=== PATIENT | male | born 1970 | race Caucasian/White ===

== ENCOUNTER 2017-10-24 20:52 | Inpatient (IN) | payer OTHER ==
[2017-10-24 21:59] VITALS: BMI 32.8
--- NOTE | 2017-10-24 22:56 | HP ---
"COWS - Scale Resting Pulse: 1= TN 81-100 Sweatin= Chills/Flushing Restless Observation: 1= Difficult to Sit Still Pupil Size: 0= Normal to Room Light Bone or Joint Aches: 2= Severe Diffuse Aches Runny Nose/ Eye Tearin= Nasal Congestion GI Upset > 30mins: 2= Nausea/Diarrhea Tremor Observation: 1= Tremor [place], Not Seen Yawning Observation: 1= 1-2x During Session Anxiety or Irritability: 2=Irritable/Anxious Goose Flesh Skin: 3=Piloerection COWS Score: 15 CIWA Score - CIWA Score Nausea/Vomitin Muscle Tremors: 3 Anxiety: 3 Agitation: 3 Paroxysmal Sweats: 3 Orientation: 0-Oriented Tacttile Disturbances: 1-Very Mild Itch/Numbness Auditory Disturbances: 0-None Visual Disturbances: 0-None Headache: 1-Very Mild CIWA-Ar Total Score: 17 Admission ROS BHS - HPI Chief Complaint: alcohol and opioid withdrawal sx Allergies/Adverse Reactions: Allergies Allergy/AdvReac Type Severity Reaction Status Date / Time No Known Allergies Allergy Verified 08/19/14 14:24 History of Present Illness: 47 yo m with h/o chronic alcoholism was sent for detox by pain managment physician (gerry Hammer, JUAN DAVID?) because he was using heroin and needs to be inducted in her opinion onto suboxone for pain and addiction. to follow up at [facility] after rehab and suboxone on induction PMHX chronic low back pain, asthma, alcohol withdrawal seizures in past and epilepsy on medication which he takes. last seiuzre a few weeks ago. no suicidal ideation no suicide attempts has depression, anxiety and insomnia. Has been admitted to [facility] for inpatient detox and rehab from alcohol and opioids in past as per medical record. Plan is to detox from alcohol and start induction on suboxone, dose should be divided to treat chronic back pain and adjusted upwards as needed. will start iwth 2mg bid. Charanjit chapin, 1970 Search Date: 10/24/2017 10:59:23 PM The Drug Utilization Report below displays all of the controlled substance prescriptions, if any, that your patient has filled in the last twelve months. The information displayed on this report is compiled from pharmacy submissions to the Department, and accurately reflects the information as submitted by the pharmacies. This report was requested by: Sachin Galloway | Reference #: [id number] Others' Prescriptions Patient Name: Charanjit Chapin Date: 1970 Address: [address] [place] [address] Sex: Male Rx Written Rx Dispensed Drug Quantity Days Supply Prescriber Name 07/04/2017 10/17/2017 phenobarbital 64.8 mg tablet 60 30 Nitza Perea () 07/04/2017 09/19/2017 phenobarbital 64.8 mg tablet 60 30 Nitza Perea () Patient Name: Charanjit Chapin Date: 1970 Address: [address] [place] [place] [address] Sex: Male Rx Written Rx Dispensed Drug Quantity Days Supply Prescriber Name 07/04/2017 08/19/2017 phenobarbital 64.8 mg tablet 60 30 Nitza Perea () 07/04/2017 08/19/2017 zolpidem tartrate 10 mg tablet 30 30 Nitza Perea () 08/05/2017 08/05/2017 acetaminophen-cod #3 tablet 20 5 Jonathan Story N 07/04/2017 07/19/2017 phenobarbital 64.8 mg tablet 60 30 Nitza Perea) 07/04/2017 07/19/2017 zolpidem tartrate 10 mg tablet 30 30 Nitza Perea) 04/06/2017 06/20/2017 phenobarbital 64.8 mg tablet 60 30 Tripp-Walter, Valerie Y 04/06/2017 06/20/2017 zolpidem tartrate 10 mg tablet 30 30 Tripp-Philp, Valerie Y 04/06/2017 05/20/2017 phenobarbital 64.8 mg tablet 60 30 Tripp-Philp, Valerie Y 04/06/2017 05/20/2017 zolpidem tartrate 10 mg tablet 30 30 Tripp-Philp, Valerie Y 04/06/2017 04/18/2017 zolpidem tartrate 10 mg tablet 30 30 Tripp-Philp, Valerie Y 04/06/2017 04/07/2017 phenobarbital 64.8 mg tablet 60 30 Tripp-Walter, Valerie Y Exam Limitations: No Limitations - Ebola screening Have you traveled outside of the country in the last 21 days: No Have you had contact with anyone from an Ebola affected area: No Have you been sick,other than usual withdrawal symptoms: No Do you have a fever: No - Review of Systems Constitutional: Chills, Diaphoresis, Changes in sleep, Weakness, Weight Stable EENT: reports: No Symptoms Reported, Blurred Vision, Recent change in vision ( blind right eye, losing sight in left ye, born that nm but deteriorating at this time) Respiratory: reports: No Symptoms reported Cardiac: reports: No Symptoms Reported GI: reports: Diarrhea, Nausea, Poor Appetite, Poor Fluid Intake, Vomiting, Abdominal cramping : reports: No Symptoms Reported Musculoskeletal: reports: Back Pain Integumentary: reports: Flushing, Sweating Neuro: reports: Headache, Numbness, Paresthesia, Seizure (maximo several meds which he has not taken today), Tingling, Tremors, Weakness Endocrine: reports: Flushing, Increased Thirst Hematology: reports: No Symptoms Reported Psychiatric: reports: Judgement Intact, Mood/Affect Appropiate, Orientated x3, Anxious, Depressed Other Systems: Reviewed and Negative Patient History - Patient Medical History Hx Anemia: No Hx Asthma: Yes (on MDI) Hx Chronic Obstructive Pulmonary Disease (COPD): No Hx Cancer: No Hx Cardiac Disorders: No Hx Congestive Heart Failure: No Hx Hypertension: Yes Hx Hypercholesterolemia: No Hx Pacemaker: No HX Cerebrovascular Accident: No Hx Seizures: Yes (on meds, last seizure a month ago) Hx Dementia: No Hx Diabetes: No Hx Gastrointestinal Disorders: No Hx Liver Disease: No Hx Genitourinary Disorders: No Hx Sexually Transmitted Disorders: No Hx Renal Disease (ESRD): Yes (renal insufficiency stage III) Hx Thyroid Disease: No Hx Human Immunodeficiency Virus (HIV): No Hx Hepatitis C: No Hx Depression: Yes Hx Suicide Attempt: No Hx Bipolar Disorder: No Hx Schizophrenia: No - Patient Surgical History Past Surgical History: No Hx Neurologic Surgery: No Hx Cataract Extraction: No Hx Cardiac Surgery: No Hx Lung Surgery: No Hx Breast Surgery: No Hx Breast Biopsy: No Hx Abdominal Surgery: No Hx Appendectomy: No Hx Cholecystectomy: No Hx Genitourinary Surgery: No Hx Section: No Hx Orthopedic Surgery: No Other Surgical History: right eye surgery /born with right eye blindness Anesthesia Reaction: No - PPD History Previous Implant?: Yes Documented Results: Negative w/o proof Implanted On Prior R Admission?: Yes PPD to be Administered?: Yes - Reproductive History Patient is a Female of Child Bearing Age (11 -55 yrs old): No Patient : No - Smoking Cessation Smoking history: Current every day smoker (states one or two daily) Have you smoked in the past 12 months: Yes Aproximately how many cigarettes per day: 2 If you are a former smoker, when did you quit?: 1 year Cigars Per Day: 0 Hx Chewing Tobacco Use: No Initiated information on smoking cessation: Yes 'Breaking Loose' booklet given: 10/24/17 - Substance & Tx. History Hx Alcohol Use: Yes Hx Substance Use: Yes Substance Use Type: Alcohol, Cocaine, Heroin, Prescribed, Tranquilizers Hx Substance Use Treatment: Yes ([facility] C[facility] ) - Substances Abused Heroin Route: Inhalation Frequency: 3-6 times per week Amount used: $50/day Age of first use: 45 Date of Last Use: 10/21/17 Alcohol Route: Oral Frequency: Daily Amount used: 2pints vodka daily Age of first use: 15 Date of Last Use: 10/24/17 Crack Route: Smoking Frequency: Daily Amount used: $100/day Age of first use: 12 Date of Last Use: 10/24/17 Family Disease History - Family Disease History Family Disease History: Other: Grandparent (grandfather and grandmother alcoholic), Father (alcoholic ), Mother (alcohol ) Admission Physical Exam S - Vital Signs Vital Signs: Vital Signs - 24 hr 10/24/17 21:57 Temperature 97.5 F L Pulse Rate 90 Respiratory 18 Rate Blood Pressure 98/62 - Physical General Appearance: Yes: Nourished, Appropriately Dressed, Disheveled, Mild Distress, Alcohol on Breath, Obese, Tremorous, Irritable, Sweating, Anxious HEENTM: Yes: EOMI, Hearing grossly Normal, Normocephalic, Normal Voice, DIMPLE, Pharynx Normal, Nasal Congestion, Rhinorrhea, Other (blind right eye, leftt ye poor vision, keeps eyes clsed because lights are bothersome.) Respiratory: Yes: Within Normal Limits, Chest Non-Tender, Lungs Clear, Normal Breath Sounds, No Respiratory Distress, No Accessory Muscle Use Neck: Yes: Within Normal Limits, No masses,lesions,Nodules, Supple, Trachea in good position Breast: Yes: Breast Exam Deferred Cardiology: Yes: Within Normal Limits, Regular Rhythm, Regular Rate, S1, S2 Abdominal: Yes: Within Normal Limits, Normal Bowel Sounds, Non Tender, Flat, Soft, Increased Bowel Sounds Genitourinary: Yes: Within Normal Limits Back: Yes: Normal Inspection, Decreased Range of Motion, Muscle Spasm, Vertebral Tenderness Musculoskeletal: Yes: full range of Motion, Gait Steady, Pelvis Stable, Back pain (lower spine), Joint Stiffness, Muscle Pain Extremities: Yes: Normal Capillary Refill, Normal Range of Motion, Non-Tender, Tremors Neurological: Yes: configuration management administrator II-XII NML intact, Fully Oriented, Alert, Motor Strength 5/5, Normal Response, Depressed Affect Integumentary: Yes: Normal Color, Warm, Diaphoresis, Moist - Addiitonal Findings: withdrawal sx - Diagnostic (1) Alcohol dependence with uncomplicated withdrawal Current Visit: Yes Status: Acute (2) Opioid dependence with withdrawal Current Visit: Yes Status: Acute (3) Primary osteoarthritis of both knees Current Visit: No Status: Acute Comment: topical, weight loss, rollator Rx to assist ambulation (4) Asthma Current Visit: No Status: Acute Comment: on inhalers, sees primary (5) Blind right eye Current Visit: Yes Status: Chronic (6) Cocaine dependence, continuous abuse Current Visit: Yes Status: Acute Comment: refer for rehab (7) Drug-induced mood disorder Current Visit: Yes Status: Acute (8) Low back pain Current Visit: Yes Status: Acute Comment: topical, stretches, wt loss, lumbar support ORT = 12 (high risk) DIRE = 10 (poor candidate for [facility] opioid analgesia) (9) MDD (major depressive disorder) Current Visit: Yes Status: Acute Comment: needs psych f/u (10) Nicotine dependence Current Visit: No Status: Chronic Comment: counseled cessation (11) Obesity (BMI 30-39.9) Current Visit: No Status: Chronic Comment: counseled nutritional strategies (12) Seizure disorder Current Visit: No Status: Chronic Comment: sees neuro, on meds, (13) spondylolisthesis grade II Current Visit: No Status: Chronic Comment: gentle stretches, lumbar support , topical, wt loss Cleared for Admission [facility] - Detox or Rehab [facility] Level of Care: Medically Managed Detox Regimen/Protocol: Librium [facility] Breath Alcohol Content Breath Alcohol Content: 0.160 Urine Drug Screen - Results Drug Screen Negative: No Urine Drug Screen Results: [place]-Cocaine, BAR-Barbiturates"
[2017-10-24] MEDS ORDERED: MAGNESIUM CITRATE 300 ML BOTTLE PO PRN (23:00)
[2017-10-24] MEDS ORDERED: chlordiazePOXIDE HCL 25 MG CAPSULE PO PRN (23:00)
[2017-10-24] MEDS ORDERED: ACETAMINOPHEN 325 MG TABLET (FP) PO PRN (23:00)
[2017-10-24] MEDS ORDERED: P-EPHED 60MG/TRIPROLIDI 2.5MG TABLET PO PRN (23:00)
[2017-10-24] MEDS ORDERED: guaiFENesin/D-METHORPHAN HB 10 ML UNIT-DOSE CUPS PO PRN (23:00)
[2017-10-24] MEDS ORDERED: IBUPROFEN 400 MG TABLET (FP) PO PRN (23:00)
[2017-10-24] MEDS ORDERED: LOPERAMIDE HCL 2 MG CAPSULE PO PRN (23:00)
[2017-10-24] MEDS ORDERED: NICOTINE POLACRILEX 4 MG GUM BC PRN (23:00)
[2017-10-24] MEDS ORDERED: MAGNESIUM HYDROX 2400MG/30ML ORAL SUSPENSION 30 ML CUP PO PRN (23:00)
[2017-10-24] MEDS ORDERED: MENTHOL/PHENOL 1 EACH UD MM PRN (23:00)
[2017-10-24] MEDS ORDERED: hydrOXYzine PAMOATE 50 MG CAPSULE (FP) PO PRN (23:00)
[2017-10-24] MEDS ORDERED: MAG HYDROX/AL HYDROX/SIMETH 30 ML UNIT-DOSE CUP PO PRN (23:00)
[2017-10-24] MEDS ORDERED: DICLOFENAC SODIUM 2 GM TP PRN (23:01)
[2017-10-24] MEDS ORDERED: ZOLPIDEM TARTRATE 5 MG TABLET PO PRN (23:04)
[2017-10-24] MEDS: LIDOCAINE PATCH REMOVAL MC SCH (23:10)
[2017-10-24] MEDS ORDERED: BUPRENORPHINE/NALOXONE 2 MG/0.5 MG FILM PACKET SL ONE (23:14)
[2017-10-24] MEDS ORDERED: FLU VACCINE QUAD 60 MCG/0.5 ML (MDV 17-18) IM ONE (23:22)
[2017-10-25] MEDS: levETIRAcetam 500 MG TABLET (FP) PO SCH ×3 (00:52→22:13)
[2017-10-25] MEDS: DIVALPROEX SODIUM 500 MG TABLET E.C. PO SCH ×3 (00:52→22:12)
[2017-10-25] MEDS: chlordiazePOXIDE HCL 25 MG CAPSULE PO SCH ×5 (00:55→22:43)
[2017-10-25] MEDS: PHENobarbital 30 MG TABLET PO SCH ×3 (00:56→22:12)
[2017-10-25] MEDS: NAPROXEN 500 MG TABLET (FP) PO SCH ×3 (00:58→22:13)
[2017-10-25 10:04] LABS: HEMATOCRIT 43.8 % (35.4-49); HEMOGLOBIN 14.8 GM/dL (11.7-16.9); MCH 33.4 pg (25.7-33.7); MCHC 33.8 g/dl (32.0-35.9); MEAN CELL VOLUME 98.9 fl (80-96); MEAN PLT VOLUME 10.8 fl (7.5-11.1); PLATELET COUNT 192 K/MM3 (134-434); RBC 4.43 M/mm3 (4.00-5.60); RDW 14.6 % (11.9-15.9); WHITE BLOOD COUNT 9.1 K/mm3 (4.0-10.0)
[2017-10-25 10:10] LABS: CHLORIDE 108 mmol/L (98-107); POTASSIUM 4.2 mmol/L (3.5-5.1); SODIUM 141 mmol/L (136-145)
[2017-10-25] MEDS: PRENATAL VITAMINS W/ FOLIC ACID TABLET (FP) PO SCH (10:11)
[2017-10-25] MEDS: PANTOPRAZOLE 40 MG TABLET (FP) PO SCH (10:11)
[2017-10-25] MEDS: BUPRENORPHINE/NALOXONE 2 MG/0.5 MG FILM PACKET SL SCH ×2 (10:12→22:12)
[2017-10-25] MEDS: NICOTINE 21 MG/24 HOURS TOPICAL PATCH TD SCH (10:12)
--- NOTE | 2017-10-25 10:16 | PN ---
[facility] CIWA - CIWA Score Nausea/Vomitin-No Nausea/No Vomiting Muscle Tremors: 4-Moderate,w/Arms Extend Anxiety: 3 Agitation: 3 Paroxysmal Sweats: 3 Orientation: 0-Oriented Tacttile Disturbances: 0-None Auditory Disturbances: 0-None Visual Disturbances: 0-None Headache: 0-None Present CIWA-Ar Total Score: 13 BHS COWS - Scale Resting Pulse: 0= OK 80 or Below Sweatin=Flushed/Facial Moisture Restless Observation: 0= Sits Still Pupil Size: 0= Normal to Room Light Bone or Joint Aches: 2= Severe Diffuse Aches Runny Nose/ Eye Tearin= Runny Nose/Eyes GI Upset > 30mins: 2= Nausea/Diarrhea Tremor Observation of Outstretched Hands: 2= Slight Tremor Visible Yawning Observation: 2= >3x During Session Anxiety or Irritability: 2=Irritable/Anxious Goose Flesh Skin: 3=Piloerection COWS Score: 17 S Progress Note (SOAP) Subjective: back pain sweats shakes interrupted sleep agitation i want a cane Objective: 10/25/17 10:14 Vital Signs Temperature 96.6 F L 10/25/17 09:47 Pulse Rate 95 H 10/25/17 09:47 Respiratory Rate 18 10/25/17 09:47 Blood Pressure 108/77 10/25/17 09:47 O2 Sat by Pulse Oximetry (%) Laboratory Tests 10/25/17 07:00 WBC 9.1 RBC 4.43 Hgb 14.8 Hct 43.8 MCV 98.9 H MCH 33.4 MCHC 33.8 RDW 14.6 Plt Count 192 MPV 10.8 labs pending [id number] ambulating no acute distress Assessment: 10/25/17 10:15 withdrawal sx Plan: continue detox increase fluids cane ordered lidocaine patch naproxyn bid
[2017-10-25] MEDS: ENALAPRIL MALEATE 5 MG TABLET (FP) PO SCH (10:19)
[2017-10-25 10:31] LABS: URINE APPEARANCE CLOUDY; URINE BILIRUBIN NEGATIVE (NEGATIVE); URINE BLOOD NEGATIVE (NEGATIVE); URINE COLOR DKYELLOW; URINE GLUCOSE (UA) NEGATIVE (NEGATIVE); URINE KETONE TRACE (NEGATIVE); URINE LEUK ESTERASE NEGATIVE (NEGATIVE); URINE NITRITE NEGATIVE (NEGATIVE); URINE UROBILINOGEN NEGATIVE mg/dL (0.2-1.0)
[2017-10-25 10:42] LABS: ALBUMIN 3.8 g/dl (3.4-5.0); ALK PHOS 152 U/L (45-117); ANION GAP 11 (8-16); BILIRUBIN,TOTAL 0.5 mg/dL (0.2-1.0); BLOOD UREA NITROGEN 26 mg/dL (7-18); CALCIUM 8.3 mg/dL (8.5-10.1); CO2 22 mmol/L (21-32); CREATININE 1.4 mg/dL (0.7-1.3); GLUCOSE,RANDOM 125 mg/dL (74-106); SGOT/AST 17 U/L (15-37); SGPT/ALT 23 U/L (12-78); TOT PROT 7.4 g/dl (6.4-8.2)
[2017-10-25 10:50] LABS: URINE PROTEIN 1+ (NEGATIVE)
[2017-10-25 11:02] LABS: EPI CELLS FEW /HPF (FEW); URINE MUCUS MANY
[2017-10-25] MEDS: LIDOCAINE 5% TOPICAL PATCH TP SCH (11:06)
[2017-10-25] MEDS ORDERED: FLU VACCINE QUAD 60 MCG/0.5 ML (MDV 17-18) IM ONE ×2 (12:37→13:06)
[2017-10-25] MEDS ORDERED: PNEUMOC 13-VAL CONJ-DIP CRM/PF 0.5 ML DISP.SYRIN IM ONE ×2 (12:50→13:15)
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
--- NOTE | 2017-10-25 14:21 | EKG ---
Test Reason : Blood Pressure : / mmHG Vent. Rate : 081 BPM Atrial Rate : 081 BPM P-R Int : 142 ms QRS Dur : 092 ms QT Int : 348 ms P-R-T Axes : 034 067 017 degrees QTc Int : 404 ms NORMAL SINUS RHYTHM NORMAL ECG WHEN COMPARED WITH ECG OF 23-OCT-2012 10:04, NO SIGNIFICANT CHANGE WAS FOUND Confirmed by LUIS MARSH MD ([id number]) on 10/25/2017 2:20:35 PM Referred By: Confirmed By:LUIS MARSH MD
[2017-10-25] MEDS: THIAMINE HCL 100 MG TABLET (FP) PO SCH (22:12)
[2017-10-25] MEDS: LIDOCAINE PATCH REMOVAL MC SCH (22:42)
[2017-10-26] MEDS: chlordiazePOXIDE HCL 25 MG CAPSULE PO SCH ×3 (05:54→18:37)
[2017-10-26] MEDS: ALBUTEROL SO4 18 GM HFA INHALER IH PRN ×2 (05:54→14:16)
--- NOTE | 2017-10-26 10:05 | PN ---
S CIWA - CIWA Score Nausea/Vomitin Muscle Tremors: 2 Anxiety: 2 Agitation: 2 Paroxysmal Sweats: 2 Orientation: 0-Oriented Tacttile Disturbances: 3-Moderate Itch/Numb/Burn Auditory Disturbances: 0-None Visual Disturbances: 0-None Headache: 0-None Present CIWA-Ar Total Score: 13 BHS COWS - Scale Resting Pulse: 2= [place] 101-120 Sweatin= Chills/Flushing Restless Observation: 3= Extraneous Movement Pupil Size: 1= Pupils >than Normal Bone or Joint Aches: 2= Severe Diffuse Aches Runny Nose/ Eye Tearin= Nasal Congestion GI Upset > 30mins: 1= Stomach Cramp Tremor Observation of Outstretched Hands: 1= Tremor [place], Not Seen Yawning Observation: 1= 1-2x During Session Anxiety or Irritability: 1=Feels Anxious/Irritable Goose Flesh Skin: 0=Smooth Skin COWS Score: 14 S Progress Note (SOAP) Subjective: interrupted sleep, sweats, lbp, Objective: 10/26/17 10:04 Vital Signs Temperature 99.0 F 10/26/17 09:47 Pulse Rate 116 H 10/26/17 09:47 Respiratory Rate 20 10/26/17 09:47 Blood Pressure 143/91 10/26/17 09:47 O2 Sat by Pulse Oximetry (%) Laboratory Tests 10/25/17 10/25/17 10/25/17 07:00 07:00 07:00 WBC 9.1 RBC 4.43 Hgb 14.8 Hct 43.8 MCV 98.9 H MCH 33.4 MCHC 33.8 RDW 14.6 Plt Count 192 MPV 10.8 Sodium 141 Potassium 4.2 Chloride 108 H Carbon Dioxide 22 Anion Gap 11 BUN 26 H D Creatinine 1.4 H D Creat Clearance w eGFR 54.09 Random Glucose 125 H D Calcium 8.3 L Total Bilirubin 0.5 D AST 17 ALT 23 D Alkaline Phosphatase 152 H Total Protein 7.4 Albumin 3.8 Urine Color Urine Appearance Urine pH Ur Specific [place] Urine Protein Urine Glucose (UA) Urine Ketones Urine Blood Urine Nitrite Urine Bilirubin Urine Urobilinogen Ur Leukocyte Esterase Urine WBC (Auto) Urine RBC (Auto) Ur Epithelial Cells Urine Mucus RPR Titer Nonreactive HIV 1&2 Antibody Screen HIV P24 Antigen 10/25/17 10/25/17 07:00 08:00 WBC RBC Hgb Hct MCV MCH MCHC RDW Plt Count MPV Sodium Potassium Chloride Carbon Dioxide Anion Gap BUN Creatinine Creat Clearance w eGFR Random Glucose Calcium Total Bilirubin AST ALT Alkaline Phosphatase Total Protein Albumin Urine Color Dkyellow Urine Appearance Cloudy Urine pH 5.0 Ur Specific [place] 1.027 Urine Protein 1+ H Urine Glucose (UA) Negative Urine Ketones Trace H Urine Blood Negative Urine Nitrite Negative Urine Bilirubin Negative Urine Urobilinogen Negative Ur Leukocyte Esterase Negative Urine WBC (Auto) 11 Urine RBC (Auto) 1 Ur Epithelial Cells Few Urine Mucus Many RPR Titer HIV 1&2 Antibody Screen Negative HIV P24 Antigen Negative pt lying in bed drowsy in nad , has cane Assessment: 10/26/17 10:05 withdrawal sx's lbp Plan: cont. detox increase fluids cont. lidocaine
[2017-10-26] MEDS: BUPRENORPHINE/NALOXONE 2 MG/0.5 MG FILM PACKET SL SCH ×2 (10:19→22:23)
[2017-10-26] MEDS: PRENATAL VITAMINS W/ FOLIC ACID TABLET (FP) PO SCH (10:19)
[2017-10-26] MEDS: PHENobarbital 30 MG TABLET PO SCH ×2 (10:19→22:23)
[2017-10-26] MEDS: ENALAPRIL MALEATE 5 MG TABLET (FP) PO SCH (10:19)
[2017-10-26] MEDS: NAPROXEN 500 MG TABLET (FP) PO SCH ×2 (10:19→22:24)
[2017-10-26] MEDS: PANTOPRAZOLE 40 MG TABLET (FP) PO SCH (10:20)
[2017-10-26] MEDS: DIVALPROEX SODIUM 500 MG TABLET E.C. PO SCH ×2 (10:20→22:23)
[2017-10-26] MEDS: NICOTINE 21 MG/24 HOURS TOPICAL PATCH TD SCH (10:20)
[2017-10-26] MEDS: levETIRAcetam 500 MG TABLET (FP) PO SCH ×2 (10:20→22:24)
[2017-10-26] MEDS: LIDOCAINE 5% TOPICAL PATCH TP SCH (10:20)
[2017-10-26] MEDS: THIAMINE HCL 100 MG TABLET (FP) PO SCH (22:23)
[2017-10-26] MEDS: LIDOCAINE PATCH REMOVAL MC SCH (22:25)
[2017-10-26] MEDS: chlordiazePOXIDE 5 MG CAPSULE PO SCH (22:28)
[2017-10-27] MEDS: chlordiazePOXIDE 5 MG CAPSULE PO SCH ×3 (05:32→17:48)
--- NOTE | 2017-10-27 08:36 | PN ---
Psychiatric Progress Note Vital Signs: Vital Signs Period Temp Pulse Resp BP Sys/Buitrago Pulse Ox Last 24 Hr 97.0 F-99.0 F 87-118 18-20 104-143/62-91 Date of Session: 10/27/17 Chief Complaint:: Insomnia HPI: Patient reports taking Ambien 10mg po qhs and asking to restart this medications dueriong detox protocol Current Medications: Active Medications Generic Name Dose Route Start Last Admin Trade Name Freq PRN Reason Stop Dose Admin Acetaminophen 650 mg 10/24/17 23:00 10/27/17 05:35 Tylenol - PO 650 mg Q4H PRN Administration FEVER OR PAIN Al Hydroxide/Mg Hydroxide 30 ml 10/24/17 23:00 Mylanta Oral Suspension - PO Q6H PRN DYSPEPSIA Albuterol Sulfate 2 puff 10/24/17 23:01 10/26/17 14:16 Ventolin Hfa Inhaler - IH 2 puff Q4H PRN Administration ASTHMA Buprenorphine/Naloxone 1 each 10/25/17 10:00 10/26/17 22:23 Suboxone 2mg/0.5mg Sl Film - SL 1 each BID LISBETH Administration Buspirone HCl 15 mg 10/25/17 22:00 10/26/17 22:24 Buspar - PO 15 mg BID LISBETH Administration Chlordiazepoxide HCl 15 mg 10/26/17 23:00 10/27/17 05:32 Librium - PO 10/27/17 17:01 15 mg [id number] LISBETH Administration Chlordiazepoxide HCl 25 mg 10/24/17 23:00 Librium - PO 10/27/17 22:59 Q4H PRN WITHDRAWAL(CONT SUBST) Chlordiazepoxide HCl 10 mg 10/27/17 23:00 Librium - PO 10/28/17 17:01 [id number] LISBETH Divalproex Sodium 1,000 mg 10/24/17 23:15 10/26/17 22:23 Depakote - PO 1,000 mg BID LISBETH Administration Enalapril Maleate 5 mg 10/25/17 10:00 10/26/17 10:19 Vasotec - PO 5 mg DAILY LISBETH Administration Eucalyptus/Menthol/Phenol/Sorbitol 1 each 10/24/17 23:00 Cepastat Lozenge - MM Q4H PRN SORE THROAT Guaifenesin 10 ml 10/24/17 23:00 Robitussin Dm - PO Q6H PRN COUGH Hydroxyzine Pamoate 50 mg 10/24/17 23:00 Vistaril - PO Q4H PRN AGITATION Levetiracetam 1,000 mg 10/24/17 23:15 10/26/17 22:24 Keppra - PO 1,000 mg BID LISBETH Administration Lidocaine 1 patch 10/25/17 10:00 10/26/17 10:20 Lidoderm Patch - TP 1 patch DAILY LISBETH Administration Loperamide HCl 4 mg 10/24/17 23:00 Imodium - PO Q6H PRN DIARRHEA Magnesium Citrate 300 ml 10/24/17 23:00 Citroma - PO Q48H PRN CONSTIPATION Magnesium Hydroxide 30 ml 10/24/17 23:00 Milk Of Magnesia - PO DAILY PRN CONSTIPATION Miscellaneous 1 each 10/24/17 22:00 10/26/17 22:25 Lidoderm Patch Removal MC 1 each DAILY@2200 LISBETH Administration Naproxen 500 mg 10/24/17 23:30 10/26/17 22:24 Naprosyn - PO 500 mg BID LISBETH Administration Nicotine 21 mg 10/25/17 10:00 10/26/17 10:20 Nicoderm Patch - TD 21 mg DAILY LISBETH Administration Nicotine Polacrilex 4 mg 10/24/17 23:00 Nicorette Gum - BC Q2H PRN NICOTINE REPLACEMENT RX Non-Formulary Medication 10 mg 10/27/17 22:00 Zolpidem Tartrate [Ambien] PO HS LISBETH Pantoprazole Sodium 40 mg 10/25/17 10:00 10/26/17 10:20 Protonix - PO 40 mg DAILY LISBETH Administration Phenobarbital 60 mg 10/24/17 23:15 10/26/17 22:23 Phenobarbital - PO 60 mg BID LISBETH Administration Multivit/Folic Acid/Iron 1 tab 10/25/17 10:00 10/26/17 10:19 Vitamins (Sjr) - PO 1 tab DAILY LISBETH Administration Pseudoephedrine/Triprolidine 1 combo 10/24/17 23:00 Actifed - PO TID PRN NASAL CONGESTION Thiamine HCl 100 mg 10/25/17 22:00 10/26/17 22:23 Vitamin B1 - PO 100 mg HS LISBETH Administration Zolpidem Tartrate 10 mg 10/24/17 23:04 Ambien - PO HS PRN INSOMNIA Medication(s) Change(s): Ambien 10mg po qhs Mental Status Exam - Mental Status Exam Alert and Oriented to: Person Cognitive Function: Fair Patient Appearance: Unkempt Mood: Withdrawn Affect: Flat Patient Behavior: Cooperative Speech Pattern: Delayed Voice Loudness: Mildly Soft/Quiet Thought Process: Circumstantial Thought Disorder: Being Controlled Hallucinations: Denies Suicidal Ideation: Denies Homicidal Ideation: Denies Insight/Judgement: Fair Sleep: Difficulty falling asleep Appetite: Weight gain Muscle strength/Tone: Mild Hypotonicity Gait/Station: Shuffling Additional Comments: Ambien 10mg po qhs Psychiatric Treatment Plan - Problem List (1) Drug-induced mood disorder Current Visit: Yes (2) MDD (major depressive disorder) Current Visit: Yes Comment: needs psych f/u (3) Cocaine dependence, continuous abuse Current Visit: Yes Comment: refer for rehab (4) Major depressive disorder Current Visit: Yes Comment: referred to A (5) Nicotine dependence Current Visit: Yes Comment: counseled cessation (6) Opioid dependence with withdrawal Current Visit: Yes (7) Cocaine dependence Current Visit: No Qualifiers: Substance use status: uncomplicated Qualified Code(s): F14.20 - Cocaine dependence, uncomplicated Comment: referred for rehab (8) Obesity (BMI 30-39.9) Current Visit: No Comment: counseled nutritional strategies (9) Seizure disorder Current Visit: No Comment: sees neuro, on meds, Initial treatment plan: Ambien 10mg po qhs
--- NOTE | 2017-10-27 09:13 | PN ---
[facility] Progress Note (SOAP) Subjective: Patient feels well on curent medication regimen but requesting walker with wheels and writstlets from locker to ambulate with. Still has anxiety, nausea, and insomnia, slight tremor noted. Objective: 10/27/17 09:12 Vital Signs - 24 hr 10/26/17 10/26/17 10/26/17 09:47 13:31 17:26 Temperature 99.0 F 97.2 F L 97.0 F L Pulse Rate 116 H 118 H 109 H Respiratory 20 18 20 Rate Blood Pressure 143/91 125/75 114/73 10/26/17 10/27/17 10/27/17 22:05 00:30 03:30 Temperature 97.7 F Pulse Rate 105 H Respiratory 18 18 18 Rate Blood Pressure 105/64 10/27/17 06:20 Temperature 97.9 F Pulse Rate 87 Respiratory 18 Rate Blood Pressure 104/62 Laboratory Tests 10/25/17 10/25/17 10/25/17 07:00 07:00 07:00 WBC 9.1 RBC 4.43 Hgb 14.8 Hct 43.8 MCV 98.9 H MCH 33.4 MCHC 33.8 RDW 14.6 Plt Count 192 MPV 10.8 Sodium 141 Potassium 4.2 Chloride 108 H Carbon Dioxide 22 Anion Gap 11 BUN 26 H D Creatinine 1.4 H D Creat Clearance w eGFR 54.09 Random Glucose 125 H D Calcium 8.3 L Total Bilirubin 0.5 D AST 17 ALT 23 D Alkaline Phosphatase 152 H Total Protein 7.4 Albumin 3.8 Urine Color Urine Appearance Urine pH Ur Specific Adel Urine Protein Urine Glucose (UA) Urine Ketones Urine Blood Urine Nitrite Urine Bilirubin Urine Urobilinogen Ur Leukocyte Esterase Urine WBC (Auto) Urine RBC (Auto) Ur Epithelial Cells Urine Mucus RPR Titer Nonreactive HIV 1&2 Antibody Screen HIV P24 Antigen 10/25/17 10/25/17 07:00 08:00 WBC RBC Hgb Hct MCV MCH MCHC RDW Plt Count MPV Sodium Potassium Chloride Carbon Dioxide Anion Gap BUN Creatinine Creat Clearance w eGFR Random Glucose Calcium Total Bilirubin AST ALT Alkaline Phosphatase Total Protein Albumin Urine Color Dkyellow Urine Appearance Cloudy Urine pH 5.0 Ur Specific Adel 1.027 Urine Protein 1+ H Urine Glucose (UA) Negative Urine Ketones Trace H Urine Blood Negative Urine Nitrite Negative Urine Bilirubin Negative Urine Urobilinogen Negative Ur Leukocyte Esterase Negative Urine WBC (Auto) 11 Urine RBC (Auto) 1 Ur Epithelial Cells Few Urine Mucus Many RPR Titer HIV 1&2 Antibody Screen Negative HIV P24 Antigen Negative macrosytosis, abnormal u/a, eleavted lfts, bun/creatinine Assessment: 10/27/17 09:12 withdrawal sx, dehydration, liver disease - cont detox, fluids, obtain walker with wheels and wristlets if possible for aptient.
[2017-10-27] MEDS: PHENobarbital 30 MG TABLET PO SCH ×2 (10:12→22:13)
[2017-10-27] MEDS: PRENATAL VITAMINS W/ FOLIC ACID TABLET (FP) PO SCH (10:12)
[2017-10-27] MEDS: levETIRAcetam 500 MG TABLET (FP) PO SCH ×2 (10:12→22:13)
[2017-10-27] MEDS: ENALAPRIL MALEATE 5 MG TABLET (FP) PO SCH (10:12)
[2017-10-27] MEDS: DIVALPROEX SODIUM 500 MG TABLET E.C. PO SCH ×2 (10:13→22:12)
[2017-10-27] MEDS: NICOTINE 21 MG/24 HOURS TOPICAL PATCH TD SCH (10:14)
[2017-10-27] MEDS: NAPROXEN 500 MG TABLET (FP) PO SCH ×2 (10:14→22:12)
[2017-10-27] MEDS: PANTOPRAZOLE 40 MG TABLET (FP) PO SCH (10:14)
[2017-10-27] MEDS: LIDOCAINE 5% TOPICAL PATCH TP SCH (10:14)
[2017-10-27] MEDS: BUPRENORPHINE/NALOXONE 2 MG/0.5 MG FILM PACKET SL SCH ×2 (13:54→22:12)
[2017-10-27] MEDS ORDERED: ZOLPIDEM TARTRATE 10 MG TABLET (PARK CARE ONLY) PO PRN (22:00)
[2017-10-27] MEDS: LIDOCAINE PATCH REMOVAL MC SCH (22:13)
[2017-10-27] MEDS: THIAMINE HCL 100 MG TABLET (FP) PO SCH (22:13)
[2017-10-27] MEDS: chlordiazePOXIDE HCL 10 MG CAPSULE PO SCH (22:15)
[2017-10-28] MEDS: ALBUTEROL SO4 18 GM HFA INHALER IH PRN (01:58)
[2017-10-28] MEDS ORDERED: ALBUTEROL SO4 0.083% IH SOL 2.5 MG/3 ML VIAL.NEB. NEB PRN (02:35)
[2017-10-28] MEDS: chlordiazePOXIDE HCL 10 MG CAPSULE PO SCH ×2 (05:24→10:05)
[2017-10-28] MEDS: BUPRENORPHINE/NALOXONE 2 MG/0.5 MG FILM PACKET SL SCH (05:24)
[2017-10-28 06:53] VITALS: TEMP 97.7
--- NOTE | 2017-10-28 08:41 | DS ---
[facility] Detox Discharge Summary Admission Date: 10/24/17 Discharge Date: 10/28/17 - History Present History: Alcohol Dependence, Cocaine Dependence, Opioid Dependence Additional Comments: follow up with after care program as arrangement Pertinent Past History: asthma arthritis both knees lowback pain nicotine dependence obesity seizure disorder depression - Physical Exam Results Vital Signs: Vital Signs Temperature 97.7 F 10/28/17 06:53 Pulse Rate 89 10/28/17 06:53 Respiratory Rate 18 10/28/17 06:53 Blood Pressure 111/65 10/28/17 06:53 O2 Sat by Pulse Oximetry (%) Pertinent Admission Physical Exam Findings: withdrawal symptom - Treatment Hospital Course: Detox Protocol Followed, Detoxed Safely, Responded well, Discharged Condition Good - Medication Discharge Medications: Ambulatory Orders Ergocalciferol [Vitamin D2] 50,000 unit PO WEEKLY 07/11/14 Albuterol Sulfate Inhaler - [Ventolin HFA Inhaler -] 2 inh PO Q4H PRN #1 inhaler 10/27/17 Buprenorphine/Naloxone [Suboxone 2Mg/0.5MG Sl Film -] 1 each SL TID 7 Days #21 packet MDD 3 10/27/17 Divalproex [Depakote -] 1,000 mg PO BID #60 tablet.ec 10/27/17 Enalapril Maleate 5 mg PO DAILY #30 tablet 10/27/17 Levetiracetam [Keppra -] 750 mg PO BID #60 tablet 10/27/17 Phenobarbital - 60 mg PO BID #60 tablet MDD 2 10/27/17 Zolpidem Tartrate [Ambien] 10 mg PO HS #14 tablet MDD 10 10/27/17 - Diagnosis (1) Alcohol dependence with uncomplicated withdrawal Current Visit: Yes Status: Chronic (2) Low back pain Current Visit: Yes Status: Acute (3) Primary osteoarthritis of both knees Current Visit: Yes Status: Acute (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 Current Visit: Yes Status: Chronic (6) Cocaine dependence, continuous abuse Current Visit: Yes Status: Chronic (7) Major depressive disorder Current Visit: Yes Status: Chronic (8) Nicotine dependence Current Visit: Yes Status: Chronic (9) Opioid dependence with withdrawal Current Visit: Yes Status: Chronic (10) Chronic renal insufficiency, stage III (moderate) Current Visit: No Status: Chronic (11) Obesity (BMI 30-39.9) Current Visit: No Status: Chronic (12) Seizure disorder Current Visit: No Status: Chronic (13) spondylolisthesis grade II Current Visit: No Status: Chronic (14) Encounter for monitoring Suboxone maintenance therapy Current Visit: Yes Status: Acute - AMA Did Patient Leave Against Medical Advice: No
[2017-10-28 10:03] VITALS: BP 138/84; PULSE 109
[2017-10-28] MEDS: LIDOCAINE 5% TOPICAL PATCH TP SCH (10:05)
[2017-10-28] MEDS: NAPROXEN 500 MG TABLET (FP) PO SCH (10:05)
[2017-10-28] MEDS: DIVALPROEX SODIUM 500 MG TABLET E.C. PO SCH (10:05)
[2017-10-28] MEDS: ENALAPRIL MALEATE 5 MG TABLET (FP) PO SCH (10:05)
[2017-10-28] MEDS: PRENATAL VITAMINS W/ FOLIC ACID TABLET (FP) PO SCH (10:06)
[2017-10-28] MEDS: levETIRAcetam 500 MG TABLET (FP) PO SCH (10:06)
[2017-10-28] MEDS: NICOTINE 21 MG/24 HOURS TOPICAL PATCH TD SCH (10:07)
[2017-10-28] MEDS: PANTOPRAZOLE 40 MG TABLET (FP) PO SCH (10:08)
[2017-10-28] MEDS: PHENobarbital 30 MG TABLET PO SCH (10:08)
== END 2017-10-28 11:25 | disposition home or self-care (01) | DRG 773 ==
LOC: YASAS 20:52 → Y6N 23:47
PROVIDERS: ADMIT Internal Medicine; ATTEND Internal Medicine
PROC: HZ2ZZZZ Detoxification Services for Substance Abuse Treatment (ICD-10-PCS; principal; 2017-10-24)
PROC: HZ2ZZZZ Detoxification Services for Substance Abuse Treatment (ICD-10-PCS; 2017-10-24)
DX: F19.230 Other psychoactive substance dependence with withdrawal, uncomplicated (principal); F11.23 Opioid dependence with withdrawal; F10.230 Alcohol dependence with withdrawal, uncomplicated; F14.20 Cocaine dependence, uncomplicated; F17.210 Nicotine dependence, cigarettes, uncomplicated; F33.9 Major depressive disorder, recurrent, unspecified; J45.909 Unspecified asthma, uncomplicated; G40.909 Epilepsy, unspecified, not intractable, without status epilepticus; I12.9 Hypertensive chronic kidney disease with stage 1 through stage 4 chronic kidney disease, or unspecified chronic kidney disease; N18.3 Chronic kidney disease, stage 3 (moderate); E70.30 Albinism, unspecified; Z51.81 Encounter for therapeutic drug level monitoring; B35.6 Tinea cruris; H54.40 Blindness, one eye, unspecified eye; E66.9 Obesity, unspecified; Z68.32 Body mass index [BMI] 32.0-32.9, adult
CPT/HCPCS: 36415; 71020-TC; 80053; 81003; 81015; 85027; 86593; 87389; 90670; 90688; 93005; 93010; 94640; G0008; G0009

== ENCOUNTER 2018-02-17 12:27 | Inpatient (IN) | payer OTHER ==
--- NOTE | 2018-02-17 12:17 | HP ---
[facility] Rehab Assess/Revision - Admission History Admitted to Rehab from: [facility] Date of Admission to Rehab: 02/17/2018 - Vital signs Vital Signs: NOTED; STABLE. - Findings Detox History & Physical reviewed: Yes Concur with findings: Yes Comments/Additional Findings: PATIENT'S MEDICAL / MEDICATION HISTORY REVIEWED PRIOR TO DISCHARGE FROM DETOX UNIT. PATIENT WAS DISCHARGED FROM DETOX UNIT TO BE TAKEN TO REHAB UNIT IN STABLE MEDICAL CONDITION. Inpatient Rehab Admission - Initial Determination Are CD services needed?: Yes Free of communicable disease: Yes Not in need of hospitalization: Yes - Rehab Admission Criteria Previous failed treatment: Yes Comorbidities: Yes Patient is meeting Inpatient Rehab admission criteria:: Yes
[~2018-02-17 12:27] MED LIST: ALBUTEROL SO4 18 GM HFA INHALER IH PRN; LOPERAMIDE HCL 2 MG CAPSULE PO PRN; MENTHOL/PHENOL 1 EACH UD MM PRN; P-EPHED 60MG/TRIPROLIDI 2.5MG TABLET PO PRN; guaiFENesin/D-METHORPHAN HB 10 ML UNIT-DOSE CUPS PO PRN
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
[2018-02-17] MEDS: BACLOFEN 10 MG TABLET (FP) PO SCH ×2 (14:21→22:06)
[2018-02-17] MEDS: DOCUSATE SODIUM 100 MG CAPSULE (FP) PO SCH ×2 (14:21→22:07)
[2018-02-17] MEDS ORDERED: hydrOXYzine PAMOATE 50 MG CAPSULE (FP) PO PRN (14:29)
--- NOTE | 2018-02-17 17:16 | PN ---
[facility] Progress Note Note: Patient presents with mild headache, body aches and back pain. Recently completed detox for heroin withdrawal symptoms. Patient [facility] with [facility]one [facility] which was confirmed with [facility]. Obj: Skin: warm and dry MS: ambulates with cane, slow, no edema, + LS tenderness. In NAD A/P: Withdrawal Symptoms Will start suboxone 2mg stat dose today then 2mg daily increase oral fluids rest continue to monitor
[2018-02-17] MEDS ORDERED: BUPRENORPHINE/NALOXONE 2 MG/0.5 MG FILM PACKET SL ONE (17:30)
[2018-02-17] MEDS ORDERED: FLUTICASONE PROPIONATE IH SCH (22:00)
[2018-02-17] MEDS: DIVALPROEX SODIUM 500 MG TABLET E.C. PO SCH (22:06)
[2018-02-17] MEDS: MELATONIN 5 MG TABLETS PO PRN (22:07)
[2018-02-17] MEDS: PHENobarbital 30 MG TABLET PO SCH (22:07)
[2018-02-17] MEDS: SUVOREXANT 10 MG TABLET PO PRN (22:09)
[2018-02-17] MEDS: THIAMINE HCL 100 MG TABLET (FP) PO SCH (22:10)
[2018-02-17] MEDS: NON-FORMULARY MED PO SCH (22:11)
[2018-02-17] MEDS ORDERED: PT OWN MED DRAWER 7, Y5N ONE ×2 (22:20→23:06)
[2018-02-18] MEDS: DOCUSATE SODIUM 100 MG CAPSULE (FP) PO SCH ×3 (06:07→21:05)
[2018-02-18] MEDS: BACLOFEN 10 MG TABLET (FP) PO SCH ×3 (06:07→21:05)
[2018-02-18] MEDS ORDERED: PT OWN MED DRAWER 7, Y5N ONE ×5 (08:26→22:49)
[2018-02-18] MEDS: MOMETASONE FUROATE 220 MCG/IH INHALER IH SCH (09:20)
[2018-02-18] MEDS: BUPRENORPHINE/NALOXONE 2 MG/0.5 MG FILM PACKET SL SCH (09:21)
[2018-02-18] MEDS: PRENATAL VITAMINS W/ FOLIC ACID TABLET (FP) PO SCH (09:21)
[2018-02-18] MEDS: NON-FORMULARY MED PO SCH ×2 (09:21→21:10)
[2018-02-18] MEDS: LISINOPRIL 10 MG TABLET (FP) PO SCH (09:21)
[2018-02-18] MEDS: ERGOCALCIFEROL (VITAMIN D2) 50,000 UNIT CAPSULE (FP) PO SCH (09:21)
[2018-02-18] MEDS: NICOTINE 21 MG/24 HOURS TOPICAL PATCH TD SCH (09:21)
[2018-02-18] MEDS: DIVALPROEX SODIUM 500 MG TABLET E.C. PO SCH ×2 (09:21→21:05)
[2018-02-18] MEDS: HYDROCHLOROTHIAZIDE 25 MG TABLET (FP) PO SCH (09:21)
[2018-02-18] MEDS: PHENobarbital 30 MG TABLET PO SCH ×2 (09:22→21:05)
[2018-02-18] MEDS: LIDOCAINE 5% TOPICAL PATCH TP SCH (13:49)
[2018-02-18] MEDS: THIAMINE HCL 100 MG TABLET (FP) PO SCH (21:05)
[2018-02-18] MEDS: SUVOREXANT 10 MG TABLET PO PRN (21:07)
[2018-02-18] MEDS: LIDOCAINE PATCH REMOVAL MC SCH (22:39)
[2018-02-19] MEDS: DOCUSATE SODIUM 100 MG CAPSULE (FP) PO SCH ×3 (06:02→21:19)
[2018-02-19] MEDS: BACLOFEN 10 MG TABLET (FP) PO SCH ×3 (06:02→21:18)
[2018-02-19] MEDS ORDERED: PT OWN MED DRAWER 7, Y5N ONE ×2 (08:36→21:21)
[2018-02-19] MEDS: NON-FORMULARY MED PO SCH ×2 (09:39→21:20)
[2018-02-19] MEDS: MOMETASONE FUROATE 220 MCG/IH INHALER IH SCH (09:39)
[2018-02-19] MEDS: LISINOPRIL 10 MG TABLET (FP) PO SCH (09:40)
[2018-02-19] MEDS: NICOTINE 21 MG/24 HOURS TOPICAL PATCH TD SCH (09:40)
[2018-02-19] MEDS: PHENobarbital 30 MG TABLET PO SCH ×2 (09:40→21:18)
[2018-02-19] MEDS: HYDROCHLOROTHIAZIDE 25 MG TABLET (FP) PO SCH (09:40)
[2018-02-19] MEDS: BUPRENORPHINE/NALOXONE 2 MG/0.5 MG FILM PACKET SL SCH (09:40)
[2018-02-19] MEDS: LIDOCAINE 5% TOPICAL PATCH TP SCH (09:40)
[2018-02-19] MEDS: DIVALPROEX SODIUM 500 MG TABLET E.C. PO SCH ×2 (09:40→21:19)
[2018-02-19] MEDS: PRENATAL VITAMINS W/ FOLIC ACID TABLET (FP) PO SCH (09:40)
[2018-02-19] MEDS: SUVOREXANT 10 MG TABLET PO PRN (21:18)
[2018-02-19] MEDS: THIAMINE HCL 100 MG TABLET (FP) PO SCH (21:18)
[2018-02-19] MEDS: LIDOCAINE PATCH REMOVAL MC SCH (21:19)
[2018-02-20] MEDS: DOCUSATE SODIUM 100 MG CAPSULE (FP) PO SCH ×3 (06:21→21:05)
[2018-02-20] MEDS: BACLOFEN 10 MG TABLET (FP) PO SCH ×3 (06:21→21:05)
[2018-02-20] MEDS: NICOTINE 21 MG/24 HOURS TOPICAL PATCH TD SCH (09:51)
[2018-02-20] MEDS: BUPRENORPHINE/NALOXONE 2 MG/0.5 MG FILM PACKET SL SCH (09:51)
[2018-02-20] MEDS: PHENobarbital 30 MG TABLET PO SCH ×2 (09:51→21:05)
[2018-02-20] MEDS: DIVALPROEX SODIUM 500 MG TABLET E.C. PO SCH ×2 (09:52→21:05)
[2018-02-20] MEDS: HYDROCHLOROTHIAZIDE 25 MG TABLET (FP) PO SCH (09:52)
[2018-02-20] MEDS: PRENATAL VITAMINS W/ FOLIC ACID TABLET (FP) PO SCH (09:52)
[2018-02-20] MEDS: LISINOPRIL 10 MG TABLET (FP) PO SCH (09:52)
[2018-02-20] MEDS: LIDOCAINE 5% TOPICAL PATCH TP SCH (09:53)
[2018-02-20] MEDS: NON-FORMULARY MED PO SCH ×2 (09:53→21:06)
[2018-02-20] MEDS: MOMETASONE FUROATE 220 MCG/IH INHALER IH SCH (09:54)
[2018-02-20] MEDS ORDERED: PT OWN MED DRAWER 7, Y5N ONE ×2 (09:54→19:23)
--- NOTE | 2018-02-20 16:09 | PN ---
[facility] Progress Note Note: Patient presents with anxiety, muscle aches and stomach cramps. Currently on suboxone 2mg daily for withdrawal symptoms. Also requesting cane. Vital Signs Temperature 97.3 F L 02/20/18 06:36 Pulse Rate 57 L 02/20/18 06:36 Respiratory Rate 18 02/20/18 06:36 Blood Pressure 108/78 02/20/18 06:36 O2 Sat by Pulse Oximetry (%) Obj: General: alert and oriented x 3. Ambulation guarded with cane. + back pain. Patient anxious. GI: soft, no distention. Skin: warm and dry. A/P: Withdrawal syndrome Will increase suboxone to 2mg two strips daily and continue to monitor cane ordered continue to monitor clinically
[2018-02-20] MEDS: MELATONIN 5 MG TABLETS PO PRN (21:04)
[2018-02-20] MEDS: LIDOCAINE PATCH REMOVAL MC SCH (21:06)
[2018-02-20] MEDS: THIAMINE HCL 100 MG TABLET (FP) PO SCH (21:06)
[2018-02-20] MEDS ORDERED: SUVOREXANT 10 MG TABLET PO PRN (22:00)
[2018-02-21] MEDS: BACLOFEN 10 MG TABLET (FP) PO SCH ×3 (06:25→21:06)
[2018-02-21] MEDS: DOCUSATE SODIUM 100 MG CAPSULE (FP) PO SCH ×3 (06:25→21:07)
[2018-02-21] MEDS: DIVALPROEX SODIUM 500 MG TABLET E.C. PO SCH ×2 (09:42→21:06)
[2018-02-21] MEDS: BUPRENORPHINE/NALOXONE 2 MG/0.5 MG FILM PACKET SL SCH (09:42)
[2018-02-21] MEDS: PHENobarbital 30 MG TABLET PO SCH ×2 (09:42→21:06)
[2018-02-21] MEDS: PRENATAL VITAMINS W/ FOLIC ACID TABLET (FP) PO SCH (09:42)
[2018-02-21] MEDS: NICOTINE 21 MG/24 HOURS TOPICAL PATCH TD SCH (09:42)
[2018-02-21] MEDS: HYDROCHLOROTHIAZIDE 25 MG TABLET (FP) PO SCH (09:43)
[2018-02-21] MEDS: LIDOCAINE 5% TOPICAL PATCH TP SCH (09:43)
[2018-02-21] MEDS: MOMETASONE FUROATE 220 MCG/IH INHALER IH SCH (09:43)
[2018-02-21] MEDS: LISINOPRIL 10 MG TABLET (FP) PO SCH (09:44)
[2018-02-21] MEDS ORDERED: PT OWN MED DRAWER 7, Y5N ONE ×2 (09:44→19:43)
[2018-02-21] MEDS: NON-FORMULARY MED PO SCH ×2 (09:44→21:08)
[2018-02-21] MEDS: NICOTINE POLACRILEX 2 MG GUM BUC PRN (09:45)
--- NOTE | 2018-02-21 14:50 | PN ---
[facility] Progress Note Note: Patient presents with anxiety, toothache on upper let first premolar. Reports straining when moving his bowels in the morning and reports the rubber coffin maker on his cane is currently broken. Vital Signs Period Temp Pulse Resp BP Sys/Buitrago Pulse Ox Last 24 Hr 67 18-20 130/74 Objective: General: alert and oriented x 3. Ambulation guarded. + back pain. Patient anxious. ENT: poor dentition with multiple caries and missing teeth, redness and pain on the upper first premolar and decaying GI: soft, no distention. Skin: warm and dry. A/P: dental infection constipation Fall precautions Increase fluids Ambulation daily Senna QHS Anbesol top PRN Amox 500mg TID x 7D cane ordered continue to monitor clinically
[2018-02-21] MEDS ORDERED: BENZOCAINE 20 % GEL 9 GM TUBE MM PRN (14:54)
[2018-02-21] MEDS: AMOXICILLIN 500 MG CAPSULE (FP) PO SCH ×2 (16:57→21:06)
[2018-02-21] MEDS: SENNOSIDES 8.6MG TABLET (FP) PO SCH (21:06)
[2018-02-21] MEDS: MELATONIN 5 MG TABLETS PO PRN (21:07)
[2018-02-21] MEDS: LIDOCAINE PATCH REMOVAL MC SCH (21:08)
[2018-02-21] MEDS: THIAMINE HCL 100 MG TABLET (FP) PO SCH (21:09)
[2018-02-22] MEDS: DOCUSATE SODIUM 100 MG CAPSULE (FP) PO SCH ×3 (06:07→21:10)
[2018-02-22] MEDS: AMOXICILLIN 500 MG CAPSULE (FP) PO SCH ×3 (06:07→21:09)
[2018-02-22] MEDS: BACLOFEN 10 MG TABLET (FP) PO SCH ×3 (06:07→21:10)
[2018-02-22] MEDS ORDERED: PT OWN MED DRAWER 7, Y5N ONE ×5 (08:37→21:09)
[2018-02-22] MEDS: PHENobarbital 30 MG TABLET PO SCH ×2 (09:50→21:10)
[2018-02-22] MEDS: DIVALPROEX SODIUM 500 MG TABLET E.C. PO SCH ×2 (09:50→21:09)
[2018-02-22] MEDS: PRENATAL VITAMINS W/ FOLIC ACID TABLET (FP) PO SCH (09:51)
[2018-02-22] MEDS: HYDROCHLOROTHIAZIDE 25 MG TABLET (FP) PO SCH (09:51)
[2018-02-22] MEDS: LIDOCAINE 5% TOPICAL PATCH TP SCH (09:51)
[2018-02-22] MEDS: BUPRENORPHINE/NALOXONE 2 MG/0.5 MG FILM PACKET SL SCH (09:51)
[2018-02-22] MEDS: NICOTINE 21 MG/24 HOURS TOPICAL PATCH TD SCH (09:51)
[2018-02-22] MEDS: LISINOPRIL 10 MG TABLET (FP) PO SCH (09:51)
[2018-02-22] MEDS: NON-FORMULARY MED PO SCH ×2 (09:52→21:12)
[2018-02-22] MEDS: NICOTINE POLACRILEX 2 MG GUM BUC PRN ×4 (09:56→21:10)
[2018-02-22] MEDS: MOMETASONE FUROATE 220 MCG/IH INHALER IH SCH (10:45)
[2018-02-22] MEDS: SENNOSIDES 8.6MG TABLET (FP) PO SCH (21:10)
[2018-02-22] MEDS: LIDOCAINE PATCH REMOVAL MC SCH (21:10)
[2018-02-22] MEDS: THIAMINE HCL 100 MG TABLET (FP) PO SCH (21:12)
[2018-02-23] MEDS ORDERED: PT OWN MED DRAWER 7, Y5N ONE ×3 (05:36→20:07)
[2018-02-23] MEDS: DOCUSATE SODIUM 100 MG CAPSULE (FP) PO SCH ×3 (06:02→21:01)
[2018-02-23] MEDS: AMOXICILLIN 500 MG CAPSULE (FP) PO SCH ×3 (06:02→21:01)
[2018-02-23] MEDS: BACLOFEN 10 MG TABLET (FP) PO SCH ×3 (06:02→21:02)
[2018-02-23] MEDS: NICOTINE POLACRILEX 2 MG GUM BUC PRN ×3 (06:06→14:15)
[2018-02-23] MEDS: PRENATAL VITAMINS W/ FOLIC ACID TABLET (FP) PO SCH (09:44)
[2018-02-23] MEDS: PHENobarbital 30 MG TABLET PO SCH ×2 (09:44→21:01)
[2018-02-23] MEDS: HYDROCHLOROTHIAZIDE 25 MG TABLET (FP) PO SCH (09:44)
[2018-02-23] MEDS: NON-FORMULARY MED PO SCH ×2 (09:44→21:02)
[2018-02-23] MEDS: LISINOPRIL 10 MG TABLET (FP) PO SCH (09:44)
[2018-02-23] MEDS: DIVALPROEX SODIUM 500 MG TABLET E.C. PO SCH ×2 (09:44→21:01)
[2018-02-23] MEDS: NICOTINE 21 MG/24 HOURS TOPICAL PATCH TD SCH (09:45)
[2018-02-23] MEDS: MOMETASONE FUROATE 220 MCG/IH INHALER IH SCH (09:45)
[2018-02-23] MEDS: LIDOCAINE 5% TOPICAL PATCH TP SCH (09:45)
[2018-02-23] MEDS: BUPRENORPHINE/NALOXONE 2 MG/0.5 MG FILM PACKET SL SCH (09:45)
[2018-02-23] MEDS: SENNOSIDES 8.6MG TABLET (FP) PO SCH (21:01)
[2018-02-23] MEDS: THIAMINE HCL 100 MG TABLET (FP) PO SCH (21:02)
[2018-02-23] MEDS: LIDOCAINE PATCH REMOVAL MC SCH (21:05)
[2018-02-23] MEDS ORDERED: SUVOREXANT 10 MG TABLET PO PRN (22:00)
[2018-02-24] MEDS: BACLOFEN 10 MG TABLET (FP) PO SCH (06:12)
[2018-02-24] MEDS: DOCUSATE SODIUM 100 MG CAPSULE (FP) PO SCH ×3 (06:12→21:03)
[2018-02-24] MEDS: AMOXICILLIN 500 MG CAPSULE (FP) PO SCH ×3 (06:12→21:03)
[2018-02-24] MEDS: NICOTINE POLACRILEX 2 MG GUM BUC PRN ×3 (06:13→21:06)
[2018-02-24] MEDS: PHENobarbital 30 MG TABLET PO SCH ×2 (09:37→21:03)
[2018-02-24] MEDS: BUPRENORPHINE/NALOXONE 2 MG/0.5 MG FILM PACKET SL SCH (09:37)
[2018-02-24] MEDS: DIVALPROEX SODIUM 500 MG TABLET E.C. PO SCH ×2 (09:37→21:02)
[2018-02-24] MEDS: NICOTINE 21 MG/24 HOURS TOPICAL PATCH TD SCH (09:38)
[2018-02-24] MEDS: LIDOCAINE 5% TOPICAL PATCH TP SCH (09:38)
[2018-02-24] MEDS: PRENATAL VITAMINS W/ FOLIC ACID TABLET (FP) PO SCH (09:38)
[2018-02-24] MEDS: HYDROCHLOROTHIAZIDE 25 MG TABLET (FP) PO SCH (09:38)
[2018-02-24] MEDS: LISINOPRIL 10 MG TABLET (FP) PO SCH (09:38)
[2018-02-24] MEDS: NON-FORMULARY MED PO SCH ×2 (09:39→21:05)
[2018-02-24] MEDS ORDERED: PT OWN MED DRAWER 7, Y5N ONE ×4 (09:40→21:50)
[2018-02-24] MEDS: MOMETASONE FUROATE 220 MCG/IH INHALER IH SCH (09:45)
--- NOTE | 2018-02-24 13:00 | PN ---
[facility] Progress Note Note: Patient presents with complaints of back pain and states baclofen not helpful to relieve pain. Pt also reports he has anxiety, diarrhea and muscle aches in the afternoon. Vital Signs Temperature 97.8 F 02/24/18 06:54 Pulse Rate 62 02/24/18 10:00 Respiratory Rate 02/24/18 10:00 Blood Pressure 122/78 02/24/18 10:00 O2 Sat by Pulse Oximetry (%) Obj: General: Alert and oriented x 3. Ambulates with cane. In no acute distress. Car: S1S2. RRR. No murmurs or gallops Resp: CTA BL A/P: Will d/c Balclofen as not helpful Increase suboxone to 8mg starting tomorrow Continue Lidocaine patches Continue to monitor clinically
[2018-02-24] MEDS: MELATONIN 5 MG TABLETS PO PRN (21:03)
[2018-02-24] MEDS: LIDOCAINE PATCH REMOVAL MC SCH (21:04)
[2018-02-24] MEDS: SENNOSIDES 8.6MG TABLET (FP) PO SCH (21:05)
[2018-02-24] MEDS: THIAMINE HCL 100 MG TABLET (FP) PO SCH (21:06)
[2018-02-25] MEDS: DOCUSATE SODIUM 100 MG CAPSULE (FP) PO SCH ×3 (06:30→21:08)
[2018-02-25] MEDS: AMOXICILLIN 500 MG CAPSULE (FP) PO SCH ×3 (06:30→21:08)
[2018-02-25] MEDS: NICOTINE POLACRILEX 2 MG GUM BUC PRN ×2 (06:31→21:07)
[2018-02-25] MEDS ORDERED: PT OWN MED DRAWER 7, Y5N ONE ×3 (08:25→22:16)
[2018-02-25] MEDS: BUPRENORPHINE/NALOXONE 8 MG/2 MG FILM PACKET SL SCH (09:21)
[2018-02-25] MEDS: PRENATAL VITAMINS W/ FOLIC ACID TABLET (FP) PO SCH (09:21)
[2018-02-25] MEDS: DIVALPROEX SODIUM 500 MG TABLET E.C. PO SCH ×2 (09:21→21:07)
[2018-02-25] MEDS: HYDROCHLOROTHIAZIDE 25 MG TABLET (FP) PO SCH (09:21)
[2018-02-25] MEDS: PHENobarbital 30 MG TABLET PO SCH ×2 (09:22→21:07)
[2018-02-25] MEDS: NICOTINE 21 MG/24 HOURS TOPICAL PATCH TD SCH (09:22)
[2018-02-25] MEDS: NON-FORMULARY MED PO SCH ×2 (09:22→21:10)
[2018-02-25] MEDS: LISINOPRIL 10 MG TABLET (FP) PO SCH (09:22)
[2018-02-25] MEDS: ERGOCALCIFEROL (VITAMIN D2) 50,000 UNIT CAPSULE (FP) PO SCH (09:23)
[2018-02-25] MEDS: MOMETASONE FUROATE 220 MCG/IH INHALER IH SCH (09:24)
[2018-02-25 10:34] LABS: BASO % 0.3 % (0-2.0); EOS % 1.2 % (0-4.5); HEMATOCRIT 37.4 % (35.4-49); LYMPH % 27.3 % (8-40); MCH 33.5 pg (25.7-33.7); MCHC 34.7 g/dl (32.0-35.9); MEAN CELL VOLUME 96.4 fl (80-96); MONO % 16.6 % (3.8-10.2); NEUT % 54.6 % (42.8-82.8); PLATELET COUNT 165 K/MM3 (134-434); RBC 3.88 M/mm3 (4.00-5.60); RDW 14.5 % (11.9-15.9); WHITE BLOOD COUNT 5.7 K/mm3 (4.0-10.0)
[2018-02-25 10:50] LABS: ALBUMIN 3.1 g/dl (3.4-5.0); ANION GAP 5 (8-16); BLOOD UREA NITROGEN 25 mg/dL (7-18); CALCIUM 8.4 mg/dL (8.5-10.1); CHLORIDE 105 mmol/L (98-107); CO2 29 mmol/L (21-32); GLUCOSE,RANDOM 83 mg/dL (74-106); POTASSIUM 3.9 mmol/L (3.5-5.1); SODIUM 139 mmol/L (136-145)
[2018-02-25 10:55] LABS: ALK PHOS 94 U/L (45-117); BILIRUBIN,TOTAL 0.1 mg/dL (0.2-1.0); CREATININE 0.8 mg/dL (0.7-1.3); SGOT/AST 9 U/L (15-37); SGPT/ALT 18 U/L (12-78); TOT PROT 6.4 g/dl (6.4-8.2)
[2018-02-25] MEDS: THIAMINE HCL 100 MG TABLET (FP) PO SCH (21:07)
[2018-02-25] MEDS: MELATONIN 5 MG TABLETS PO PRN (21:08)
[2018-02-25] MEDS: SENNOSIDES 8.6MG TABLET (FP) PO SCH (21:08)
[2018-02-25] MEDS: LIDOCAINE PATCH REMOVAL MC SCH (21:10)
[2018-02-26] MEDS: AMOXICILLIN 500 MG CAPSULE (FP) PO SCH ×3 (06:05→21:04)
[2018-02-26] MEDS: DOCUSATE SODIUM 100 MG CAPSULE (FP) PO SCH ×3 (06:05→21:01)
[2018-02-26] MEDS ORDERED: PT OWN MED DRAWER 7, Y5N ONE (08:27)
[2018-02-26] MEDS: NON-FORMULARY MED PO SCH ×2 (10:11→22:00)
[2018-02-26] MEDS: PHENobarbital 30 MG TABLET PO SCH ×2 (10:11→21:01)
[2018-02-26] MEDS: DIVALPROEX SODIUM 500 MG TABLET E.C. PO SCH ×2 (10:12→21:01)
[2018-02-26] MEDS: PRENATAL VITAMINS W/ FOLIC ACID TABLET (FP) PO SCH (10:12)
[2018-02-26] MEDS: NICOTINE 21 MG/24 HOURS TOPICAL PATCH TD SCH (10:12)
[2018-02-26] MEDS: LISINOPRIL 10 MG TABLET (FP) PO SCH (10:12)
[2018-02-26] MEDS: MOMETASONE FUROATE 220 MCG/IH INHALER IH SCH (10:12)
[2018-02-26] MEDS: HYDROCHLOROTHIAZIDE 25 MG TABLET (FP) PO SCH (10:12)
[2018-02-26] MEDS: BUPRENORPHINE/NALOXONE 8 MG/2 MG FILM PACKET SL SCH (10:22)
[2018-02-26] MEDS: NICOTINE POLACRILEX 2 MG GUM BUC PRN (12:34)
[2018-02-26] MEDS: LIDOCAINE 5% TOPICAL PATCH TP SCH (13:59)
[2018-02-26] MEDS: SENNOSIDES 8.6MG TABLET (FP) PO SCH (21:01)
[2018-02-26] MEDS: THIAMINE HCL 100 MG TABLET (FP) PO SCH (21:01)
[2018-02-26] MEDS: MELATONIN 5 MG TABLETS PO PRN (21:01)
[2018-02-26] MEDS: LIDOCAINE PATCH REMOVAL MC SCH ×2 (21:04)
[2018-02-26] MEDS ORDERED: SUVOREXANT 10 MG TABLET PO PRN (22:00)
[2018-02-27] MEDS: DOCUSATE SODIUM 100 MG CAPSULE (FP) PO SCH ×3 (06:15→21:08)
[2018-02-27] MEDS: AMOXICILLIN 500 MG CAPSULE (FP) PO SCH ×3 (06:15→21:09)
[2018-02-27] MEDS ORDERED: PT OWN MED DRAWER 7, Y5N ONE ×3 (08:29→21:52)
[2018-02-27] MEDS: NON-FORMULARY MED PO SCH ×2 (09:03→21:10)
[2018-02-27] MEDS: PHENobarbital 30 MG TABLET PO SCH ×2 (09:04→21:08)
[2018-02-27] MEDS: NICOTINE 21 MG/24 HOURS TOPICAL PATCH TD SCH (09:04)
[2018-02-27] MEDS: HYDROCHLOROTHIAZIDE 25 MG TABLET (FP) PO SCH (09:04)
[2018-02-27] MEDS: DIVALPROEX SODIUM 500 MG TABLET E.C. PO SCH ×2 (09:04→21:08)
[2018-02-27] MEDS: LISINOPRIL 10 MG TABLET (FP) PO SCH (09:04)
[2018-02-27] MEDS: MOMETASONE FUROATE 220 MCG/IH INHALER IH SCH (09:04)
[2018-02-27] MEDS: PRENATAL VITAMINS W/ FOLIC ACID TABLET (FP) PO SCH (09:04)
[2018-02-27] MEDS: BUPRENORPHINE/NALOXONE 8 MG/2 MG FILM PACKET SL SCH (09:04)
[2018-02-27] MEDS: LIDOCAINE 5% TOPICAL PATCH TP SCH (09:05)
[2018-02-27] MEDS: NICOTINE POLACRILEX 2 MG GUM BUC PRN ×3 (09:09→21:10)
--- NOTE | 2018-02-27 13:23 | PN ---
[facility] Progress Note Note: Patient reports having "petite mal seizure" over the weekend. Unwitnessed. Denies falling on floor or hitting head on furniture/floor. MD notified of patients complaint over the weekend. Has h/o seizures and patient states that this happens to him all the time. Laboratory Tests 02/25/18 02/25/18 09:30 09:30 WBC 5.7 RBC 3.88 L Hgb 13.0 D Hct 37.4 MCV 96.4 H MCH 33.5 MCHC 34.7 RDW 14.5 Plt Count 165 MPV 10.0 Neutrophils % 54.6 Lymphocytes % 27.3 Monocytes % 16.6 H Eosinophils % 1.2 Basophils % 0.3 Sodium 139 Potassium 3.9 Chloride 105 Carbon Dioxide 29 D Anion Gap 5 L BUN 25 H D Creatinine 0.8 Creat Clearance w eGFR > 60 Random Glucose 83 Calcium 8.4 L Total Bilirubin 0.1 L AST 9 L ALT 18 Alkaline Phosphatase 94 D Total Protein 6.4 Albumin 3.1 L Vital Signs Temperature 97.6 F 02/27/18 06:54 Pulse Rate 74 02/27/18 10:00 Respiratory Rate 18 02/27/18 10:00 Blood Pressure 130/75 02/27/18 10:00 O2 Sat by Pulse Oximetry (%) Obj: General: pt alert and oriented x 3. In NAD. Ambulating with cane. Skin: warm and dry Neuro: no neurological abnormalities observed. CN 1-X11 grossly intact. A/P Seizure disorder Will continue current treatment as ordered check Phenobarbital level continue to monitor clinically
[2018-02-27] MEDS: SENNOSIDES 8.6MG TABLET (FP) PO SCH (21:08)
[2018-02-27] MEDS: MELATONIN 5 MG TABLETS PO PRN (21:09)
[2018-02-27] MEDS: THIAMINE HCL 100 MG TABLET (FP) PO SCH (21:10)
[2018-02-27] MEDS: LIDOCAINE PATCH REMOVAL MC SCH ×2 (21:10)
[2018-02-28] MEDS: DOCUSATE SODIUM 100 MG CAPSULE (FP) PO SCH ×3 (05:55→21:00)
[2018-02-28] MEDS: AMOXICILLIN 500 MG CAPSULE (FP) PO SCH ×3 (05:55→21:00)
[2018-02-28] MEDS: NICOTINE POLACRILEX 2 MG GUM BUC PRN ×3 (05:56→14:56)
[2018-02-28] MEDS ORDERED: PT OWN MED DRAWER 7, Y5N ONE ×5 (09:04→19:16)
[2018-02-28] MEDS: HYDROCHLOROTHIAZIDE 25 MG TABLET (FP) PO SCH (09:42)
[2018-02-28] MEDS: LISINOPRIL 10 MG TABLET (FP) PO SCH (09:42)
[2018-02-28] MEDS: NICOTINE 21 MG/24 HOURS TOPICAL PATCH TD SCH (09:42)
[2018-02-28] MEDS: BUPRENORPHINE/NALOXONE 8 MG/2 MG FILM PACKET SL SCH (09:42)
[2018-02-28] MEDS: MOMETASONE FUROATE 220 MCG/IH INHALER IH SCH (09:42)
[2018-02-28] MEDS: NON-FORMULARY MED PO SCH ×2 (09:42→21:00)
[2018-02-28] MEDS: PHENobarbital 30 MG TABLET PO SCH ×2 (09:42→21:00)
[2018-02-28] MEDS: PRENATAL VITAMINS W/ FOLIC ACID TABLET (FP) PO SCH (09:42)
[2018-02-28] MEDS: DIVALPROEX SODIUM 500 MG TABLET E.C. PO SCH ×2 (09:42→21:00)
[2018-02-28] MEDS: LIDOCAINE 5% TOPICAL PATCH TP SCH (09:43)
[2018-02-28] MEDS: SENNOSIDES 8.6MG TABLET (FP) PO SCH (21:00)
[2018-02-28] MEDS: LIDOCAINE PATCH REMOVAL MC SCH ×2 (22:05→22:06)
[2018-02-28] MEDS: THIAMINE HCL 100 MG TABLET (FP) PO SCH (22:06)
[2018-03-01] MEDS: NICOTINE POLACRILEX 2 MG GUM BUC PRN ×2 (06:01→09:43)
[2018-03-01] MEDS: AMOXICILLIN 500 MG CAPSULE (FP) PO SCH ×3 (06:01→21:52)
[2018-03-01] MEDS: DOCUSATE SODIUM 100 MG CAPSULE (FP) PO SCH ×3 (06:01→21:06)
[2018-03-01] MEDS ORDERED: PT OWN MED DRAWER 7, Y5N ONE ×2 (08:39→21:59)
[2018-03-01] MEDS: DIVALPROEX SODIUM 500 MG TABLET E.C. PO SCH ×2 (09:42→17:05)
[2018-03-01] MEDS: LISINOPRIL 10 MG TABLET (FP) PO SCH (09:42)
[2018-03-01] MEDS: MOMETASONE FUROATE 220 MCG/IH INHALER IH SCH (09:42)
[2018-03-01] MEDS: HYDROCHLOROTHIAZIDE 25 MG TABLET (FP) PO SCH (09:42)
[2018-03-01] MEDS: PHENobarbital 30 MG TABLET PO SCH ×2 (09:42→17:04)
[2018-03-01] MEDS: NICOTINE 21 MG/24 HOURS TOPICAL PATCH TD SCH (09:42)
[2018-03-01] MEDS: PRENATAL VITAMINS W/ FOLIC ACID TABLET (FP) PO SCH (09:42)
[2018-03-01] MEDS: NON-FORMULARY MED PO SCH ×2 (09:42→21:07)
[2018-03-01] MEDS: BUPRENORPHINE/NALOXONE 8 MG/2 MG FILM PACKET SL SCH (09:43)
[2018-03-01] MEDS: ACETAMINOPHEN 325 MG TABLET (FP) PO PRN (09:52)
--- NOTE | 2018-03-01 10:39 | PN ---
[facility] Progress Note Note: CALLED TO EVALUATE PATIENT POST FALL WITNESS BY STAFF NO HEAD INJURY,NO LOSS OF CONSCIOUS PATIENT HAS HISTORY OF AMBULATION WITH CANE HISTORY OF SEIZURE ON MEDICATIONS NO SEIZURE ACTIVITY ALERT,ORIENTED X 3 NO OBVIOUS INJURY NOTED COMPLAINT OF PAIN IN LEFT KNEE AND LEFT BIGTOE ABLE TO AMBULATE NO OBVIOUS INJURY NOTED BP 111/73,P64,R20,T07.5 STATED KNEEL DOWN OF LEFT KNEE WHEN HE FALL AND TWISTED LEFT BIG TOE IMPRESSION HISTORY OF A FALL TREATMENT INITIATE FALL PROTOCOL 2 X RAY LEFT BIG TOE AND LEFT KNEE FALL PRECAUTION ADVISE MAY USE WHEEL CHAIR NECESSARY CHANGED TIME OF MEDICATION FOR SEIZURE BY PATIENT'S REQUEST SEIZURE PRECAUTION
[2018-03-01] MEDS: LIDOCAINE 5% TOPICAL PATCH TP SCH (10:47)
[2018-03-01] MEDS ORDERED: levETIRAcetam 250 MG TABLET (FP) PO ONE (16:25)
[2018-03-01] MEDS ORDERED: levETIRAcetam 500 MG TABLET (FP) PO ONE (16:25)
[2018-03-01] MEDS ORDERED: levETIRAcetam 500 MG TABLET (FP) PO SCH (18:00)
[2018-03-01] MEDS: THIAMINE HCL 100 MG TABLET (FP) PO SCH (21:06)
[2018-03-01] MEDS: MELATONIN 5 MG TABLETS PO PRN (21:06)
[2018-03-01] MEDS: SENNOSIDES 8.6MG TABLET (FP) PO SCH (21:06)
[2018-03-01] MEDS: LIDOCAINE PATCH REMOVAL MC SCH ×2 (21:07)
[2018-03-01] MEDS ORDERED: SUVOREXANT 10 MG TABLET PO PRN (22:00)
[2018-03-02] MEDS: ACETAMINOPHEN 325 MG TABLET (FP) PO PRN (02:10)
[2018-03-02] MEDS ORDERED: levETIRAcetam 250 MG TABLET (FP) PO ONE ×2 (04:04→17:48)
[2018-03-02] MEDS ORDERED: levETIRAcetam 500 MG TABLET (FP) PO ONE ×2 (04:05→17:49)
[2018-03-02] MEDS: AMOXICILLIN 500 MG CAPSULE (FP) PO SCH ×3 (06:24→21:05)
[2018-03-02] MEDS: DOCUSATE SODIUM 100 MG CAPSULE (FP) PO SCH ×3 (06:25→21:05)
[2018-03-02] MEDS: DIVALPROEX SODIUM 500 MG TABLET E.C. PO SCH ×2 (06:25→17:56)
[2018-03-02] MEDS: PHENobarbital 30 MG TABLET PO SCH ×2 (06:25→17:56)
[2018-03-02] MEDS: NICOTINE 21 MG/24 HOURS TOPICAL PATCH TD SCH (09:24)
[2018-03-02] MEDS: HYDROCHLOROTHIAZIDE 25 MG TABLET (FP) PO SCH (09:24)
[2018-03-02] MEDS: PRENATAL VITAMINS W/ FOLIC ACID TABLET (FP) PO SCH (09:24)
[2018-03-02] MEDS: LISINOPRIL 10 MG TABLET (FP) PO SCH (09:24)
[2018-03-02] MEDS: LIDOCAINE 5% TOPICAL PATCH TP SCH (09:24)
[2018-03-02] MEDS: NON-FORMULARY MED PO SCH ×2 (09:24→22:36)
[2018-03-02] MEDS: BUPRENORPHINE/NALOXONE 8 MG/2 MG FILM PACKET SL SCH (09:24)
[2018-03-02] MEDS: MOMETASONE FUROATE 220 MCG/IH INHALER IH SCH (09:25)
[2018-03-02] MEDS: NICOTINE POLACRILEX 2 MG GUM BUC PRN ×2 (13:12→21:07)
--- NOTE | 2018-03-02 15:20 | PN ---
Psychiatric Progress Note Vital Signs: Vital Signs Period Temp Pulse Resp BP Sys/Buitrago Pulse Ox Last 24 Hr 97.2 F-98.4 F 63-76 16-20 90-131/59-79 Date of Session: 03/02/18 Chief Complaint:: Medication management HPI: Patient addressing Alcohol, Cocaine Dependence comorbid with Opioid Dependence on Agonist Therapy, Nicotine Dependence, MDD, Substance-Induced Sleep Disorder ROS: Asthma, Chronic pain, Albinism, Blindness right eye, Chronic renal in sufficiency stage III, HTN, Obesity, Seizure Disorder, Spondylolisthesis, Osteoarthritis of both knees Current Medications: Active Medications Generic Name Dose Route Start Last Admin Trade Name Freq PRN Reason Stop Dose Admin Acamprosate 666 mg 03/02/18 22:00 Campral - PO TID LISBETH Acetaminophen 650 mg 02/17/18 12:09 03/02/18 02:10 Tylenol - PO 650 mg Q4H PRN Administration FEVER Albuterol Sulfate 2 puff 02/17/18 12:10 02/22/18 11:48 Ventolin Hfa Inhaler - IH 2 puff Q4H PRN Administration ASTHMA Amoxicillin 500 mg 02/21/18 15:40 03/02/18 13:10 Amoxicillin - PO 500 mg TID LISBETH Administration Benzocaine 1 applic 02/21/18 14:54 Anbesol - MM Q2H PRN dental pain Buprenorphine/Naloxone 1 each 02/25/18 10:00 03/02/18 09:24 Suboxone 8mg/2mg Sl Film - SL 03/03/18 09:59 1 each DAILY LISBETH Administration Buspirone HCl 15 mg 02/17/18 22:00 03/02/18 09:26 Buspar - PO 15 mg BID LISBETH Administration Divalproex Sodium 1,000 mg 03/01/18 18:00 03/02/18 06:25 Depakote - PO 1,000 mg BID@0600,1800 LISBETH Administration Docusate Sodium 100 mg 02/17/18 14:00 03/02/18 13:10 Colace - PO 100 mg TID LISBETH Administration Ergocalciferol 50,000 unit 02/18/18 10:00 02/25/18 09:23 Drisdol - PO 50,000 unit Sa@1000 LISBETH Administration Eucalyptus/Menthol/Phenol/Sorbitol 1 each 02/17/18 12:09 Cepastat Lozenge - MM Q4H PRN SORE THROAT Guaifenesin 10 ml 02/17/18 12:09 Robitussin Dm - PO Q6H PRN COUGH Hydrochlorothiazide 25 mg 02/18/18 10:00 03/02/18 09:24 Hctz - PO 25 mg DAILY LISBETH Administration Hydroxyzine Pamoate 50 mg 02/17/18 14:29 Vistaril - PO Q4H PRN ANXIETY Levetiracetam 500 mg/ 750 mg 03/01/18 18:00 03/02/18 06:25 Levetiracetam 250 mg PO 750 mg BID@0600,1800 LISBETH Administration Lidocaine 1 patch 02/26/18 13:30 03/02/18 09:24 Lidoderm Patch - TP 1 patch DAILY LISBETH Administration Lisinopril 10 mg 02/18/18 10:00 03/02/18 09:24 Prinivil PO 10 mg DAILY LISBETH Administration Loperamide HCl 4 mg 02/17/18 12:09 Imodium - PO Q6H PRN DIARRHEA Melatonin 5 mg 02/17/18 22:00 03/01/18 21:06 Melatonin PO 5 mg HS PRN Administration INSOMNIA Miscellaneous 1 each 02/18/18 22:00 03/01/18 21:07 Lidoderm Patch Removal MC 1 each DAILY@2200 LISBETH Administration Miscellaneous 1 each 02/26/18 22:00 03/01/18 21:07 Lidoderm Patch Removal MC 1 each DAILY@2200 LISBETH Administration Mometasone Furoate 1 puff 02/18/18 10:00 03/02/18 09:25 Asmanex 220mcg - IH 1 puff DAILY LISBETH Administration Nicotine 21 mg 02/18/18 10:00 03/02/18 09:24 Nicoderm Patch - TD 21 mg DAILY LISBETH Administration Nicotine Polacrilex 2 mg 02/17/18 12:09 03/02/18 13:12 Nicorette Gum - BUC 2 mg Q2H PRN Administration NICOTINE REPLACEMENT RX Non-Formulary Medication 750 each 02/17/18 22:00 03/02/18 09:24 Non-Formulary Med PO 750 each BID LISBETH Administration Phenobarbital 60 mg 03/01/18 18:00 03/02/18 06:25 Phenobarbital - PO 03/08/18 17:59 60 mg BID@0600,1800 LISBETH Administration Multivit/Folic Acid/Iron 1 tab 02/18/18 10:00 03/02/18 09:24 Vitamins (Sjr) - PO 1 tab DAILY LISBETH Administration Pseudoephedrine/Triprolidine 1 combo 02/17/18 12:09 Actifed - PO TID PRN NASAL CONGESTION Senna 1 tab 02/21/18 22:00 03/01/18 21:06 Senna - PO 1 tab HS LISBETH Administration Suvorexant 10 mg 03/01/18 22:00 Belsomra PO HS PRN INSOMNIA Thiamine HCl 100 mg 02/17/18 22:00 03/01/18 21:06 Vitamin B1 - PO 100 mg HS LISBETH Administration Medication(s) Change(s): Start Acamprosate 666 mg po TID Current Side Effect: No Lab tests ordered: Yes Lab tests reviewed: Yes Provider note:: Patient requested to be started on medication for alcohol craving. He is already on Suboxone for the treatment of opioid addiction. Indication of Acamprosate as well as its adverse-effects were discussed with patient. He was given a pamphlet regarding that medication a week ago. He said that he read it and together, we went through it once more, explanation provided and all his questions answered. He agreed to try it. Kidney function values are WNL Total face to face time:: 25 Mental Status Exam - Mental Status Exam Alert and Oriented to: Time, Place, Person Cognitive Function: Fair Patient Appearance: Well Groomed Mood: Hopeful, Euthymic Affect: Appropriate Patient Behavior: Cooperative Speech Pattern: Clear Voice Loudness: Normal Thought Process: Intact, Goal Oriented Thought Disorder: Not Present Hallucinations: Denies Suicidal Ideation: Denies Homicidal Ideation: Denies Insight/Judgement: Fair Sleep: Poorly Appetite: Good Muscle strength/Tone: Normal Gait/Station: Normal Psychiatric Treatment Plan - Problem List (1) Alcohol dependence Current Visit: Yes Qualifiers: Substance use status: uncomplicated Qualified Code(s): F10.20 - Alcohol dependence, uncomplicated (2) Cocaine dependence Current Visit: No Qualifiers: Substance use status: uncomplicated Qualified Code(s): F14.20 - Cocaine dependence, uncomplicated Comment: referred for rehab (3) Opioid dependence on agonist therapy Current Visit: Yes (4) Nicotine dependence Current Visit: Yes Comment: counseled cessation - ready to try patch (5) Major depressive disorder Current Visit: No Comment: referred to [facility] but did not go - needs (6) Substance-induced sleep disorder Current Visit: Yes (7) Albinism Current Visit: No (8) Asthma Current Visit: No Qualifiers: Asthma severity: mild Asthma persistence: unspecified Asthma complication type: uncomplicated Qualified Code(s): J45.909 - Unspecified asthma, uncomplicated Comment: on inhalers, sees primary (9) Blind right eye Current Visit: No (10) Chronic low back pain Current Visit: No Qualifiers: Back pain laterality: unspecified Sciatica presence: unspecified whether sciatica present Qualified Code(s): M54.5 - Low back pain; G89.29 - Other chronic pain; G89.29 - Other chronic pain (11) Chronic renal insufficiency, stage III (moderate) Current Visit: No Comment: fluids, avoid nsaids and illicit drugs (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 (13) Hypertension Current Visit: Yes Qualifiers: Hypertension type: essential hypertension Qualified Code(s): I10 - Essential (primary) hypertension (14) Obesity (BMI 30-39.9) Current Visit: Yes Comment: counseled nutritional strategies (15) Primary osteoarthritis of both knees Current Visit: Yes Comment: topical, weight loss, rollator Rx to assist ambulation (16) Seizure disorder Current Visit: Yes Comment: sees neuro, on meds, (17) spondylolisthesis grade II Current Visit: No Comment: gentle stretches, lumbar support, topical, wt loss (18) History of CVA in adulthood Current Visit: No Initial treatment plan: 1) Start Acamprosate 666 mg po TID. 2) Monitor progress
[2018-03-02] MEDS: THIAMINE HCL 100 MG TABLET (FP) PO SCH (21:05)
[2018-03-02] MEDS: ACAMPROSATE CALCIUM 333 MG TABLET.DR PO SCH (21:05)
[2018-03-02] MEDS: SENNOSIDES 8.6MG TABLET (FP) PO SCH (21:05)
[2018-03-02] MEDS: LIDOCAINE PATCH REMOVAL MC SCH ×2 (22:36)
[2018-03-03] MEDS ORDERED: levETIRAcetam 250 MG TABLET (FP) PO ONE ×2 (03:58→16:41)
[2018-03-03] MEDS ORDERED: levETIRAcetam 500 MG TABLET (FP) PO ONE ×2 (03:58→16:41)
[2018-03-03] MEDS: AMOXICILLIN 500 MG CAPSULE (FP) PO SCH ×3 (05:53→21:08)
[2018-03-03] MEDS: DOCUSATE SODIUM 100 MG CAPSULE (FP) PO SCH ×3 (05:53→21:09)
[2018-03-03] MEDS: DIVALPROEX SODIUM 500 MG TABLET E.C. PO SCH ×2 (05:53→17:45)
[2018-03-03] MEDS: ACAMPROSATE CALCIUM 333 MG TABLET.DR PO SCH ×3 (05:53→21:08)
[2018-03-03] MEDS: PHENobarbital 30 MG TABLET PO SCH ×2 (05:54→17:44)
[2018-03-03] MEDS ORDERED: PT OWN MED DRAWER 7, Y5N ONE ×3 (08:28→22:19)
[2018-03-03] MEDS: MOMETASONE FUROATE 220 MCG/IH INHALER IH SCH (09:45)
[2018-03-03] MEDS: LISINOPRIL 10 MG TABLET (FP) PO SCH (09:45)
[2018-03-03] MEDS: NON-FORMULARY MED PO SCH ×2 (09:45→21:10)
[2018-03-03] MEDS: HYDROCHLOROTHIAZIDE 25 MG TABLET (FP) PO SCH (09:45)
[2018-03-03] MEDS: PRENATAL VITAMINS W/ FOLIC ACID TABLET (FP) PO SCH (09:45)
[2018-03-03] MEDS: LIDOCAINE 5% TOPICAL PATCH TP SCH (09:45)
[2018-03-03] MEDS: NICOTINE 21 MG/24 HOURS TOPICAL PATCH TD SCH (09:45)
[2018-03-03] MEDS ORDERED: BUPRENORPHINE/NALOXONE 8 MG/2 MG FILM PACKET SL ONE (12:53)
[2018-03-03] MEDS: NICOTINE POLACRILEX 2 MG GUM BUC PRN ×2 (14:11→21:08)
[2018-03-03] MEDS: MELATONIN 5 MG TABLETS PO PRN (21:09)
[2018-03-03] MEDS: SENNOSIDES 8.6MG TABLET (FP) PO SCH (21:09)
[2018-03-03] MEDS: THIAMINE HCL 100 MG TABLET (FP) PO SCH (21:09)
[2018-03-03] MEDS: LIDOCAINE PATCH REMOVAL MC SCH ×2 (21:10→21:11)
--- NOTE | 2018-03-03 23:47 | PN ---
S Progress Note Note: non formulary [facility] 2/2 duplicate order
[2018-03-04] MEDS: AMOXICILLIN 500 MG CAPSULE (FP) PO SCH ×3 (06:01→21:07)
[2018-03-04] MEDS: ACAMPROSATE CALCIUM 333 MG TABLET.DR PO SCH ×3 (06:01→21:07)
[2018-03-04] MEDS: DIVALPROEX SODIUM 500 MG TABLET E.C. PO SCH ×2 (06:01→17:58)
[2018-03-04] MEDS: DOCUSATE SODIUM 100 MG CAPSULE (FP) PO SCH ×3 (06:01→21:07)
[2018-03-04] MEDS: PHENobarbital 30 MG TABLET PO SCH ×2 (06:02→17:58)
[2018-03-04] MEDS: NICOTINE POLACRILEX 2 MG GUM BUC PRN ×3 (06:02→17:59)
[2018-03-04] MEDS: PRENATAL VITAMINS W/ FOLIC ACID TABLET (FP) PO SCH (09:15)
[2018-03-04] MEDS: BUPRENORPHINE/NALOXONE 8 MG/2 MG FILM PACKET SL SCH (09:15)
[2018-03-04] MEDS: NICOTINE 21 MG/24 HOURS TOPICAL PATCH TD SCH (09:15)
[2018-03-04] MEDS: LIDOCAINE 5% TOPICAL PATCH TP SCH (09:15)
[2018-03-04] MEDS: HYDROCHLOROTHIAZIDE 25 MG TABLET (FP) PO SCH (09:15)
[2018-03-04] MEDS: LISINOPRIL 10 MG TABLET (FP) PO SCH (09:15)
[2018-03-04] MEDS: ERGOCALCIFEROL (VITAMIN D2) 50,000 UNIT CAPSULE (FP) PO SCH (09:16)
[2018-03-04] MEDS: MOMETASONE FUROATE 220 MCG/IH INHALER IH SCH (09:16)
[2018-03-04] MEDS ORDERED: PT OWN MED DRAWER 7, Y5N ONE (12:22)
[2018-03-04] MEDS ORDERED: levETIRAcetam 500 MG TABLET (FP) PO ONE (17:58)
[2018-03-04] MEDS ORDERED: levETIRAcetam 250 MG TABLET (FP) PO ONE (17:58)
[2018-03-04] MEDS: ACETAMINOPHEN 325 MG TABLET (FP) PO PRN (17:59)
[2018-03-04] MEDS ORDERED: SUVOREXANT 10 MG TABLET PO PRN ×2 (20:10→22:00)
[2018-03-04] MEDS: SENNOSIDES 8.6MG TABLET (FP) PO SCH (21:07)
[2018-03-04] MEDS: THIAMINE HCL 100 MG TABLET (FP) PO SCH (21:07)
[2018-03-04] MEDS: LIDOCAINE PATCH REMOVAL MC SCH ×2 (21:08)
[2018-03-05] MEDS ORDERED: PT OWN MED DRAWER 7, Y5N ONE ×2 (03:12→08:25)
[2018-03-05] MEDS: DIVALPROEX SODIUM 500 MG TABLET E.C. PO SCH ×2 (06:09→17:24)
[2018-03-05] MEDS: PHENobarbital 30 MG TABLET PO SCH ×2 (06:09→17:24)
[2018-03-05] MEDS: DOCUSATE SODIUM 100 MG CAPSULE (FP) PO SCH ×3 (06:09→21:21)
[2018-03-05] MEDS: ACAMPROSATE CALCIUM 333 MG TABLET.DR PO SCH ×3 (06:09→21:20)
[2018-03-05] MEDS: AMOXICILLIN 500 MG CAPSULE (FP) PO SCH ×3 (06:09→21:21)
--- NOTE | 2018-03-05 09:26 | PN ---
S Progress Note Note: unwitnessed fall observed patient lying on bed supine alert oriented x 3 no acute distress, reported fell on ground on buttocks denies pain wheelchair as aide for ambulation buttocks skin intact no swell no erythema follow fall protocol #1 er evaluation 1:1 observation ambulance called 0912 am attempted to provide report to er without success
[2018-03-05] MEDS: MOMETASONE FUROATE 220 MCG/IH INHALER IH SCH (09:43)
[2018-03-05] MEDS: HYDROCHLOROTHIAZIDE 25 MG TABLET (FP) PO SCH (09:43)
[2018-03-05] MEDS: PRENATAL VITAMINS W/ FOLIC ACID TABLET (FP) PO SCH (09:43)
[2018-03-05] MEDS: NICOTINE 21 MG/24 HOURS TOPICAL PATCH TD SCH (09:43)
[2018-03-05] MEDS: LIDOCAINE 5% TOPICAL PATCH TP SCH (09:43)
[2018-03-05] MEDS: LISINOPRIL 10 MG TABLET (FP) PO SCH (09:43)
[2018-03-05] MEDS: BUPRENORPHINE/NALOXONE 8 MG/2 MG FILM PACKET SL SCH (09:43)
[2018-03-05] MEDS: ACETAMINOPHEN 325 MG TABLET (FP) PO PRN (13:12)
[2018-03-05] MEDS: NICOTINE POLACRILEX 2 MG GUM BUC PRN (13:15)
--- NOTE | 2018-03-05 16:52 | PN ---
S Progress Note Note: This is a late entry. Pt refused to go with [facility] to ER s/p fall. Pt denied pain, states he is fine and does not want to go, refusal form filled. Pt is A & O x 3, and not in acute distress. Refusal witnessed by Nurse gun club manager Geovanni and MAGDA Bergeron.
[2018-03-05] MEDS ORDERED: levETIRAcetam 250 MG TABLET (FP) PO ONE (16:53)
[2018-03-05] MEDS ORDERED: levETIRAcetam 500 MG TABLET (FP) PO ONE (16:53)
[2018-03-05] MEDS: LIDOCAINE PATCH REMOVAL MC SCH ×2 (21:21)
[2018-03-05] MEDS: THIAMINE HCL 100 MG TABLET (FP) PO SCH (21:21)
[2018-03-05] MEDS: SENNOSIDES 8.6MG TABLET (FP) PO SCH (21:21)
[2018-03-06] MEDS ORDERED: levETIRAcetam 250 MG TABLET (FP) PO ONE ×2 (04:12→16:32)
[2018-03-06] MEDS ORDERED: levETIRAcetam 500 MG TABLET (FP) PO ONE ×2 (04:12→16:33)
[2018-03-06] MEDS: AMOXICILLIN 500 MG CAPSULE (FP) PO SCH ×2 (06:32→13:16)
[2018-03-06] MEDS: DOCUSATE SODIUM 100 MG CAPSULE (FP) PO SCH ×3 (06:32→21:26)
[2018-03-06] MEDS: PHENobarbital 30 MG TABLET PO SCH ×2 (06:32→17:23)
[2018-03-06] MEDS: DIVALPROEX SODIUM 500 MG TABLET E.C. PO SCH ×2 (06:32→17:24)
[2018-03-06] MEDS: ACAMPROSATE CALCIUM 333 MG TABLET.DR PO SCH ×3 (06:33→21:26)
[2018-03-06] MEDS ORDERED: PT OWN MED DRAWER 7, Y5N ONE (08:39)
[2018-03-06] MEDS: MOMETASONE FUROATE 220 MCG/IH INHALER IH SCH (09:42)
[2018-03-06] MEDS: PRENATAL VITAMINS W/ FOLIC ACID TABLET (FP) PO SCH (09:42)
[2018-03-06] MEDS: LISINOPRIL 10 MG TABLET (FP) PO SCH (09:42)
[2018-03-06] MEDS: HYDROCHLOROTHIAZIDE 25 MG TABLET (FP) PO SCH (09:42)
[2018-03-06] MEDS: NICOTINE 21 MG/24 HOURS TOPICAL PATCH TD SCH (09:42)
[2018-03-06] MEDS: BUPRENORPHINE/NALOXONE 8 MG/2 MG FILM PACKET SL SCH (09:42)
[2018-03-06] MEDS: LIDOCAINE 5% TOPICAL PATCH TP SCH (09:45)
[2018-03-06] MEDS: NICOTINE POLACRILEX 2 MG GUM BUC PRN ×3 (09:47→21:28)
--- NOTE | 2018-03-06 15:31 | PN ---
[facility] Progress Note Note: Patient sustained fall yesterday morning and refused to go to ER for evaluation. Placed on 1:1 observation after fall. States he feels well today. Denies any dizziness, headache, chest pain and SOB. No visible injuries observed. Will d/c 1:1 and continue to monitor clinically.
[2018-03-06] MEDS: SENNOSIDES 8.6MG TABLET (FP) PO SCH (21:26)
[2018-03-06] MEDS: THIAMINE HCL 100 MG TABLET (FP) PO SCH (21:26)
[2018-03-06] MEDS: LIDOCAINE PATCH REMOVAL MC SCH ×2 (21:27)
[2018-03-07] MEDS ORDERED: levETIRAcetam 250 MG TABLET (FP) PO ONE ×2 (04:12→16:40)
[2018-03-07] MEDS ORDERED: levETIRAcetam 500 MG TABLET (FP) PO ONE ×2 (04:12→16:40)
[2018-03-07] MEDS: ACAMPROSATE CALCIUM 333 MG TABLET.DR PO SCH ×3 (05:57→21:30)
[2018-03-07] MEDS: NICOTINE POLACRILEX 2 MG GUM BUC PRN ×4 (05:57→21:32)
[2018-03-07] MEDS: DIVALPROEX SODIUM 500 MG TABLET E.C. PO SCH ×2 (05:57→17:15)
[2018-03-07] MEDS: PHENobarbital 30 MG TABLET PO SCH ×2 (05:57→17:16)
[2018-03-07] MEDS: DOCUSATE SODIUM 100 MG CAPSULE (FP) PO SCH ×3 (05:57→21:31)
[2018-03-07] MEDS: NICOTINE 21 MG/24 HOURS TOPICAL PATCH TD SCH (10:06)
[2018-03-07] MEDS: MOMETASONE FUROATE 220 MCG/IH INHALER IH SCH (10:06)
[2018-03-07] MEDS: PRENATAL VITAMINS W/ FOLIC ACID TABLET (FP) PO SCH (10:06)
[2018-03-07] MEDS: HYDROCHLOROTHIAZIDE 25 MG TABLET (FP) PO SCH (10:06)
[2018-03-07] MEDS: LISINOPRIL 10 MG TABLET (FP) PO SCH (10:06)
[2018-03-07] MEDS: LIDOCAINE 5% TOPICAL PATCH TP SCH (10:06)
[2018-03-07] MEDS: BUPRENORPHINE/NALOXONE 8 MG/2 MG FILM PACKET SL SCH (10:06)
[2018-03-07] MEDS: THIAMINE HCL 100 MG TABLET (FP) PO SCH (21:30)
[2018-03-07] MEDS: SENNOSIDES 8.6MG TABLET (FP) PO SCH (21:31)
[2018-03-07] MEDS: LIDOCAINE PATCH REMOVAL MC SCH ×2 (21:32→21:33)
[2018-03-07] MEDS ORDERED: SUVOREXANT 10 MG TABLET PO PRN (22:00)
[2018-03-07] MEDS ORDERED: PT OWN MED DRAWER 7, Y5N ONE (22:31)
[2018-03-08] MEDS ORDERED: levETIRAcetam 250 MG TABLET (FP) PO ONE ×2 (05:03→16:46)
[2018-03-08] MEDS ORDERED: levETIRAcetam 500 MG TABLET (FP) PO ONE ×2 (05:04→16:46)
[2018-03-08] MEDS: DOCUSATE SODIUM 100 MG CAPSULE (FP) PO SCH ×3 (06:00→21:35)
[2018-03-08] MEDS: DIVALPROEX SODIUM 500 MG TABLET E.C. PO SCH ×2 (06:01→17:05)
[2018-03-08] MEDS: ACAMPROSATE CALCIUM 333 MG TABLET.DR PO SCH ×3 (06:01→21:35)
[2018-03-08] MEDS: PHENobarbital 30 MG TABLET PO SCH ×2 (06:02→17:05)
[2018-03-08] MEDS: NICOTINE POLACRILEX 2 MG GUM BUC PRN ×3 (06:02→17:06)
--- NOTE | 2018-03-08 07:42 | PN ---
Psychiatric Progress Note Vital Signs: Vital Signs Period Temp Pulse Resp BP Sys/Buitrago Pulse Ox Last 24 Hr 97.8 F 60-66 18-20 100-148/65-82 Date of Session: 03/07/18 Chief Complaint:: Follow up medication management HPI: Patient addressing Alcohol, Cocaine Dependence comorbid with Opioid Dependence on Agonist Therapy, Nicotine Dependence, MDD, Substance-Induced Sleep Disorder ROS: Asthma, Chronic pain, Albinism, Blindness right eye, Chronic renal in sufficiency stage III, HTN, Obesity, Seizure Disorder, Spondylolisthesis, Osteoarthritis of both knees Current Medications: Active Medications Generic Name Dose Route Start Last Admin Trade Name Freq PRN Reason Stop Dose Admin Acamprosate 666 mg 03/02/18 22:00 03/08/18 06:01 Campral - PO 666 mg TID LISBETH Administration Acetaminophen 650 mg 02/17/18 12:09 03/05/18 13:12 Tylenol - PO 650 mg Q4H PRN Administration FEVER Albuterol Sulfate 2 puff 02/17/18 12:10 02/22/18 11:48 Ventolin Hfa Inhaler - IH 2 puff Q4H PRN Administration ASTHMA Benzocaine 1 applic 02/21/18 14:54 Anbesol - MM Q2H PRN dental pain Buprenorphine/Naloxone 1 each 03/04/18 10:00 03/07/18 10:06 Suboxone 8mg/2mg Sl Film - SL 03/10/18 09:59 1 each DAILY LISBETH Administration Buspirone HCl 15 mg 02/17/18 22:00 03/07/18 21:31 Buspar - PO 15 mg BID LISBETH Administration Divalproex Sodium 1,000 mg 03/01/18 18:00 03/08/18 06:01 Depakote - PO 1,000 mg BID@0600,1800 LISBETH Administration Docusate Sodium 100 mg 02/17/18 14:00 03/08/18 06:00 Colace - PO 100 mg TID LISBETH Administration Ergocalciferol 50,000 unit 02/18/18 10:00 03/04/18 09:16 Drisdol - PO 50,000 unit Sa@1000 LISBETH Administration Eucalyptus/Menthol/Phenol/Sorbitol 1 each 02/17/18 12:09 Cepastat Lozenge - MM Q4H PRN SORE THROAT Guaifenesin 10 ml 02/17/18 12:09 Robitussin Dm - PO Q6H PRN COUGH Hydrochlorothiazide 25 mg 02/18/18 10:00 03/07/18 10:06 Hctz - PO 25 mg DAILY LISBETH Administration Hydroxyzine Pamoate 50 mg 02/17/18 14:29 Vistaril - PO Q4H PRN ANXIETY Levetiracetam 500 mg/ 750 mg 03/01/18 18:00 03/08/18 06:01 Levetiracetam 250 mg PO 750 mg BID@0600,1800 LISBETH Administration Lidocaine 1 patch 02/26/18 13:30 03/07/18 10:06 Lidoderm Patch - TP 1 patch DAILY LISBETH Administration Lisinopril 10 mg 02/18/18 10:00 03/07/18 10:06 Prinivil PO 10 mg DAILY LSIBETH Administration Loperamide HCl 4 mg 02/17/18 12:09 Imodium - PO Q6H PRN DIARRHEA Melatonin 5 mg 02/17/18 22:00 03/03/18 21:09 Melatonin PO 5 mg HS PRN Administration INSOMNIA Miscellaneous 1 each 02/18/18 22:00 03/07/18 21:32 Lidoderm Patch Removal MC 1 each DAILY@2200 LISBETH Administration Miscellaneous 1 each 02/26/18 22:00 03/07/18 21:33 Lidoderm Patch Removal MC 1 each DAILY@2200 LISBETH Administration Mometasone Furoate 1 puff 02/18/18 10:00 03/07/18 10:06 Asmanex 220mcg - IH 1 puff DAILY LISBETH Administration Nicotine 21 mg 02/18/18 10:00 03/07/18 10:06 Nicoderm Patch - TD 21 mg DAILY LISBETH Administration Nicotine Polacrilex 2 mg 02/17/18 12:09 03/08/18 06:02 Nicorette Gum - BUC 2 mg Q2H PRN Administration NICOTINE REPLACEMENT RX Phenobarbital 60 mg 03/01/18 18:00 03/08/18 06:02 Phenobarbital - PO 03/08/18 17:59 60 mg BID@0600,1800 LISBETH Administration Multivit/Folic Acid/Iron 1 tab 02/18/18 10:00 03/07/18 10:06 Vitamins (Sjr) - PO 1 tab DAILY LISBETH Administration Pseudoephedrine/Triprolidine 1 combo 02/17/18 12:09 Actifed - PO TID PRN NASAL CONGESTION Senna 1 tab 02/21/18 22:00 03/07/18 21:31 Senna - PO 1 tab HS LISBETH Administration Suvorexant 10 mg 03/07/18 22:00 Belsomra PO HS PRN INSOMNIA Thiamine HCl 100 mg 02/17/18 22:00 03/07/18 21:30 Vitamin B1 - PO 100 mg HS LISBETH Administration Current Side Effect: No Lab tests ordered: Yes Lab tests reviewed: Yes Provider note:: Met with patient for follow up. He was started on Campral 666 mg po TID on 03/02/18. Reports tolerating medication very well complaning of no adverse-effects. Claims he feels like medication is effective in addressing his craving for alcohol as he has been craving less for the substance Total face to face time:: 15 Mental Status Exam - Mental Status Exam Alert and Oriented to: Time, Place, Person Cognitive Function: Fair Patient Appearance: Well Groomed Mood: Hopeful, Euthymic Affect: Appropriate Patient Behavior: Cooperative Speech Pattern: Clear Voice Loudness: Normal Thought Process: Intact, Goal Oriented Thought Disorder: Not Present Hallucinations: Denies Suicidal Ideation: Denies Homicidal Ideation: Denies Insight/Judgement: Fair Sleep: Fair Appetite: Good Muscle strength/Tone: Normal Gait/Station: Other (uses a wheelchair as ambulatory aid) Psychiatric Treatment Plan - Problem List (1) Alcohol dependence Current Visit: Yes Qualifiers: Substance use status: uncomplicated Qualified Code(s): F10.20 - Alcohol dependence, uncomplicated (2) Cocaine dependence Current Visit: No Qualifiers: Substance use status: uncomplicated Qualified Code(s): F14.20 - Cocaine dependence, uncomplicated Comment: referred for rehab (3) Opioid dependence on agonist therapy Current Visit: Yes (4) Nicotine dependence Current Visit: Yes Comment: counseled cessation - ready to try patch (5) Major depressive disorder Current Visit: No Comment: referred to [facility] but did not go - needs (6) Substance-induced sleep disorder Current Visit: Yes (7) Albinism Current Visit: No (8) Asthma Current Visit: No Qualifiers: Asthma severity: mild Asthma persistence: unspecified Asthma complication type: uncomplicated Qualified Code(s): J45.909 - Unspecified asthma, uncomplicated Comment: on inhalers, sees primary (9) Blind right eye Current Visit: No (10) Chronic low back pain Current Visit: No Qualifiers: Back pain laterality: unspecified Sciatica presence: unspecified whether sciatica present Qualified Code(s): M54.5 - Low back pain; G89.29 - Other chronic pain; G89.29 - Other chronic pain (11) Chronic renal insufficiency, stage III (moderate) Current Visit: No Comment: fluids, avoid nsaids and illicit drugs (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 (13) Hypertension Current Visit: Yes Qualifiers: Hypertension type: essential hypertension Qualified Code(s): I10 - Essential (primary) hypertension (14) Obesity (BMI 30-39.9) Current Visit: Yes Comment: counseled nutritional strategies (15) Primary osteoarthritis of both knees Current Visit: Yes Comment: topical, weight loss, rollator Rx to assist ambulation (16) Seizure disorder Current Visit: Yes Comment: sees neuro, on meds, (17) spondylolisthesis grade II Current Visit: No Comment: gentle stretches, lumbar support, topical, wt loss (18) History of CVA in adulthood Current Visit: No Initial treatment plan: 1) Continue Campral as currently ordered. 2) Monitor progress
[2018-03-08] MEDS: MOMETASONE FUROATE 220 MCG/IH INHALER IH SCH (09:54)
[2018-03-08] MEDS: BUPRENORPHINE/NALOXONE 8 MG/2 MG FILM PACKET SL SCH (09:55)
[2018-03-08] MEDS: NICOTINE 21 MG/24 HOURS TOPICAL PATCH TD SCH (09:55)
[2018-03-08] MEDS: LISINOPRIL 10 MG TABLET (FP) PO SCH (09:55)
[2018-03-08] MEDS: LIDOCAINE 5% TOPICAL PATCH TP SCH (09:55)
[2018-03-08] MEDS: HYDROCHLOROTHIAZIDE 25 MG TABLET (FP) PO SCH (09:55)
[2018-03-08] MEDS: PRENATAL VITAMINS W/ FOLIC ACID TABLET (FP) PO SCH (09:55)
--- NOTE | 2018-03-08 11:22 | PN ---
[facility] Progress Note Note: Patient presents with c/o low back pain. States lidocaine does not help with discomfort. Pain level 3-4/10. Non-radiating. Vital Signs Temperature 97.8 F 03/08/18 06:45 Pulse Rate 62 03/08/18 10:00 Respiratory Rate 03/08/18 10:00 Blood Pressure 107/68 03/08/18 10:00 O2 Sat by Pulse Oximetry (%) Laboratory Tests 02/25/18 02/25/18 02/28/18 09:30 09:30 08:35 WBC 5.7 RBC 3.88 L Hgb 13.0 D Hct 37.4 MCV 96.4 H MCH 33.5 MCHC 34.7 RDW 14.5 Plt Count 165 MPV 10.0 Neutrophils % 54.6 Lymphocytes % 27.3 Monocytes % 16.6 H Eosinophils % 1.2 Basophils % 0.3 Sodium 139 Potassium 3.9 Chloride 105 Carbon Dioxide 29 D Anion Gap 5 L BUN 25 H D Creatinine 0.8 Creat Clearance w eGFR > 60 Random Glucose 83 Calcium 8.4 L Total Bilirubin 0.1 L AST 9 L ALT 18 Alkaline Phosphatase 94 D Total Protein 6.4 Albumin 3.1 L Valproic Acid Levetiracetam Phenobarbital 21.2 03/01/18 03/02/18 08:30 08:30 WBC RBC Hgb Hct MCV MCH MCHC RDW Plt Count MPV Neutrophils % Lymphocytes % Monocytes % Eosinophils % Basophils % Sodium Potassium Chloride Carbon Dioxide Anion Gap BUN Creatinine Creat Clearance w eGFR Random Glucose Calcium Total Bilirubin AST ALT Alkaline Phosphatase Total Protein Albumin Valproic Acid 41.948 L Levetiracetam 26.2 Phenobarbital Obj: Skin: warm and dry. Intact. General: Pt alert and in no acute distress. Utilizing wheelchair within unit. Ext: Trace edema BLE. A/P: LBP Will add Baclofen 10mg TID to regimen continue to monitor clinically
[2018-03-08] MEDS: BACLOFEN 10 MG TABLET (FP) PO SCH ×2 (14:58→21:34)
[2018-03-08] MEDS: SENNOSIDES 8.6MG TABLET (FP) PO SCH (21:34)
[2018-03-08] MEDS: THIAMINE HCL 100 MG TABLET (FP) PO SCH (21:34)
[2018-03-08] MEDS: MELATONIN 5 MG TABLETS PO PRN (21:35)
[2018-03-08] MEDS: LIDOCAINE PATCH REMOVAL MC SCH ×2 (21:36)
[2018-03-08] MEDS ORDERED: PT OWN MED DRAWER 7, Y5N ONE (22:06)
[2018-03-09] MEDS ORDERED: levETIRAcetam 500 MG TABLET (FP) PO ONE ×2 (03:17→16:58)
[2018-03-09] MEDS ORDERED: levETIRAcetam 250 MG TABLET (FP) PO ONE ×2 (03:17→16:57)
[2018-03-09] MEDS: DIVALPROEX SODIUM 500 MG TABLET E.C. PO SCH ×2 (05:58→17:00)
[2018-03-09] MEDS: ACAMPROSATE CALCIUM 333 MG TABLET.DR PO SCH ×3 (05:58→21:26)
[2018-03-09] MEDS: DOCUSATE SODIUM 100 MG CAPSULE (FP) PO SCH ×3 (05:58→21:26)
[2018-03-09] MEDS: BACLOFEN 10 MG TABLET (FP) PO SCH ×3 (05:58→21:26)
[2018-03-09] MEDS: PHENobarbital 30 MG TABLET PO SCH ×2 (05:59→17:00)
[2018-03-09] MEDS: NICOTINE POLACRILEX 2 MG GUM BUC PRN ×5 (05:59→21:27)
--- NOTE | 2018-03-09 10:23 | PN ---
Psychiatric Progress Note Vital Signs: Vital Signs Period Temp Pulse Resp BP Sys/Butirago Pulse Ox Last 24 Hr 97.4 F 53 18-18 120/75 Date of Session: 03/09/18 Chief Complaint:: Discharge Note HPI: Patient addressing Alcohol and Cocaine Dependence comorbid with Opioid Dependence on Agonist Therapy, Nicotine Dependence, MDD, Substance-Induced Sleep Disorder ROS: Albinism, Asthma, HTN, Osteoarthritis both knees, Blindness right eye, Chronic low back pain, Chronic renal insufficiency stage III Current Medications: Active Medications Generic Name Dose Route Start Last Admin Trade Name Freq PRN Reason Stop Dose Admin Acamprosate 666 mg 03/02/18 22:00 03/09/18 05:58 Campral - PO 666 mg TID LISBETH Administration Acetaminophen 650 mg 02/17/18 12:09 03/05/18 13:12 Tylenol - PO 650 mg Q4H PRN Administration FEVER Albuterol Sulfate 2 puff 02/17/18 12:10 02/22/18 11:48 Ventolin Hfa Inhaler - IH 2 puff Q4H PRN Administration ASTHMA Baclofen 10 mg 03/08/18 14:00 03/09/18 05:58 Lioresal - PO 10 mg TID LISBETH Administration Benzocaine 1 applic 02/21/18 14:54 Anbesol - MM Q2H PRN dental pain Buprenorphine/Naloxone 1 each 03/04/18 10:00 03/08/18 09:55 Suboxone 8mg/2mg Sl Film - SL 03/10/18 09:59 1 each DAILY LISBETH Administration Buspirone HCl 15 mg 02/17/18 22:00 03/08/18 21:34 Buspar - PO 15 mg BID LISBETH Administration Divalproex Sodium 1,000 mg 03/01/18 18:00 03/09/18 05:58 Depakote - PO 1,000 mg BID@0600,1800 LISBETH Administration Docusate Sodium 100 mg 02/17/18 14:00 03/09/18 05:58 Colace - PO 100 mg TID LISBETH Administration Ergocalciferol 50,000 unit 02/18/18 10:00 03/04/18 09:16 Drisdol - PO 50,000 unit Sa@1000 LISBETH Administration Eucalyptus/Menthol/Phenol/Sorbitol 1 each 02/17/18 12:09 Cepastat Lozenge - MM Q4H PRN SORE THROAT Guaifenesin 10 ml 02/17/18 12:09 Robitussin Dm - PO Q6H PRN COUGH Hydrochlorothiazide 25 mg 02/18/18 10:00 03/08/18 09:55 Hctz - PO 25 mg DAILY LISBETH Administration Hydroxyzine Pamoate 50 mg 02/17/18 14:29 Vistaril - PO Q4H PRN ANXIETY Levetiracetam 500 mg/ 750 mg 03/01/18 18:00 03/09/18 05:58 Levetiracetam 250 mg PO 750 mg BID@0600,1800 LISBETH Administration Lidocaine 1 patch 02/26/18 13:30 03/08/18 09:55 Lidoderm Patch - TP 1 patch DAILY LISBETH Administration Lisinopril 10 mg 02/18/18 10:00 03/08/18 09:55 Prinivil PO 10 mg DAILY LISBETH Administration Loperamide HCl 4 mg 02/17/18 12:09 Imodium - PO Q6H PRN DIARRHEA Melatonin 5 mg 02/17/18 22:00 03/08/18 21:35 Melatonin PO 5 mg HS PRN Administration INSOMNIA Miscellaneous 1 each 02/18/18 22:00 03/08/18 21:36 Lidoderm Patch Removal MC 1 each DAILY@0 LISBETH Administration Miscellaneous 1 each 02/26/18 22:00 03/08/18 21:36 Lidoderm Patch Removal MC 1 each DAILY@2200 LISBETH Administration Mometasone Furoate 1 puff 02/18/18 10:00 03/08/18 09:54 Asmanex 220mcg - IH 1 puff DAILY LISBETH Administration Nicotine 21 mg 02/18/18 10:00 03/08/18 09:55 Nicoderm Patch - TD 21 mg DAILY LISBETH Administration Nicotine Polacrilex 2 mg 02/17/18 12:09 03/09/18 05:59 Nicorette Gum - BUC 2 mg Q2H PRN Administration NICOTINE REPLACEMENT RX Phenobarbital 60 mg 03/01/18 18:00 03/08/18 06:02 Phenobarbital - PO 03/08/18 17:59 60 mg BID@0600,1800 LISBETH Administration Phenobarbital 60 mg 03/08/18 18:00 03/09/18 05:59 Phenobarbital - PO 03/15/18 17:59 60 mg BID@0600,1800 LISBETH Administration Multivit/Folic Acid/Iron 1 tab 02/18/18 10:00 03/08/18 09:55 Vitamins (Sjr) - PO 1 tab DAILY LISBETH Administration Pseudoephedrine/Triprolidine 1 combo 02/17/18 12:09 Actifed - PO TID PRN NASAL CONGESTION Senna 1 tab 02/21/18 22:00 03/08/18 21:34 Senna - PO 1 tab HS LISBETH Administration Suvorexant 10 mg 03/07/18 22:00 Belsomra PO HS PRN INSOMNIA Thiamine HCl 100 mg 02/17/18 22:00 03/08/18 21:34 Vitamin B1 - PO 100 mg HS LISBETH Administration Current Side Effect: No Lab tests ordered: Yes Provider note:: Patient will complete this program on 03/10/18. He has met his treatment goals and will continue to addess his issues in senior living treatment at the [facility]. He responded well to Buspar 15 mg po BID and Acamprosate 666 mg po TID. Scripts for these medications electronically transmitted to [facility] at [address] [place] [address]. He is stable for discharge on 03/10/18 Total face to face time:: 35 Mental Status Exam - Mental Status Exam Alert and Oriented to: Time, Place, Person Cognitive Function: Fair Patient Appearance: Well Groomed Mood: Hopeful, Euthymic Affect: Appropriate Patient Behavior: Cooperative Speech Pattern: Clear Voice Loudness: Normal Thought Process: Intact, Goal Oriented Thought Disorder: Not Present Hallucinations: Denies Suicidal Ideation: Denies Homicidal Ideation: Denies Insight/Judgement: Fair Sleep: Fair Appetite: Good Muscle strength/Tone: Normal Gait/Station: Normal Psychiatric Treatment Plan - Problem List (1) Alcohol dependence Qualifiers: Substance use status: uncomplicated Qualified Code(s): F10.20 - Alcohol dependence, uncomplicated (2) Cocaine dependence Qualifiers: Substance use status: uncomplicated Qualified Code(s): F14.20 - Cocaine dependence, uncomplicated Comment: referred for rehab (4) Nicotine dependence Comment: counseled cessation - ready to try patch (5) Major depressive disorder Comment: referred to [facility] but did not go - needs (8) Asthma Qualifiers: Asthma severity: mild Asthma persistence: unspecified Asthma complication type: uncomplicated Qualified Code(s): J45.909 - Unspecified asthma, uncomplicated Comment: on inhalers, sees primary (10) Chronic low back pain Qualifiers: Back pain laterality: unspecified Sciatica presence: unspecified whether sciatica present Qualified Code(s): M54.5 - Low back pain; G89.29 - Other chronic pain; G89.29 - Other chronic pain (11) Chronic renal insufficiency, stage III (moderate) Comment: fluids, avoid nsaids and illicit drugs (13) Hypertension Qualifiers: Hypertension type: essential hypertension Qualified Code(s): I10 - Essential (primary) hypertension (14) Obesity (BMI 30-39.9) Comment: counseled nutritional strategies (15) Primary osteoarthritis of both knees Comment: topical, weight loss, rollator Rx to assist ambulation (16) Seizure disorder Comment: sees neuro, on meds, (17) spondylolisthesis grade II Comment: gentle stretches, lumbar support, topical, wt loss (18) History of CVA in adulthood Initial treatment plan: Patient will be discharged tomorrow and referred to [facility] for manager long term care residential treatment
[2018-03-09] MEDS: LIDOCAINE 5% TOPICAL PATCH TP SCH (10:25)
[2018-03-09] MEDS: HYDROCHLOROTHIAZIDE 25 MG TABLET (FP) PO SCH (10:25)
[2018-03-09] MEDS: NICOTINE 21 MG/24 HOURS TOPICAL PATCH TD SCH (10:25)
[2018-03-09] MEDS: BUPRENORPHINE/NALOXONE 8 MG/2 MG FILM PACKET SL SCH (10:25)
[2018-03-09] MEDS: LISINOPRIL 10 MG TABLET (FP) PO SCH (10:25)
[2018-03-09] MEDS: PRENATAL VITAMINS W/ FOLIC ACID TABLET (FP) PO SCH (10:25)
[2018-03-09] MEDS: MOMETASONE FUROATE 220 MCG/IH INHALER IH SCH (10:26)
[2018-03-09] MEDS: THIAMINE HCL 100 MG TABLET (FP) PO SCH (21:25)
[2018-03-09] MEDS: MELATONIN 5 MG TABLETS PO PRN (21:26)
[2018-03-09] MEDS: SENNOSIDES 8.6MG TABLET (FP) PO SCH (21:26)
[2018-03-09] MEDS: LIDOCAINE PATCH REMOVAL MC SCH ×2 (21:26)
[2018-03-10] MEDS ORDERED: levETIRAcetam 500 MG TABLET (FP) PO ONE (03:06)
[2018-03-10] MEDS ORDERED: levETIRAcetam 250 MG TABLET (FP) PO ONE (03:06)
[2018-03-10] MEDS: DOCUSATE SODIUM 100 MG CAPSULE (FP) PO SCH (06:15)
[2018-03-10] MEDS: ACAMPROSATE CALCIUM 333 MG TABLET.DR PO SCH (06:15)
[2018-03-10] MEDS: PHENobarbital 30 MG TABLET PO SCH (06:15)
[2018-03-10] MEDS: DIVALPROEX SODIUM 500 MG TABLET E.C. PO SCH (06:15)
[2018-03-10] MEDS: BACLOFEN 10 MG TABLET (FP) PO SCH (06:16)
[2018-03-10 07:05] VITALS: BP 126/75; PULSE 51; TEMP 97.5
[2018-03-10] MEDS: LISINOPRIL 10 MG TABLET (FP) PO SCH (09:19)
[2018-03-10] MEDS: PRENATAL VITAMINS W/ FOLIC ACID TABLET (FP) PO SCH (09:20)
[2018-03-10] MEDS: HYDROCHLOROTHIAZIDE 25 MG TABLET (FP) PO SCH (09:20)
[2018-03-10] MEDS: LIDOCAINE 5% TOPICAL PATCH TP SCH (09:20)
[2018-03-10] MEDS: NICOTINE 21 MG/24 HOURS TOPICAL PATCH TD SCH (09:21)
[2018-03-10] MEDS: MOMETASONE FUROATE 220 MCG/IH INHALER IH SCH (09:21)
[2018-03-10] MEDS: NICOTINE POLACRILEX 2 MG GUM BUC PRN (09:27)
[2018-03-10] MEDS: BUPRENORPHINE/NALOXONE 8 MG/2 MG FILM PACKET SL SCH (09:40)
[2018-03-10] MEDS ORDERED: BUPRENORPHINE/NALOXONE 8 MG/2 MG FILM PACKET SL SCH (10:00)
== END 2018-03-10 10:00 | disposition home or self-care (01) | DRG 773 ==
LOC: YASAS 12:27 → Y3W 12:30
PROVIDERS: ADMIT Psychiatry & Neurology Psychiatry; ATTEND Psychiatry & Neurology Psychiatry
PROC: HZ2ZZZZ Detoxification Services for Substance Abuse Treatment (ICD-10-PCS; principal; 2018-02-17)
DX: F11.20 Opioid dependence, uncomplicated (principal); F10.20 Alcohol dependence, uncomplicated; F14.20 Cocaine dependence, uncomplicated; F17.210 Nicotine dependence, cigarettes, uncomplicated; F33.9 Major depressive disorder, recurrent, unspecified; F19.282 Other psychoactive substance dependence with psychoactive substance-induced sleep disorder; G40.909 Epilepsy, unspecified, not intractable, without status epilepticus; J45.909 Unspecified asthma, uncomplicated; M54.5 Low back pain; G89.29 Other chronic pain; M17.0 Bilateral primary osteoarthritis of knee; N18.3 Chronic kidney disease, stage 3 (moderate); I10 Essential (primary) hypertension; E70.331 Hermansky-Pudlak syndrome; E66.9 Obesity, unspecified; Z68.34 Body mass index [BMI] 34.0-34.9, adult; Z86.73 Personal history of transient ischemic attack (TIA), and cerebral infarction without residual deficits; R26.89 Other abnormalities of gait and mobility; Z99.89 Dependence on other enabling machines and devices
CPT/HCPCS: 36415; 73562-TC-LT-FY; 73660-TC-FY; 80053; 80164; 80184; 85025; J0475

== ENCOUNTER 2018-10-13 19:04 | Inpatient (IN) | payer OTHER ==
--- NOTE | 2018-10-13 19:34 | PDOC ---
History of Present Illness - General Stated Complaint: INTOXICATION Time Seen by Provider: 10/13/18 19:34 - History of Present Illness Initial Comments: 10/14/18 20:08 Pt was brought in by EMS; Intox. Unclear if he drank alcohol or used drugs. Past History - Travel Traveled outside of the country in the last 30 days: No Close contact w/someone who was outside of country & ill: No - Past Medical History Allergies/Adverse Reactions: Allergies Allergy/AdvReac Type Severity Reaction Status Date / Time No Known Allergies Allergy Verified 10/13/18 20:59 Home Medications: Ambulatory Orders Divalproex [Depakote -] 1,000 mg PO BID #60 tablet.ec 10/27/17 Mometasone Furoate [Asmanex 220Mcg -] 1 inh IH DAILY 12/07/17 Phenobarbital 64.8 mg PO BID 12/19/17 Fluticasone Propionate [Flovent Diskus] 1 puff IH BID 02/13/18 Albuterol Sulfate Inhaler - [Ventolin HFA Inhaler -] 2 inh PO Q4H PRN #1 inhaler 03/07/18 Budesonide/Formeterol Fumarate [SYMBICORT 160/4.5mcg -] 1 puff IH DAILY #1 inhaler 03/07/18 Docusate Sodium [Colace -] 100 mg PO TID #90 capsule 03/07/18 Lisinopril [Zestril] 10 mg PO DAILY #30 tablet 03/07/18 levETIRAcetam [Keppra -] 750 mg PO BID@0600,1800 #60 tablet 03/07/18 Acamprosate Calcium [Campral -] 666 mg PO TID 30 Days tablet. 03/09/18 Buspirone HCl [Buspar -] 15 mg PO BID #60 tablet 03/09/18 Hydrochlorothiazide [Hctz -] 25 mg PO DAILY #30 tablet 03/21/18 Multivitamin [Multiple Vitamins] 1 each PO DAILY #30 tablet 03/21/18 Sennosides [Senna] 2 tab PO DAILY #30 tablet 03/21/18 Nicotine [Nicotine Patch 21 mg/24 hr] 1 each TD DAILY #30 patch.td24 08/31/18 Zolpidem Tartrate [Ambien] 10 mg PO DAILY 08/31/18 Baclofen 10 mg PO TID #90 tablet 09/05/18 Diclofenac Sodium [Voltaren] 2 gm TP TID PRN #3 tube 09/05/18 Ergocalciferol [Vitamin D2] 50,000 unit PO WEEKLY #4 capsule 09/05/18 Ibuprofen 800 mg PO BID PRN #60 tablet 09/05/18 Back Brace [Ultra Support] 1 each MC DAILY #1 each 10/12/18 Anemia: No Asthma: Yes (on MDI) Cancer: No Cardiac Disorders: Yes CVA: Yes (february 2018) COPD: No CHF: No Dementia: No Diabetes: No (told he is prediabetic) GI Disorders: No Disorders: No HTN: Yes Hypercholesterolemia: No Kidney Stones: No Liver Disease: No Seizures: Yes (on meds, last seizure Nov 2017) Thyroid Disease: No - Surgical History Abdominal Surgery: No Appendectomy: No Cardiac Surgery: No Cholecystectomy: No Lung Surgery: No Neurologic Surgery: No Orthopedic Surgery: No - Reproductive History Testicular Surgery: No - Suicide/Smoking/Psychosocial Hx Smoking Status: Yes Smoking History: Current every day smoker (stopped a month ago!) Have you smoked in the past 12 months: Yes Number of Cigarettes Smoked Daily: 2 If you are a former smoker, when did you quit?: 1 year Cigars Per Day: 0 'Breaking Loose' booklet given: 02/13/18 Hx Alcohol Use: Yes Drug/Substance Use Hx: Yes Substance Use Type: Alcohol (Started drinking alcohol at age 13, consumes 1/3-1/ 2 pint of vodka daily. Last drank on 02/13/18), Cocaine (Started smkoing crack cocaine at age 12, consumes $20 worth 3-6 times weekly. Last smoked on 02/10/18) , Heroin (Started using heroin at age 29, consumes one bag 1-3 times in the last 30 days. Last used on 02/10/18) Hx Substance Use Treatment: Yes (6 previous inpt detox & 2 inpt rehab @ [facility], suboxone) Review of Systems - Review of Systems Able to Perform ROS?: No Comments:: 10/14/18 20:09 Pt is intoxicated and he is not answering all questions. Is the patient limited Tristanian proficient: No *Physical Exam - Physical Exam General Appearance: Yes: Nourished, Appropriately Dressed, Disheveled, Intoxicated HEENT: positive: EOMI, Normal Voice, Symmetrical, TMs Normal, Pharynx Normal ( ptis cross eyed) Neck: positive: Trachea midline, Supple Respiratory/Chest: positive: Respiratory Distress, Decreased Breath Sounds, Wheezing Cardiovascular: positive: Regular Rhythm, Regular Rate, S1, S2 Gastrointestinal/Abdominal: positive: Normal Bowel Sounds, Soft Male Genitalia: positive: normal genitalia Musculoskeletal: positive: Normal Inspection. negative: CVA Tenderness Extremity: positive: Cyanosis Integumentary: positive: Dry, Warm, Cyanotic, Other (pt has albinism) Neurologic: positive: Depressed Affect, Other (pt is intox with heroin; somnolent. wakes up with narcan. ) ED Treatment Course - LABORATORY CBC & Chemistry Diagram: 10/14/18 07:06 10/14/18 07:18 - RADIOLOGY Chest X-Ray Result: No Infiltrates Medical Decision Making - Medical Decision Making 10/13/18 20:28 pt has a ph of 7.22 pt was O2sat 62% on Room air with NRB 100% face mask O2 sat 87%. EJ placed by myself in right neck. 0.4 narcan given. Pt's pinpoint pupils widened slightly and he is more awake. Pt is O2sat 100% on NRB Pt is answering questions and following commands. Tells us that he used alcohol and heroin. 10/13/18 20:40 Pt got a second narcan and woke up here. He was sent for CT head. Pt also vomiting brownish sputum. 10/13/18 21:[address] result normal. 10/13/18 22:34 Pt is breathing well; after duoneb, wheezing decreased slightly. Left EJ blew.; we placed a 24 ga. IV in the right hand. Fluids going thru there. 10/13/18 22:36 Pt's carboxyHB elevated. We will repeat abg. 10/14/18 01:52 Pt's repeat abg is slightly worse, but pt keeps removing his O2; we will do another later. Pt's bedside pulsox on 2 L NC is 94% 10/14/18 02:08 3rd ABG just sent Pt admitted to telemetry unit. *DC/Admit/Observation/Transfer Diagnosis at time of Disposition: Opioid intoxication Alcohol dependence Qualifiers: Substance use status: uncomplicated Qualified Code(s): F10.20 - Alcohol dependence, uncomplicated Nicotine dependence Qualifiers: Nicotine product type: cigarettes Substance use status: in withdrawal Qualified Code(s): F17.213 - Nicotine dependence, cigarettes, with withdrawal - Discharge Dispostion Condition at time of disposition: Guarded Decision to Admit order: Yes - Referrals - Patient Instructions - Post Discharge Activity
[2018-10-13] MEDS ORDERED: NALOXONE HCL 0.4 MG/ML VIAL ONE ×3 (20:03→23:01)
[2018-10-13 20:22] LABS: BASO % 0.5 % (0-2.0); EOS % 0.6 % (0-4.5); HEMATOCRIT 41.4 % (35.4-49); HEMOGLOBIN 14.7 GM/dL (11.7-16.9); LYMPH % 25.9 % (8-40); MCH 36.1 pg (25.7-33.7); MCHC 35.6 g/dl (32.0-35.9); MEAN CELL VOLUME 101.6 fl (80-96); MEAN PLT VOLUME 10.5 fl (7.5-11.1); MONO % 12.6 % (3.8-10.2); NEUT % 60.4 % (42.8-82.8); PLATELET COUNT 245 K/MM3 (134-434); RBC 4.07 M/mm3 (4.00-5.60); RDW 13.9 % (11.9-15.9)
[2018-10-13 20:23] LABS: ARTERIAL BLD GAS O2 SATURATION 92.7 % (90-98.9); ARTERIAL BLOOD GAS BASE EXCESS -7.1 meq/l (-2-2); ARTERIAL BLOOD GAS PCO2 52.2 mmHg (35-45); ARTERIAL BLOOD GAS PO2 78.6 mmHg (80-100); CARBOXYHEMOGLOBIN 5.8 gm% (0.5-2.0)
[2018-10-13 20:25] LABS: ALLENS TEST POSITIVE
[2018-10-13] MEDS ORDERED: NALOXONE HCL 0.4 MG/ML VIAL IVPUSH ONE ×3 (20:25→22:59)
[2018-10-13] MEDS ORDERED: FOLIC ACID INJECTION - 1 MG, THIAMINE HCL 100 MG, MULTIVIT INJECTION ADULT 10 ML in SOD... IVPB ONE (20:26)
[2018-10-13 20:27] LABS: ARTERIAL BLOOD GAS pH 7.22 (7.35-7.45)
[2018-10-13 20:35] LABS: INR 0.97 (0.83-1.09); PROTHROMBIN TIME (PATIENT) 11.4 SEC (9.7-13.0)
[2018-10-13 20:37] LABS: ACTIVATED PTT 29.1 SECONDS (25.2-36.5)
[2018-10-13] MEDS ORDERED: ALBUTEROL SO4 2.5/IPRATROPIUM 0.5 INH SOL 3 ML VIAL.NEB. NEB ONE ×3 (20:45→22:35)
[2018-10-13 20:57] LABS: ALBUMIN 3.8 g/dl (3.4-5.0); ALK PHOS 151 U/L (45-117); ANION GAP 13 MMOL/L (8-16); BILIRUBIN,TOTAL 0.1 mg/dL (0.2-1); BLOOD UREA NITROGEN 20 mg/dL (7-18); CALCIUM 8.5 mg/dL (8.5-10.1); CHLORIDE 105 mmol/L (98-107); CO2 22 mmol/L (21-32); CREATININE 1.5 mg/dL (0.55-1.3); GLUCOSE,RANDOM 83 mg/dL (74-106); POTASSIUM 4.4 mmol/L (3.5-5.1); SGOT/AST 25 U/L (15-37); SGPT/ALT 23 U/L (13-61); SODIUM 139 mmol/L (136-145); TOT PROT 7.6 g/dl (6.4-8.2)
[2018-10-13 21:38] LABS: ACETONE SERUM NEGATIVE (NEGATIVE)
[2018-10-13 23:10] LABS: ARTERIAL BLOOD GAS PCO2 51.1 mmHg (35-45); ARTERIAL BLOOD GAS pH 7.26 (7.35-7.45); CARBOXYHEMOGLOBIN 3.6 gm% (0.5-2.0)
[2018-10-13 23:14] LABS: ARTERIAL BLD GAS O2 SATURATION 72.6 % (90-98.9); ARTERIAL BLOOD GAS PO2 45.8 mmHg (80-100)
[2018-10-13 23:15] LABS: ALLENS TEST POSITIVE
[2018-10-14 00:07] LABS: COCAINE, UR NEGATIVE ng/ml (CUTOFF=300); METHADONE, UR NEGATIVE ng/ml (CUTOFF=300); PHENCYCLIDINE,URINE NEGATIVE ng/ml (CUTOFF=25); URINE AMPHETAMINES NEGATIVE ng/ml (CUTOFF=500); URINE BENZODIAZEPINES NEGATIVE ng/ml (CUTOFF=200)
[2018-10-14 00:08] LABS: URINE BARBITURATES POSITIVE ng/ml (CUTOFF=200)
[2018-10-14 00:09] LABS: OPIATES, URI POSITIVE ng/ml (CUTOFF=300)
[2018-10-14 02:21] LABS: ARTERIAL BLD GAS O2 SATURATION 75.1 % (90-98.9); ARTERIAL BLOOD GAS BASE EXCESS -2.7 meq/l (-2-2); ARTERIAL BLOOD GAS PCO2 44.5 mmHg (35-45); ARTERIAL BLOOD GAS pH 7.33 (7.35-7.45); CARBOXYHEMOGLOBIN 3.1 gm% (0.5-2.0)
--- NOTE | 2018-10-14 02:23 | HP ---
CHIEF COMPLAINT:opiod over dose PCP:un known HISTORY OF PRESENT ILLNESS: 48 year old homeless man jc into ED by EMS after found him on street with blue fingers and not responsive was found to UA positive for opioid over dose .his o2 sat was 68 % on arrival , he was given naracn 0.4 mg IV push and o2 NC then Non rebreathable mask improved his O2 sat t 100, pt is very drowsy and not able to provide histroy. he mentioned he used 3 bags of heroin and drink a lot of vodka. ER course was notable for: (1)Narcan drip (2)O2 (3)ABG Recent Travel: PAST MEDICAL HISTORY: PAST SURGICAL HISTORY: Social History: Per ED Alcohol (Started drinking alcohol at age 13, consumes 1/3 -1/2 pint of vodka daily. Last drank on 02/13/18), Cocaine (Started smkoing crack cocaine at age 12, consumes $20 worth 3-6 times weekly. Last smoked on 02/10/18) , Heroin (Started using heroin at age 29, consumes one bag 1-3 times in the last 30 days. Last used on 02/10/18) Hx Substance Use Treatment: Yes (6 previous inpt detox & 2 inpt rehab @ [facility], suboxone) Family History:non contributory Allergies No Known Allergies Allergy (Verified 10/13/18 20:59) HOME MEDICATIONS: Home Medications Medication Instructions Recorded Divalproex [Depakote -] 1,000 mg PO BID #60 tablet.ec 10/27/17 Mometasone Furoate [Asmanex 220Mcg 1 inh IH DAILY 12/07/17 -] Phenobarbital 64.8 mg PO BID 12/19/17 Fluticasone Propionate [Flovent 1 puff IH BID 02/13/18 Diskus] Albuterol Sulfate Inhaler - 2 inh PO Q4H PRN #1 inhaler 03/07/18 [Ventolin HFA Inhaler -] Budesonide/Formeterol Fumarate 1 puff IH DAILY #1 inhaler 03/07/18 [SYMBICORT 160/4.5mcg -] Docusate Sodium [Colace -] 100 mg PO TID #90 capsule 03/07/18 Lisinopril [Zestril] 10 mg PO DAILY #30 tablet 03/07/18 levETIRAcetam [Keppra -] 750 mg PO BID@0600,1800 #60 tablet 03/07/18 Acamprosate Calcium [Campral -] 666 mg PO TID 30 Days tablet. 03/09/18 Buspirone HCl [Buspar -] 15 mg PO BID #60 tablet 03/09/18 Hydrochlorothiazide [Hctz -] 25 mg PO DAILY #30 tablet 03/21/18 Multivitamin [Multiple Vitamins] 1 each PO DAILY #30 tablet 03/21/18 Sennosides [Senna] 2 tab PO DAILY #30 tablet 03/21/18 Nicotine [Nicotine Patch 21 mg/24 1 each TD DAILY #30 patch.td24 08/31/18 hr] Zolpidem Tartrate [Ambien] 10 mg PO DAILY 08/31/18 Baclofen 10 mg PO TID #90 tablet 09/05/18 Diclofenac Sodium [Voltaren] 2 gm TP TID PRN #3 tube 09/05/18 Ergocalciferol [Vitamin D2] 50,000 unit PO WEEKLY #4 capsule 09/05/18 Ibuprofen 800 mg PO BID PRN #60 tablet 09/05/18 Back Brace [Ultra Support] 1 each MC DAILY #1 each 10/12/18 REVIEW OF SYSTEMS un able to obtain PHYSICAL EXAMINATION Vital Signs - 24 hr 10/13/18 10/13/18 19:45 20:32 Temperature 97.6 F Pulse Rate 88 Pulse Rate [ 94 H Left Radial] Respiratory 16 16 Rate Blood Pressure 138/74 Blood Pressure 127/92 [Right Arm] O2 Sat by Pulse 96 100 Oximetry (%) GENERAL: drowsy lethargic , AAox3 HEAD: Normal with no signs of trauma. EYES:pin point pupil , ENT: dry MM NECK: Normal range of motion, supple LUNGS: diffuse wheezeing , HEART: Regular rate and rhythm, normal S1 and S2 without murmur, rub or gallop. ABDOMEN: Soft, nontender, not distended, normoactive bowel sounds, LOWER EXTREMITIES: 2+ pulses, warm, well-perfused. No calf tenderness. No peripheral edema. left anterior chin bruises NEUROLOGICAL: not able to obtain. no focal deficit PSYCHIATRIC: drowsy SKIN: Warm, dry, Laboratory Results - last 24 hr 10/13/18 10/13/18 10/13/18 20:09 20:15 20:15 WBC 9.0 RBC 4.07 Hgb 14.7 Hct 41.4 MCV 101.6 H MCH 36.1 H MCHC 35.6 RDW 13.9 D Plt Count 245 MPV 10.5 Absolute Neuts (auto) 5.5 Neutrophils % 60.4 Lymphocytes % 25.9 Monocytes % 12.6 H Eosinophils % 0.6 Basophils % 0.5 Nucleated RBC % 0 PT with INR INR PTT (Actin FS) Anticoagulation Therapy No Result Required. Puncture Site Right radial ABG pH 7.22 L* ABG pCO2 at Pt Temp 52.2 H ABG pO2 at Pt Temp 78.6 L ABG HCO3 20.7 L ABG O2 Sat (Measured) 92.7 ABG O2 Content 17.7 ABG Base Excess -7.1 L Berny Test Positive Carboxyhemoglobin 5.8 H Methemoglobin 0.2 L O2 Delivery Device Nrb Oxygen Flow Rate 100% Vent Mode No Result Required. Vent Rate No Result Required. Mechanical Rate No Result Required. Pressure Support Vent No Result Required. Sodium 139 Potassium 4.4 Chloride 105 Carbon Dioxide 22 Anion Gap 13 BUN 20 H Creatinine 1.5 H Creat Clearance w eGFR 49.74 Random Glucose 83 Calcium 8.5 Total Bilirubin 0.1 L AST 25 ALT 23 Alkaline Phosphatase 151 H Creatine Kinase 279 Creatine Kinase Index 1.0 CK-MB (CK-2) 2.9 Troponin I < 0.02 Total Protein 7.6 Albumin 3.8 Opiates Screen Methadone Screen Barbiturate Screen Phencyclidine Screen Ur Amphetamines Screen MDMA (Ecstasy) Screen Benzodiazepines Screen Cocaine Screen U Marijuana (THC) Screen Acetone, Qual Negative 10/13/18 10/13/18 10/13/18 20:15 20:15 23:00 WBC RBC Hgb Hct MCV MCH MCHC RDW Plt Count MPV Absolute Neuts (auto) Neutrophils % Lymphocytes % Monocytes % Eosinophils % Basophils % Nucleated RBC % PT with INR 11.40 INR 0.97 PTT (Actin FS) Cancelled 29.1 Anticoagulation Therapy No Result Required. Puncture Site Left radial ABG pH 7.26 L ABG pCO2 at Pt Temp 51.1 H ABG pO2 at Pt Temp 45.8 L* D ABG HCO3 22.0 ABG O2 Sat (Measured) 72.6 L* ABG O2 Content 13.2 L ABG Base Excess -5.0 L Berny Test Positive Carboxyhemoglobin 3.6 H Methemoglobin 0.3 L O2 Delivery Device No Result Required. Oxygen Flow Rate Yes Vent Mode No Result Required. Vent Rate No Result Required. Mechanical Rate No Result Required. Pressure Support Vent No Result Required. Sodium Potassium Chloride Carbon Dioxide Anion Gap BUN Creatinine Creat Clearance w eGFR Random Glucose Calcium Total Bilirubin AST ALT Alkaline Phosphatase Creatine Kinase Creatine Kinase Index CK-MB (CK-2) Troponin I Total Protein Albumin Opiates Screen Methadone Screen Barbiturate Screen Phencyclidine Screen Ur Amphetamines Screen MDMA (Ecstasy) Screen Benzodiazepines Screen Cocaine Screen U Marijuana (THC) Screen Acetone, Qual 10/13/18 10/14/18 23:41 02:09 WBC RBC Hgb Hct MCV MCH MCHC RDW Plt Count MPV Absolute Neuts (auto) Neutrophils % Lymphocytes % Monocytes % Eosinophils % Basophils % Nucleated RBC % PT with INR INR PTT (Actin FS) Anticoagulation Therapy No Result Required. Puncture Site ABG pH ABG pCO2 at Pt Temp ABG pO2 at Pt Temp ABG HCO3 ABG O2 Sat (Measured) ABG O2 Content ABG Base Excess Berny Test Carboxyhemoglobin Methemoglobin O2 Delivery Device No Result Required. Oxygen Flow Rate No Result Required. Vent Mode No Result Required. Vent Rate No Result Required. Mechanical Rate No Result Required. Pressure Support Vent No Result Required. Sodium Potassium Chloride Carbon Dioxide Anion Gap BUN Creatinine Creat Clearance w eGFR Random Glucose Calcium Total Bilirubin AST ALT Alkaline Phosphatase Creatine Kinase Creatine Kinase Index CK-MB (CK-2) Troponin I Total Protein Albumin Opiates Screen Positive A* Methadone Screen Negative Barbiturate Screen Positive A* Phencyclidine Screen Negative Ur Amphetamines Screen Negative MDMA (Ecstasy) Screen Negative Benzodiazepines Screen Negative Cocaine Screen Negative U Marijuana (THC) Screen Negative Acetone, Qual CBC, BMP 10/13/18 20:15 10/13/18 20:15 ASSESSMENT/PLAN: 48 year year old homeless male presented to ED by EMD due to opioid over dose # AMS due to opioid over dose * lethargic , dun downing , used 3 bags of heroid and liter of vodka * Pin point pupil , o2 sat 68% on admission * Narcan 0.4 x4 in ED * O2 non rebreathable mask * ABG * Neurocheck q 2 hr * cbc, bmp * urine tox positive for opioid and baribiturate * tele monitor * mag, phosp, # Acute respiratory distress with h/o asthma * diffuse wheezing on physical exam, with o2 sat 68 % on admission improved to 99% on non rebreathable * Duoneb * Albuterol * Blood cx , urine cx by ED * Abx once by ED * ABG in AM # FABRIZIO * likely pre renal from low oral intake * IV fluids * repeat BUN/Cr * avoid nephrotoxic agents # FEN * F: RL 100Cc/hr * E: Monitor * N: npo # Dispo * tele monitor # meds unknown what he is taking , pt is homeless , will try again when he is more awake Visit type - Emergency Visit Emergency Visit: Yes Care time: The patient presented to the Emergency Department on the above date and was hospitalized for further evaluation of their emergent condition. - New Patient This patient is new to me today: Yes Date on this admission: 10/14/18 - Critical Care Critical Care patient: No
[2018-10-14 02:24] LABS: ARTERIAL BLOOD GAS PO2 43.7 mmHg (80-100)
[2018-10-14] MEDS ORDERED: CEFTRIAXONE 1,000 MG in DEXTROSE 5%-WATER - 50 ML IVPB ONE (02:56)
[2018-10-14] MEDS ORDERED: VANCOMYCIN 1,000 MG in DEXTROSE 5%-WATER - 250 ML IVPB ONE (02:59)
[2018-10-14] MEDS ORDERED: CEFTRIAXONE 1 GM/50 ML BAG ONE (03:11)
[2018-10-14] MEDS ORDERED: VANCOMYCIN 1 GRAM (PRE-DOCKED) 1,000 MG/250 ML BAG IVPB ONE (03:11)
[2018-10-14] MEDS ORDERED: NALOXONE HCL 0.4 MG/ML VIAL ONE (03:17)
[2018-10-14] MEDS ORDERED: NALOXONE HCL 0.4 MG/ML VIAL IVPUSH ONE ×2 (03:19→03:39)
[2018-10-14] MEDS ORDERED: ACETAMINOPHEN 325 MG TABLET (FP) PO PRN (03:33)
[2018-10-14] MEDS ORDERED: LACTATED RINGERS SOLUTION 1000 ML INFUS.BAG IV SCH (04:15)
[2018-10-14] MEDS: SODIUM CHLORIDE 1,000 ML IV SCH (05:03)
[2018-10-14] MEDS ORDERED: HEPARIN NA (PORCINE) 5,000 UNITS/ML 1ML VIAL ONE (06:30)
[2018-10-14] MEDS: HEPARIN NA (PORCINE) 5,000 UNITS/ML 1ML VIAL SQ SCH ×3 (06:43→21:23)
--- NOTE | 2018-10-14 07:07 | PN ---
Teaching Attending Note Name of Resident: Mike Chaudhary ATTENDING PHYSICIAN STATEMENT I saw and evaluated the patient. I reviewed the resident's note and discussed the case with the resident. I agree with the resident's findings and plan as documented. SUBJECTIVE: Seen and examined; limited history. HE is a 48 y/o male with a PMH significant for alcohol and drug abuse. He is a limited historian but he is hemodynamically stable and much more awake now when we are down to assess him. He took "three bags of heroin" and took alcohol. I was told earlier he may have taken bzd's. His UA is positive for barbituates and opiates. He initially was hypoxic to the 60s on RA but recovered quickly. Mildly elevated CO2 that did trend down. Got many doses of naloxone. He was much more awake when I saw him. He denies wanting to harm himself, he tells me he was trying to intoxicate himself. As he is improving his gas and he is protecting his airway and arousable he can be monitored on telemetry. If he decompensates at all call ICU. ROS, PMH, PSH, FH, couldn't be reliably obtained or confirmed Socially he is known to abuse alcohol and drugs. OBJECTIVE: VS, labs, imaging reviewed Somnolent but arousable, AAOx3 when awake. RRR s1/2 no mgr Pinpoint pupils still, NC AT EOMI In street clothes cut with chuy NT ND +BS No swelling Pale Labs show FABRIZIO with Cr 1.5, Utox positive for opiates and barbituates, negative for EtOH, second gas improved and third moreso. Troponin negative CXR negative for acute disease Tele reiviewed, EKG read pending ASSESSMENT AND PLAN: 48 y/o presents with heroin and possible benzo OD; stated he drank but negative EtOH. ABG improved. 1) AMS 2/2 overdose with hypoxia -PRN Narcan, monitor sats and mental status on the floor. Negative other causes (no +CT, etc.) -NPO; PRN O2 -Hydrate with LR while NPO -Offer rehab, screen again for psych. Denies suicidality 2) FABRIZIO -Cr 1.5; empirically hydrating and will monitor BMP 3) EtOH Abuse -Documented as QD drinker; on Ativan CIWA. Careful not to oversedate. 4) Polysubstance abuse -Positive for opiates, barbituates -Offer rehab 5) Macrocytosis -2/2 EtOH likely; checking B12, Folate FENA -LR@120/hr -PRN monitor, replete -NPO until conscious
[2018-10-14 07:50] LABS: BASO % 0.2 % (0-2.0); EOS % 0.3 % (0-4.5); HEMATOCRIT 37.3 % (35.4-49); HEMOGLOBIN 12.5 GM/dL (11.7-16.9); LYMPH % 14.7 % (8-40); MCH 34.4 pg (25.7-33.7); MCHC 33.4 g/dl (32.0-35.9); MEAN CELL VOLUME 102.7 fl (80-96); MEAN PLT VOLUME 10.5 fl (7.5-11.1); MONO % 12.8 % (3.8-10.2); PLATELET COUNT 167 K/MM3 (134-434); RBC 3.63 M/mm3 (4.00-5.60); RDW 13.9 % (11.9-15.9); WHITE BLOOD COUNT 7.5 K/mm3 (4.0-10.0)
[2018-10-14 07:51] LABS: INR 1.03 (0.83-1.09); PROTHROMBIN TIME (PATIENT) 12.1 SEC (9.7-13.0)
[2018-10-14 08:01] LABS: MAGNESIUM 2.1 mg/dL (1.8-2.4); PHOSPHOROUS 3.5 mg/dL (2.5-4.9)
[2018-10-14 08:54] LABS: ALBUMIN 3.1 g/dl (3.4-5.0); ALK PHOS 113 U/L (45-117); ANION GAP 11 MMOL/L (8-16); BILIRUBIN,TOTAL 0.4 mg/dL (0.2-1); BLOOD UREA NITROGEN 16 mg/dL (7-18); CALCIUM 7.9 mg/dL (8.5-10.1); CHLORIDE 107 mmol/L (98-107); CO2 22 mmol/L (21-32); GLUCOSE,RANDOM 67 mg/dL (74-106); POTASSIUM 4.1 mmol/L (3.5-5.1); SGOT/AST 17 U/L (15-37); SGPT/ALT 18 U/L (13-61); SODIUM 140 mmol/L (136-145); TOT PROT 6.2 g/dl (6.4-8.2)
--- NOTE | 2018-10-14 10:11 | PN ---
Progress Note, Physician Chief Complaint: Mr Barrera is somnolent on exam but arousable. States he lost consciousness after taking heroin and drinking. Endorses 1-2 pints of alcohol a day. Was not trying to kill himself, was using heroin recreationally. He denies cp, sob, n/ v. - Current Medication List Current Medications: Active Medications Acetaminophen (Tylenol -) 650 mg PO Q6H PRN PRN Reason: PAIN Heparin Sodium (Porcine) (Heparin -) 5,000 unit SQ TID [facility] Last Admin: 10/14/18 06:43 Dose: 5,000 unit Sodium Chloride (Normal Saline -) 1,000 mls @ 83 mls/hr IV ASDIR [facility] Last Admin: 10/14/18 05:03 Dose: Not Given - Objective Vital Signs: Vital Signs Temperature 36.4 C 10/14/18 07:56 Pulse Rate 89 10/14/18 07:56 Respiratory Rate 18 10/14/18 07:56 Blood Pressure 111/64 10/14/18 07:56 O2 Sat by Pulse Oximetry (%) 100 10/14/18 07:56 Constitutional: Yes: Other (somnolent but arousable to voice) Cardiovascular: Yes: Regular Rate and Rhythm. No: Gallop, Murmur, Rub Respiratory: Yes: Regular, CTA Bilaterally, On Nasal O2. No: Rales, Rhonchi, Wheezes Gastrointestinal: Yes: Normal Bowel Sounds, Soft. No: Distention, Tenderness Extremities: Yes: WNL Edema: No Labs: CBC, BMP 10/14/18 07:06 10/14/18 07:18 INR, PTT INR 1.03 (0.83-1.09) 10/14/18 07:18 Problem List - Problems (1) Acute hypercapnic respiratory failure Assessment/Plan: -secondary to opioid intoxication -resolved Code(s): J96.02 - ACUTE RESPIRATORY FAILURE WITH HYPERCAPNIA (2) Alcohol dependence Assessment/Plan: -daily alcohol use -will place on prn IV ativan currently -once more stable, suspect will need scheduled benzodiazepines for detox -however do not want to cause worsening hypercapnea at this time -continue to monitor on telemetry -addiction medicine consulted Code(s): F10.20 - ALCOHOL DEPENDENCE, UNCOMPLICATED Qualifiers: Substance use status: uncomplicated Qualified Code(s): F10.20 - Alcohol dependence, uncomplicated (3) Opioid intoxication Assessment/Plan: -resolving -monitor Code(s): F11.929 - OPIOID USE, UNSPECIFIED WITH INTOXICATION, UNSPECIFIED (4) Opioid dependence Assessment/Plan: -defer to addiction medicine treatment of heroin dependence -would benefit from rehab Code(s): F11.20 - OPIOID DEPENDENCE, UNCOMPLICATED Qualifiers: Substance use status: uncomplicated Qualified Code(s): F11.20 - Opioid dependence, uncomplicated (5) Hypertension Assessment/Plan: -stable -monitor Code(s): I10 - ESSENTIAL (PRIMARY) HYPERTENSION Qualifiers: Hypertension type: essential hypertension Qualified Code(s): I10 - Essential (primary) hypertension (6) Seizure disorder Assessment/Plan: -continue home regimen Code(s): G40.909 - EPILEPSY, UNSP, NOT INTRACTABLE, WITHOUT STATUS EPILEPTICUS
[2018-10-14 14:20] VITALS: BMI 32.8
[2018-10-14] MEDS ORDERED: LORazepam 2 MG/ML SDV VIAL IVPUSH PRN (15:46)
[2018-10-14] MEDS ORDERED: ALBUTEROL SO4 2.5/IPRATROPIUM 0.5 INH SOL 3 ML VIAL.NEB. NEB PRN (15:46)
--- NOTE | 2018-10-14 17:10 | EKG ---
Test Reason : Blood Pressure : / mmHG Vent. Rate : 089 BPM Atrial Rate : 089 BPM P-R Int : 146 ms QRS Dur : 088 ms QT Int : 348 ms P-R-T Axes : 024 059 017 degrees QTc Int : 423 ms NORMAL SINUS RHYTHM NORMAL ECG WHEN COMPARED WITH ECG OF 13-OCT-2018 20:23, NO SIGNIFICANT CHANGE WAS FOUND Confirmed by MD STEPHANIE, CANELO ([id number]) on 10/14/2018 5:09:54 PM Referred By: Confirmed By:CANELO BROWN MD
--- NOTE | 2018-10-14 17:15 | EKG ---
Test Reason : Blood Pressure : / mmHG Vent. Rate : 096 BPM Atrial Rate : 096 BPM P-R Int : 130 ms QRS Dur : 088 ms QT Int : 344 ms P-R-T Axes : 043 075 030 degrees QTc Int : 434 ms NORMAL SINUS RHYTHM NORMAL ECG WHEN COMPARED WITH ECG OF 13-FEB-2018 15:09, VENT. RATE HAS INCREASED BY 33 BPM Confirmed by MD STEPHANIE, CANELO ([id number]) on 10/14/2018 5:14:45 PM Referred By: Confirmed By:CANELO BROWN MD
[2018-10-14] MEDS: levETIRAcetam 500 MG TABLET (FP) PO SCH (18:50)
[2018-10-14] MEDS: BUDESONIDE/FORMETEROL FUMARATE 160/4.5 mcg INHALER IH SCH (21:22)
[2018-10-14] MEDS ORDERED: DIVALPROEX SODIUM 500 MG TABLET E.C. PO SCH (22:00)
[2018-10-14] MEDS ORDERED: FLUTICASONE PROPIONATE IH SCH (22:00)
[2018-10-15] MEDS ORDERED: PT OWN MED DRAWER 7, Y5N ONE ×3 (06:02→20:47)
[2018-10-15] MEDS: SODIUM CHLORIDE 1,000 ML IV SCH ×2 (06:16→06:22)
[2018-10-15] MEDS: levETIRAcetam 500 MG TABLET (FP) PO SCH ×2 (06:18→17:07)
[2018-10-15] MEDS: DIVALPROEX SODIUM 500 MG TABLET E.C. PO SCH ×4 (06:18→23:10)
[2018-10-15] MEDS: HEPARIN NA (PORCINE) 5,000 UNITS/ML 1ML VIAL SQ SCH ×4 (06:18→23:11)
[2018-10-15 07:13] LABS: BASO % 0.3 % (0-2.0); EOS % 0.5 % (0-4.5); HEMATOCRIT 36.5 % (35.4-49); HEMOGLOBIN 12.2 GM/dL (11.7-16.9); LYMPH % 16.9 % (8-40); MCHC 33.4 g/dl (32.0-35.9); MEAN CELL VOLUME 101.8 fl (80-96); MEAN PLT VOLUME 10.3 fl (7.5-11.1); MONO % 13.7 % (3.8-10.2); NEUT % 68.6 % (42.8-82.8); PLATELET COUNT 156 K/MM3 (134-434); RBC 3.58 M/mm3 (4.00-5.60); RDW 13.6 % (11.9-15.9); WHITE BLOOD COUNT 6.1 K/mm3 (4.0-10.0)
[2018-10-15 07:58] LABS: ANION GAP 9 MMOL/L (8-16); BLOOD UREA NITROGEN 12 mg/dL (7-18); CALCIUM 8.2 mg/dL (8.5-10.1); CHLORIDE 106 mmol/L (98-107); CO2 25 mmol/L (21-32); CREATININE 0.7 mg/dL (0.55-1.3); GLUCOSE,RANDOM 88 mg/dL (74-106); MAGNESIUM 2.1 mg/dL (1.8-2.4); POTASSIUM 4.1 mmol/L (3.5-5.1); SODIUM 140 mmol/L (136-145)
[2018-10-15] MEDS ORDERED: BUDESONIDE/FORMETEROL FUMARATE 160/4.5 mcg INHALER IH SCH (10:00)
[2018-10-15] MEDS: NAPH,MB-DB/K PH,MBDB POWDER PACKET PO SCH ×4 (10:01→23:12)
[2018-10-15] MEDS: MULTIVITAMINS (DAILY MVI) TABLET (FP) PO SCH (10:01)
[2018-10-15] MEDS: MOMETASONE FUROATE 220 MCG/IH INHALER IH SCH (10:03)
[2018-10-15] MEDS: BUDESONIDE/FORMETEROL FUMARATE 160/4.5 mcg INHALER IH SCH ×3 (10:03→23:12)
--- NOTE | 2018-10-15 11:03 | PN ---
Progress Note, Physician Chief Complaint: Mr Barrera says he is doing well. Denies cp, sob, n/v. 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 Requesting suboxone. - Current Medication List Current Medications: Active Medications Acetaminophen (Tylenol -) 650 mg PO Q6H PRN PRN Reason: PAIN Albuterol/Ipratropium (Duoneb -) 1 amp NEB Q4H PRN PRN Reason: SHORTNESS OF BREATH Budesonide/Formoterol Fumarate (Symbicort 160/4.5mcg -) 2 puff IH BID [facility] Last Admin: 10/15/18 10:03 Dose: 2 puff Divalproex Sodium (Depakote -) 1,000 mg PO BID [facility] Last Admin: 10/15/18 10:05 Dose: Not Given Heparin Sodium (Porcine) (Heparin -) 5,000 unit SQ TID [facility] Last Admin: 10/15/18 06:18 Dose: 5,000 unit Sodium Chloride (Normal Saline -) 1,000 mls @ 83 mls/hr IV ASDIR [facility] Last Admin: 10/15/18 06:22 Dose: Not Given Levetiracetam (Keppra -) 750 mg PO BID@0600,1800 [facility] Last Admin: 10/15/18 06:18 Dose: 750 mg Lorazepam (Ativan Injection -) 1 mg IVPUSH Q6H PRN PRN Reason: ANXIETY Last Admin: 10/14/18 18:51 Dose: 1 mg Mometasone Furoate (Asmanex 220mcg -) 1 puff IH DAILY [facility] Last Admin: 10/15/18 10:03 Dose: 1 puff Multivitamins/Minerals/Vitamin C (Tab-A-Vit -) 1 tab PO DAILY [facility] Last Admin: 10/15/18 10:01 Dose: 1 tab Potassium Phos/Sodium Phos (Phos-Nak Packet -) 1 packet PO TID [facility] Stop: 10/18/18 08:13 Last Admin: 10/15/18 10:01 Dose: 1 packet - Objective Vital Signs: Vital Signs Temperature 36.6 C 10/15/18 05:00 Pulse Rate 77 10/15/18 05:00 Respiratory Rate 18 10/15/18 09:00 Blood Pressure 125/77 10/15/18 05:00 O2 Sat by Pulse Oximetry (%) 96 10/15/18 09:00 Constitutional: Yes: No Distress, Calm, Obese Cardiovascular: Yes: Regular Rate and Rhythm. No: Gallop, Murmur, Rub Respiratory: Yes: Regular, CTA Bilaterally. No: Rales, Rhonchi, Wheezes Gastrointestinal: Yes: Normal Bowel Sounds, Soft. No: Distention, Tenderness Extremities: Yes: WNL Edema: No Labs: CBC, BMP 10/15/18 06:30 10/15/18 06:30 INR, PTT INR 1.03 (0.83-1.09) 10/14/18 07:18 Problem List - Problems (1) Acute hypercapnic respiratory failure Code(s): J96.02 - ACUTE RESPIRATORY FAILURE WITH HYPERCAPNIA (2) Alcohol dependence Code(s): F10.20 - ALCOHOL DEPENDENCE, UNCOMPLICATED Qualifiers: Substance use status: uncomplicated Qualified Code(s): F10.20 - Alcohol dependence, uncomplicated (3) Opioid intoxication Code(s): F11.929 - OPIOID USE, UNSPECIFIED WITH INTOXICATION, UNSPECIFIED (4) Opioid dependence Code(s): F11.20 - OPIOID DEPENDENCE, UNCOMPLICATED Qualifiers: Substance use status: uncomplicated Qualified Code(s): F11.20 - Opioid dependence, uncomplicated (5) Hypertension Code(s): I10 - ESSENTIAL (PRIMARY) HYPERTENSION Qualifiers: Hypertension type: essential hypertension Qualified Code(s): I10 - Essential (primary) hypertension (6) Seizure disorder Code(s): G40.909 - EPILEPSY, UNSP, NOT INTRACTABLE, WITHOUT STATUS EPILEPTICUS Assessment/Plan (1) Acute hypercapnic respiratory failure Assessment/Plan: -secondary to opioid intoxication -resolved Code(s): J96.02 - ACUTE RESPIRATORY FAILURE WITH HYPERCAPNIA (2) Alcohol dependence Assessment/Plan: -currently not having complicated DTs -continue prn ativan -used only once last night -addiction medicine consulted for detox and rehab Code(s): F10.20 - ALCOHOL DEPENDENCE, UNCOMPLICATED Qualifiers: Substance use status: uncomplicated Qualified Code(s): F10.20 - Alcohol dependence, uncomplicated (3) Opioid intoxication Assessment/Plan: -resolving -monitor Code(s): F11.929 - OPIOID USE, UNSPECIFIED WITH INTOXICATION, UNSPECIFIED (4) Opioid dependence Assessment/Plan: -defer to addiction medicine treatment of heroin dependence -would benefit from rehab -defer prescribing suboxone to addiction medicine Code(s): F11.20 - OPIOID DEPENDENCE, UNCOMPLICATED Qualifiers: Substance use status: uncomplicated Qualified Code(s): F11.20 - Opioid dependence, uncomplicated (5) Hypertension Assessment/Plan: -controlled Code(s): I10 - ESSENTIAL (PRIMARY) HYPERTENSION Qualifiers: Hypertension type: essential hypertension Qualified Code(s): I10 - Essential (primary) hypertension (6) Seizure disorder Assessment/Plan: -continue home regimen Code(s): G40.909 - EPILEPSY, UNSP, NOT INTRACTABLE, WITHOUT STATUS EPILEPTICUS (7) Hypophosphatemia -replace with neutraphos Safe to transfer to med/surg
--- NOTE | 2018-10-15 19:46 | PN ---
[facility] Progress Note (SOAP) Subjective: 48 y.o. male referred for addiction medicine consultation ,s/p OD with heroin on 10/13/18 and multiple Narcan doses administered . Patient is awake and alert today , reports he has relapsed on heroin using up to 3 bags /day via inhalation as well as 1-2 sometimes 3 pints liquor /day . Reports most recent sobriety was while participating in inpatient rehab at [facility] in late 2016 , after which he went to [facility] outpatient program . Patient recalls coming into [facility] for detox , leaving belongings with security , then states he recalls that he went to the store and drank alcohol and then he was outside the entrance to [facility] smoking and used one bag of heroin that he had with him , then awakening in the hospital room. Patient currently denies chills, nausea, vomiting, diarrhea, abdominal cramps , sweating, anxiety, irritability, yawning . COWS = zero, states he does not usually have much withdrawal symptoms from heroin except loss of appetite , has had tremors in the past with withdrawal from alcohol and has received Librium with symptomatic improvement ( per MR , most recent rx for Librium May 2018 - [facility] ) Patient reports ETOH use since age 14 , heroin and cocaine use since approximately 3 years ago . PMhx : right renal stent 2015 ( [facility] ) , R eye blind s/p surgery , left eye cataract , HTN , seizure d/o ( since age 9) i-STOP : This report was requested by: Diamond Haji | Reference #: [id number] Others' Prescriptions Patient Name: Charanjit Barrera Date: 1970 Address: [address] [place] [address] Sex: Male Rx Written Rx Dispensed Drug Quantity Days Supply Prescriber Name 06/22/2018 09/23/2018 phenobarbital 64.8 mg tablet 60 30 Neghadavidi , Jaime H 09/22/2018 09/23/2018 zolpidem tartrate 10 mg tablet 30 30 Neghassi, Jaime H 06/22/2018 08/25/2018 phenobarbital 64.8 mg tablet 60 30 Neghassi , Jaime H 06/22/2018 07/22/2018 phenobarbital 64.8 mg tablet 60 30 Neghassi , Jaime H 06/22/2018 06/22/2018 phenobarbital 64.8 mg tablet 60 30 Neghassi , Jaime H 04/11/2018 04/11/2018 phenobarbital 64.8 mg tablet 28 14 Mo Vidal PA-C Patient Name: Charanjit Barrera Date: 1970 Address: [address] [place] [address] Sex: Male Rx Written Rx Dispensed Drug Quantity Days Supply Prescriber Name 06/22/2018 08/22/2018 zolpidem tartrate 10 mg tablet 30 30 Neghassi, Jaime H 06/22/2018 07/21/2018 zolpidem tartrate 10 mg tablet 30 30 Neghassi, Jaime H 06/22/2018 06/22/2018 zolpidem tartrate 10 mg tablet 30 30 Neghassi, Jaime H 12/19/2017 05/24/2018 phenobarbital 64.8 mg tablet 60 30 Neghassi , Jaime H 05/24/2018 05/24/2018 suboxone 8 mg-2 mg sl film 7 7 Griselda Melendez NP, PHD 12/19/2017 04/26/2018 phenobarbital 64.8 mg tablet 60 30 Neghassi , Jaime H 12/19/2017 03/10/2018 zolpidem tartrate 10 mg tablet 30 30 Neghassi, Jaime H 12/19/2017 03/10/2018 phenobarbital 64.8 mg tablet 60 30 Neghassi , Jaime H 03/10/2018 03/10/2018 suboxone 8 mg-2 mg sl film 30 30 Sachin Galloway 01/31/2018 01/31/2018 suboxone 2 mg-0.5 mg sl film 4 2 Griselda Melendez NP, PHD 12/19/2017 01/28/2018 phenobarbital 64.8 mg tablet 60 30 Neghassi , Jaime H 01/19/2018 01/20/2018 suboxone 2 mg-0.5 mg sl film 16 8 Griselda Melendez NP, PHD 12/19/2017 01/19/2018 zolpidem tartrate 10 mg tablet 30 30 Neghassi, Jaime H 01/04/2018 01/04/2018 suboxone 2 mg-0.5 mg sl film 16 8 Griselda Melendez NP, PHD Patient Name: Charanjit Barrera Date: 1970 Address: [address] [place] [address] Sex: Male Rx Written Rx Dispensed Drug Quantity Days Supply Prescriber Name 05/18/2018 05/18/2018 chlordiazepoxide 25 mg capsule 26 5 Jacob Diana MD Patient Name: Charanjit Barrera Date: 1970 Address: [address] [place] [address] Sex: Male Rx Written Rx Dispensed Drug Quantity Days Supply Prescriber Name 04/05/2018 04/05/2018 suboxone 8 mg-2 mg sl film 30 30 Ernesto Lara MD Patient Name: Charanjit Barrera Date: 1970 Address: [address] [place] [address] Sex: Male Rx Written Rx Dispensed Drug Quantity Days Supply Prescriber Name 12/19/2017 12/28/2017 phenobarbital 64.8 mg tablet 60 30 Jaime Miles 12/28/2017 12/28/2017 suboxone 2 mg-0.5 mg sl film 16 8 Griselda Melendez NP, PHD 12/19/2017 12/23/2017 zolpidem tartrate 10 mg tablet 30 30 Jaime Miles () 12/19/2017 12/19/2017 suboxone 2 mg-0.5 mg sl film 16 8 Griselda Melendez NP, PHD 12/06/2017 12/06/2017 suboxone 2 mg-0.5 mg sl film 14 7 Griselda Melendez NP, PHD 07/04/2017 11/30/2017 phenobarbital 64.8 mg tablet 60 30 Nitza Bella) 11/30/2017 11/30/2017 suboxone 2 mg-0.5 mg sl film 14 7 Griselda Melendez NP, PHD 10/27/2017 11/02/2017 suboxone 2 mg-0.5 mg sl film 21 7 Sachin Galloway 07/04/2017 10/17/2017 phenobarbital 64.8 mg tablet 60 30 Nitza Bella) Objective: 10/15/18 19:46 AAOx 3 , NAD , resting comfortably in bed, mentation significantly improved , patient admits that he is very forgetful and has confusion regarding past hospitalization and past treatments : " several months from now , I won't remember anything about being here " . Denies nausea, vomiting , diarrhea, tremors , reports some difficulty sleeping. UE : no tremors Abnormal Lab Results 10/15/18 10/15/18 06:30 06:30 RBC 3.58 L MCV 101.8 H MCH 34.0 H Monocytes % 13.7 H Calcium 8.2 L Phosphorus 2.0 L CBC WBC 6.1 K/mm3 (4.0-10.0) 10/15/18 06:30 RBC 3.58 M/mm3 (4.00-5.60) L 10/15/18 06:30 Hgb 12.2 GM/dL (11.7-16.9) 10/15/18 06:30 Hct 36.5 % (35.4-49) 10/15/18 06:30 MCV 101.8 fl (80-96) H 10/15/18 06:30 MCH 34.0 pg (25.7-33.7) H 10/15/18 06:30 MCHC 33.4 g/dl (32.0-35.9) 10/15/18 06:30 RDW 13.6 % (11.9-15.9) 10/15/18 06:30 Plt Count 156 K/MM3 (134-434) 10/15/18 06:30 MPV 10.3 fl (7.5-11.1) 10/15/18 06:30 Absolute Neuts (auto) 4.2 K/mm3 (1.5-8.0) 10/15/18 06:30 Neutrophils % 68.6 % (42.8-82.8) 10/15/18 06:30 Lymphocytes % 16.9 % (8-40) 10/15/18 06:30 Monocytes % 13.7 % (3.8-10.2) H 10/15/18 06:30 Eosinophils % 0.5 % (0-4.5) 10/15/18 06:30 Basophils % 0.3 % (0-2.0) 10/15/18 06:30 Nucleated RBC % 0 % (0-0) 10/15/18 06:30 Vital Signs - 24 hr 10/14/18 10/15/18 10/15/18 21:00 01:00 05:00 Temperature 98.4 F 97.7 F 98 F Pulse Rate 89 80 77 Respiratory 20 18 18 Rate Blood Pressure 114/77 132/88 125/77 O2 Sat by Pulse 95 Oximetry (%) 10/15/18 10/15/18 09:00 14:00 Temperature 98.4 F 97.9 F Pulse Rate 90 82 Respiratory 18 20 Rate Blood Pressure 131/83 149/92 O2 Sat by Pulse 96 Oximetry (%) 10/15/18 19:50 10/15/18 19:53 Home Medication List Medication Instructions Recorded Confirmed Type Mometasone Furoate [Asmanex 220Mcg 1 inh IH DAILY 12/07/17 08/31/18 History -] Phenobarbital 64.8 mg PO BID 12/19/17 08/31/18 History Fluticasone Propionate [Flovent 1 puff IH BID 02/13/18 08/31/18 History Diskus] Zolpidem Tartrate [Ambien] 10 mg PO DAILY 08/31/18 08/31/18 History Active Medications Generic Name Dose Route Start Last Admin Trade Name Freq PRN Reason Stop Dose Admin Acetaminophen 650 mg 10/14/18 03:33 10/15/18 17:08 Tylenol - PO 650 mg Q6H PRN Administration PAIN Albuterol/Ipratropium 1 amp 10/14/18 15:46 Duoneb - NEB Q4H PRN SHORTNESS OF BREATH Budesonide/Formoterol Fumarate 2 puff 10/14/18 22:00 10/15/18 10:03 Symbicort 160/4.5mcg - IH 2 puff BID LISBETH Administration Divalproex Sodium 1,000 mg 10/15/18 06:00 10/15/18 10:05 Depakote - PO Not Given BID LISBETH Heparin Sodium (Porcine) 5,000 unit 10/14/18 06:00 10/15/18 13:01 Heparin - SQ 5,000 unit TID LISBETH Administration Sodium Chloride 1,000 mls @ 83 mls/hr 10/14/18 03:45 10/15/18 06:22 Normal Saline - IV Not Given ASDIR LISBETH Ibuprofen 400 mg 10/15/18 19:48 Motrin - PO 10/15/18 19:49 ONCE ONE Levetiracetam 750 mg 10/14/18 18:00 10/15/18 17:07 Keppra - PO 750 mg BID@0600,1800 L[facility]ETH Administration Lorazepam 1 mg 10/14/18 15:46 10/14/18 18:51 Ativan Injection - IVPUSH 1 mg Q6H PRN Administration ANXIETY Mometasone Furoate 1 puff 10/15/18 10:00 10/15/18 10:03 Asmanex 220mcg - IH 1 puff DAILY [facility] Administration Multivitamins/Minerals/Vitamin C 1 tab 10/15/18 10:00 10/15/18 10:01 Tab-A-Vit - PO 1 tab DAILY [facility] Administration Potassium Phos/Sodium Phos 1 packet 10/15/18 08:14 10/15/18 14:51 Phos-Nak Packet - PO 10/18/18 08:13 1 packet TID [facility]IS[facility]ETH Administration 10/15/18 19:56 Hepatic Panel Total Bilirubin 0.4 mg/dL (0.2-1) 10/14/18 07:18 AST 17 U/L (15-37) 10/14/18 07:18 ALT 18 U/L (13-61) 10/14/18 07:18 Alkaline Phosphatase 113 U/L (45-117) 10/14/18 07:18 Albumin 3.1 g/dl (3.4-5.0) L 10/14/18 07:18 Assessment: Opioid dependence Alcohol dependence 10/15/18 19:52 Plan: discussed with patient at length , he would benefit from rehab and returning to [facility] outpatient for MAT ( per i-STOP , latest rx from [facility] May 2018 ) and he reports interest in returning to outpatient . To address with social worker palliative care for possible transfer to rehab when cleared by medicine . recommend Chlordiazepoxide 15 mg x one today , and Chlordiazepoxide 10 mg in the a.m. to mitigate risk of withdrawal seizures. Patient verbalized understanding and agreement with POC.
[2018-10-15] MEDS ORDERED: IBUPROFEN 400 MG TABLET (FP) PO ONE (19:48)
[2018-10-15] MEDS ORDERED: chlordiazePOXIDE 5 MG CAPSULE PO ONE (20:00)
[2018-10-15] MEDS ORDERED: chlordiazePOXIDE HCL 10 MG CAPSULE PO ONE (20:00)
[2018-10-16] MEDS: SODIUM CHLORIDE 1,000 ML IV SCH (05:53)
[2018-10-16] MEDS: HEPARIN NA (PORCINE) 5,000 UNITS/ML 1ML VIAL SQ SCH ×2 (05:56→13:06)
[2018-10-16] MEDS: levETIRAcetam 500 MG TABLET (FP) PO SCH (05:56)
[2018-10-16] MEDS: NAPH,MB-DB/K PH,MBDB POWDER PACKET PO SCH ×2 (05:56→13:06)
[2018-10-16 06:57] LABS: BASO % 0.3 % (0-2.0); EOS % 0.8 % (0-4.5); HEMATOCRIT 36.5 % (35.4-49); HEMOGLOBIN 12.2 GM/dL (11.7-16.9); LYMPH % 18.5 % (8-40); MCH 34.2 pg (25.7-33.7); MCHC 33.3 g/dl (32.0-35.9); MEAN CELL VOLUME 102.7 fl (80-96); MEAN PLT VOLUME 10.5 fl (7.5-11.1); MONO % 13.3 % (3.8-10.2); NEUT % 67.1 % (42.8-82.8); PLATELET COUNT 166 K/MM3 (134-434); RBC 3.56 M/mm3 (4.00-5.60); WHITE BLOOD COUNT 6.5 K/mm3 (4.0-10.0)
[2018-10-16 07:10] LABS: ANION GAP 8 MMOL/L (8-16); BLOOD UREA NITROGEN 11 mg/dL (7-18); CALCIUM 8.3 mg/dL (8.5-10.1); CHLORIDE 107 mmol/L (98-107); CO2 25 mmol/L (21-32); CREATININE 0.7 mg/dL (0.55-1.3); GLUCOSE,RANDOM 90 mg/dL (74-106); MAGNESIUM 2.1 mg/dL (1.8-2.4); POTASSIUM 3.9 mmol/L (3.5-5.1); SODIUM 139 mmol/L (136-145)
[2018-10-16] MEDS ORDERED: chlordiazePOXIDE HCL 10 MG CAPSULE PO ONE ×2 (08:00)
[2018-10-16 08:52] VITALS: TEMP 97.8
[2018-10-16] MEDS ORDERED: chlordiazePOXIDE 5 MG CAPSULE ONE (09:16)
[2018-10-16] MEDS: BUDESONIDE/FORMETEROL FUMARATE 160/4.5 mcg INHALER IH SCH (09:25)
[2018-10-16] MEDS: MULTIVITAMINS (DAILY MVI) TABLET (FP) PO SCH (09:25)
[2018-10-16] MEDS: DIVALPROEX SODIUM 500 MG TABLET E.C. PO SCH (09:25)
[2018-10-16] MEDS: MOMETASONE FUROATE 220 MCG/IH INHALER IH SCH (09:25)
[2018-10-16 15:02] VITALS: BP 135/82; PULSE 64
[2018-10-16] MEDS ORDERED: PHENOL 177 ML SPRAY BOTTLE MM PRN (15:44)
--- NOTE | 2018-10-16 15:47 | DS ---
Physical Exam: SUBJECTIVE: Patient seen and examined a bedside. No overnight events. Complaining of continued cough. Denies CP,WILEY,SOB,abdominal pain, nausea or vomiting. OBJECTIVE: Vital Signs Period Temp Pulse Resp BP Sys/Buitrago Pulse Ox Last 24 Hr 97.6 F-98.6 F 64-81 16-20 134-143/80-99 97-97 PHYSICAL EXAM GENERAL:awake and alert, NAD HEAD: NCAT EYES: PERRL, EOMI, sclera anicteric, conjunctiva clear. ENT: Dry mucous membranes. LUNGS: CTAB, no wheezes, no crackles, no accessory muscle use. HEART: RRR, S1, S2 without murmur, rub or gallop. ABDOMEN: Soft, NTND, NABS, no guarding, no rebound, no hepatosplenomegaly, no masses. EXTREMITIES: 2+ pulses, warm, well-perfused, no edema. NEUROLOGICAL: Cranial nerves II through XII grossly intact. Normal speech, gait not observed. PSYCH: Normal mood, normal affect. LABS Laboratory Results - last 24 hr 10/15/18 10/16/18 10/16/18 18:00 05:30 05:30 WBC 6.5 RBC 3.56 L Hgb 12.2 Hct 36.5 MCV 102.7 H MCH 34.2 H MCHC 33.3 RDW 14.0 Plt Count 166 MPV 10.5 Absolute Neuts (auto) 4.4 Neutrophils % 67.1 Lymphocytes % 18.5 Monocytes % 13.3 H Eosinophils % 0.8 Basophils % 0.3 Nucleated RBC % 0 Sodium 139 Potassium 3.9 Chloride 107 Carbon Dioxide 25 Anion Gap 8 BUN 11 Creatinine 0.7 Creat Clearance w eGFR > 60 Random Glucose 90 Calcium 8.3 L Phosphorus 3.0 Magnesium 2.1 Ur Random Sodium 99 Ur Random Potassium 48.0 Ur Random Chloride 84 L Urine Creatinine 101.0 H HOSPITAL COURSE: Mr Barrera is a 48 year old male who came in with acute hypercapneic respiratory failure secondary to unintentional heroin overdose. He was given multiple doses of narcan and breathing and mental status improved. He was seen by affirmative action specialist and agreed to rehab. He was given PRN Librium for his ETOH dependence with no signs of DT's. He was given home anti epileptic medications with no seizure activity during this admission. He will go to [facility] for rehab. Instructed to restart all home meds as previous presecribed. He is stable for discharge to [facility] for drug rehab. Date of Admission:10/14/18 Date of Discharge: 10/16/18 Minutes to complete discharge: 42 Discharge Summary Reason For Visit: ALCOHOL DEPENDENCE OPIOD INTOXICATION Current Active Problems Acute hypercapnic respiratory failure (Acute) Alcohol dependence (Acute) Nicotine dependence (Acute) Opioid intoxication (Acute) Condition: Improved - Instructions Diet, Activity, Other Instructions: You have been seen and treated for acute respiratory failure secondary to heroin overdose. You are now going to be transfered to [facility] for rehab. Increase your activity as tolerated. Resume regular diet. Restart all medication as previously prescribed. If you experience worsening of symptoms or you develop fever or chills please return to ER immediately. Referrals: To Warner MD [Staff Physician] - Diamond Haji DO [Staff Physician] - Disposition: TRANSFER ACUTE CARE/OTHER HOSP - Home Medications Comprehensive Discharge Medication List: Ambulatory Orders Divalproex [Depakote -] 1,000 mg PO BID #60 tablet.ec 10/27/17 Mometasone Furoate [Asmanex 220Mcg -] 1 inh IH DAILY 12/07/17 Phenobarbital 64.8 mg PO BID 12/19/17 Fluticasone Propionate [Flovent Diskus] 1 puff IH BID 02/13/18 Albuterol Sulfate Inhaler - [Ventolin HFA Inhaler -] 2 inh PO Q4H PRN #1 inhaler 03/07/18 Budesonide/Formeterol Fumarate [SYMBICORT 160/4.5mcg -] 1 puff IH DAILY #1 inhaler 03/07/18 Docusate Sodium [Colace -] 100 mg PO TID #90 capsule 03/07/18 Lisinopril [Zestril] 10 mg PO DAILY #30 tablet 03/07/18 levETIRAcetam [Keppra -] 750 mg PO BID@0600,1800 #60 tablet 03/07/18 Acamprosate Calcium [Campral -] 666 mg PO TID 30 Days tablet. 03/09/18 Buspirone HCl [Buspar -] 15 mg PO BID #60 tablet 03/09/18 Hydrochlorothiazide [Hctz -] 25 mg PO DAILY #30 tablet 03/21/18 Multivitamin [Multiple Vitamins] 1 each PO DAILY #30 tablet 03/21/18 Sennosides [Senna -] 2 tab PO DAILY #30 tablet 03/21/18 Nicotine [Nicotine Patch 21 mg/24 hr] 1 each TD DAILY #30 patch.td24 08/31/18 Zolpidem Tartrate [Ambien] 10 mg PO DAILY 08/31/18 Baclofen 10 mg PO TID #90 tablet 09/05/18 Diclofenac Sodium [Voltaren] 2 gm TP TID PRN #3 tube 09/05/18 Ergocalciferol [Vitamin D2] 50,000 unit PO WEEKLY #4 capsule 09/05/18 Ibuprofen 800 mg PO BID PRN #60 tablet 09/05/18 Back Brace [Ultra Support] 1 each MC DAILY #1 each 10/12/18 This patient is new to me today: Yes Date on this admission: 10/17/18 Emergency Visit: Yes ED Registration Date: 10/14/18 Care time: The patient presented to the Emergency Department on the above date and was hospitalized for further evaluation of their emergent condition. Critical Care patient: No - Discharge Referral [facility] No
--- NOTE | 2018-10-16 16:12 | PN ---
Teaching Attending Note Name of Resident: Jeff Gonzalez ATTENDING PHYSICIAN STATEMENT I saw and evaluated the patient. I reviewed the resident's note and discussed the case with the resident. I agree with the resident's findings and plan as documented. SUBJECTIVE: Mr Barrera says he is doing well and is ready to go to rehab OBJECTIVE: Gen: nad CV: rrr Pulm: ctab Abd: +bs, s/nt/nd Ext: no c/c/e HC: Mr Barrera is a 48 year old male who came in with acute hypercapneic respiratory failure secondary to unintentional heroin overdose. He was given narcan and improved. There was concern for alcohol withdrawal since he also consumes alcohol, but he did not have DTs. Currently he is stable for discharge to rehab. Problem List - Problems (1) Acute hypercapnic respiratory failure Code(s): J96.02 - ACUTE RESPIRATORY FAILURE WITH HYPERCAPNIA (2) Alcohol dependence Code(s): F10.20 - ALCOHOL DEPENDENCE, UNCOMPLICATED Qualifiers: Substance use status: uncomplicated Qualified Code(s): F10.20 - Alcohol dependence, uncomplicated (3) Opioid intoxication Code(s): F11.929 - OPIOID USE, UNSPECIFIED WITH INTOXICATION, UNSPECIFIED (4) Opioid dependence Code(s): F11.20 - OPIOID DEPENDENCE, UNCOMPLICATED Qualifiers: Substance use status: uncomplicated Qualified Code(s): F11.20 - Opioid dependence, uncomplicated (5) Hypertension Code(s): I10 - ESSENTIAL (PRIMARY) HYPERTENSION Qualifiers: Hypertension type: essential hypertension Qualified Code(s): I10 - Essential (primary) hypertension (6) Seizure disorder Code(s): G40.909 - EPILEPSY, UNSP, NOT INTRACTABLE, WITHOUT STATUS EPILEPTICUS
== END 2018-10-16 16:46 | disposition short-term general hospital (02) | DRG 133 ==
LOC: JER 19:04 → JERBED 10-14 03:50 → J4W 10-14 13:42
PROVIDERS: ADMIT Internal Medicine; ATTEND Internal Medicine
PROC: HZ2ZZZZ Detoxification Services for Substance Abuse Treatment (ICD-10-PCS; principal; 2018-10-14)
DX: J96.02 Acute respiratory failure with hypercapnia (principal); T40.1X1A Poisoning by heroin, accidental (unintentional), initial encounter; N17.9 Acute kidney failure, unspecified; E83.39 Other disorders of phosphorus metabolism; F17.210 Nicotine dependence, cigarettes, uncomplicated; Z59.0 Homelessness; G40.909 Epilepsy, unspecified, not intractable, without status epilepticus; E66.9 Obesity, unspecified; F11.220 Opioid dependence with intoxication, uncomplicated; Y92.89 Other specified places as the place of occurrence of the external cause; Z68.32 Body mass index [BMI] 32.0-32.9, adult; F10.229 Alcohol dependence with intoxication, unspecified; D75.89 Other specified diseases of blood and blood-forming organs; E70.30 Albinism, unspecified
CPT/HCPCS: 36415; 36600; 70450-TC; 71045-TC-FY; 80048; 80053; 80307; 82009; 82375; 82436; 82550; 82553; 82570; 82607; 82746; 82803; 82962; 83050; 83735; 84100; 84133; 84300; 84484; 85025; 85610; 85730; 87040; 93005; 93010; 99285-25; J1644; J7030

== ENCOUNTER 2018-10-16 17:03 | Inpatient (IN) | payer OTHER ==
[2018-10-16 19:06] VITALS: BMI 32.8
--- NOTE | 2018-10-16 20:59 | HP ---
"CIWA Score - Admission Criteria [facility] Guidelines: Admission for Medically Managed Detox: Requires at least one of the followin. CIWA greater than 12 2. Seizures within the past 24 hours 3. Delirium tremens within the past 24 hours 4. Hallucinations within the past 24 hours 5. Acute intervention needed for co occurring medical disorder 6. Acute intervention needed for co occurring psychiatric disorder 7. Severe withdrawal that cannot be handled at a lower level of care (continued vomiting, continued diarrhea, abnormal vital signs) requiring intravenous medication and/or fluids 8. Admission ROS [facility] Chief Complaint: Here for rehab. Recently detoxed from Heroin and alcohol after an opiate overdose. Allergies/Adverse Reactions: Allergies Allergy/AdvReac Type Severity Reaction Status Date / Time No Known Allergies Allergy Verified 10/16/18 19:43 History of Present Illness: Patient was treated for acute respiratory failure secondary to heroin overdose in [facility] and detoxed from 10/13 to 10/16. Patient was referred to [facility] for rehab for drug and alcohol use disorder. Lab results from [facility] in-patient reviewed. Nicotine use since age 10. Alcohol use since age 13. Heroin use since age 29. Past hx crack/cocaine use. 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 Patient w/ a hx of seizures and on multiple medications. Patient wants to be restarted on Suboxone. Has not taken Suboxone since May 2018. Current cough x 3 weeks. Pt w/ hx asthma, HTN, Seizure disorder (last 02/2018), obesity, chronic chest pain, Blind (R) eye, chronic knee and back pain Hx CVA 2018 w/o residual deficits. Longest length of sobriety approx 6 months. Hx: seizures, blackouts and overdose. Search Terms: Charanjit Barrera, 1970 Search Date: 10/16/2018 08:36:06 PM The Drug Utilization Report below displays all of the controlled substance prescriptions, if any, that your patient has filled in the last twelve months. The information displayed on this report is compiled from pharmacy submissions to the Department, and accurately reflects the information as submitted by the pharmacies. This report was requested by: Merle Mcqueen | Reference #: [id number] Others' Prescriptions Patient Name: Charanjit Barrera Date: 1970 Address: [address] [place] [address] Sex: Male Rx Written Rx Dispensed Drug Quantity Days Supply Prescriber Name 06/22/2018 09/23/2018 phenobarbital 64.8 mg tablet 60 30 Neghassi, Jaime H 09/22/2018 09/23/2018 zolpidem tartrate 10 mg tablet 30 30 Neghassi, Jaime H 06/22/2018 08/25/2018 phenobarbital 64.8 mg tablet 60 30 Neghassi, Jaime H 06/22/2018 07/22/2018 phenobarbital 64.8 mg tablet 60 30 Neghassi, Jaime H 06/22/2018 06/22/2018 phenobarbital 64.8 mg tablet 60 30 Neghassi, Jaime H 04/11/2018 04/11/2018 phenobarbital 64.8 mg tablet 28 14 Mo Vidal PA-C [facility] Patient Name: Charanjit Barrera Date: 1970 Patient Name: Charanjit Barrera Date: 1970 Address: [address] [place] [address] Sex: Male Rx Written Rx Dispensed Drug Quantity Days Supply Prescriber Name 06/22/2018 08/22/2018 zolpidem tartrate 10 mg tablet 30 30 Neghassi, Jaime H 06/22/2018 07/21/2018 zolpidem tartrate 10 mg tablet 30 30 Neghassi, Jaime H 06/22/2018 06/22/2018 zolpidem tartrate 10 mg tablet 30 30 Neghassi, Jaime H 12/19/2017 05/24/2018 phenobarbital 64.8 mg tablet 60 30 Neghassi, Jaime H 05/24/2018 05/24/2018 suboxone 8 mg-2 mg sl film 7 7 Griselda Melendez NP, PHD 12/19/2017 04/26/2018 phenobarbital 64.8 mg tablet 60 30 Neghassi, Jaime H 12/19/2017 03/10/2018 zolpidem tartrate 10 mg tablet 30 30 Neghassi, Jaime H 12/19/2017 03/10/2018 phenobarbital 64.8 mg tablet 60 30 Neghassi, Jaime H 03/10/2018 03/10/2018 suboxone 8 mg-2 mg sl film 30 30 Sachin Galloway 01/31/2018 01/31/2018 suboxone 2 mg-0.5 mg sl film 4 2 Griselda Melendez NP, PHD 12/19/2017 01/28/2018 phenobarbital 64.8 mg tablet 60 30 Jaime Miles 01/19/2018 01/20/2018 suboxone 2 mg-0.5 mg sl film 16 8 Griselda Melendez NP, PHD 12/19/2017 01/19/2018 zolpidem tartrate 10 mg tablet 30 30 Jaime Miles 01/04/2018 01/04/2018 suboxone 2 mg-0.5 mg sl film 16 8 Grisedla Melendez NP, PHD Patient Name: Charanjit Barrera Date: 1970 Address: [address] [place] [address] Sex: Male Rx Written Rx Dispensed Drug Quantity Days Supply Prescriber Name 05/18/2018 05/18/2018 chlordiazepoxide 25 mg capsule 26 5 Jacob Diana MD Patient Name: Charanjit Barrera Date: 1970 Address: [address] [place] [address] Sex: Male Rx Written Rx Dispensed Drug Quantity Days Supply Prescriber Name 04/05/2018 04/05/2018 suboxone 8 mg-2 mg sl film 30 30 Ernesto Lara MD Patient Name: Charanjit Barrera Date: 1970 Address: [address] [place] [address] Sex: Male Rx Written Rx Dispensed Drug Quantity Days Supply Prescriber Name 12/19/2017 12/28/2017 phenobarbital 64.8 mg tablet 60 30 Jaime Miles 12/28/2017 12/28/2017 suboxone 2 mg-0.5 mg sl film 16 8 Griselda Melendez NP, PHD 12/19/2017 12/23/2017 zolpidem tartrate 10 mg tablet 30 30 Jaime Miles MD) 12/19/2017 12/19/2017 suboxone 2 mg-0.5 mg sl film 16 8 Griselda Melendez NP, PHD 12/06/2017 12/06/2017 suboxone 2 mg-0.5 mg sl film 14 7 Griselda Melendez NP, PHD 07/04/2017 11/30/2017 phenobarbital 64.8 mg tablet 60 30 Nitza Perea) 11/30/2017 11/30/2017 suboxone 2 mg-0.5 mg sl film 14 7 Griselda Melendez NP, PHD 10/27/2017 11/02/2017 suboxone 2 mg-0.5 mg sl film 21 7 Sachin Galloway 07/04/2017 10/17/2017 phenobarbital 64.8 mg tablet 60 30 Nitza Perea () Exam Limitations: No Limitations - Ebola screening Have you traveled outside of the country in the last 21 days: No (N) Have you had contact with anyone from an Ebola affected area: No Have you been sick,other than usual withdrawal symptoms: No Do you have a fever: No - Review of Systems Constitutional: Changes in sleep (Difficulty falling asleep) EENT: reports: Cataracts, Blurred Vision, Hearing Loss, Dental Problems ( Missing teeth and poor dentition. Chews and swallows ok.), Other (Blind (R) eye. Light sensitivity (L) eye) Respiratory: reports: Cough (Cough x 3 weeks w/ runny nose.) Cardiac: reports: Chest Pain (Chronic chest pain unrelated to activity. States rubs chest and it goes away.) GI: reports: No Symptoms Reported : reports: No Symptoms Reported, Other (Renal stent removal (2017)) Musculoskeletal: reports: Back Pain (States chronic sharp back pain r/t pinched nerves. Wear a back brace.), Joint Pain (Fingers, knees, hips chronic achy. Worse w/ increased movement and walking.) Integumentary: reports: No Symptoms Reported Neuro: reports: Headache (Mild migraine. Relieved w/ 800 mg motrin.), Other ( Hx CVA 2018 w/o residual deficits.) Endocrine: reports: No Symptoms Reported Hematology: reports: No Symptoms Reported Psychiatric: reports: Judgement Intact, Orientated x3, Agitated, Anxious, Depressed (Denies thoughts of harming self or others) Patient History - Patient Medical History Hx Anemia: No Hx Asthma: Yes (on MDI) Hx Chronic Obstructive Pulmonary Disease (COPD): No Hx Cancer: No Hx Cardiac Disorders: Yes Hx Congestive Heart Failure: No Hx Hypertension: Yes Hx Hypercholesterolemia: No Hx Pacemaker: No HX Cerebrovascular Accident: Yes (february 2018) Hx Seizures: Yes (on meds, last seizure Nov 2017) Hx Dementia: No Hx Diabetes: No (told he is prediabetic) Hx Gastrointestinal Disorders: No Hx Liver Disease: No Hx Genitourinary Disorders: No Hx Sexually Transmitted Disorders: No Hx Renal Disease (ESRD): Yes (renal insufficiency stage III) Hx Thyroid Disease: No Hx Human Immunodeficiency Virus (HIV): No (declines testing today ) Hx Hepatitis C: No Hx Depression: Yes Hx Suicide Attempt: Yes (report attempted to slice wrist , OD pills with alcohol in 1989) Hx Bipolar Disorder: No Hx Schizophrenia: No - Patient Surgical History Past Surgical History: Yes Hx Neurologic Surgery: No Hx Cataract Extraction: No Hx Cardiac Surgery: No Hx Lung Surgery: No Hx Breast Surgery: No Hx Breast Biopsy: No Hx Abdominal Surgery: No Hx Appendectomy: No Hx Cholecystectomy: No Hx Genitourinary Surgery: No Hx Section: No Hx Orthopedic Surgery: No Other Surgical History: right eye surgery /born with right eye blindness Anesthesia Reaction: No - PPD History Previous Implant?: Yes Documented Results: Negative w/proof Implanted On Prior [facility] Admission?: Yes PPD to be Administered?: No - Smoking Cessation Smoking history: Current every day smoker (stopped a month ago!) Have you smoked in the past 12 months: Yes Aproximately how many cigarettes per day: 5 Cigars Per Day: 0 Hx Chewing Tobacco Use: No Initiated information on smoking cessation: Yes 'Breaking Loose' booklet given: 10/16/18 - Substance & Tx. History Hx Alcohol Use: Yes Hx Substance Use: Yes Substance Use Type: Alcohol, Cocaine (Denies recent use), Heroin Hx Substance Use Treatment: Yes (detox, rehab, Suboxone stopped in 05/2018) Family Disease History - Family Disease History Family Disease History: Other: Grandparent (grandfather and grandmother alcoholic), Father (alcoholic ), Mother (alcohol ) Admission Physical Exam S - Vital Signs Vital Signs: Vital Signs - 24 hr 10/16/18 19:04 Temperature 97.7 F Pulse Rate 77 Respiratory 18 Rate Blood Pressure 150/100 - Physical General Appearance: Yes: Appropriately Dressed, Obese, Tremorous, Anxious HEENTM: Yes: Hearing grossly Normal, Normocephalic, Normal Voice, Nasal Congestion, Rhinorrhea, Other (No vision (R) eye. (L) eye w/ jerking movements.) Respiratory: Yes: Lungs Clear, Normal Breath Sounds, No Respiratory Distress, Other (Cough productive of clear phlegm) Neck: Yes: No masses,lesions,Nodules, Supple Breast: Yes: Breast Exam Deferred Cardiology: Yes: Regular Rhythm, Regular Rate, S1, S2 Abdominal: Yes: Normal Bowel Sounds, Soft, Protuberent (Increased abdominal adiposity) Genitourinary: Yes: Within Normal Limits Back: Yes: Normal Inspection Musculoskeletal: Yes: full range of Motion, Gait Steady (when uses cane) Extremities: Yes: Normal Capillary Refill, Normal Range of Motion, Non-Tender, Tremors (Mild tremors w/arms extended) Neurological: Yes: Fully Oriented, Alert, Motor Strength 5/5, Normal Mood/Affect , Normal Response Integumentary: Yes: Normal Color, Dry, Warm Lymphatic: Yes: Within Normal Limits - Diagnostic (1) Opioid use disorder, moderate, in early remission Current Visit: Yes Status: Acute (2) Alcohol use disorder, moderate, in early remission Current Visit: Yes Status: Acute (3) Nicotine dependence Current Visit: Yes Status: Chronic Qualifiers: Nicotine product type: cigarettes Substance use status: in withdrawal Qualified Code(s): F17.213 - Nicotine dependence, cigarettes, with withdrawal (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 (5) Asthma Current Visit: Yes Status: Chronic Qualifiers: Asthma severity: mild Asthma persistence: unspecified Asthma complication type: uncomplicated Qualified Code(s): J45.909 - Unspecified asthma, uncomplicated (6) Blind right eye Current Visit: Yes Status: Chronic Comment: going to [facility] - (7) Chronic low back pain Current Visit: Yes Status: Chronic Qualifiers: Back pain laterality: unspecified Sciatica presence: unspecified whether sciatica present Qualified Code(s): M54.5 - Low back pain; G89.29 - Other chronic pain; G89.29 - Other chronic pain Comment: uses a lumbar brace (8) Hypertension Current Visit: Yes Status: Chronic Qualifiers: Hypertension type: essential hypertension Qualified Code(s): I10 - Essential (primary) hypertension Comment: on meds (9) Obesity (BMI 30-39.9) Current Visit: Yes Status: Chronic (10) Primary osteoarthritis of both knees Current Visit: Yes Status: Chronic Comment: Uses a cane for support (11) Seizure disorder Current Visit: Yes Status: Chronic Comment: sees neuro, on meds, Last seizure February 2018 (12) Use of cane as ambulatory aid Current Visit: Yes Status: Chronic Cleared for Admission [facility] - Detox or Rehab Claeared for Rehab Admission: Yes [facility] Breath Alcohol Content Breath Alcohol Content: 0 Urine Drug Screen - Results Drug Screen Negative: No Urine Drug Screen Results: BAR-Barbiturates, BZO-Benzodiazepines Inpatient Rehab Admission - Initial Determination Are CD services needed?: Yes Free of communicable disease: Yes Not in need of hospitalization: Yes - Rehab Admission Criteria Previous failed treatment: Yes Poor recovery environment: Yes Comorbidities: Yes Lacks judgement: No Patient is meeting Inpatient Rehab admission criteria:: Yes"
[2018-10-16] MEDS ORDERED: LOPERAMIDE HCL 2 MG CAPSULE PO PRN (21:39)
[2018-10-16] MEDS ORDERED: MAGNESIUM CITRATE 300 ML BOTTLE PO PRN (21:39)
[2018-10-16] MEDS ORDERED: MAGNESIUM HYDROX 2400MG/30ML ORAL SUSPENSION 30 ML CUP PO PRN (21:39)
[2018-10-16] MEDS ORDERED: MENTHOL/PHENOL 1 EACH UD MM PRN (21:39)
[2018-10-16] MEDS ORDERED: MAG HYDROX/AL HYDROX/SIMETH 30 ML UNIT-DOSE CUP PO PRN (21:39)
[2018-10-16] MEDS ORDERED: ACETAMINOPHEN 325 MG TABLET (FP) PO PRN (21:39)
[2018-10-16] MEDS ORDERED: ALBUTEROL SO4 0.083% IH SOL 2.5 MG/3 ML VIAL.NEB. NEB PRN (21:55)
[2018-10-16] MEDS ORDERED: guaiFENesin 200 MG/10 ML 10 ML UNIT-DOSE CUPS PO PRN (21:56)
[2018-10-16] MEDS ORDERED: cloNIDine HCL 0.1 MG TABLET PO ONE (21:56)
[2018-10-17] MEDS: THIAMINE HCL 100 MG TABLET (FP) PO SCH ×2 (00:12→21:57)
[2018-10-17] MEDS: P-EPHED 60MG/TRIPROLIDI 2.5MG TABLET PO SCH ×4 (00:12→22:09)
[2018-10-17] MEDS ORDERED: guaiFENesin/D-METHORPHAN HB 10 ML UNIT-DOSE CUPS PO PRN (00:20)
[2018-10-17] MEDS: PHENobarbital 30 MG TABLET PO SCH ×2 (06:28→17:33)
[2018-10-17] MEDS: DIVALPROEX SODIUM 500 MG TABLET E.C. PO SCH ×2 (06:28→17:33)
[2018-10-17] MEDS: levETIRAcetam 250 MG TABLET (FP) PO SCH ×2 (06:28→17:33)
[2018-10-17] MEDS: guaiFENesin/D-METHORPHAN HB 10 ML UNIT-DOSE CUPS PO PRN ×3 (06:31→17:36)
[2018-10-17] MEDS ORDERED: cloNIDine HCL 0.1 MG TABLET PO ONE (06:47)
--- NOTE | 2018-10-17 06:53 | PN ---
[facility] Progress Note Note: Patient's blood pressure is B/P 159/101. Patient is asymptomatic Vital Signs Temperature 97.4 F L 10/17/18 06:47 Pulse Rate 75 10/17/18 06:47 Respiratory Rate 18 10/17/18 06:47 Blood Pressure 159/101 H 10/17/18 06:47 O2 Sat by Pulse Oximetry (%) Action: Clonidine 0.1mg tablet oral ordered
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
[2018-10-17] MEDS ORDERED: BUDESONIDE/FORMETEROL FUMARATE 160/4.5 mcg INHALER IH SCH (10:00)
[2018-10-17] MEDS: NICOTINE 7 MG/24 HOURS TOPICAL PATCH TD SCH (10:01)
[2018-10-17] MEDS: HYDROCHLOROTHIAZIDE 25 MG TABLET (FP) PO SCH (10:01)
[2018-10-17] MEDS: LISINOPRIL 10 MG TABLET (FP) PO SCH (10:01)
[2018-10-17] MEDS: PRENATAL VITAMINS W/ FOLIC ACID TABLET (FP) PO SCH (10:01)
[2018-10-17] MEDS: NICOTINE POLACRILEX 2 MG GUM BC PRN ×3 (10:03→17:35)
[2018-10-17] MEDS ORDERED: BUPRENORPHINE/NALOXONE 2 MG/0.5 MG FILM PACKET SL ONE ×2 (11:52→18:00)
--- NOTE | 2018-10-17 11:52 | PN ---
[facility] COWS - Scale Resting Pulse: 0= MA 80 or Below Sweatin= Chills/Flushing Restless Observation: 0= Sits Still Pupil Size: 0= Normal to Room Light Bone or Joint Aches: 1= Mild Discomfort Runny Nose/ Eye Tearin= Runny Nose/Eyes GI Upset > 30mins: 0= None Tremor Observation of Outstretched Hands: 2= Slight Tremor Visible Yawning Observation: 0= None Anxiety or Irritability: 2=Irritable/Anxious Goose Flesh Skin: 0=Smooth Skin COWS Score: 8
[2018-10-17] MEDS: IBUPROFEN 400 MG TABLET (FP) PO PRN ×2 (12:32→21:57)
[2018-10-17] MEDS: FLUTICASONE PROPIONATE IH SCH ×2 (17:38→21:58)
[2018-10-17] MEDS: FORMETEROL FUMARATE IH SCH (21:56)
[2018-10-17] MEDS: BUDESONIDE IH SCH (21:56)
[2018-10-18] MEDS: guaiFENesin/D-METHORPHAN HB 10 ML UNIT-DOSE CUPS PO PRN (02:10)
[2018-10-18] MEDS: levETIRAcetam 250 MG TABLET (FP) PO SCH ×2 (05:53→17:27)
[2018-10-18] MEDS: P-EPHED 60MG/TRIPROLIDI 2.5MG TABLET PO SCH ×2 (05:53→15:00)
[2018-10-18] MEDS: DIVALPROEX SODIUM 500 MG TABLET E.C. PO SCH ×2 (05:53→17:27)
[2018-10-18] MEDS: BUPRENORPHINE/NALOXONE 2 MG/0.5 MG FILM PACKET SL SCH ×2 (05:54→17:28)
[2018-10-18] MEDS: PHENobarbital 30 MG TABLET PO SCH ×2 (05:54→17:27)
[2018-10-18] MEDS: IBUPROFEN 400 MG TABLET (FP) PO PRN (05:55)
[2018-10-18] MEDS: PRENATAL VITAMINS W/ FOLIC ACID TABLET (FP) PO SCH (10:19)
[2018-10-18] MEDS: BUDESONIDE IH SCH ×2 (10:19→21:21)
[2018-10-18] MEDS: FORMETEROL FUMARATE IH SCH ×2 (10:19→21:21)
[2018-10-18] MEDS: HYDROCHLOROTHIAZIDE 25 MG TABLET (FP) PO SCH (10:19)
[2018-10-18] MEDS: NICOTINE 7 MG/24 HOURS TOPICAL PATCH TD SCH (10:19)
[2018-10-18] MEDS: LISINOPRIL 10 MG TABLET (FP) PO SCH (10:19)
[2018-10-18] MEDS: NICOTINE POLACRILEX 2 MG GUM BC PRN (10:20)
[2018-10-18] MEDS: THIAMINE HCL 100 MG TABLET (FP) PO SCH (21:21)
[2018-10-18] MEDS: MELATONIN 5 MG TABLETS PO PRN (21:22)
[2018-10-18] MEDS: hydrOXYzine PAMOATE 50 MG CAPSULE (FP) PO PRN (21:23)
[2018-10-19] MEDS: guaiFENesin/D-METHORPHAN HB 10 ML UNIT-DOSE CUPS PO PRN (03:11)
[2018-10-19] MEDS: levETIRAcetam 250 MG TABLET (FP) PO SCH ×2 (05:51→17:26)
[2018-10-19] MEDS: BUPRENORPHINE/NALOXONE 2 MG/0.5 MG FILM PACKET SL SCH ×2 (05:51→17:26)
[2018-10-19] MEDS: PHENobarbital 30 MG TABLET PO SCH ×2 (05:52→17:27)
[2018-10-19] MEDS: DIVALPROEX SODIUM 500 MG TABLET E.C. PO SCH ×2 (05:52→17:27)
[2018-10-19] MEDS: HYDROCHLOROTHIAZIDE 25 MG TABLET (FP) PO SCH (10:32)
[2018-10-19] MEDS: hydrOXYzine PAMOATE 50 MG CAPSULE (FP) PO PRN ×2 (10:32→21:45)
[2018-10-19] MEDS: NICOTINE 7 MG/24 HOURS TOPICAL PATCH TD SCH (10:32)
[2018-10-19] MEDS: LISINOPRIL 10 MG TABLET (FP) PO SCH (10:32)
[2018-10-19] MEDS: PRENATAL VITAMINS W/ FOLIC ACID TABLET (FP) PO SCH (10:32)
[2018-10-19] MEDS: NICOTINE POLACRILEX 2 MG GUM BC PRN ×2 (10:33→21:47)
[2018-10-19] MEDS: BUDESONIDE IH SCH ×2 (10:42→21:45)
[2018-10-19] MEDS: FORMETEROL FUMARATE IH SCH ×2 (10:42→21:45)
[2018-10-19] MEDS ORDERED: PT OWN MED DRAWER 7, Y5N ONE (20:42)
[2018-10-19] MEDS: THIAMINE HCL 100 MG TABLET (FP) PO SCH (21:47)
[2018-10-20] MEDS: PHENobarbital 30 MG TABLET PO SCH ×2 (05:57→17:22)
[2018-10-20] MEDS: DIVALPROEX SODIUM 500 MG TABLET E.C. PO SCH ×2 (05:57→17:22)
[2018-10-20] MEDS: levETIRAcetam 250 MG TABLET (FP) PO SCH ×2 (05:58→17:22)
[2018-10-20] MEDS: BUPRENORPHINE/NALOXONE 2 MG/0.5 MG FILM PACKET SL SCH (05:58)
[2018-10-20] MEDS: NICOTINE POLACRILEX 2 MG GUM BC PRN ×3 (06:02→17:25)
[2018-10-20] MEDS: HYDROCHLOROTHIAZIDE 25 MG TABLET (FP) PO SCH (10:25)
[2018-10-20] MEDS: NICOTINE 7 MG/24 HOURS TOPICAL PATCH TD SCH (10:25)
[2018-10-20] MEDS: PRENATAL VITAMINS W/ FOLIC ACID TABLET (FP) PO SCH (10:25)
[2018-10-20] MEDS: FORMETEROL FUMARATE IH SCH ×2 (10:26→21:11)
[2018-10-20] MEDS: BUDESONIDE IH SCH ×2 (10:26→21:11)
[2018-10-20] MEDS: LISINOPRIL 10 MG TABLET (FP) PO SCH (10:26)
--- NOTE | 2018-10-20 13:25 | PN ---
S Progress Note Note: Patient reports sleeping poorly despite taking Melatonin 5 mg at bedtime. Requests to be ordered a more effective sleep medication. Hypnotic properties of Belsomra discussed with patient and he agreed to try it. Belsomra 10 mg po HS prn for insomnia ordered
[2018-10-20] MEDS ORDERED: BUPRENORPHINE/NALOXONE 2 MG/0.5 MG FILM PACKET SL SCH (14:13)
--- NOTE | 2018-10-20 14:25 | PN ---
S Progress Note Note: Requesting albuterol MDI- h/o asthma- done REquesting increase dose of Suboxone- was on this dose in the past- done
[2018-10-20] MEDS: BUPRENORPHINE/NALOXONE 8 MG/2 MG FILM PACKET SL SCH (17:22)
[2018-10-20] MEDS ORDERED: PT OWN MED DRAWER 7, Y5N ONE (19:27)
[2018-10-20] MEDS: hydrOXYzine PAMOATE 50 MG CAPSULE (FP) PO PRN (21:09)
[2018-10-20] MEDS: THIAMINE HCL 100 MG TABLET (FP) PO SCH (21:09)
[2018-10-21] MEDS: BUPRENORPHINE/NALOXONE 8 MG/2 MG FILM PACKET SL SCH ×2 (05:58→17:50)
[2018-10-21] MEDS: PHENobarbital 30 MG TABLET PO SCH ×2 (05:58→17:50)
[2018-10-21] MEDS: levETIRAcetam 250 MG TABLET (FP) PO SCH ×2 (05:59→17:50)
[2018-10-21] MEDS: DIVALPROEX SODIUM 500 MG TABLET E.C. PO SCH ×2 (05:59→17:50)
[2018-10-21] MEDS: NICOTINE POLACRILEX 2 MG GUM BC PRN ×4 (06:01→21:09)
[2018-10-21] MEDS: FORMETEROL FUMARATE IH SCH ×2 (09:45→21:08)
[2018-10-21] MEDS: NICOTINE 7 MG/24 HOURS TOPICAL PATCH TD SCH (09:45)
[2018-10-21] MEDS: BUDESONIDE IH SCH ×2 (09:45→21:08)
[2018-10-21] MEDS: HYDROCHLOROTHIAZIDE 25 MG TABLET (FP) PO SCH (09:45)
[2018-10-21] MEDS: LISINOPRIL 10 MG TABLET (FP) PO SCH (09:45)
[2018-10-21] MEDS: PRENATAL VITAMINS W/ FOLIC ACID TABLET (FP) PO SCH (09:45)
[2018-10-21] MEDS: hydrOXYzine PAMOATE 50 MG CAPSULE (FP) PO PRN ×2 (09:46→21:08)
[2018-10-21] MEDS: ALBUTEROL SO4 8 GM HFA INHALER IH PRN ×2 (09:48→21:08)
[2018-10-21] MEDS: THIAMINE HCL 100 MG TABLET (FP) PO SCH (21:08)
[2018-10-21] MEDS: SUVOREXANT 10 MG TABLET PO PRN (21:08)
[2018-10-22] MEDS: BUPRENORPHINE/NALOXONE 8 MG/2 MG FILM PACKET SL SCH ×2 (05:55→17:24)
[2018-10-22] MEDS: PHENobarbital 30 MG TABLET PO SCH ×2 (05:55→17:25)
[2018-10-22] MEDS: levETIRAcetam 250 MG TABLET (FP) PO SCH ×2 (05:56→17:25)
[2018-10-22] MEDS: DIVALPROEX SODIUM 500 MG TABLET E.C. PO SCH ×2 (05:56→17:25)
[2018-10-22] MEDS: NICOTINE POLACRILEX 2 MG GUM BC PRN ×4 (05:58→21:08)
[2018-10-22] MEDS: HYDROCHLOROTHIAZIDE 25 MG TABLET (FP) PO SCH (09:45)
[2018-10-22] MEDS: hydrOXYzine PAMOATE 50 MG CAPSULE (FP) PO PRN ×2 (09:45→21:07)
[2018-10-22] MEDS: LISINOPRIL 10 MG TABLET (FP) PO SCH (09:45)
[2018-10-22] MEDS: BUDESONIDE IH SCH ×2 (09:45→21:09)
[2018-10-22] MEDS: PRENATAL VITAMINS W/ FOLIC ACID TABLET (FP) PO SCH (09:45)
[2018-10-22] MEDS: NICOTINE 7 MG/24 HOURS TOPICAL PATCH TD SCH (09:45)
[2018-10-22] MEDS: FORMETEROL FUMARATE IH SCH ×2 (09:45→21:09)
[2018-10-22] MEDS: ALBUTEROL SO4 8 GM HFA INHALER IH PRN (09:46)
[2018-10-22] MEDS ORDERED: PT OWN MED DRAWER 7, Y5N ONE (16:46)
[2018-10-22] MEDS: SUVOREXANT 10 MG TABLET PO PRN (21:07)
[2018-10-22] MEDS: THIAMINE HCL 100 MG TABLET (FP) PO SCH (21:07)
[2018-10-23] MEDS: IBUPROFEN 400 MG TABLET (FP) PO PRN (03:31)
[2018-10-23] MEDS: guaiFENesin/D-METHORPHAN HB 10 ML UNIT-DOSE CUPS PO PRN ×2 (03:31→23:18)
[2018-10-23] MEDS: levETIRAcetam 250 MG TABLET (FP) PO SCH ×2 (06:09→18:44)
[2018-10-23] MEDS: BUPRENORPHINE/NALOXONE 8 MG/2 MG FILM PACKET SL SCH ×2 (06:09→18:44)
[2018-10-23] MEDS: PHENobarbital 30 MG TABLET PO SCH ×2 (06:10→18:44)
[2018-10-23] MEDS: DIVALPROEX SODIUM 500 MG TABLET E.C. PO SCH ×2 (06:10→18:44)
[2018-10-23] MEDS: NICOTINE POLACRILEX 2 MG GUM BC PRN ×4 (06:11→18:46)
[2018-10-23] MEDS: HYDROCHLOROTHIAZIDE 25 MG TABLET (FP) PO SCH (09:54)
[2018-10-23] MEDS: BUDESONIDE IH SCH ×2 (09:54→21:36)
[2018-10-23] MEDS: NICOTINE 7 MG/24 HOURS TOPICAL PATCH TD SCH (09:54)
[2018-10-23] MEDS: PRENATAL VITAMINS W/ FOLIC ACID TABLET (FP) PO SCH (09:54)
[2018-10-23] MEDS: LISINOPRIL 10 MG TABLET (FP) PO SCH (09:54)
[2018-10-23] MEDS: FORMETEROL FUMARATE IH SCH ×2 (09:54→21:36)
--- NOTE | 2018-10-23 10:56 | PN ---
S Progress Note Note: PATIENT SEEN FOR C/O SWELLING TO LOWER EXTREMITIES. PATIENT DENIES CALF PAIN, RECENT INJURIES TO LEGS, SOB AND CHEST PAIN. Vital Signs Temperature 97.5 F L 10/23/18 06:00 Pulse Rate 69 10/23/18 09:30 Respiratory Rate 18 10/23/18 09:30 Blood Pressure 120/68 10/23/18 09:30 O2 Sat by Pulse Oximetry (%) Laboratory Tests 10/16/18 06:00 RPR Titer Nonreactive PE; SKIN WARM AND DRY CAR S1S2 RESP CTA BL EXT BLE +2 EDEMA, NO REDNESS OR WARM TO CALFS AMB AD TAD A/P BLE EDEMA WILL ORDER HCTZ 12.5 MG DAILY LEG ELEVATION PRN CONTINUE TO MONITOR CLINICALLY
[2018-10-23] MEDS: THIAMINE HCL 100 MG TABLET (FP) PO SCH (21:34)
[2018-10-23] MEDS: SUVOREXANT 10 MG TABLET PO PRN (21:35)
[2018-10-23] MEDS ORDERED: PT OWN MED DRAWER 7, Y5N ONE (23:24)
[2018-10-24] MEDS: levETIRAcetam 250 MG TABLET (FP) PO SCH ×2 (05:58→19:26)
[2018-10-24] MEDS: NICOTINE POLACRILEX 2 MG GUM BC PRN ×2 (05:58→09:45)
[2018-10-24] MEDS: BUPRENORPHINE/NALOXONE 8 MG/2 MG FILM PACKET SL SCH ×2 (05:58→19:25)
[2018-10-24] MEDS: PHENobarbital 30 MG TABLET PO SCH ×2 (05:58→19:26)
[2018-10-24] MEDS: DIVALPROEX SODIUM 500 MG TABLET E.C. PO SCH ×2 (05:58→19:26)
[2018-10-24] MEDS: NICOTINE 7 MG/24 HOURS TOPICAL PATCH TD SCH (09:44)
[2018-10-24] MEDS: HYDROCHLOROTHIAZIDE 25 MG TABLET (FP) PO SCH (09:44)
[2018-10-24] MEDS: PRENATAL VITAMINS W/ FOLIC ACID TABLET (FP) PO SCH (09:44)
[2018-10-24] MEDS: LISINOPRIL 10 MG TABLET (FP) PO SCH (09:44)
[2018-10-24] MEDS: BUDESONIDE IH SCH (09:45)
[2018-10-24] MEDS: FORMETEROL FUMARATE IH SCH (09:45)
[2018-10-24] MEDS: IBUPROFEN 400 MG TABLET (FP) PO PRN (14:19)
--- NOTE | 2018-10-24 20:39 | PN ---
[facility] Progress Note Note: Pt was noted to be walking off the unit at about 8:30pm. Pt was calling "mommy" mommy". Pt brought back to his bed. Pt is awake and alert but very confused- only oriented to name. Could not state his address, date of . PE- pt looks older than his stated age awake and alert A/P- confusion- unclear etiology. Transfer to ER- talked to Dr. Franco
[2018-10-25] MEDS: THIAMINE HCL 100 MG TABLET (FP) PO SCH ×2 (00:13→21:27)
[2018-10-25] MEDS: FORMETEROL FUMARATE IH SCH ×3 (00:13→21:27)
[2018-10-25] MEDS: BUDESONIDE IH SCH ×3 (00:13→21:27)
[2018-10-25] MEDS: BUPRENORPHINE/NALOXONE 8 MG/2 MG FILM PACKET SL SCH ×2 (06:03→17:24)
[2018-10-25] MEDS: DIVALPROEX SODIUM 500 MG TABLET E.C. PO SCH ×2 (06:04→17:22)
[2018-10-25] MEDS: levETIRAcetam 250 MG TABLET (FP) PO SCH ×2 (06:04→17:22)
[2018-10-25] MEDS: PHENobarbital 30 MG TABLET PO SCH ×2 (06:04→17:22)
[2018-10-25] MEDS: NICOTINE POLACRILEX 2 MG GUM BC PRN ×3 (06:09→21:30)
[2018-10-25] MEDS: NICOTINE 7 MG/24 HOURS TOPICAL PATCH TD SCH (09:00)
[2018-10-25] MEDS: PRENATAL VITAMINS W/ FOLIC ACID TABLET (FP) PO SCH (09:01)
[2018-10-25] MEDS: HYDROCHLOROTHIAZIDE 25 MG TABLET (FP) PO SCH (09:01)
[2018-10-25] MEDS: guaiFENesin/D-METHORPHAN HB 10 ML UNIT-DOSE CUPS PO PRN ×2 (09:01→17:34)
[2018-10-25] MEDS: LISINOPRIL 10 MG TABLET (FP) PO SCH (09:01)
--- NOTE | 2018-10-25 10:48 | PN ---
[facility] Progress Note Note: PATIENT SEEN FOR FOLLOW UP AFTER ER VISIT FOR CONFUSION AND POSSIBLE SEIZURE. PATIENT EVALUATED AT BEDSIDE. ALERT AND ORIENTED X 3, DENIES DIZZINESS, HEADACHE , CHEST PAIN, COUGH, SOB AND N/V/D. PATIENT HAD CT OF HEAD AND CXR AT [facility] ER. CT OF HEAD NEGATIVE, CXR SHOWS NODULAR PROJECTION OVER RUL FIELD. LABS ALSO SHOW MILDLY ELEVATED AMMONIA LEVELS AT 42. PHENOBARBITAL LEVEL RESULTS POSITIVE PATIENT TREATED FOR SEIZURES WITH PHENOBARBITAL. DEPAKOTE ALSO NOTED SUBTHERAPEUTIC AND PATIENT GIVE EXTRA DOSE OF VPA IN ER. PATIENT DID NOT HAVE SEIZURE IN ER AND SENT BACK TO [facility] TO CONTINUE REHAB. Vital Signs Temperature 98.4 F 10/25/18 07:20 Pulse Rate 70 10/25/18 09:30 Respiratory Rate 18 10/25/18 09:30 Blood Pressure 128/69 10/25/18 09:30 O2 Sat by Pulse Oximetry (%) Laboratory Tests 10/16/18 06:00 RPR Titer Nonreactive PE: ALERT AND ORIENTED X 3 SKIN WARM AND DRY CAR S1S2 RESP CTA BL NEURO: CN 1-X12 GROSSLY INTACT, +PERRLA, EOMS INTACT BL A/P: CONFUSION- RESOLVED ELEVATED AMMONIA LEVEL: START LACTULOSE 20G BID AND REPEAT LEVEL 10/27/18 REPEAT PHENOBARBITAL LEVEL RUL FIELD NODULE ? ETIOLOGY: PATIENT FOR D/C FROM REHAB 10/30/18. CT OF CHEST RECOMMENDED BY ER DOCTOR. PATIENT INFORMED OF RESULTS AND STRONGLY ADVISED TO FOLLOW UP WITH PCP FOR REFERRAL TO HAVE CT OF CHEST AND PULMONARY CONSULT. CONTINUE TO MONITOR CLINICALLY
[2018-10-25] MEDS: LACTULOSE 20 GM/30 ML UDC (FOR ORAL USE ONLY) PO SCH ×2 (11:02→21:27)
[2018-10-25] MEDS ORDERED: PT OWN MED DRAWER 7, Y5N ONE (19:45)
[2018-10-25] MEDS: MELATONIN 5 MG TABLETS PO PRN (21:29)
[2018-10-26] MEDS: NICOTINE POLACRILEX 2 MG GUM BC PRN ×5 (06:04→21:41)
[2018-10-26] MEDS: levETIRAcetam 250 MG TABLET (FP) PO SCH ×2 (06:08→17:47)
[2018-10-26] MEDS: PHENobarbital 30 MG TABLET PO SCH ×2 (06:08→17:47)
[2018-10-26] MEDS: BUPRENORPHINE/NALOXONE 8 MG/2 MG FILM PACKET SL SCH ×2 (06:08→17:46)
[2018-10-26] MEDS: DIVALPROEX SODIUM 500 MG TABLET E.C. PO SCH ×2 (06:08→17:47)
[2018-10-26] MEDS: BUDESONIDE IH SCH ×2 (10:19→21:39)
[2018-10-26] MEDS: FORMETEROL FUMARATE IH SCH ×2 (10:19→21:39)
[2018-10-26] MEDS: PRENATAL VITAMINS W/ FOLIC ACID TABLET (FP) PO SCH (10:20)
[2018-10-26] MEDS: HYDROCHLOROTHIAZIDE 25 MG TABLET (FP) PO SCH (10:20)
[2018-10-26] MEDS: NICOTINE 7 MG/24 HOURS TOPICAL PATCH TD SCH (10:20)
[2018-10-26] MEDS: LACTULOSE 20 GM/30 ML UDC (FOR ORAL USE ONLY) PO SCH ×2 (10:20→21:38)
[2018-10-26] MEDS: guaiFENesin/D-METHORPHAN HB 10 ML UNIT-DOSE CUPS PO PRN ×2 (10:20→21:41)
[2018-10-26] MEDS: LISINOPRIL 10 MG TABLET (FP) PO SCH (10:20)
[2018-10-26] MEDS: hydrOXYzine PAMOATE 50 MG CAPSULE (FP) PO PRN ×2 (10:20→21:38)
[2018-10-26] MEDS: MELATONIN 5 MG TABLETS PO PRN (21:39)
[2018-10-26] MEDS: THIAMINE HCL 100 MG TABLET (FP) PO SCH (21:39)
[2018-10-27] MEDS: PHENobarbital 30 MG TABLET PO SCH ×2 (05:48→17:47)
[2018-10-27] MEDS: levETIRAcetam 250 MG TABLET (FP) PO SCH ×2 (05:48→17:47)
[2018-10-27] MEDS: DIVALPROEX SODIUM 500 MG TABLET E.C. PO SCH ×2 (05:48→17:47)
[2018-10-27] MEDS: BUPRENORPHINE/NALOXONE 8 MG/2 MG FILM PACKET SL SCH ×2 (05:48→17:47)
[2018-10-27] MEDS: NICOTINE POLACRILEX 2 MG GUM BC PRN ×3 (05:48→21:48)
[2018-10-27] MEDS ORDERED: PT OWN MED DRAWER 7, Y5N ONE (08:43)
--- NOTE | 2018-10-27 09:21 | PN ---
S Progress Note Note: pt to be discharged on 10/30: orders sent today. Pt to f/u at [facility] for suboxone on 11/03.
[2018-10-27] MEDS: NICOTINE 7 MG/24 HOURS TOPICAL PATCH TD SCH (10:16)
[2018-10-27] MEDS: PRENATAL VITAMINS W/ FOLIC ACID TABLET (FP) PO SCH (10:16)
[2018-10-27] MEDS: LACTULOSE 20 GM/30 ML UDC (FOR ORAL USE ONLY) PO SCH ×2 (10:16→21:46)
[2018-10-27] MEDS: LISINOPRIL 10 MG TABLET (FP) PO SCH (10:17)
[2018-10-27] MEDS: HYDROCHLOROTHIAZIDE 25 MG TABLET (FP) PO SCH (10:17)
[2018-10-27] MEDS: FORMETEROL FUMARATE IH SCH ×2 (10:19→21:48)
[2018-10-27] MEDS: BUDESONIDE IH SCH ×2 (10:19→21:48)
[2018-10-27] MEDS: guaiFENesin/D-METHORPHAN HB 10 ML UNIT-DOSE CUPS PO PRN ×2 (10:55→21:47)
[2018-10-27] MEDS: hydrOXYzine PAMOATE 50 MG CAPSULE (FP) PO PRN (21:46)
[2018-10-27] MEDS: THIAMINE HCL 100 MG TABLET (FP) PO SCH (21:46)
[2018-10-27] MEDS: MELATONIN 5 MG TABLETS PO PRN (21:46)
[2018-10-28] MEDS: BUPRENORPHINE/NALOXONE 8 MG/2 MG FILM PACKET SL SCH ×2 (06:21→17:15)
[2018-10-28] MEDS: PHENobarbital 30 MG TABLET PO SCH ×2 (06:21→17:15)
[2018-10-28] MEDS: levETIRAcetam 250 MG TABLET (FP) PO SCH ×2 (06:22→17:15)
[2018-10-28] MEDS: DIVALPROEX SODIUM 500 MG TABLET E.C. PO SCH ×2 (06:22→17:14)
[2018-10-28] MEDS: NICOTINE POLACRILEX 2 MG GUM BC PRN ×3 (06:23→17:21)
[2018-10-28] MEDS: LACTULOSE 20 GM/30 ML UDC (FOR ORAL USE ONLY) PO SCH ×2 (10:00→21:25)
[2018-10-28] MEDS: PRENATAL VITAMINS W/ FOLIC ACID TABLET (FP) PO SCH (10:00)
[2018-10-28] MEDS: FORMETEROL FUMARATE IH SCH ×2 (10:00→21:25)
[2018-10-28] MEDS: HYDROCHLOROTHIAZIDE 25 MG TABLET (FP) PO SCH (10:00)
[2018-10-28] MEDS: LISINOPRIL 10 MG TABLET (FP) PO SCH (10:00)
[2018-10-28] MEDS: BUDESONIDE IH SCH ×2 (10:00→21:25)
[2018-10-28] MEDS: NICOTINE 7 MG/24 HOURS TOPICAL PATCH TD SCH (10:00)
[2018-10-28] MEDS ORDERED: PT OWN MED DRAWER 7, Y5N ONE (19:40)
[2018-10-28] MEDS: THIAMINE HCL 100 MG TABLET (FP) PO SCH (21:25)
[2018-10-28] MEDS: guaiFENesin/D-METHORPHAN HB 10 ML UNIT-DOSE CUPS PO PRN (21:27)
[2018-10-28] MEDS: MELATONIN 5 MG TABLETS PO PRN (22:20)
[2018-10-28] MEDS: hydrOXYzine PAMOATE 50 MG CAPSULE (FP) PO PRN (22:20)
[2018-10-29] MEDS: PHENobarbital 30 MG TABLET PO SCH ×2 (06:03→17:39)
[2018-10-29] MEDS: levETIRAcetam 250 MG TABLET (FP) PO SCH ×2 (06:03→17:38)
[2018-10-29] MEDS: BUPRENORPHINE/NALOXONE 8 MG/2 MG FILM PACKET SL SCH ×2 (06:03→17:39)
[2018-10-29] MEDS: DIVALPROEX SODIUM 500 MG TABLET E.C. PO SCH ×2 (06:03→17:39)
[2018-10-29] MEDS: NICOTINE POLACRILEX 2 MG GUM BC PRN ×4 (06:05→17:42)
[2018-10-29] MEDS ORDERED: PT OWN MED DRAWER 7, Y5N ONE ×2 (08:42→22:08)
[2018-10-29] MEDS: BUDESONIDE IH SCH ×2 (10:01→22:01)
[2018-10-29] MEDS: NICOTINE 7 MG/24 HOURS TOPICAL PATCH TD SCH (10:01)
[2018-10-29] MEDS: FORMETEROL FUMARATE IH SCH ×2 (10:01→22:01)
[2018-10-29] MEDS: LISINOPRIL 10 MG TABLET (FP) PO SCH (10:01)
[2018-10-29] MEDS: LACTULOSE 20 GM/30 ML UDC (FOR ORAL USE ONLY) PO SCH ×2 (10:01→22:01)
[2018-10-29] MEDS: PRENATAL VITAMINS W/ FOLIC ACID TABLET (FP) PO SCH (10:01)
[2018-10-29] MEDS: HYDROCHLOROTHIAZIDE 25 MG TABLET (FP) PO SCH (10:01)
--- NOTE | 2018-10-29 14:38 | PN ---
Psychiatric Progress Note Vital Signs: Vital Signs Period Temp Pulse Resp BP Sys/Buitrago Pulse Ox Last 24 Hr 59-80 16-18 113-120/69-75 Date of Session: 10/29/18 Chief Complaint:: Discharge Note HPI: Patient addressing Alcohol, Opioid and Cocaine Dependence comorbid with Nicotine Dependence, MDD, recurrent episode moderate, Substance-Induced Mood Disorder and Substance-Induced Sleep Disorder ROS: Albinism, Asthma, HTN, Obesity, Chronic low back pain, Osteoarthrtitis of both knees Seizure Disorder, Blindness right eye Current Medications: Active Medications Generic Name Dose Route Start Last Admin Trade Name Freq PRN Reason Stop Dose Admin Al Hydroxide/Mg Hydroxide 30 ml 10/16/18 21:39 Mylanta Oral Suspension - PO Q6H PRN DYSPEPSIA Albuterol Sulfate 1 amp 10/16/18 21:55 10/19/18 19:13 Ventolin 0.083% Nebulizer Soln - NEB 1 amp Q4H PRN Administration SHORT OF BREATH/WHEEZING Albuterol Sulfate 2 puff 10/20/18 14:13 10/22/18 09:46 Ventolin Hfa Inhaler - IH 2 inh Q4H PRN Administration SHORT OF BREATH/WHEEZING Budesonide/Formoterol Fumarate 2 puff 10/17/18 22:00 10/29/18 10:01 Symbicort 160/4.5mcg - IH 2 puff BID LISBETH Administration Buprenorphine/Naloxone 1 each 10/27/18 18:00 10/29/18 06:03 Suboxone 8mg/2mg Sl Film - SL 11/03/18 17:59 1 each BID@0600,1800 LISBETH Administration Buspirone HCl 15 mg 10/17/18 22:00 10/29/18 10:01 Buspar - PO 15 mg BID LISBETH Administration Divalproex Sodium 1,000 mg 10/17/18 06:00 10/29/18 06:03 Depakote - PO 1,000 mg BID@0600,1800 LISBETH Administration Eucalyptus/Menthol/Phenol/Sorbitol 1 each 10/16/18 21:39 Cepastat Lozenge - MM Q4H PRN SORE THROAT Guaifenesin 10 ml 10/17/18 00:23 10/28/18 21:27 Robitussin Dm - PO 10 ml Q6H PRN Administration COUGH Hydrochlorothiazide 25 mg 10/17/18 10:00 10/29/18 10:01 Hctz - PO 25 mg DAILY LISBETH Administration Hydroxyzine Pamoate 50 mg 10/16/18 21:39 10/28/18 22:20 Vistaril - PO 50 mg Q4H PRN Administration AGITATION Ibuprofen 400 mg 10/16/18 21:39 10/24/18 14:19 Motrin - PO 400 mg Q6H PRN Administration Pain level 4-6 Lactulose 20 gm 10/25/18 10:30 10/29/18 10:01 Cephulac (Oral Use) PO 20 gm BID LISBETH Administration Levetiracetam 750 mg 10/17/18 06:00 10/29/18 06:03 Keppra - PO 750 mg BID@0600,1800 LISBETH Administration Lisinopril 10 mg 10/17/18 10:00 10/29/18 10:01 Prinivil PO 10 mg DAILY LISBETH Administration Loperamide HCl 4 mg 10/16/18 21:39 Imodium - PO Q6H PRN DIARRHEA Magnesium Citrate 300 ml 10/16/18 21:39 Citroma - PO Q48H PRN CONSTIPATION Magnesium Hydroxide 30 ml 10/16/18 21:39 Milk Of Magnesia - PO DAILY PRN CONSTIPATION Melatonin 5 mg 10/16/18 22:00 10/28/18 22:20 Melatonin PO 5 mg HS PRN Administration INSOMNIA Nicotine 7 mg 10/17/18 10:00 10/29/18 10:01 Nicoderm Patch - TD 7 mg DAILY LISBETH Administration Nicotine Polacrilex 2 mg 10/16/18 21:39 10/29/18 10:03 Nicorette Gum - BC 2 mg Q2H PRN Administration NICOTINE REPLACEMENT RX Phenobarbital 60 mg 10/17/18 06:00 10/29/18 06:03 Phenobarbital - PO 60 mg BID@0600,1800 LISBETH Administration Multivit/Folic Acid/Iron 1 tab 10/17/18 10:00 10/29/18 10:01 Vitamins (Sjr) - PO 1 tab DAILY LISBETH Administration Thiamine HCl 100 mg 10/16/18 22:00 10/28/18 21:25 Vitamin B1 - PO 100 mg HS LISBETH Administration Current Side Effect: No Lab tests ordered: Yes Lab tests reviewed: Yes Provider note:: Patient will complete this program on 10/30/18. He has met his treatment goals and will continue to address his issues in outpatient treatment at [facility] at [address] [place] [address]. 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 He responded well to Buspar 15 mg po BID. Script for 30 days supply of medication will be electronically transmitted to [facility] at [address] [place] [address]. He is stable for discharge on Total face to face time:: 35 Mental Status Exam - Mental Status Exam Alert and Oriented to: Time, Place, Person Cognitive Function: Fair Patient Appearance: Well Groomed Mood: Hopeful, Euthymic Affect: Appropriate Patient Behavior: Cooperative Speech Pattern: Clear Voice Loudness: Normal Thought Process: Intact, Goal Oriented Thought Disorder: Not Present Hallucinations: Denies Suicidal Ideation: Denies Homicidal Ideation: Denies Insight/Judgement: Fair Sleep: Fair Appetite: Good Muscle strength/Tone: Normal Gait/Station: Normal Psychiatric Treatment Plan - Problem List (1) Alcohol dependence Current Visit: Yes (2) Opioid dependence Current Visit: Yes (3) Cocaine dependence Current Visit: No Qualifiers: Substance use status: uncomplicated Qualified Code(s): F14.20 - Cocaine dependence, uncomplicated Comment: referred for rehab (4) Nicotine dependence Current Visit: Yes Qualifiers: Nicotine product type: cigarettes Substance use status: in withdrawal Qualified Code(s): F17.213 - Nicotine dependence, cigarettes, with withdrawal (5) MDD (major depressive disorder), recurrent episode, moderate Current Visit: Yes (6) Substance induced mood disorder Current Visit: Yes (7) Substance-induced sleep disorder Current Visit: Yes (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 (10) Asthma Current Visit: Yes Qualifiers: Asthma severity: mild Asthma persistence: unspecified Asthma complication type: uncomplicated Qualified Code(s): J45.909 - Unspecified asthma, uncomplicated (11) Hypertension Current Visit: Yes Qualifiers: Hypertension type: essential hypertension Qualified Code(s): I10 - Essential (primary) hypertension Comment: on meds (12) Obesity (BMI 30-39.9) Current Visit: Yes (13) Chronic low back pain Current Visit: Yes Qualifiers: Back pain laterality: unspecified Sciatica presence: unspecified whether sciatica present Qualified Code(s): M54.5 - Low back pain; G89.29 - Other chronic pain; G89.29 - Other chronic pain Comment: uses a lumbar brace (14) Primary osteoarthritis of both knees Current Visit: Yes Comment: Uses a cane for support (15) Seizure disorder Current Visit: Yes Comment: sees neuro, on meds, Last seizure February 2018 (16) Blind right eye Current Visit: Yes Comment: going to [facility] - Initial treatment plan: Patient will be discharged tomorrow and referred to [facility] for outpatient treatment
[2018-10-29] MEDS: THIAMINE HCL 100 MG TABLET (FP) PO SCH (22:01)
[2018-10-29] MEDS: hydrOXYzine PAMOATE 50 MG CAPSULE (FP) PO PRN (22:02)
[2018-10-29] MEDS: MELATONIN 5 MG TABLETS PO PRN (22:03)
[2018-10-30] MEDS: PHENobarbital 30 MG TABLET PO SCH (05:48)
[2018-10-30] MEDS: BUPRENORPHINE/NALOXONE 8 MG/2 MG FILM PACKET SL SCH (05:48)
[2018-10-30] MEDS: DIVALPROEX SODIUM 500 MG TABLET E.C. PO SCH (05:49)
[2018-10-30] MEDS: levETIRAcetam 250 MG TABLET (FP) PO SCH (05:49)
[2018-10-30] MEDS: NICOTINE POLACRILEX 2 MG GUM BC PRN (05:50)
[2018-10-30 06:56] VITALS: TEMP 98.1
[2018-10-30] MEDS: LACTULOSE 20 GM/30 ML UDC (FOR ORAL USE ONLY) PO SCH (09:08)
[2018-10-30] MEDS: PRENATAL VITAMINS W/ FOLIC ACID TABLET (FP) PO SCH (09:08)
[2018-10-30] MEDS: LISINOPRIL 10 MG TABLET (FP) PO SCH (09:09)
[2018-10-30] MEDS: HYDROCHLOROTHIAZIDE 25 MG TABLET (FP) PO SCH (09:09)
[2018-10-30] MEDS: NICOTINE 7 MG/24 HOURS TOPICAL PATCH TD SCH (09:11)
[2018-10-30] MEDS: BUDESONIDE IH SCH (09:11)
[2018-10-30] MEDS: FORMETEROL FUMARATE IH SCH (09:11)
[2018-10-30 09:45] VITALS: BP 108/68; PULSE 78
== END 2018-10-30 09:15 | disposition home or self-care (01) | DRG 772 ==
LOC: YASAS 17:03 → Y3W 22:45
PROVIDERS: ADMIT Psychiatry & Neurology Psychiatry; ATTEND Psychiatry & Neurology Psychiatry
PROC: HZ42ZZZ Group Counseling for Substance Abuse Treatment, Cognitive-Behavioral (ICD-10-PCS; principal; 2018-10-16)
DX: F11.20 Opioid dependence, uncomplicated (principal); F10.20 Alcohol dependence, uncomplicated; F14.20 Cocaine dependence, uncomplicated; F17.213 Nicotine dependence, cigarettes, with withdrawal; F33.1 Major depressive disorder, recurrent, moderate; F19.24 Other psychoactive substance dependence with psychoactive substance-induced mood disorder; F19.282 Other psychoactive substance dependence with psychoactive substance-induced sleep disorder; I10 Essential (primary) hypertension; E70.30 Albinism, unspecified; E70.331 Hermansky-Pudlak syndrome; J45.909 Unspecified asthma, uncomplicated; E72.20 Disorder of urea cycle metabolism, unspecified; H54.40 Blindness, one eye, unspecified eye; M54.5 Low back pain; G89.29 Other chronic pain; M17.0 Bilateral primary osteoarthritis of knee; G40.909 Epilepsy, unspecified, not intractable, without status epilepticus; R60.0 Localized edema; R26.2 Difficulty in walking, not elsewhere classified; R41.0 Disorientation, unspecified; E66.9 Obesity, unspecified; Z68.32 Body mass index [BMI] 32.0-32.9, adult; Z99.89 Dependence on other enabling machines and devices; Z59.0 Homelessness
CPT/HCPCS: 36415; 80184; 82140; 86593; 94640; J0735

== ENCOUNTER 2018-10-24 21:25 | Emergency (ER) | payer OTHER ==
--- NOTE | 2018-10-24 21:32 | PDOC ---
History of Present Illness - General Stated Complaint: ALTERED MENTAL STATUS Time Seen by Provider: 10/24/18 21:32 History Source: Patient Exam Limitations: Clinical Condition - History of Present Illness Initial Comments: 10/24/18 21:38 48 year old male with PMH HTN, HLD, seizure disorder, albinism, asthma, chronic LLE pain sent to ED from Rehab for AMS since today. Pt stated he believes he had a seizure because he was told by rehab staff that he did and his tongue hurts. He does not remember the events leading up to the seizure. Pts only complaints are tongue pain, productive green/black cough, runny nose, sore throat. He denied headache, chest pain, shortness of breath, palpitations, abdominal pain, nausea, vomiting, diarrhea. Pt ambulates at baseline with cane. Pt stated he gets seizures every 6-7 months. Pt stated he took his night time seizure medications today at 1800. Neurologist: none PCP: Dr. Parker Seizure medication: Keppra 750 mg BID Depakote 1000 mg BID Phenobarbital 60 mg BID Suboxone 8 mg BID Past History - Past Medical History Allergies/Adverse Reactions: Allergies Allergy/AdvReac Type Severity Reaction Status Date / Time No Known Allergies Allergy Verified 10/24/18 21:42 Home Medications: Ambulatory Orders Divalproex [Depakote -] 1,000 mg PO BID #60 tablet.ec 10/27/17 Phenobarbital 64.8 mg PO BID 12/19/17 Fluticasone Propionate [Flovent Diskus] 1 puff IH BID 02/13/18 Albuterol Sulfate Inhaler - [Ventolin HFA Inhaler -] 2 inh PO Q4H PRN #1 inhaler 03/07/18 Budesonide/Formeterol Fumarate [SYMBICORT 160/4.5mcg -] 1 puff IH DAILY #1 inhaler 03/07/18 Lisinopril [Zestril] 10 mg PO DAILY #30 tablet 03/07/18 levETIRAcetam [Keppra -] 750 mg PO BID@0600,1800 #60 tablet 03/07/18 Buspirone HCl [Buspar -] 15 mg PO BID #60 tablet 03/09/18 Hydrochlorothiazide [Hctz -] 25 mg PO DAILY #30 tablet 03/21/18 Buprenorphine/Naloxone [Suboxone 8Mg/2Mg Sl Film -] 1 each SL DAILY 10/16/18 Acamprosate Calcium [Campral -] 666 mg PO DAILY 10/24/18 Anemia: No Asthma: Yes Cancer: No Cardiac Disorders: No CVA: Yes (february 2018) COPD: No CHF: No Dementia: No Diabetes: No GI Disorders: No Disorders: No HTN: No Hypercholesterolemia: No Kidney Stones: No Liver Disease: No Seizures: No Thyroid Disease: No - Surgical History Abdominal Surgery: No Appendectomy: No Cardiac Surgery: No Cholecystectomy: No Lung Surgery: No Neurologic Surgery: No Orthopedic Surgery: No - Reproductive History Testicular Surgery: No - Immunization History Immunization Up to Date: No (Unknown) - Suicide/Smoking/Psychosocial Hx Smoking Status: Yes Smoking History: Current every day smoker Have you smoked in the past 12 months: Yes Number of Cigarettes Smoked Daily: 5 If you are a former smoker, when did you quit?: 1 year Cigars Per Day: 0 'Breaking Loose' booklet given: 10/16/18 Hx Alcohol Use: Yes Drug/Substance Use Hx: Yes Substance Use Type: Alcohol (Started drinking alcohol at age 17, consumes 2.5 pints daily. Last drank om 10/13/18), Cocaine (Start smoking crack cocaine at age 12, consumes $800 wot monthly. Last smoked 2-3 months ago), Heroin (Started using heroin at age 20, consumes 3 bags daily. Last used heroin on 10/13/18) Hx Substance Use Treatment: Yes (6 previous inpt detox & 3 inpt rehab admissions @ [facility]) Review of Systems - Review of Systems Able to Perform ROS?: Yes Comments:: 10/24/18 22:05 General: denied fever, chills, night sweats, generalized weakness. HEENT: admitted to sore throat, rhinorrhea. denied ear pain. Heart: denied chest pain, palpitations, syncope, lower extremity swelling, diaphoresis. Respiratory: admitted to cough, sputum production. denied shortness of breath, hemoptysis. Abdomen: denied abdominal pain, nausea, vomiting, diarrhea, constipation, blood in stool. : denied dysuria, increased urinary frequency, hematuria, urinary incontinence , flank pain. Back: denied back pain. Musculoskeletal: denied joint pain, muscle pain, joint swelling. Neurological: admitted to seizure. denied headache, dizziness, numbness, tingling, weakness. Skin: denied rash, laceration, abrasion. *Physical Exam - Physical Exam Comments: 10/24/18 22:06 Constitutional: Well-nourished, Well-developed, appearing stated age. HEENT: head is normocephalic, atraumatic. EOMI. PERRLA. bite adrian to right side of tongue. no posterior pharyngeal erythema. no tonsillar swelling. no tonsillar exudates. Neck: supple. Full ROM. Heart: regular rhythm. no murmurs, rubs or gallops. Lungs: clear to auscultation bilaterally. no crackles, rhonchi or wheezing. no stridor. Abdomen: soft, nontender. normal bowel sounds. no rebound, guarding, masses. Extremities: Peripheral pulses intact. No lower extremity edema. Neurological: Alert. Oriented x3. CN2-12 intact. 4/5 strength LLE, 5/5 strength all other extremities. Full sensation all extremities and bilateral face. Romberg negative. Finger to nose normal. Gait with cane normal. Pt stated he felt off balance. Psych: awake, alert, oriented x3. Follows commands. Answers questions appropriately. ED Treatment Course - LABORATORY CBC & Chemistry Diagram: 10/24/18 21:40 10/24/18 21:40 Medical Decision Making - Medical Decision Making 10/24/18 22:11 48 year old male with above PMH sent to ED from rehab for AMS, pt reported he believes he had a seizure. Initial Vital Signs Temp Pulse Resp BP Pulse Ox 98.2 F 68 18 119/82 97 10/24/18 21:25 10/24/18 21:25 10/24/18 21:25 10/24/18 21:25 10/24/18 21:25 10/24/18 23:22 CBC WBC 5.9 K/mm3 (4.0-10.0) 10/24/18 21:40 RBC 3.68 M/mm3 (4.00-5.60) L 10/24/18 21:40 Hgb 13.2 GM/dL (11.7-16.9) 10/24/18 21:40 Hct 36.8 % (35.4-49) 10/24/18 21:40 MCV 99.9 fl (80-96) H 10/24/18 21:40 MCH 35.8 pg (25.7-33.7) H 10/24/18 21:40 MCHC 35.9 g/dl (32.0-35.9) 10/24/18 21:40 RDW 13.7 % (11.9-15.9) 10/24/18 21:40 Plt Count 217 K/MM3 (134-434) D 10/24/18 21:40 MPV 9.8 fl (7.5-11.1) 10/24/18 21:40 Absolute Neuts (auto) 3.8 K/mm3 (1.5-8.0) 10/24/18 21:40 Neutrophils % 63.4 % (42.8-82.8) 10/24/18 21:40 Lymphocytes % 20.2 % (8-40) 10/24/18 21:40 Monocytes % 15.3 % (3.8-10.2) H 10/24/18 21:40 Eosinophils % 0.8 % (0-4.5) 10/24/18 21:40 Basophils % 0.3 % (0-2.0) 10/24/18 21:40 Nucleated RBC % 0 % (0-0) 10/24/18 21:40 No leukocytosis. No anemia. Increased MCV - Hx of ETOH abuse CMP Sodium 137 mmol/L (136-145) 10/24/18 21:40 Potassium 3.9 mmol/L (3.5-5.1) 10/24/18 21:40 Chloride 101 mmol/L (98-107) 10/24/18 21:40 Carbon Dioxide 31 mmol/L (21-32) 10/24/18 21:40 Anion Gap 5 MMOL/L (8-16) L 10/24/18 21:40 BUN 21 mg/dL (7-18) H 10/24/18 21:40 Creatinine 0.9 mg/dL (0.55-1.3) 10/24/18 21:40 Creat Clearance w eGFR > 60 (>60) 10/24/18 21:40 Random Glucose 88 mg/dL (74-106) 10/24/18 21:40 Serum Osmolality 291 mosm/kg (278-305) 10/24/18 21:40 Calcium 8.4 mg/dL (8.5-10.1) L 10/24/18 21:40 Total Bilirubin 0.2 mg/dL (0.2-1) 10/24/18 21:40 AST 17 U/L (15-37) 10/24/18 21:40 ALT 23 U/L (13-61) 10/24/18 21:40 Alkaline Phosphatase 104 U/L (45-117) 10/24/18 21:40 Ammonia 46.50 umol/L (11-32) H 10/24/18 21:40 Total Protein 6.4 g/dl (6.4-8.2) 10/24/18 21:40 Albumin 3.2 g/dl (3.4-5.0) L 10/24/18 21:40 No electrolyte abnormalities. No FABRIZIO. Serum osmolality normal. No transaminitis. Mildly elevated ammonia. Urine Test Results Urine Color Straw 10/24/18 21:40 Urine Appearance Clear 10/24/18 21:40 Urine pH 7.0 (5.0-8.0) 10/24/18 21:40 Ur Specific [place] 1.008 (1.010-1.035) L 10/24/18 21:40 Urine Protein Negative (NEGATIVE) 10/24/18 21:40 Urine Glucose (UA) Negative (NEGATIVE) 10/24/18 21:40 Urine Ketones Negative (NEGATIVE) 10/24/18 21:40 Urine Blood Negative (NEGATIVE) 10/24/18 21:40 Urine Nitrite Negative (NEGATIVE) 10/24/18 21:40 Urine Bilirubin Negative (<2.0 mg/dL) 10/24/18 21:40 Ur Leukocyte Esterase Negative (NEGATIVE) 10/24/18 21:40 No evidence of UTI. Urine drug screen positive for barbituates. - Pt is on phenobarbital for seizures. 10/24/18 23:54 ETOH, salicyclates, acetaminophen levels negative. CK normal TSH 6.7 VPA level subtherapeutic. - 1000 mg VPA ordered 10/25/18 00:02 Pt has not had seizure in ED. Pt stated he is feeling well. Neurology implementation lead paged to ensure patient prompt follow up. 10/25/18 00:53 CXR: no infiltrate. no pneumothorax. cardiomegaly. Dr. Valdes stated he does not take Medicaid insurance. Pt will need to see PCP Dr. Parker for neurology follow up referral. Pt informed of need to follow up. Pt expressed understanding. Pt to be sent back to Rehab. *DC/Admit/Observation/Transfer Diagnosis at time of Disposition: Seizure, Altered mental status - Discharge Dispostion Condition at time of disposition: Fair Decision to Admit order: No - Referrals - Patient Instructions Printed Discharge Instructions: DI for Seizure Disorder -- Adult Additional Instructions: Charanjit Barrera was seen today for seizure/altered mental status. His lab work is included in the discharge paperwork. His Depakote level was subtherapuetic. He was given an additional 1000 mg dose in the Emergency Department. He is alert and oriented and medically cleared for discharge. Our implementation lead neurologist was called, he stated he does not take medicaid insurance, pt will need to follow up with Dr. Parker to find neurology follow up. Return to the Emergency Department for seizure, altered mental status, weakness, numbness, facial drooping, or any other new, worsening or concerning symptoms. - Post Discharge Activity
[2018-10-24 21:41] VITALS: BMI 32.8
[2018-10-24 22:19] LABS: URINE APPEARANCE CLEAR; URINE BILIRUBIN NEGATIVE (<2.0 mg/dL); URINE COLOR STRAW; URINE GLUCOSE (UA) NEGATIVE (NEGATIVE); URINE KETONE NEGATIVE (NEGATIVE); URINE LEUK ESTERASE NEGATIVE (NEGATIVE); URINE NITRITE NEGATIVE (NEGATIVE); URINE PROTEIN NEGATIVE (NEGATIVE); URINE UROBILINOGEN NEGATIVE mg/dL (0.2-1.0)
[2018-10-24 22:40] LABS: ALBUMIN 3.2 g/dl (3.4-5.0); ALK PHOS 104 U/L (45-117); ANION GAP 5 MMOL/L (8-16); BILIRUBIN,TOTAL 0.2 mg/dL (0.2-1); BLOOD UREA NITROGEN 21 mg/dL (7-18); CALCIUM 8.4 mg/dL (8.5-10.1); CHLORIDE 101 mmol/L (98-107); CO2 31 mmol/L (21-32); CREATININE 0.9 mg/dL (0.55-1.3); GLUCOSE,RANDOM 88 mg/dL (74-106); POTASSIUM 3.9 mmol/L (3.5-5.1); SGOT/AST 17 U/L (15-37); SGPT/ALT 23 U/L (13-61); SODIUM 137 mmol/L (136-145); TOT PROT 6.4 g/dl (6.4-8.2)
[2018-10-24 22:50] LABS: COCAINE, UR NEGATIVE ng/ml (CUTOFF=300); METHADONE, UR NEGATIVE ng/ml (CUTOFF=300); OPIATES, URI NEGATIVE ng/ml (CUTOFF=300); PHENCYCLIDINE,URINE NEGATIVE ng/ml (CUTOFF=25); URINE AMPHETAMINES NEGATIVE ng/ml (CUTOFF=500); URINE BENZODIAZEPINES NEGATIVE ng/ml (CUTOFF=200)
[2018-10-24 22:51] LABS: OSMOLALITY,SERUM 291 mosm/kg (278-305)
[2018-10-24 22:55] LABS: URINE BARBITURATES POSITIVE ng/ml (CUTOFF=200)
[2018-10-24 23:07] LABS: BASO % 0.3 % (0-2.0); EOS % 0.8 % (0-4.5); HEMATOCRIT 36.8 % (35.4-49); HEMOGLOBIN 13.2 GM/dL (11.7-16.9); LYMPH % 20.2 % (8-40); MCH 35.8 pg (25.7-33.7); MCHC 35.9 g/dl (32.0-35.9); MEAN CELL VOLUME 99.9 fl (80-96); MEAN PLT VOLUME 9.8 fl (7.5-11.1); MONO % 15.3 % (3.8-10.2); NEUT % 63.4 % (42.8-82.8); PLATELET COUNT 217 K/MM3 (134-434); RBC 3.68 M/mm3 (4.00-5.60); RDW 13.7 % (11.9-15.9); WHITE BLOOD COUNT 5.9 K/mm3 (4.0-10.0)
--- NOTE | 2018-10-24 23:43 | PDOC ---
Attending Attestation - Resident Resident Name: Cheryl Webber - ED Attending Attestation I have performed the following: I have examined & evaluated the patient, The case was reviewed & discussed with the resident, I agree w/resident's findings & plan - HPI HPI: 10/25/18 00:38 Patient is a 48 year old male with a significant past medical history of HTN, Bronchial asthma, seizure disorder, chronic low back pain, obesity, renal insufficiency stage 2, right eye blindness, hermansky-pudlak syndrome (albinism) , arthritis in both knees (ambulates with cane at baseline), polysubstance and alcohol abuse, who presents to the ED from [facility] detox with Altered mental status. Patient reports being told by detox staff that he experienced a seizure and bit his tongue. He reports experiencing associated symptoms of runny nose, sore throat and productive cough with green/black colored sputum. Patient reports experiencing a seizure every 6 to 7 months, stating his last episode was 7 months ago, so he is about due for a new one. Denies chest pain, sob. Denies nausea, vomiting. Denies contact with sick individuals, out of state travelling. Denies fevers, chills. Denies dysuria, hematuria. Denies constipation, diarrhea. Denies any other symptoms. Allergies: None Social history: Current smoker. Chronic alcohol abuse. Chronic substance abuse. Surgical history: None PMD: Elena - Physicial Exam PE: 10/25/18 00:38 NAD, well appearing, PERRL, EOMI, nl conjunctiva, anicteric; neck supple. lungs clear, RRR, abdomen soft nontender. FREEMAN x4, no focal neuro deficits. No peripheral edema. albino skin, pale. - Medical Decision Making 10/25/18 00:12 I, Chantal Busch MD, attest that this document has been prepared under my direction and personally reviewed by me in its entirety. I further attest, that it accurately reflects all work, treatment, procedures and medical decision -making performed by me. Bruce 48 YOM h/o hypertension, bronchial asthma, seizure disorder, chronic low back pain, obesity, renal insufficiency stage II, right eye blindness, hermansky-pudlak syndrome(albanism), arthritis both knees(ambules with a cane), smoker, Polysubstance and alcohol abuse, presenting today from [facility] detox with AMS, suspecting sz activity, which he gets every 6 months. denies particular precipitants. takes keppra phenobarb and valproic acid, compliant. unclear who his prior neurologist is. DDx. sz, delirium, infection, electrolyte/metabolic derangements. Vital signs reviewed, wnl. Prior notes reviewed, including admissions, discharges and consultations. laboratory results and imaging reviewed, basic labs and lytes wnl, subtherapeutic valproic acid levels (random) UA_neg for infection Utox with barbiturates, c/w use in seizure management. alcohol level neg, tox screen neg. ammonia level mildly elevated, but not signficant to correlate with any ams while here. CT head wnl, no acute [employer] HAND pathology ED course: no sz activity, mental status normal and comfortable in bed took evening dose of valproic acid/keppra neuro cs to Dr. Milligan /[facility] group, referrals provided. Dispo: Pt to be discharged in stable condition back to [facility]. Patient and family made aware of impression and plan, return precautions discussed ( including but not limited to worsening pain or symptoms), fevers, or signs of infection, chest pain, respiratory distress, inability to tolerate oral intake, dehydration, syncope, or neurologic changes). Follow up with PMD and/or specialist as recommended, follow up information provided, take medications as instructed for duration of time. continue with supportive care, avoid triggers and precipitants. All questions answered to patient's satisfaction and expressed understanding and comfort with this. 10/25/18 00:39 10/25/18 00:49
[2018-10-25] MEDS ORDERED: VALPROIC ACID 250 MG CAPSULE PO ONE (00:49)
[2018-10-25] MEDS ORDERED: DIVALPROEX SODIUM 500 MG TABLET E.C. ONE (01:29)
[2018-10-25] MEDS ORDERED: DIVALPROEX NA *ER* EXTEND REL 500 MG TABLET.SA (FP) PO ONE (01:29)
[2018-10-25 01:39] VITALS: BP 121/81; PULSE 65; TEMP 98.6
--- NOTE | 2018-10-25 08:30 | PDOC ---
*Physical Exam - Vital Signs Last Vital Signs Temp Pulse Resp BP Pulse Ox 98.6 F 65 20 121/81 96 10/25/18 01:38 10/25/18 01:38 10/25/18 01:38 10/25/18 01:38 10/25/18 01:38 ED Treatment Course - LABORATORY CBC & Chemistry Diagram: 10/24/18 21:40 10/24/18 21:40 - ADDITIONAL ORDERS Additional order review: Laboratory Results 10/24/18 10/24/18 10/24/18 21:40 21:40 21:40 Sodium Potassium Chloride Carbon Dioxide Anion Gap BUN Creatinine Creat Clearance w eGFR Random Glucose Serum Osmolality Calcium Total Bilirubin AST ALT Alkaline Phosphatase Ammonia 46.50 H Creatine Kinase 66 Total Protein Albumin TSH Urine Color Urine Appearance Urine pH Ur Specific [place] Urine Protein Urine Glucose (UA) Urine Ketones Urine Blood Urine Nitrite Urine Bilirubin Urine Urobilinogen Ur Leukocyte Esterase Salicylates Opiates Screen Negative Methadone Screen Negative Acetaminophen Barbiturate Screen Positive A* Valproic Acid Phencyclidine Screen Negative Ur Amphetamines Screen Negative MDMA (Ecstasy) Screen Negative Benzodiazepines Screen Negative Cocaine Screen Negative U Marijuana (THC) Screen Negative Alcohol, Quantitative 10/24/18 10/24/18 10/24/18 21:40 21:40 21:40 Sodium 137 Potassium 3.9 Chloride 101 Carbon Dioxide 31 Anion Gap 5 L BUN 21 H Creatinine 0.9 Creat Clearance w eGFR > 60 Random Glucose 88 Serum Osmolality 291 Calcium 8.4 L Total Bilirubin 0.2 AST 17 ALT 23 Alkaline Phosphatase 104 Ammonia Creatine Kinase Total Protein 6.4 Albumin 3.2 L TSH 6.70 H D Urine Color Straw Urine Appearance Clear Urine pH 7.0 Ur Specific [place] 1.008 L Urine Protein Negative Urine Glucose (UA) Negative Urine Ketones Negative Urine Blood Negative Urine Nitrite Negative Urine Bilirubin Negative Urine Urobilinogen Negative Ur Leukocyte Esterase Negative Salicylates 2.2 L Opiates Screen Methadone Screen Acetaminophen < 10 L Barbiturate Screen Valproic Acid Phencyclidine Screen Ur Amphetamines Screen MDMA (Ecstasy) Screen Benzodiazepines Screen Cocaine Screen U Marijuana (THC) Screen Alcohol, Quantitative < 3.0 10/24/18 20:26 Sodium Potassium Chloride Carbon Dioxide Anion Gap BUN Creatinine Creat Clearance w eGFR Random Glucose Serum Osmolality Calcium Total Bilirubin AST ALT Alkaline Phosphatase Ammonia Creatine Kinase Total Protein Albumin TSH Urine Color Urine Appearance Urine pH Ur Specific [place] Urine Protein Urine Glucose (UA) Urine Ketones Urine Blood Urine Nitrite Urine Bilirubin Urine Urobilinogen Ur Leukocyte Esterase Salicylates Opiates Screen Methadone Screen Acetaminophen Barbiturate Screen Valproic Acid 25.3 L Phencyclidine Screen Ur Amphetamines Screen MDMA (Ecstasy) Screen Benzodiazepines Screen Cocaine Screen U Marijuana (THC) Screen Alcohol, Quantitative 10/24/18 21:40 RBC 3.68 L MCV 99.9 H MCHC 35.9 RDW 13.7 MPV 9.8 Neutrophils % 63.4 Lymphocytes % 20.2 Monocytes % 15.3 H Eosinophils % 0.8 Basophils % 0.3 - Medications Given in the ED: ED Medications Discontinued Medications Generic Name Dose Route Start Last Admin Trade Name Freq PRN Reason Stop Dose Admin Divalproex Sodium 1,000 mg 10/25/18 01:29 10/25/18 01:30 Depakote *Er* - PO 10/25/18 01:30 1,000 mg ONCE ONE Administration Valproic Acid 1,000 mg 10/25/18 00:49 10/25/18 01:31 Depakene - PO 10/25/18 00:50 Not Given ONCE ONE Medical Decision Making - Medical Decision Making 10/25/18 08:29 Received call from Radiology re: positive finding on CXR I have reviewed CXR finding with Elyssa, this patient's nurse She will contact the provider overseeing this patient (this person was not available for discussion with me) I have explained that the suspicious finding will need to be worked up with a CT *DC/Admit/Observation/Transfer Diagnosis at time of Disposition: Seizure, Altered mental status - Discharge Dispostion Disposition: TRANSFER ACUTE CARE/OTHER HOSP Condition at time of disposition: Fair - Referrals - Patient Instructions Printed Discharge Instructions: DI for Seizure Disorder -- Adult Additional Instructions: Charanjit Barrera was seen today for seizure/altered mental status. His lab work is included in the discharge paperwork. His Depakote level was subtherapuetic. He was given an additional 1000 mg dose in the Emergency Department. He is alert and oriented and medically cleared for discharge. Our water pollution control inspector neurologist was called, he stated he does not take medicaid insurance, pt will need to follow up with Dr. Parker to find neurology follow up. Return to the Emergency Department for seizure, altered mental status, weakness, numbness, facial drooping, or any other new, worsening or concerning symptoms. - Post Discharge Activity
== END 2018-10-25 02:23 | disposition short-term general hospital (02) ==
LOC: JER 21:25
DX: R56.9 Unspecified convulsions (principal); R41.82 Altered mental status, unspecified; K14.6 Glossodynia; F17.210 Nicotine dependence, cigarettes, uncomplicated
CPT/HCPCS: 36415; 70450-TC; 71046-TC-FY; 80053; 80164; 80177; 80307; 81003; 82140; 82550; 83930; 84443; 85025; 87086; 99282-25

== ENCOUNTER 2019-07-20 20:43 | Inpatient (IN) | payer OTHER ==
[2019-07-20 22:07] VITALS: BMI 28.1
--- NOTE | 2019-07-21 01:36 | HP ---
COWS - Scale Resting Pulse: 1= AL 81-100 Sweatin=Flushed/Facial Moisture Restless Observation: 1= Difficult to Sit Still Pupil Size: 1= Pupils >than Normal Bone or Joint Aches: 4=Acute Joint/Muscle Pain Runny Nose/ Eye Tearin= Runny Nose/Eyes GI Upset > 30mins: 1= Stomach Cramp Tremor Observation: 2= Slight Tremor Visible Yawning Observation: 0= None Anxiety or Irritability: 0= None Goose Flesh Skin: 0=Smooth Skin COWS Score: 14 CIWA Score Nausea/Vomitin-Mild Nausea/No Vomiting Muscle Tremors: 3 Anxiety: 3 Agitation: 3 Paroxysmal Sweats: 2 Orientation: 0-Oriented Tacttile Disturbances: 0-None Auditory Disturbances: 0-None Visual Disturbances: 0-None Headache: 3-Moderate CIWA-Ar Total Score: 15 - Admission Criteria OASAS Guidelines: Admission for Medically Managed Detox: Requires at least one of the followin. CIWA greater than 12 2. Seizures within the past 24 hours 3. Delirium tremens within the past 24 hours 4. Hallucinations within the past 24 hours 5. Acute intervention needed for co occurring medical disorder 6. Acute intervention needed for co occurring psychiatric disorder 7. Severe withdrawal that cannot be handled at a lower level of care (continued vomiting, continued diarrhea, abnormal vital signs) requiring intravenous medication and/or fluids 8. Admission ROS [facility] Chief Complaint: Heroin and alcohol withdrawal symptoms Allergies/Adverse Reactions: Allergies Allergy/AdvReac Type Severity Reaction Status Date / Time No Known Allergies Allergy Verified 07/20/19 21:55 History of Present Illness: 48 years old male with a long history of heroin and alcohol dependence is seeking admission to detox. Patient has been in previous detox and reports insignficant period of sobriety. He has medical history of seizures, hypertension, asthma, CVA, left eye blindness, Arthritis and depression. He reports suicide attempt in 1989, 1994 and denies suicidal ideation at this time. Exam Limitations: No Limitations - Ebola screening Have you traveled outside of the country in the last 21 days: No (N) Have you had contact with anyone from an Ebola affected area: No Do you have a fever: No - Review of Systems Constitutional: Chills, Malaise, Night Sweats, Changes in sleep EENT: reports: No Symptoms Reported, Nose Congestion Respiratory: reports: No Symptoms reported Cardiac: reports: No Symptoms Reported GI: reports: Diarrhea, Poor Appetite, Poor Fluid Intake, Abdominal cramping : reports: No Symptoms Reported Musculoskeletal: reports: Back Pain, Muscle Pain Integumentary: reports: Dryness, Flushing Neuro: reports: Tremors Endocrine: reports: No Symptoms Reported Hematology: reports: No Symptoms Reported Psychiatric: reports: Mood/Affect Appropiate, Orientated x3 Other Systems: Reviewed and Negative Patient History - Patient Medical History Hx Anemia: No Hx Asthma: Yes (Albuterol) Hx Chronic Obstructive Pulmonary Disease (COPD): No Hx Cancer: No Hx Cardiac Disorders: No Hx Congestive Heart Failure: No Hx Hypertension: Yes (Lisinopril) Hx Hypercholesterolemia: No Hx Pacemaker: No HX Cerebrovascular Accident: Yes (february 2018) Hx Seizures: Yes (Keppra, depakorte) Hx Dementia: No Hx Diabetes: No Hx Gastrointestinal Disorders: No Hx Liver Disease: No Hx Genitourinary Disorders: No Hx Sexually Transmitted Disorders: No Hx Renal Disease (ESRD): No Hx Thyroid Disease: No Hx Human Immunodeficiency Virus (HIV): No (declines testing today ) Hx Hepatitis C: No Hx Depression: Yes (buspar) Hx Suicide Attempt: No (Denies suicidal ideation at this time) Hx Bipolar Disorder: No Hx Schizophrenia: No Other Medical History: Anxiety - Patient Surgical History Past Surgical History: Yes Hx Neurologic Surgery: No Hx Cataract Extraction: No Hx Cardiac Surgery: No Hx Lung Surgery: No Hx Abdominal Surgery: No Hx Appendectomy: No Hx Cholecystectomy: No Hx Genitourinary Surgery: No Hx Orthopedic Surgery: No Other Surgical History: right eye surgery /born with right eye blindness Anesthesia Reaction: No - PPD History Previous Implant?: No (PPD POSITIVE. TREATED WITH INH) Documented Results: Positive w/proof PPD to be Administered?: No - Reproductive History Patient is a Female of Child Bearing Age (11 -55 yrs old): No (male) - Smoking Cessation Smoking history: Current every day smoker Have you smoked in the past 12 months: Yes Aproximately how many cigarettes per day: 5 If you are a former smoker, when did you quit?: 1 year Cigars Per Day: 0 Hx Chewing Tobacco Use: No Initiated information on smoking cessation: Yes 'Breaking Loose' booklet given: 07/21/19 - Substance & Tx. History Hx Alcohol Use: Yes Hx Substance Use: Yes Substance Use Type: Alcohol, Cocaine, Heroin, Opiates Hx Substance Use Treatment: Yes ([facility]) - Substances abused Crack Substance route: Smoking Frequency: 1-2 times per week Amount used: $40-$60 Age of first use: 12 Date of last use: 07/18/19 Heroin Substance route: Inhalation Frequency: 3-6 times per week Amount used: 2 bags Age of first use: 31 Date of last use: 07/20/19 Alcohol Substance route: Oral Frequency: 1-3 times last 30 days Amount used: 1/2 pint of vodka Age of first use: 21 Date of last use: 07/20/19 Family Disease History - Family Disease History Family Disease History: Other: Grandparent (grandfather and grandmother alcoholic), Father (alcoholic ), Mother (alcohol ) Admission Physical Exam [facility] - Vital Signs Vital Signs: Vital Signs - 24 hr 07/20/19 21:48 Temperature 98.9 F Pulse Rate 92 H Respiratory 17 Rate Blood Pressure 137/97 - Physical General Appearance: Yes: Moderate Distress, Tremorous, Sweating, Anxious HEENTM: Yes: Within Normal Limits Respiratory: Yes: Lungs Clear, Normal Breath Sounds, No Respiratory Distress Neck: Yes: Supple Breast: Yes: Breast Exam Deferred Cardiology: Yes: Tachycardia Abdominal: Yes: Normal Bowel Sounds, Soft Genitourinary: Yes: Within Normal Limits Back: Yes: Normal Inspection Musculoskeletal: Yes: Within Normal Limits Extremities: Yes: Tremors Neurological: Yes: Within Normal Limits Integumentary: Yes: Warm Lymphatic: Yes: Within Normal Limits - Diagnostic (1) Alcohol dependence with uncomplicated withdrawal Current Visit: No Status: Acute (2) Seizure Current Visit: No Status: Acute (3) Asthma Current Visit: No Status: Chronic Qualifiers: Asthma severity: mild Asthma persistence: unspecified Asthma complication type: uncomplicated Qualified Code(s): J45.909 - Unspecified asthma, uncomplicated Comment: has inhalers, sees primary (4) Blind right eye Current Visit: No Status: Chronic Comment: going to [facility] - (5) Hypertension Current Visit: No Status: Chronic Qualifiers: Hypertension type: essential hypertension Qualified Code(s): I10 - Essential (primary) hypertension Comment: on meds (6) Nicotine dependence Current Visit: No Status: Chronic Comment: counseled cessation - using patch (7) Primary osteoarthritis of both knees Current Visit: No Status: Chronic Comment: Uses a cane for support Cleared for Admission S - Detox or Rehab [facility] Level of Care: Medically Managed Detox Regimen/Protocol: Methadone/Librium Claeared for Rehab Admission: No Breathalyzer - Breathalyzer Breathalyzer: 0 Urine Drug Screen - Test Device Lot number: [id number] Expiration date: 04/13/21 - Control Is test valid?: Yes - Results Drug screen NEGATIVE: No Urine drug screen results: [place]-Cocaine, MOP-Opiates, OXY-Oxycodone, BAR- Barbiturates Inpatient Rehab Admission - Rehab Decision to Admit Inpatient rehab admission?: No
[2019-07-21] MEDS ORDERED: METHADONE HCL 10 MG TABLET (FOR DETOX USE ONLY) PO ONE (01:45)
[2019-07-21] MEDS ORDERED: hydrOXYzine PAMOATE 25 MG CAPSULE (FP) PO PRN (01:45)
[2019-07-21] MEDS ORDERED: MAGNESIUM CITRATE 300 ML BOTTLE PO PRN (01:45)
[2019-07-21] MEDS ORDERED: MAGNESIUM HYDROX 2400MG/30ML ORAL SUSPENSION 30 ML CUP PO PRN (01:45)
[2019-07-21] MEDS ORDERED: MENTHOL/PHENOL 1 EACH UD MM PRN (01:45)
[2019-07-21] MEDS ORDERED: METHOCARBAMOL 500 MG TABLET PO PRN (01:45)
[2019-07-21] MEDS ORDERED: MAG HYDROX/AL HYDROX/SIMETH 30 ML UNIT-DOSE CUP PO PRN (01:45)
[2019-07-21] MEDS ORDERED: cloNIDine HCL 0.1 MG TABLET PO PRN (01:45)
[2019-07-21] MEDS ORDERED: ACETAMINOPHEN 325 MG TABLET (FP) PO PRN ×2 (01:45)
[2019-07-21] MEDS ORDERED: chlordiazePOXIDE HCL 10 MG CAPSULE PO PRN (01:45)
[2019-07-21] MEDS ORDERED: BISMUTH SUBSALICYLATE 524 MG/30 ML UD PO PRN (01:45)
[2019-07-21] MEDS ORDERED: MELATONIN 5 MG TABLETS PO PRN (01:45)
[2019-07-21] MEDS ORDERED: ALBUTEROL SO4 8 GM HFA INHALER IH PRN (01:48)
[2019-07-21] MEDS ORDERED: levETIRAcetam 250 MG TABLET (FP) PO ONE ×2 (05:14→17:01)
[2019-07-21] MEDS ORDERED: levETIRAcetam 500 MG TABLET (FP) PO ONE ×2 (05:15→17:02)
[2019-07-21] MEDS: chlordiazePOXIDE HCL 25 MG CAPSULE PO SCH ×3 (05:17→21:55)
[2019-07-21] MEDS ORDERED: levETIRAcetam 500 MG TABLET (FP) PO SCH (06:00)
[2019-07-21] MEDS ORDERED: LISINOPRIL 5 MG TABLET (FP) ONE (09:52)
[2019-07-21] MEDS ORDERED: LISINOPRIL 10 MG TABLET (FP) ONE (09:53)
[2019-07-21] MEDS ORDERED: LISINOPRIL 10 MG TABLET (FP) PO SCH (10:00)
[2019-07-21] MEDS: PRENATAL VITAMINS W/ FOLIC ACID TABLET (FP) PO SCH (10:45)
[2019-07-21] MEDS: LISINOPRIL PO SCH (10:46)
[2019-07-21] MEDS: DIVALPROEX SODIUM 500 MG TABLET E.C. PO SCH ×2 (10:46→22:45)
[2019-07-21] MEDS: NICOTINE 14 MG/24 HOURS TOPICAL PATCH TD SCH (10:47)
--- NOTE | 2019-07-21 11:08 | PN ---
[facility] CIWA - CIWA Score Nausea/Vomitin-No Nausea/No Vomiting Muscle Tremors: 2 Anxiety: 3 Agitation: 2 Paroxysmal Sweats: 3 Orientation: 0-Oriented Tacttile Disturbances: 0-None Auditory Disturbances: 0-None Visual Disturbances: 0-None Headache: 1-Very Mild CIWA-Ar Total Score: 11 BHS COWS - Scale Resting Pulse: 0= SD 80 or Below Sweatin= Beads of Sweat on Face Restless Observation: 1= Difficult to Sit Still Pupil Size: 0= Normal to Room Light Bone or Joint Aches: 2= Severe Diffuse Aches Runny Nose/ Eye Tearin= None GI Upset > 30mins: 0= None Tremor Observation of Outstretched Hands: 2= Slight Tremor Visible Yawning Observation: 1= 1-2x During Session Anxiety or Irritability: 2=Irritable/Anxious Goose Flesh Skin: 0=Smooth Skin COWS Score: 11 S Progress Note (SOAP) Subjective: c/o sweats, anxiety, irritability, headache, and shakes. Objective: 07/21/19 11:07 Vital Signs 07/21/19 07/21/19 07/21/19 03:30 06:00 09:09 Temperature 97.5 F L 98.1 F Pulse Rate 62 71 Respiratory 18 18 18 Rate Blood Pressure 124/74 116/77 Labs noted. Assessment: 07/21/19 11:07 AOX3, in no acute distress. Full ROM, ambulating in the unit. Withdrawal symptoms. Plan: continue detox.
[2019-07-21] MEDS: PHENobarbital 30 MG TABLET PO SCH ×2 (11:28→22:54)
[2019-07-21 14:20] LABS: HEMATOCRIT 41.8 % (35.4-49); HEMOGLOBIN 14.4 GM/dL (11.7-16.9); MCH 33.2 pg (25.7-33.7); MCHC 34.4 g/dl (32.0-35.9); MEAN CELL VOLUME 96.4 fl (80-96); MEAN PLT VOLUME 10.4 fl (7.5-11.1); PLATELET COUNT 202 K/MM3 (134-434); RBC 4.34 M/mm3 (4.00-5.60); RDW 14.7 % (11.9-15.9); WHITE BLOOD COUNT 7.1 K/mm3 (4.0-10.0)
[2019-07-21 14:27] LABS: ALBUMIN 3.5 g/dl (3.4-5.0); BILIRUBIN,TOTAL 0.3 mg/dL (0.2-1); BLOOD UREA NITROGEN 30.2 mg/dL (7-18); CALCIUM 8.6 mg/dL (8.5-10.1); CREATININE 1.3 mg/dL (0.55-1.3); POTASSIUM 3.9 mmol/L (3.5-5.1)
[2019-07-21] MEDS: IBUPROFEN 400 MG TABLET (FP) PO PRN (16:43)
[2019-07-21] MEDS: THIAMINE HCL 100 MG TABLET (FP) PO SCH (22:55)
[2019-07-22] MEDS ORDERED: levETIRAcetam 500 MG TABLET (FP) PO ONE ×2 (03:45→17:11)
[2019-07-22] MEDS ORDERED: levETIRAcetam 250 MG TABLET (FP) PO ONE ×2 (03:45→17:11)
[2019-07-22] MEDS: chlordiazePOXIDE 5 MG CAPSULE PO SCH ×3 (05:37→22:47)
[2019-07-22] MEDS ORDERED: LISINOPRIL 5 MG TABLET (FP) ONE (09:55)
[2019-07-22] MEDS ORDERED: LISINOPRIL 10 MG TABLET (FP) ONE (09:56)
[2019-07-22] MEDS ORDERED: METHADONE HCL 5 MG TABLET (FOR DETOX USE ONLY) PO ONE (10:00)
[2019-07-22] MEDS: LISINOPRIL PO SCH (10:15)
[2019-07-22] MEDS: NICOTINE 14 MG/24 HOURS TOPICAL PATCH TD SCH (10:15)
[2019-07-22] MEDS: PHENobarbital 30 MG TABLET PO SCH ×3 (10:15→22:47)
[2019-07-22] MEDS: DIVALPROEX SODIUM 500 MG TABLET E.C. PO SCH ×2 (10:15→22:46)
[2019-07-22] MEDS: PRENATAL VITAMINS W/ FOLIC ACID TABLET (FP) PO SCH (10:15)
[2019-07-22] MEDS: METHYL SALICYLATE/MENTHOL OINT 30 GM TUBE TP SCH ×2 (11:30→22:47)
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
--- NOTE | 2019-07-22 15:04 | PN ---
[facility] CIWA - CIWA Score Nausea/Vomitin-Mild Nausea/No Vomiting Muscle Tremors: 2 Anxiety: 2 Agitation: 2 Paroxysmal Sweats: 3 Orientation: 0-Oriented Tacttile Disturbances: 0-None Auditory Disturbances: 0-None Visual Disturbances: 0-None Headache: 0-None Present CIWA-Ar Total Score: 10 BHS COWS - Scale Resting Pulse: 0= SC 80 or Below Sweatin= Chills/Flushing Restless Observation: 0= Sits Still Pupil Size: 0= Normal to Room Light Bone or Joint Aches: 2= Severe Diffuse Aches Runny Nose/ Eye Tearin= Runny Nose/Eyes GI Upset > 30mins: 2= Nausea/Diarrhea Tremor Observation of Outstretched Hands: 2= Slight Tremor Visible Yawning Observation: 0= None Anxiety or Irritability: 1=Feels Anxious/Irritable Goose Flesh Skin: 0=Smooth Skin COWS Score: 10 BHS Progress Note (SOAP) Subjective: Anxious, left arm pain (also has arthritis, request bengay), sweating, chills; c /o intermittent cough requesting cough syrup Objective: 07/22/19 15:02 Last Vital Signs Temp Pulse Resp BP Pulse Ox 96.6 F L 61 18 136/88 07/22/19 13:07 07/22/19 13:07 07/22/19 13:07 07/22/19 13:07 Laboratory Tests 07/21/19 07/21/19 07/21/19 08:00 08:00 10:30 WBC 7.1 RBC 4.34 Hgb 14.4 Hct 41.8 MCV 96.4 H MCH 33.2 MCHC 34.4 RDW 14.7 Plt Count 202 MPV 10.4 Sodium Potassium Chloride Carbon Dioxide Anion Gap BUN Creatinine Est GFR (CKD-EPI)AfAm Est GFR (CKD-EPI)NonAf Random Glucose Calcium Total Bilirubin AST ALT Alkaline Phosphatase Total Protein Albumin Valproic Acid 24.4 L Phenobarbital 26 RPR Titer 07/21/19 07/21/19 10:30 10:30 WBC RBC Hgb Hct MCV MCH MCHC RDW Plt Count MPV Sodium 144 Potassium 3.9 Chloride 109 H Carbon Dioxide 24 Anion Gap 11 BUN 30.2 H Creatinine 1.3 Est GFR (CKD-EPI)AfAm 74.26 Est GFR (CKD-EPI)NonAf 64.07 Random Glucose 124 H Calcium 8.6 Total Bilirubin 0.3 AST 12 L ALT 20 Alkaline Phosphatase 124 H Total Protein 7.0 Albumin 3.5 Valproic Acid Phenobarbital RPR Titer Nonreactive Labs reviewed: bun 30.2, glucose 124 Assessment: 07/22/19 15:03 Withdrawal sxs Noted with azotemia and mild hyperglycemia Plan: Continue detox Pieter rai ointment ordered bid as per patient's request for left arm pain Azotemia: encouraged PO water intake, repeat BMP Mild hyperglycemia: most likely due to withdrawal, repeat fasting glucose level
--- NOTE | 2019-07-22 17:17 | EKG ---
Test Reason : Blood Pressure : / mmHG Vent. Rate : 066 BPM Atrial Rate : 066 BPM P-R Int : 136 ms QRS Dur : 092 ms QT Int : 380 ms P-R-T Axes : 043 063 045 degrees QTc Int : 398 ms NORMAL SINUS RHYTHM NORMAL ECG WHEN COMPARED WITH ECG OF 14-OCT-2018 05:37, NO SIGNIFICANT CHANGE WAS FOUND Confirmed by MOHAN EDWARDS MD ([id number]) on 07/22/2019 5:16:51 PM Referred By: Arnoldo Noe Confirmed By:MOHAN EDWARDS MD
[2019-07-22] MEDS: NICOTINE POLACRILEX 2 MG GUM BUC PRN (17:53)
[2019-07-22] MEDS: guaiFENesin/D-METHORPHAN HB 10 ML UNIT-DOSE CUPS PO PRN (18:58)
[2019-07-22] MEDS ORDERED: SUVOREXANT 10 MG TABLET PO PRN (22:00)
[2019-07-22] MEDS: THIAMINE HCL 100 MG TABLET (FP) PO SCH (22:47)
[2019-07-23] MEDS ORDERED: chlordiazePOXIDE HCL 10 MG CAPSULE PO PRN
[2019-07-23] MEDS: IBUPROFEN 400 MG TABLET (FP) PO PRN (02:12)
[2019-07-23] MEDS: guaiFENesin/D-METHORPHAN HB 10 ML UNIT-DOSE CUPS PO PRN ×3 (02:12→16:47)
[2019-07-23] MEDS ORDERED: levETIRAcetam 500 MG TABLET (FP) PO ONE ×2 (05:07→17:07)
[2019-07-23] MEDS ORDERED: levETIRAcetam 250 MG TABLET (FP) PO ONE ×2 (05:07→17:07)
[2019-07-23] MEDS: chlordiazePOXIDE HCL 10 MG CAPSULE PO SCH ×3 (05:17→21:45)
[2019-07-23] MEDS: NICOTINE POLACRILEX 2 MG GUM BUC PRN ×2 (05:48→10:19)
[2019-07-23] MEDS ORDERED: LISINOPRIL 5 MG TABLET (FP) ONE (09:10)
[2019-07-23] MEDS ORDERED: LISINOPRIL 10 MG TABLET (FP) ONE (09:10)
[2019-07-23] MEDS ORDERED: METHADONE HCL 10 MG TABLET (FOR DETOX USE ONLY) PO ONE (10:00)
[2019-07-23] MEDS: DIVALPROEX SODIUM 500 MG TABLET E.C. PO SCH ×2 (10:16→22:46)
[2019-07-23] MEDS: PHENobarbital 30 MG TABLET PO SCH ×2 (10:16→11:55)
[2019-07-23] MEDS: LISINOPRIL PO SCH (10:16)
[2019-07-23] MEDS: METHYL SALICYLATE/MENTHOL OINT 30 GM TUBE TP SCH ×2 (10:17→22:46)
[2019-07-23] MEDS: PRENATAL VITAMINS W/ FOLIC ACID TABLET (FP) PO SCH (10:17)
[2019-07-23] MEDS: NICOTINE 14 MG/24 HOURS TOPICAL PATCH TD SCH (10:19)
--- NOTE | 2019-07-23 10:20 | PN ---
[facility] CIWA - CIWA Score Nausea/Vomitin-Mild Nausea/No Vomiting Muscle Tremors: 1-None Visible, but [place] Anxiety: 1-Mildly Anxious Agitation: 1-Slight > Activity Paroxysmal Sweats: No Perspiration Orientation: 0-Oriented Tacttile Disturbances: 0-None Auditory Disturbances: 0-None Visual Disturbances: 0-None Headache: 1-Very Mild CIWA-Ar Total Score: 5 S COWS - Scale Resting Pulse: 0= NM 80 or Below Sweatin= No chills or Flushing Restless Observation: 1= Difficult to Sit Still Pupil Size: 0= Normal to Room Light Bone or Joint Aches: 1= Mild Discomfort Runny Nose/ Eye Tearin= None GI Upset > 30mins: 0= None Tremor Observation of Outstretched Hands: 1= Tremor [place], Not Seen Yawning Observation: 0= None Anxiety or Irritability: 1=Feels Anxious/Irritable Goose Flesh Skin: 0=Smooth Skin COWS Score: 4 S Progress Note (SOAP) Subjective: Patient with mild withdrawal symptoms. Objective: 07/23/19 10:19 BP:129/82 P:68 R:18 T:97.7 Laboratory 07/21/19 07/21/19 07/21/19 08:00 08:00 10:30 WBC 7.1 K/mm3 K/mm3 (4.0-10.0) RBC 4.34 M/mm3 M/mm3 (4.00-5.60) Hgb 14.4 GM/dL GM/dL (11.7-16.9) Hct 41.8 % % (35.4-49) MCV 96.4 fl H fl (80-96) MCH 33.2 pg pg (25.7-33.7) MCHC 34.4 g/dl g/dl (32.0-35.9) RDW 14.7 % % (11.9-15.9) Plt Count 202 K/MM3 K/MM3 (134-434) MPV 10.4 fl fl (7.5-11.1) Sodium Potassium Chloride Carbon Dioxide Anion Gap BUN Creatinine Est GFR (CKD-EPI)AfAm Est GFR (CKD-EPI)NonAf Random Glucose Calcium Total Bilirubin AST ALT Alkaline Phosphatase Total Protein Albumin Valproic Acid 24.4 ug/mL L ug/mL (50-100) Phenobarbital 26 ug/mL ug/mL (15-40) RPR Titer 07/21/19 07/21/19 10:30 10:30 WBC RBC Hgb Hct MCV MCH MCHC RDW Plt Count MPV Sodium 144 mmol/L mmol/L (136-145) Potassium 3.9 mmol/L mmol/L (3.5-5.1) Chloride 109 mmol/L H mmol/L (98-107) Carbon Dioxide 24 mmol/L mmol/L (21-32) Anion Gap 11 MMOL/L MMOL/L (8-16) BUN 30.2 mg/dL H mg/dL (7-18) Creatinine 1.3 mg/dL mg/dL (0.55-1.3) Est GFR (CKD-EPI)AfAm 74.26 Est GFR (CKD-EPI)NonAf 64.07 Random Glucose 124 mg/dL H mg/dL (74-106) Calcium 8.6 mg/dL mg/dL (8.5-10.1) Total Bilirubin 0.3 mg/dL mg/dL (0.2-1) AST 12 U/L L U/L (15-37) ALT 20 U/L U/L (13-61) Alkaline Phosphatase 124 U/L H U/L (45-117) Total Protein 7.0 g/dl g/dl (6.4-8.2) Albumin 3.5 g/dl g/dl (3.4-5.0) Valproic Acid Phenobarbital RPR Titer Nonreactive (NONREACTIVE) Assessment: 07/23/19 10:21 1. Opioid and Alcohol Dependence with uncomplicated withdrawals. Plan: 1. Encouraged to increase PO Fluids. Encouraged to continue detox protocol and he is already much less symptomatic.
[2019-07-23 12:49] LABS: BLOOD UREA NITROGEN 22.3 mg/dL (7-18); CALCIUM 8.8 mg/dL (8.5-10.1); CREATININE 0.9 mg/dL (0.55-1.3); POTASSIUM 4.1 mmol/L (3.5-5.1)
[2019-07-23] MEDS: THIAMINE HCL 100 MG TABLET (FP) PO SCH (22:46)
[2019-07-24] MEDS: guaiFENesin/D-METHORPHAN HB 10 ML UNIT-DOSE CUPS PO PRN (01:29)
[2019-07-24] MEDS ORDERED: levETIRAcetam 500 MG TABLET (FP) PO ONE (04:36)
[2019-07-24] MEDS ORDERED: levETIRAcetam 250 MG TABLET (FP) PO ONE (04:36)
[2019-07-24] MEDS ORDERED: chlordiazePOXIDE HCL 10 MG CAPSULE PO ONE (05:00)
[2019-07-24] MEDS: NICOTINE POLACRILEX 2 MG GUM BUC PRN ×2 (05:17→12:40)
[2019-07-24] MEDS ORDERED: METHADONE HCL 5 MG TABLET (FOR DETOX USE ONLY) PO ONE (06:00)
--- NOTE | 2019-07-24 08:55 | DS ---
[facility] Detox Discharge Summary Admission Date: 07/21/19 Discharge Date: 07/24/19 - History Present History: Alcohol Dependence, Cocaine Dependence - Physical Exam Results Vital Signs: Vital Signs Temperature 97 F L 07/23/19 22:00 Pulse Rate 73 07/23/19 22:00 Respiratory Rate 18 07/24/19 03:30 Blood Pressure 117/79 07/23/19 22:00 O2 Sat by Pulse Oximetry (%) Pertinent Admission Physical Exam Findings: pt arrived in [facility] Laboratory Tests 07/21/19 07/21/19 07/21/19 08:00 08:00 10:30 WBC 7.1 RBC 4.34 Hgb 14.4 Hct 41.8 MCV 96.4 H MCH 33.2 MCHC 34.4 RDW 14.7 Plt Count 202 MPV 10.4 Sodium Potassium Chloride Carbon Dioxide Anion Gap BUN Creatinine Est GFR (CKD-EPI)AfAm Est GFR (CKD-EPI)NonAf Random Glucose Calcium Total Bilirubin AST ALT Alkaline Phosphatase Total Protein Albumin Valproic Acid 24.4 L Phenobarbital 26 RPR Titer 07/21/19 07/21/19 07/23/19 10:30 10:30 09:10 WBC RBC Hgb Hct MCV MCH MCHC RDW Plt Count MPV Sodium 144 141 Potassium 3.9 4.1 Chloride 109 H 108 H Carbon Dioxide 24 23 Anion Gap 11 10 BUN 30.2 H 22.3 H Creatinine 1.3 0.9 Est GFR (CKD-EPI)AfAm 74.26 115.83 Est GFR (CKD-EPI)NonAf 64.07 99.94 Random Glucose 124 H 109 H Calcium 8.6 8.8 Total Bilirubin 0.3 AST 12 L ALT 20 Alkaline Phosphatase 124 H Total Protein 7.0 Albumin 3.5 Valproic Acid Phenobarbital RPR Titer Nonreactive today pt is aaox3 ambulating no acute distress no s/s of withdrawals - Treatment Hospital Course: Detox Protocol Followed, Detoxed Safely, Responded well, Discharged Condition Good, Rehab Referral Accepted Patient has Accepted a Rehab Referral to: pt referred to [facility] inpatient rehab - Medication Discharge Medications: Ambulatory Orders Buspirone HCl [Buspar -] 15 mg PO BID #60 tablet 03/09/18 Albuterol Sulfate Inhaler - [Ventolin HFA Inhaler -] 2 inh PO Q4H PRN #1 inhaler 10/27/18 Divalproex [Depakote -] 1,000 mg PO BID #60 tablet.ec 10/27/18 levETIRAcetam [Keppra -] 750 mg PO BID@0600,1800 #60 tablet 10/27/18 Buprenorphine/Naloxone [Suboxone 8Mg/2Mg Sl Film -] 1 each SL BID@0600,1800 #8 film MDD 2 11/13/18 Lactulose 10 gm PO DAILY #1 bottle 11/13/18 Multivitamin [Multiple Vitamins] 1 each PO DAILY #30 tablet 11/13/18 Buprenorphine HCl/Naloxone HCl [Suboxone 4 mg-1 mg Sl Film] 1 each SL DAILY@ 1400 07/20/19 Ibuprofen 800 mg PO TID PRN 07/20/19 Lisinopril [Zestril] 15 mg PO DAILY 07/20/19 Phenobarbital 60 mg PO BID MDD 2 07/20/19 - Diagnosis (1) Opioid dependence, uncomplicated Current Visit: Yes Status: Chronic (2) Alcohol dependence with uncomplicated withdrawal Current Visit: Yes Status: Chronic (3) Cocaine dependence Current Visit: Yes Status: Chronic Qualifiers: Substance use status: uncomplicated Qualified Code(s): F14.20 - Cocaine dependence, uncomplicated (4) Drug-induced mood disorder Current Visit: No Status: Acute (5) Encounter for monitoring Suboxone maintenance therapy Current Visit: No Status: Acute (6) Opioid dependence Current Visit: Yes Status: Acute Qualifiers: Substance use status: uncomplicated Qualified Code(s): F11.20 - Opioid dependence, uncomplicated (7) Substance induced mood disorder Current Visit: No Status: Acute (8) Substance-induced sleep disorder Current Visit: No Status: Acute (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 (10) Asthma Current Visit: Yes Status: Chronic Qualifiers: Asthma severity: mild Asthma persistence: intermittent Asthma complication type: uncomplicated Qualified Code(s): J45.20 - Mild intermittent asthma, uncomplicated (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 Current Visit: No Status: Chronic (12) Chronic low back pain Current Visit: No Status: Chronic Qualifiers: Back pain laterality: unspecified Sciatica presence: unspecified whether sciatica present Qualified Code(s): M54.5 - Low back pain; G89.29 - Other chronic pain; G89.29 - Other chronic pain (13) Chronic renal insufficiency, stage III (moderate) Current Visit: No Status: Chronic (14) Cocaine dependence, continuous abuse Current Visit: No Status: Chronic (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 (16) Hypertension Current Visit: Yes Status: Chronic Qualifiers: Hypertension type: essential hypertension Qualified Code(s): I10 - Essential (primary) hypertension (17) MDD (major depressive disorder), recurrent episode, moderate Current Visit: No Status: Chronic (18) Major depressive disorder Current Visit: No Status: Chronic (19) Nicotine dependence Current Visit: Yes Status: Chronic Qualifiers: Nicotine product type: cigarettes Substance use status: uncomplicated Qualified Code(s): F17.210 - Nicotine dependence, cigarettes, uncomplicated (20) Opioid dependence on agonist therapy Current Visit: No Status: Chronic (21) Primary osteoarthritis of both knees Current Visit: No Status: Chronic (22) Seizure disorder Current Visit: No Status: Chronic (23) Alcohol use disorder, moderate, in early remission Current Visit: No Status: Inactive - AMA Did Patient Leave Against Medical Advice: No
[2019-07-24] MEDS ORDERED: LISINOPRIL 5 MG TABLET (FP) ONE (09:26)
[2019-07-24] MEDS ORDERED: LISINOPRIL 10 MG TABLET (FP) ONE (09:26)
[2019-07-24 09:57] VITALS: BP 132/80; PULSE 87; TEMP 98.4
[2019-07-24] MEDS ORDERED: PHENobarbital 30 MG TABLET PO SCH (10:00)
[2019-07-24] MEDS: PRENATAL VITAMINS W/ FOLIC ACID TABLET (FP) PO SCH (11:18)
[2019-07-24] MEDS: LISINOPRIL PO SCH (11:18)
[2019-07-24] MEDS: DIVALPROEX SODIUM 500 MG TABLET E.C. PO SCH (11:18)
[2019-07-24] MEDS: METHYL SALICYLATE/MENTHOL OINT 30 GM TUBE TP SCH (11:19)
[2019-07-24] MEDS: NICOTINE 14 MG/24 HOURS TOPICAL PATCH TD SCH (11:19)
== END 2019-07-24 15:19 | disposition home or self-care (01) | DRG 773 ==
LOC: YASAS 20:43 → Y6N 07-21 02:01
PROVIDERS: ADMIT Surgery; ATTEND Surgery
PROC: HZ2ZZZZ Detoxification Services for Substance Abuse Treatment (ICD-10-PCS; principal; 2019-07-21)
DX: F10.230 Alcohol dependence with withdrawal, uncomplicated (principal); F11.23 Opioid dependence with withdrawal; F14.20 Cocaine dependence, uncomplicated; F17.210 Nicotine dependence, cigarettes, uncomplicated; F19.282 Other psychoactive substance dependence with psychoactive substance-induced sleep disorder; F19.24 Other psychoactive substance dependence with psychoactive substance-induced mood disorder; F33.1 Major depressive disorder, recurrent, moderate; F41.9 Anxiety disorder, unspecified; J45.20 Mild intermittent asthma, uncomplicated; I12.9 Hypertensive chronic kidney disease with stage 1 through stage 4 chronic kidney disease, or unspecified chronic kidney disease; N18.3 Chronic kidney disease, stage 3 (moderate); E70.331 Hermansky-Pudlak syndrome; E70.30 Albinism, unspecified; H54.61 Unqualified visual loss, right eye, normal vision left eye; M54.5 Low back pain; G89.29 Other chronic pain; M17.0 Bilateral primary osteoarthritis of knee; G40.909 Epilepsy, unspecified, not intractable, without status epilepticus; Z86.73 Personal history of transient ischemic attack (TIA), and cerebral infarction without residual deficits; Z99.89 Dependence on other enabling machines and devices; Z86.69 Personal history of other diseases of the nervous system and sense organs; Z51.81 Encounter for therapeutic drug level monitoring
CPT/HCPCS: 36415; 71046-TC-FY; 80048; 80053; 80164; 80177; 80184; 85027; 86593; 93005; 93010

== ENCOUNTER 2019-12-14 20:19 | Inpatient (IN) | payer OTHER ==
[2019-12-14 20:51] VITALS: BMI 27.8
--- NOTE | 2019-12-14 22:31 | HP ---
CIWA Score Nausea/Vomitin-Mild Nausea/No Vomiting Muscle Tremors: 4-Moderate,w/Arms Extend Anxiety: 3 Agitation: 1-Slight > Activity Paroxysmal Sweats: 3 (Increased facial moisture) Orientation: 0-Oriented Tacttile Disturbances: 1-Very Mild Itch/Numbness Auditory Disturbances: 0-None Visual Disturbances: 0-None Headache: 0-None Present CIWA-Ar Total Score: 13 - Admission Criteria OASAS Guidelines: Admission for Medically Managed Detox: Requires at least one of the followin. CIWA greater than 12 2. Seizures within the past 24 hours 3. Delirium tremens within the past 24 hours 4. Hallucinations within the past 24 hours 5. Acute intervention needed for co occurring medical disorder 6. Acute intervention needed for co occurring psychiatric disorder 7. Severe withdrawal that cannot be handled at a lower level of care (continued vomiting, continued diarrhea, abnormal vital signs) requiring intravenous medication and/or fluids 8. Patient presents the following: CIWA greater than 12 (PRASANTH: 0.114) Admission Criteria Met: Admission criteria met Admitting History and Physical - Smoking History Smoking history: Current every day smoker Have you smoked in the past 12 months: Yes Aproximately how many cigarettes per day: 10 If you are a former smoker, when did you quit?: 1 year - Alcohol/Substance Use Hx Alcohol Use: Yes Admission ROS BHS - HPI Chief Complaint: States I'm here to actually stop doing what I'm doing and to go to rehab. I'm tired and fed up" Allergies/Adverse Reactions: Allergies Allergy/AdvReac Type Severity Reaction Status Date / Time No Known Allergies Allergy Verified 12/14/19 20:36 History of Present Illness: 49 yo presents with alcohol intoxication seeking detox. Last here @ [facility] 10/27/19. [facility] was unable to get into a rehab program. Hx: Falls r/t seizures. [facility] last seizure this month: 11/2019 Overdose: Last week of Oct 2019. [facility] fentanyl was in urine tox. PRASANTH: 0.114 UTox: +MOP/BAR/BUP Alcohol use since age 17. Started back drinking about . Currently drinking 1 /2 to 1 pint vodka/day x 6 weeks. Started [facility] out-patient program in November but "worked it wrong" Heroin use began at age 22. Opiate use disorder: On Suboxone. Current dose is 20 mg/day - states takes all at same time. Relapsed w/ heroin yesterday. Nicotine use began at age 10. Smokes 15 cig/day. PMHx: Seizure (Last seizure 1 week ago. No documentation: States compliant w/ meds) Asthma -last exacerbation years ago. HTN - on meds: HDL; Hx PPD+. Last CXR 10/26/10 MHHx: Depression - on Zoloft, Buspar; Insomnia. Denies thoughts of harming self or others SHx: Homeless. Unemployed. Denies legal issues. Patient Name: Charanjit Barrera Date: 1970 Address: [address] [place] [address] Sex: Male Rx Written Rx Dispensed Drug Quantity Days Supply Prescriber Name 12/06/2019 12/06/2019 buprenorphine-naloxone 8-2 mg sl film 75 30 Chente Castillo S 11/19/2019 11/19/2019 buprenorphine-naloxone 8-2 mg sl film 35 14 Chente Castillo S Patient Name: Charanjit Barrera Date: 1970 Address: [address] [place] [address] Sex: Male Rx Written Rx Dispensed Drug Quantity Days Supply Prescriber Name 11/05/2019 12/06/2019 zolpidem tartrate 10 mg tablet 30 30 Jaime Miles Patient Name: Charanjit Barrera Date: 1970 Address: [address] [facility] [address] [place] [address] Sex: Male Rx Written Rx Dispensed Drug Quantity Days Supply Prescriber Name 11/15/2019 11/29/2019 buprenorphine-naloxone 8-2 mg sl film 8 4 11/15/2019 11/15/2019 buprenorphine-naloxone 8-2 mg sl film 8 4 11/09/2019 11/10/2019 buprenorphine-naloxone 8-2 mg sl film 10 4 Sebastian Bell I () 11/05/2019 11/05/2019 zolpidem tartrate 10 mg tablet 30 30 Jaime Miles 10/27/2019 10/29/2019 phenobarbital 64.8 mg tablet 60 30 Kat Mar MD 05/10/2019 10/01/2019 zolpidem tartrate 10 mg tablet 30 30 Jaime Miles 09/18/2019 09/18/2019 buprenorphine-naloxone 8-2 mg sl film 35 14 Rituixte [facility] 05/10/2019 09/01/2019 zolpidem tartrate 10 mg tablet 30 30 NegJaime malin 08/21/2019 08/21/2019 buprenorphine-naloxone 8-2 mg sl film 70 [facility] 08/08[facility]2019 buprenorphine-naloxone 8-2 mg sl film 38 15 [facility] 08/01/2019 08/02/2019 phenobarbital 64.8 mg tablet 60 30 Rosa Elena, Tisha 08/01/2019 08/01/2019 buprenorphine[facility]naloxone 8-2 mg sl film 18 [facility]10[facility] 07/05/2019 zolpidem tartrate 10 mg tablet 30 30 Neghassi, Jaime 05/10/2019 06/07/2019 zolpidem tartrate 10 mg tablet 30 30 Neghassi, Jaime H 12/28/2018 06/05/2019 phenobarbital 64.8 mg tablet 60 30 Neghassi, Jaime H 06/05/2019 06/05/2019 buprenorphine-naloxone 8-2 mg sl film 53 21 [facility] 05/22/2019 05/22/2019 buprenorphine-naloxone 8-2 mg sl film 38 15 [facility] 05/10/2019 05/11/2019 zolpidem tartrate 10 mg tablet 30 30 Neghassi, Jaime 12/28/2018 05/01/2019 phenobarbital 64.8 mg tablet 60 30 Neghassi, Jaime H 05/01/2019 05/01/2019 buprenorphine-naloxone 12-3 mg sl film 35 14 [facility] 04/17/2019 04/17/2019 buprenorphine-naloxone 8-2 mg sl film 28 14 [facility] 02/14/2019 04/07/2019 zolpidem tartrate 10 mg tablet 30 30 Neghassi, Jaime 04/04/2019 04/05/2019 buprenorphine-naloxone 8-2 mg sl film 28 14 [facility] 12/28/2018 04/02/2019 phenobarbital 64.8 mg tablet 60 30 Negjeaninei, Jaime H 02/14/2019 03/09/2019 zolpidem tartrate 10 mg tablet 30 30 Negdea, Jaime H 12/28/2018 03/01/2019 phenobarbital 64.8 mg tablet 60 30 Negjeaninei, Jaime H 12/28/2018 02/14/2019 phenobarbital 64.8 mg tablet 60 30 Negjeaninei, Jaime H 02/14/2019 02/14/2019 zolpidem tartrate 10 mg tablet 30 30 Jd, Jaime Li Patient Name: Charanjit Barrera Date: 1970 Address: [address] [place] [address] Sex: Male Rx Written Rx Dispensed Drug Quantity Days Supply Prescriber Name 01/02/2019 01/30/2019 suboxone 8 mg-2 mg sl film 60 30 Harlan Mcclain MD 01/02/2019 01/02/2019 suboxone 8 mg-2 mg sl film 60 30 Harlan Mcclain MD Patient Name: Charanjit Barrera Date: 1970 Address: [address] [place] [place] [address] Sex: Male Rx Written Rx Dispensed Drug Quantity Days Supply Prescriber Name 12/28/2018 12/29/2018 phenobarbital 64.8 mg tablet 60 30 Jd, Jaime Li Patient Name: Charanjit Barrera Date: 1970 Address: [address] [place] [address] Sex: Male Rx Written Rx Dispensed Drug Quantity Days Supply Prescriber Name 09/22/2018 12/18/2018 zolpidem tartrate 10 mg tablet 30 30 Jaime Miles Exam Limitations: No Limitations - Ebola screening Have you traveled outside of the country in the last 21 days: No Have you had contact with anyone from an Ebola affected area: No Have you been sick,other than usual withdrawal symptoms: No Do you have a fever: No - Review of Systems Constitutional: Diaphoresis, Changes in sleep (Difficulty falling asleep), Weight Stable EENT: reports: Blurred Vision, Other (Blind in (R) eye - only see's shadow. Losing vision in (L) eye.) Respiratory: reports: Cough (x 2 weeks - clear phlegm), SOB with Exertion (w/ walking, climbing stairs) Cardiac: reports: Chest Pain (x 3 years) GI: reports: Diarrhea (Watery, dark x 2), Nausea : reports: No Symptoms Reported Musculoskeletal: reports: Back Pain (Chronic intermittent burnig low back pain. Pain triggered by poor mattress, walking alot. Improves w/ rest), Joint Pain ((R ) wrist pain and pinky. Wears a brace), Other ((L) foot toe pain - burning sensation. (R) leg fine) Integumentary: reports: Bruising ((R) eye lid area.) Neuro: reports: Tremors, Unsteady Gait Endocrine: reports: Increased Thirst Hematology: reports: No Symptoms Reported Psychiatric: reports: Orientated x3, Agitated, Anxious, Depressed (Denies thoughts of harming self or others) Patient History - Patient Medical History Hx Anemia: No Hx Asthma: Yes (Albuterol) Hx Chronic Obstructive Pulmonary Disease (COPD): No Hx Cancer: No Hx Cardiac Disorders: No Hx Congestive Heart Failure: No Hx Hypertension: Yes (Lisinopril) Hx Hypercholesterolemia: No Hx Pacemaker: No HX Cerebrovascular Accident: Yes (february 2018) Hx Seizures: Yes (Keppra, depakorte) Hx Dementia: No Hx Diabetes: No Hx Gastrointestinal Disorders: No Hx Liver Disease: No Hx Genitourinary Disorders: No Hx Sexually Transmitted Disorders: No Hx Renal Disease (ESRD): No Hx Thyroid Disease: No Hx Human Immunodeficiency Virus (HIV): No (declines testing today ) Hx Hepatitis C: No Hx Depression: Yes (buspar) Hx Suicide Attempt: No (Denies suicidal ideation at this time) Hx Bipolar Disorder: No Hx Schizophrenia: No - Patient Surgical History Past Surgical History: Yes Hx Neurologic Surgery: No Hx Cataract Extraction: No Hx Cardiac Surgery: No Hx Lung Surgery: No Hx Breast Surgery: No Hx Breast Biopsy: No Hx Abdominal Surgery: No Hx Appendectomy: No Hx Cholecystectomy: No Hx Genitourinary Surgery: No Hx Section: No Hx Orthopedic Surgery: No Other Surgical History: right eye surgery /born with right eye blindness Anesthesia Reaction: No - PPD History Previous Implant?: Yes (Hx PPD+; Last CXR 10/26/10) Documented Results: Positive w/o proof Implanted On Prior [facility] Admission?: No PPD to be Administered?: No - Smoking Cessation Smoking history: Current every day smoker Have you smoked in the past 12 months: Yes Aproximately how many cigarettes per day: 15 Cigars Per Day: 0 Hx Chewing Tobacco Use: No Initiated information on smoking cessation: Yes 'Breaking Loose' booklet given: 12/14/19 - Substance & Tx. History Hx Alcohol Use: Yes Hx Substance Use: Yes Substance Use Type: Alcohol, Heroin Hx Substance Use Treatment: Yes (Detox, rehab, on Suboxone) - Substances abused Alcohol Substance route: Oral Frequency: Daily Amount used: LIQUOR- 0.5- 1PT DAILY Age of first use: 17 Date of last use: 12/14/19 Heroin Substance route: Inhalation Frequency: Daily Amount used: 2BAGS Age of first use: 19 Date of last use: 12/14/19 Admission Physical Exam [facility] - Vital Signs Vital Signs: Vital Signs - 24 hr 12/14/19 20:20 Temperature 97.2 F L Pulse Rate 67 Respiratory 18 Rate Blood Pressure 106/73 - Physical General Appearance: Yes: Nourished, Mild Distress, Tremorous, Sweating ( Increased facial moisture), Anxious HEENTM: Yes: Hearing grossly Normal, Normocephalic, Normal Voice, DIMPLE, Pharynx Normal Respiratory: Yes: No Respiratory Distress (Pulse Ox 97 %), Rhonchi (Noisy cough productive of thick grayish phlegm) Neck: Yes: No masses,lesions,Nodules, Supple Breast: Yes: Breast Exam Deferred Cardiology: Yes: Regular Rhythm, Regular Rate, S1, S2, Other (Peripheral pulses +. No edema.) Abdominal: Yes: Soft, Increased Bowel Sounds, Protuberent (Increased abdominal adiposity), Tenderness ((R) mid quad w/ deep palpation. No guarding . No tenderness.) Genitourinary: Yes: Within Normal Limits Musculoskeletal: Yes: full range of Motion Extremities: Yes: Normal Capillary Refill, Tremors, Other (Decreased ROM (R) wrist.) Neurological: Yes: Fully Oriented, Alert, Motor Strength 5/5, Normal Mood/Affect , Normal Response Integumentary: Yes: Normal Color, Warm, Erythema (Reddish bruised both areas), Moist (Increased facial moisture), Other (Old suture line (R) eyebrow area w/ area non-approximated skin and small amt bleeding) Lymphatic: Yes: Within Normal Limits - Diagnostic (1) Alcohol dependence with withdrawal, unspecified Current Visit: Yes Status: Acute Qualifiers: Complication of substance-induced condition: with unspecified complication Qualified Code(s): F10.239 - Alcohol dependence with withdrawal, unspecified Comment: PRASANTH: 0.114 (2) Asthma Current Visit: Yes Status: Chronic Qualifiers: Asthma severity: mild Asthma persistence: intermittent Asthma complication type: uncomplicated Qualified Code(s): J45.20 - Mild intermittent asthma, uncomplicated Comment: COUGH/RHONCHI (3) Blind right eye Current Visit: Yes Status: Chronic Qualifiers: Left eye visual impairment category: left - unspecified impairment Qualified Code(s): H54.40 - Blindness, one eye, unspecified eye (4) Chronic low back pain Current Visit: Yes Status: Chronic Qualifiers: Back pain laterality: unspecified Sciatica presence: unspecified whether sciatica present Qualified Code(s): M54.5 - Low back pain; G89.29 - Other chronic pain; G89.29 - Other chronic pain Comment: uses a lumbar brace (5) Cocaine dependence Current Visit: Yes Status: Chronic Qualifiers: Substance use status: uncomplicated Qualified Code(s): F14.20 - Cocaine dependence, uncomplicated Comment: to start rehab at [facility] 11/15/17 (6) Hypertension Current Visit: Yes Status: Chronic Qualifiers: Hypertension type: essential hypertension Qualified Code(s): I10 - Essential (primary) hypertension Comment: on meds (7) Nicotine dependence Current Visit: Yes Status: Chronic Qualifiers: Nicotine product type: cigarettes Substance use status: uncomplicated Qualified Code(s): F17.210 - Nicotine dependence, cigarettes, uncomplicated (8) Opioid dependence on agonist therapy Current Visit: Yes Status: Chronic Comment: ON SUBOXONE DAILY (9) Seizure disorder Current Visit: Yes Status: Chronic Comment: Last seizure 11/2019 (10) Laceration of eyebrow Current Visit: Yes Status: Acute Qualifiers: Encounter type: sequela Laterality: right Qualified Code(s): S01.111S - Laceration without foreign body of right eyelid and periocular area, sequela Comment: Small 8 mm area non approximated (11) History of positive PPD Current Visit: Yes Status: Chronic (12) Right wrist sprain Current Visit: Yes Status: Chronic Qualifiers: Encounter type: subsequent encounter Qualified Code(s): S63.501D - Unspecified sprain of right wrist, subsequent encounter Cleared for Admission S - Detox or Rehab [facility] Level of Care: Medically Managed Detox Regimen/Protocol: Librium Claeared for Rehab Admission: No Breathalyzer - Breathalyzer Breathalyzer: 0.114 Urine Drug Screen - Test Device Lot number: [id number] Expiration date: 10/08/21 - Control Is test valid?: Yes - Results Drug screen NEGATIVE: No Urine drug screen results: MOP-Opiates, BAR-Barbiturates, BUP-Suboxone Inpatient Rehab Admission - Rehab Decision to Admit Inpatient rehab admission?: No
[2019-12-14] MEDS ORDERED: IBUPROFEN 400 MG TABLET (FP) PO PRN (23:32)
[2019-12-14] MEDS ORDERED: ACETAMINOPHEN 325 MG TABLET (FP) PO PRN ×2 (23:32)
[2019-12-14] MEDS ORDERED: MAGNESIUM HYDROX 2400MG/30ML ORAL SUSPENSION 30 ML CUP PO PRN (23:32)
[2019-12-14] MEDS ORDERED: MAGNESIUM CITRATE 300 ML BOTTLE PO PRN (23:32)
[2019-12-14] MEDS ORDERED: MENTHOL/PHENOL 1 EACH UD MM PRN (23:32)
[2019-12-14] MEDS ORDERED: BISMUTH SUBSALICYLATE 524 MG/30 ML UD PO PRN (23:32)
[2019-12-14] MEDS ORDERED: MELATONIN 5 MG TABLETS PO PRN (23:32)
[2019-12-14] MEDS ORDERED: MAG HYDROX/AL HYDROX/SIMETH 30 ML UNIT-DOSE CUP PO PRN (23:32)
[2019-12-14] MEDS ORDERED: ALBUTEROL SO4 8 GM HFA INHALER IH PRN (23:37)
[2019-12-14] MEDS ORDERED: levETIRAcetam 500 MG TABLET (FP) PO SCH (23:37)
[2019-12-14] MEDS ORDERED: DIVALPROEX SODIUM 500 MG TABLET E.C. PO SCH (23:45)
[2019-12-15] MEDS ORDERED: chlordiazePOXIDE HCL 10 MG CAPSULE PO PRN (00:44)
[2019-12-15] MEDS ORDERED: chlordiazePOXIDE HCL 25 MG CAPSULE PO ONE (00:44)
[2019-12-15] MEDS: PANTOPRAZOLE 20 MG TABLET PO SCH ×3 (01:10→21:56)
[2019-12-15] MEDS: guaiFENesin 200 MG/10 ML 10 ML UNIT-DOSE CUPS PO SCH ×5 (01:10→23:35)
[2019-12-15] MEDS ORDERED: PATIENT'S OWN MEDICATION (NON-FORMULARY) (Phenobarbital [Phenobarbital] 64.8 MG) PO SCH ×2 (06:00→10:00)
[2019-12-15] MEDS: chlordiazePOXIDE HCL 25 MG CAPSULE PO SCH ×3 (06:25→21:57)
[2019-12-15] MEDS: DIVALPROEX SODIUM 500 MG TABLET E.C. PO SCH ×2 (07:27→17:52)
[2019-12-15] MEDS: levETIRAcetam 500 MG TABLET (FP) PO SCH ×2 (07:29→17:51)
[2019-12-15] MEDS ORDERED: BUPRENORPHINE HCL/NALOXONE 12 MG-3 MG SL FILM PACKET SL SCH (10:00)
[2019-12-15] MEDS ORDERED: BACITRACIN 15 GM TUBE TOPICAL OINTMENT TP SCH (10:00)
[2019-12-15] MEDS ORDERED: BUPRENORPHINE/NALOXONE 8 MG/2 MG FILM PACKET SL SCH (10:00)
[2019-12-15] MEDS: PRENATAL VITAMINS W/ FOLIC ACID TABLET (FP) PO SCH (10:23)
[2019-12-15] MEDS: LISINOPRIL 10 MG TABLET (FP) PO SCH (10:23)
[2019-12-15] MEDS: PHENobarbital 30 MG TABLET PO SCH ×2 (10:23→21:56)
[2019-12-15] MEDS: NICOTINE 14 MG/24 HOURS TOPICAL PATCH TD SCH (10:24)
[2019-12-15] MEDS ORDERED: BUPRENORPHINE/NALOXONE 8 MG/2 MG FILM PACKET ONE (10:27)
[2019-12-15] MEDS: NALOXONE SL SCH (10:28)
[2019-12-15] MEDS: BUPRENORPHINE SL SCH (10:28)
[2019-12-15] MEDS: [UNRECOGNIZED DRUG - OTHER] SL SCH (10:28)
[2019-12-15] MEDS ORDERED: BUPRENORPHINE HCL/NALOXONE 12 MG-3 MG SL FILM PACKET SL ONE (10:28)
[2019-12-15 10:49] LABS: HEMATOCRIT 40.4 % (35.4-49); HEMOGLOBIN 13.8 GM/dL (11.7-16.9); MCH 33.7 pg (25.7-33.7); MCHC 34.2 g/dl (32.0-35.9); MEAN CELL VOLUME 98.3 fl (80-96); MEAN PLT VOLUME 10.2 fl (7.5-11.1); PLATELET COUNT 224 K/MM3 (134-434); RBC 4.11 M/mm3 (4.00-5.60); RDW 14.3 % (11.9-15.9); WHITE BLOOD COUNT 5.2 K/mm3 (4.0-10.0)
[2019-12-15 10:59] LABS: ALBUMIN 3.2 g/dl (3.4-5.0); BILIRUBIN,TOTAL 0.4 mg/dL (0.2-1); CALCIUM 8.6 mg/dL (8.5-10.1); CREATININE 0.7 mg/dL (0.55-1.3); POTASSIUM 4.2 mmol/L (3.5-5.1); TOT PROT 6.6 g/dl (6.4-8.2)
[2019-12-15] MEDS ORDERED: BACITRACIN 0.9 GM PACKET TP SCH ×2 (14:47→15:00)
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
--- NOTE | 2019-12-15 17:25 | PN ---
S CIWA - CIWA Score Nausea/Vomitin-No Nausea/No Vomiting Muscle Tremors: 4-Moderate,w/Arms Extend Anxiety: 4-Mod. Anxious/Guarded Agitation: 4-Moderately Restless Paroxysmal Sweats: 1-Minimal Palms Moist Orientation: 0-Oriented Tacttile Disturbances: 0-None Auditory Disturbances: 0-None Visual Disturbances: 0-None Headache: 0-None Present CIWA-Ar Total Score: 13 [facility] Progress Note (SOAP) Subjective: Anxiety, sweats,chills, slight tremors, fatigue. Objective: 12/15/19 17:22 Vital Signs - 24 hr 12/14/19 12/15/19 12/15/19 20:20 00:47 03:30 Temperature 97.2 F L 97.9 F Pulse Rate 67 83 Respiratory 18 18 18 Rate Blood Pressure 106/73 114/70 12/15/19 12/15/19 12/15/19 07:21 09:33 13:44 Temperature 97 F L 96.8 F L 97.7 F Pulse Rate 67 65 71 Respiratory 18 16 14 Rate Blood Pressure 132/76 113/81 100/76 Laboratory Tests 12/15/19 12/15/19 12/15/19 07:30 07:30 07:30 WBC 5.2 RBC 4.11 Hgb 13.8 Hct 40.4 MCV 98.3 H MCH 33.7 MCHC 34.2 RDW 14.3 Plt Count 224 MPV 10.2 Sodium 141 Potassium 4.2 Chloride 111 H Carbon Dioxide 26 Anion Gap 4 L BUN 22.0 H Creatinine 0.7 Est GFR (CKD-EPI)AfAm 127.53 Est GFR (CKD-EPI)NonAf 110.04 Random Glucose 93 Calcium 8.6 Total Bilirubin 0.4 AST 24 ALT 25 Alkaline Phosphatase 131 H Total Protein 6.6 Albumin 3.2 L Phenytoin 1.3 Valproic Acid 15.7 L Alert o x 3 nad ambulating with steady gait Head: S/P Right eyebrow laceration(pt reports due to fall after a previous seizure episode and was treated at a hospital) Assessment: 12/15/19 17:26 DAT w/s Plan: cont detox maintain safety increase po fluids. cont Bacitracin ointment on right eyebrow directed
[2019-12-15] MEDS: BACITRACIN 15 GM TUBE TOPICAL OINTMENT TP SCH (21:55)
[2019-12-15] MEDS: THIAMINE HCL 100 MG TABLET (FP) PO SCH (21:57)
[2019-12-16] MEDS: chlordiazePOXIDE 5 MG CAPSULE PO SCH ×3 (06:13→21:31)
[2019-12-16] MEDS: levETIRAcetam 500 MG TABLET (FP) PO SCH ×2 (06:14→17:24)
[2019-12-16] MEDS: DIVALPROEX SODIUM 500 MG TABLET E.C. PO SCH ×2 (06:14→17:23)
[2019-12-16] MEDS: guaiFENesin 200 MG/10 ML 10 ML UNIT-DOSE CUPS PO SCH ×4 (06:14→22:54)
[2019-12-16] MEDS ORDERED: BUPRENORPHINE/NALOXONE 8 MG/2 MG FILM PACKET ONE (08:50)
[2019-12-16] MEDS ORDERED: BUPRENORPHINE HCL/NALOXONE 12 MG-3 MG SL FILM PACKET SL ONE (08:50)
[2019-12-16] MEDS: NALOXONE SL SCH (10:56)
[2019-12-16] MEDS: [UNRECOGNIZED DRUG - OTHER] SL SCH (10:56)
[2019-12-16] MEDS: PANTOPRAZOLE 20 MG TABLET PO SCH ×2 (10:56→21:31)
[2019-12-16] MEDS: PHENobarbital 30 MG TABLET PO SCH ×2 (10:56→21:31)
[2019-12-16] MEDS: LISINOPRIL 10 MG TABLET (FP) PO SCH (10:56)
[2019-12-16] MEDS: BUPRENORPHINE SL SCH (10:56)
[2019-12-16] MEDS: BACITRACIN 15 GM TUBE TOPICAL OINTMENT TP SCH ×2 (10:56→21:32)
[2019-12-16] MEDS: NICOTINE 14 MG/24 HOURS TOPICAL PATCH TD SCH (10:57)
[2019-12-16] MEDS: PRENATAL VITAMINS W/ FOLIC ACID TABLET (FP) PO SCH (10:57)
[2019-12-16] MEDS: NICOTINE POLACRILEX 2 MG GUM BUC PRN (10:58)
--- NOTE | 2019-12-16 21:18 | PN ---
S CIWA - CIWA Score Nausea/Vomitin-No Nausea/No Vomiting Muscle Tremors: 2 Anxiety: 3 Agitation: 2 Paroxysmal Sweats: No Perspiration Orientation: 0-Oriented Tacttile Disturbances: 2-Mild Itch/Numbness/Burn Auditory Disturbances: 0-None Visual Disturbances: 0-None Headache: 0-None Present CIWA-Ar Total Score: 9 BHS Progress Note (SOAP) Subjective: ETOH WITHDRAWAL SX Objective: 12/16/19 21:16 Laboratory Tests 12/15/19 12/15/19 12/15/19 07:30 07:30 07:30 WBC 5.2 RBC 4.11 Hgb 13.8 Hct 40.4 MCV 98.3 H MCH 33.7 MCHC 34.2 RDW 14.3 Plt Count 224 MPV 10.2 Sodium 141 Potassium 4.2 Chloride 111 H Carbon Dioxide 26 Anion Gap 4 L BUN 22.0 H Creatinine 0.7 Est GFR (CKD-EPI)AfAm 127.53 Est GFR (CKD-EPI)NonAf 110.04 Random Glucose 93 Calcium 8.6 Total Bilirubin 0.4 AST 24 ALT 25 Alkaline Phosphatase 131 H Total Protein 6.6 Albumin 3.2 L Phenytoin 1.3 Valproic Acid 15.7 L Vital Signs Temperature 97.1 F L 12/16/19 18:45 Pulse Rate 63 12/16/19 18:45 Respiratory Rate 18 12/16/19 18:45 Blood Pressure 99/69 12/16/19 18:45 O2 Sat by Pulse Oximetry (%) PE ALERT AND ORIENTED X 3 HEALING LACERATION RIGHT EYEBROW +PERRLA, EOMS INTACT BL CAR S1S2 RESP CTA BL EXT FULL ROM, AMB AD TAD, +TREMORS ANXIOUS/MILDLY RESTLESS 12/16/19 21:17 Assessment: 12/16/19 21:17 ETOH WITHDRAWAL SX Plan: CONTINUE DETOX ENCOURAGE FLUIDS MONITOR
[2019-12-16] MEDS: THIAMINE HCL 100 MG TABLET (FP) PO SCH (21:31)
[2019-12-17] MEDS ORDERED: chlordiazePOXIDE HCL 10 MG CAPSULE PO PRN
[2019-12-17] MEDS: chlordiazePOXIDE HCL 10 MG CAPSULE PO SCH ×3 (06:03→21:32)
[2019-12-17] MEDS: DIVALPROEX SODIUM 500 MG TABLET E.C. PO SCH ×2 (06:03→16:59)
[2019-12-17] MEDS: guaiFENesin 200 MG/10 ML 10 ML UNIT-DOSE CUPS PO SCH ×3 (07:11→16:58)
[2019-12-17] MEDS: levETIRAcetam 500 MG TABLET (FP) PO SCH ×2 (08:22→16:59)
[2019-12-17] MEDS ORDERED: BUPRENORPHINE HCL/NALOXONE 12 MG-3 MG SL FILM PACKET SL ONE (09:14)
[2019-12-17] MEDS ORDERED: BUPRENORPHINE/NALOXONE 8 MG/2 MG FILM PACKET ONE (09:14)
[2019-12-17] MEDS: BACITRACIN 15 GM TUBE TOPICAL OINTMENT TP SCH ×2 (10:12→21:32)
[2019-12-17] MEDS: NICOTINE 14 MG/24 HOURS TOPICAL PATCH TD SCH (10:13)
[2019-12-17] MEDS: LISINOPRIL 10 MG TABLET (FP) PO SCH (10:13)
[2019-12-17] MEDS: BUPRENORPHINE SL SCH (10:13)
[2019-12-17] MEDS: PANTOPRAZOLE 20 MG TABLET PO SCH ×2 (10:13→21:33)
[2019-12-17] MEDS: [UNRECOGNIZED DRUG - OTHER] SL SCH (10:13)
[2019-12-17] MEDS: NALOXONE SL SCH (10:13)
[2019-12-17] MEDS: PRENATAL VITAMINS W/ FOLIC ACID TABLET (FP) PO SCH (10:13)
[2019-12-17] MEDS: PHENobarbital 30 MG TABLET PO SCH ×2 (10:13→21:33)
[2019-12-17] MEDS: NICOTINE POLACRILEX 2 MG GUM BUC PRN ×2 (10:17→15:19)
[2019-12-17 10:18] LABS: EPI CELLS 1.2 /HPF (0-5/HPF); HYALINE CASTS 2 /lpf (0-8); URINE APPEARANCE CLEAR; URINE BACTERIA 2.6 /hpf (NEGATIVE); URINE BILIRUBIN NEGATIVE (NEGATIVE); URINE COLOR YELLOW; URINE GLUCOSE (UA) NEGATIVE (NEGATIVE); URINE KETONE NEGATIVE (NEGATIVE); URINE LEUK ESTERASE TRACE (NEGATIVE); URINE NITRITE NEGATIVE (NEGATIVE); URINE PROTEIN NEGATIVE (NEGATIVE); URINE RBC 1 /hpf (0-4); URINE WBC 5 /hpf (0-5)
--- NOTE | 2019-12-17 13:02 | PN ---
S CIWA - CIWA Score Nausea/Vomitin-No Nausea/No Vomiting Muscle Tremors: 3 Anxiety: 1-Mildly Anxious Agitation: 1-Slight > Activity Paroxysmal Sweats: 1-Minimal Palms Moist Orientation: 0-Oriented Tacttile Disturbances: 0-None Auditory Disturbances: 0-None Visual Disturbances: 0-None Headache: 0-None Present CIWA-Ar Total Score: 6 BHS Progress Note (SOAP) Subjective: sweats foot pain Objective: 12/17/19 13:05 Vital Signs Temperature 96.6 F L 12/17/19 09:27 Pulse Rate 61 12/17/19 09:27 Respiratory Rate 16 12/17/19 09:27 Blood Pressure 101/66 12/17/19 09:27 O2 Sat by Pulse Oximetry (%) Laboratory Tests 12/15/19 12/15/19 12/15/19 07:30 07:30 07:30 WBC 5.2 RBC 4.11 Hgb 13.8 Hct 40.4 MCV 98.3 H MCH 33.7 MCHC 34.2 RDW 14.3 Plt Count 224 MPV 10.2 Sodium 141 Potassium 4.2 Chloride 111 H Carbon Dioxide 26 Anion Gap 4 L BUN 22.0 H Creatinine 0.7 Est GFR (CKD-EPI)AfAm 127.53 Est GFR (CKD-EPI)NonAf 110.04 Random Glucose 93 Calcium 8.6 Total Bilirubin 0.4 AST 24 ALT 25 Alkaline Phosphatase 131 H Total Protein 6.6 Albumin 3.2 L Urine Color Urine Appearance Urine pH Ur Specific Protection Urine Protein Urine Glucose (UA) Urine Ketones Urine Blood Urine Nitrite Urine Bilirubin Urine Urobilinogen Ur Leukocyte Esterase Urine WBC (Auto) Urine RBC (Auto) Urine Casts (Auto) U Epithel Cells (Auto) Urine Bacteria (Auto) Phenytoin 1.3 Valproic Acid 15.7 L 12/17/19 07:30 WBC RBC Hgb Hct MCV MCH MCHC RDW Plt Count MPV Sodium Potassium Chloride Carbon Dioxide Anion Gap BUN Creatinine Est GFR (CKD-EPI)AfAm Est GFR (CKD-EPI)NonAf Random Glucose Calcium Total Bilirubin AST ALT Alkaline Phosphatase Total Protein Albumin Urine Color Yellow Urine Appearance Clear Urine pH 6.0 Ur Specific Protection 1.021 Urine Protein Negative Urine Glucose (UA) Negative Urine Ketones Negative Urine Blood Negative Urine Nitrite Negative Urine Bilirubin Negative Urine Urobilinogen 1.0 Ur Leukocyte Esterase Trace Urine WBC (Auto) 5 Urine RBC (Auto) 1 Urine Casts (Auto) 2 U Epithel Cells (Auto) 1.2 Urine Bacteria (Auto) 2.6 Phenytoin Valproic Acid keppra level pending aaox3 ambulating no acute distress Assessment: 12/17/19 13:06 mild withdrawals Plan: continue detox analgesic balm ordered motrin 600mg prn lab results for keppra pending. d/c in am
[2019-12-17] MEDS ORDERED: IBUPROFEN 600 MG TABLET (FP) PO PRN (13:10)
[2019-12-17] MEDS: METHYL SALICYLATE/MENTHOL OINT 30 GM TUBE TP SCH ×2 (15:58→21:32)
[2019-12-17] MEDS: THIAMINE HCL 100 MG TABLET (FP) PO SCH (21:33)
[2019-12-18] MEDS ORDERED: chlordiazePOXIDE HCL 10 MG CAPSULE PO ONE (05:00)
[2019-12-18] MEDS: DIVALPROEX SODIUM 500 MG TABLET E.C. PO SCH (05:50)
[2019-12-18] MEDS: levETIRAcetam 500 MG TABLET (FP) PO SCH (05:50)
[2019-12-18] MEDS ORDERED: BUPRENORPHINE/NALOXONE 8 MG/2 MG FILM PACKET ONE (08:52)
[2019-12-18] MEDS ORDERED: BUPRENORPHINE HCL/NALOXONE 12 MG-3 MG SL FILM PACKET SL ONE (08:53)
[2019-12-18 09:48] VITALS: BP 126/72; PULSE 71; TEMP 97.7
[2019-12-18] MEDS: [UNRECOGNIZED DRUG - OTHER] SL SCH (10:06)
[2019-12-18] MEDS: NALOXONE SL SCH (10:06)
[2019-12-18] MEDS: BUPRENORPHINE SL SCH (10:06)
[2019-12-18] MEDS: PRENATAL VITAMINS W/ FOLIC ACID TABLET (FP) PO SCH (10:07)
[2019-12-18] MEDS: LISINOPRIL 10 MG TABLET (FP) PO SCH (10:07)
[2019-12-18] MEDS: PHENobarbital 30 MG TABLET PO SCH (10:07)
[2019-12-18] MEDS: PANTOPRAZOLE 20 MG TABLET PO SCH (10:07)
[2019-12-18] MEDS: BACITRACIN 15 GM TUBE TOPICAL OINTMENT TP SCH (10:08)
[2019-12-18] MEDS: NICOTINE 14 MG/24 HOURS TOPICAL PATCH TD SCH (10:09)
[2019-12-18] MEDS: METHYL SALICYLATE/MENTHOL OINT 30 GM TUBE TP SCH (10:09)
[2019-12-18] MEDS: NICOTINE POLACRILEX 2 MG GUM BUC PRN (10:10)
== END 2019-12-18 12:41 | disposition other institution (70) | DRG 773 ==
LOC: YASAS 20:19 → Y6N 23:30
PROVIDERS: ADMIT Allergy & Immunology; ATTEND Allergy & Immunology
PROC: HZ2ZZZZ Detoxification Services for Substance Abuse Treatment (ICD-10-PCS; principal; 2019-12-14)
DX: F10.230 Alcohol dependence with withdrawal, uncomplicated (principal); F11.20 Opioid dependence, uncomplicated; F14.20 Cocaine dependence, uncomplicated; F17.210 Nicotine dependence, cigarettes, uncomplicated; F19.24 Other psychoactive substance dependence with psychoactive substance-induced mood disorder; I10 Essential (primary) hypertension; G47.00 Insomnia, unspecified; G40.909 Epilepsy, unspecified, not intractable, without status epilepticus; J45.20 Mild intermittent asthma, uncomplicated; H54.40 Blindness, one eye, unspecified eye; E70.331 Hermansky-Pudlak syndrome; M17.0 Bilateral primary osteoarthritis of knee; M54.5 Low back pain; G89.29 Other chronic pain; Z86.73 Personal history of transient ischemic attack (TIA), and cerebral infarction without residual deficits; Z91.19 Patient's noncompliance with other medical treatment and regimen; Z62.810 Personal history of physical and sexual abuse in childhood; Z56.0 Unemployment, unspecified; Z59.0 Homelessness; S63.501D Unspecified sprain of right wrist, subsequent encounter; S01.111D Laceration without foreign body of right eyelid and periocular area, subsequent encounter; X58.XXXD Exposure to other specified factors, subsequent encounter
CPT/HCPCS: 36415; 80053; 80164; 80177; 80185; 81003; 85027

== ENCOUNTER 2019-12-18 13:10 | Inpatient (IN) | payer OTHER ==
[2019-12-18] MEDS ORDERED: ACETAMINOPHEN 325 MG TABLET (FP) PO PRN (14:33)
[2019-12-18] MEDS ORDERED: MAG HYDROX/AL HYDROX/SIMETH 30 ML UNIT-DOSE CUP PO PRN (14:33)
[2019-12-18] MEDS ORDERED: MAGNESIUM CITRATE 300 ML BOTTLE PO PRN (14:33)
[2019-12-18] MEDS ORDERED: hydrOXYzine PAMOATE 50 MG CAPSULE (FP) PO PRN (14:33)
[2019-12-18] MEDS ORDERED: IBUPROFEN 400 MG TABLET (FP) PO PRN (14:33)
[2019-12-18] MEDS ORDERED: LOPERAMIDE HCL 2 MG CAPSULE PO PRN (14:33)
[2019-12-18] MEDS ORDERED: guaiFENesin 200 MG/10 ML 10 ML UNIT-DOSE CUPS PO PRN (14:33)
[2019-12-18] MEDS ORDERED: P-EPHED 60MG/TRIPROLIDI 2.5MG TABLET PO PRN (14:33)
--- NOTE | 2019-12-18 14:41 | HP ---
[facility] Rehab Assess/Revision - Admission History Admitted to Rehab from: [facility] Date of Admission to Rehab: 12/18/2019 - Vital signs Vital Signs: Vital Signs Period Temp Pulse Resp BP Sys/Buitrago Pulse Ox Last 24 Hr 97.6 F 68 18 111/72 - Findings Detox History & Physical reviewed: Yes Concur with findings: Yes Inpatient Rehab Admission - Rehab Decision to Admit Inpatient rehab admission?: Yes - Initial Determination Are CD services needed?: Yes Free of communicable disease: Yes Not in need of hospitalization: Yes - Rehab Admission Criteria Previous failed treatment: Yes Poor recovery environment: No Comorbidities: No Lacks judgement: No Patient is meeting Inpatient Rehab admission criteria:: Yes
[2019-12-18] MEDS: MELATONIN 5 MG TABLETS PO PRN (21:14)
[2019-12-18] MEDS: THIAMINE HCL 100 MG TABLET (FP) PO SCH (21:14)
[2019-12-18] MEDS: levETIRAcetam 500 MG TABLET (FP) PO SCH (21:14)
[2019-12-19] MEDS: LISINOPRIL 10 MG TABLET (FP) PO SCH (09:58)
[2019-12-19] MEDS: levETIRAcetam 500 MG TABLET (FP) PO SCH ×2 (09:58→21:23)
[2019-12-19] MEDS: PRENATAL VITAMINS W/ FOLIC ACID TABLET (FP) PO SCH (09:58)
--- NOTE | 2019-12-19 10:06 | PN ---
[facility] Progress Note (SOAP) Subjective: Patient requesting suboxone; he was on suboxone MAT in the community. Patient Name: Charanjit Barerra Date: 1970 Address: [address] [place] [address] Sex: Male Rx Written Rx Dispensed Drug Quantity Days Supply Prescriber Name 12/06/2019 12/06/2019 buprenorphine-naloxone 8-2 mg sl film 75 30 Chente Castillo S 11/19/2019 11/19/2019 buprenorphine-naloxone 8-2 mg sl film 35 14 Chente Castillo S Patient Name: Charanjit Barrera Date: 1970 Address: [place] [address] Sex: Male Rx Written Rx Dispensed Drug Quantity Days Supply Prescriber Name 11/05/2019 12/06/2019 zolpidem tartrate 10 mg tablet 30 30 Jaime Miles Patient Name: Charanjit Barrera Date: 1970 Address: [address] [facility] [place] [address] [place] [address] Sex: Male Rx Written Rx Dispensed Drug Quantity Days Supply Prescriber Name 11/15/2019 11/29/2019 buprenorphine-naloxone 8-2 mg sl film 8 4 11/15/2019 11/15/2019 buprenorphine-naloxone 8-2 mg sl film 8 4 11/09/2019 11/10/2019 buprenorphine-naloxone 8-2 mg sl film 10 4 Sebastian Bell I () 11/05/2019 11/05/2019 zolpidem tartrate 10 mg tablet 30 30 Jaime Miles 10/27/2019 10/29/2019 phenobarbital 64.8 mg tablet 60 30 Kat Mar MD 05/10/2019 10/01/2019 zolpidem tartrate 10 mg tablet 30 30 Jaime Miles 09/18/2019 09/18/2019 buprenorphine-naloxone 8-2 mg sl film 35 14 Georgina Cabral 05/10/2019 09/01/2019 zolpidem tartrate 10 mg tablet 30 30 Jaime Miles 08/21/2019 08/21/2019 buprenorphine-naloxone 8-2 mg sl film 70 28 Georgina Cabral 08/08/2019 08/08/2019 buprenorphine-naloxone 8-2 mg sl film 38 15 [facility] 08/01/2019 08/02/2019 phenobarbital 64.8 mg tablet 60 30 Tisha Cuba 08/01/2019 08/01/2019 buprenorphine-naloxone 8-2 mg sl film 18 7 [facility] 05/10/2019 07/05/2019 zolpidem tartrate 10 mg tablet 30 30 Neghassi, Jaime H 05/10/2019 06/07/2019 zolpidem tartrate 10 mg tablet 30 30 Neghassi, Jaime H 12/28/2018 06/05/2019 phenobarbital 64.8 mg tablet 60 30 Neghassi, Jaime H 06/05/2019 06/05/2019 buprenorphine-naloxone 8-2 mg sl film 53 21 [facility] 05/22/2019 05/22/2019 buprenorphine-naloxone 8-2 mg sl film 38 15 [facility] 05/10/2019 05/11/2019 zolpidem tartrate 10 mg tablet 30 30 Neghassi, Jaime H 12/28/2018 05/01/2019 phenobarbital 64.8 mg tablet 60 30 Neghassi, Jaime H 05/01/2019 05/01/2019 buprenorphine-naloxone 12-3 mg sl film 35 14 [facility] 04/17/2019 04/17/2019 buprenorphine-naloxone 8-2 mg sl film 28 14 [facility] 02/14/2019 04/07/2019 zolpidem tartrate 10 mg tablet 30 30 Neghassi, Jaime H 04/04/2019 04/05/2019 buprenorphine-naloxone 8-2 mg sl film 28 14 [facility] 12/28/2018 04/02/2019 phenobarbital 64.8 mg tablet 60 30 Neghassi, Jaime H 02/14/2019 03/09/2019 zolpidem tartrate 10 mg tablet 30 30 Neghassi, Jaime H 12/28/2018 03/01/2019 phenobarbital 64.8 mg tablet 60 30 Neghassi, Jaime H 12/28/2018 02/14/2019 phenobarbital 64.8 mg tablet 60 30 Neghassi, Jaime H 02/14/2019 02/14/2019 zolpidem tartrate 10 mg tablet 30 30 Jaime Miles Patient Name: Charanjit Barrera Date: 1970 Address: [address] [place] [address] Sex: Male Rx Written Rx Dispensed Drug Quantity Days Supply Prescriber Name 01/02/2019 01/30/2019 suboxone 8 mg-2 mg sl film 60 30 Harlan Mcclain MD 01/02/2019 01/02/2019 suboxone 8 mg-2 mg sl film 60 30 WhHarlan middleton MD Objective: General: No apparent distress HEENTM: normocephalic, PERRLA Neuro: CN2-12 intact, a+o,muscle strength equal MSK: full weight bearing, steady gait 12/19/19 12:17 Assessment: treatment for opioid use disorder 12/19/19 12:19 Plan: Will re-start suboxone 20 mg/daily as per treatment in the community.
[2019-12-19] MEDS: BUPRENORPHINE HCL/NALOXONE 12 MG-3 MG SL FILM PACKET SL SCH (11:09)
[2019-12-19] MEDS: BUPRENORPHINE/NALOXONE 8 MG/2 MG FILM PACKET SL SCH (11:09)
[2019-12-19] MEDS: THIAMINE HCL 100 MG TABLET (FP) PO SCH (21:23)
[2019-12-19] MEDS: MELATONIN 5 MG TABLETS PO PRN (21:23)
[2019-12-19] MEDS: DIVALPROEX SODIUM 500 MG TABLET E.C. PO SCH (21:24)
[2019-12-19] MEDS: PHENobarbital 30 MG TABLET PO SCH (21:24)
[2019-12-19] MEDS ORDERED: PATIENT'S OWN MEDICATION (NON-FORMULARY) (Phenobarbital [Phenobarbital] 64.8 MG) PO SCH (22:00)
[2019-12-20] MEDS: DIVALPROEX SODIUM 500 MG TABLET E.C. PO SCH ×2 (09:32→17:30)
[2019-12-20] MEDS: PRENATAL VITAMINS W/ FOLIC ACID TABLET (FP) PO SCH (09:33)
[2019-12-20] MEDS: PHENobarbital 30 MG TABLET PO SCH ×2 (09:33→17:31)
[2019-12-20] MEDS: LISINOPRIL 10 MG TABLET (FP) PO SCH (09:33)
[2019-12-20] MEDS: levETIRAcetam 500 MG TABLET (FP) PO SCH ×2 (09:33→17:30)
[2019-12-20] MEDS: BUPRENORPHINE HCL/NALOXONE 12 MG-3 MG SL FILM PACKET SL SCH (09:35)
[2019-12-20] MEDS: BUPRENORPHINE/NALOXONE 8 MG/2 MG FILM PACKET SL SCH (09:35)
[2019-12-20] MEDS: NICOTINE 21 MG/24 HOURS TOPICAL PATCH TD SCH (12:06)
[2019-12-20] MEDS: NICOTINE POLACRILEX 2 MG GUM BUC PRN ×2 (12:07→17:32)
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
[2019-12-20] MEDS: busPIRone HCL 10 MG TABLET (FP) PO SCH (21:39)
[2019-12-20] MEDS: MELATONIN 5 MG TABLETS PO PRN (21:39)
[2019-12-20] MEDS: THIAMINE HCL 100 MG TABLET (FP) PO SCH (21:39)
[2019-12-21] MEDS: DIVALPROEX SODIUM 500 MG TABLET E.C. PO SCH ×2 (06:08→17:54)
[2019-12-21] MEDS: PHENobarbital 30 MG TABLET PO SCH ×2 (06:08→17:54)
[2019-12-21] MEDS: levETIRAcetam 500 MG TABLET (FP) PO SCH ×2 (06:09→17:54)
[2019-12-21] MEDS: busPIRone HCL 10 MG TABLET (FP) PO SCH ×3 (06:09→21:29)
[2019-12-21] MEDS: MENTHOL/PHENOL 1 EACH UD MM PRN ×2 (06:10→15:37)
[2019-12-21] MEDS: PRENATAL VITAMINS W/ FOLIC ACID TABLET (FP) PO SCH (10:22)
[2019-12-21] MEDS: LISINOPRIL 10 MG TABLET (FP) PO SCH (10:22)
[2019-12-21] MEDS: NICOTINE 21 MG/24 HOURS TOPICAL PATCH TD SCH (10:22)
[2019-12-21] MEDS: SERTRALINE HCL 50 MG TABLET (FP) PO SCH (10:22)
[2019-12-21] MEDS: BUPRENORPHINE/NALOXONE 8 MG/2 MG FILM PACKET SL SCH (10:24)
[2019-12-21] MEDS: BUPRENORPHINE HCL/NALOXONE 12 MG-3 MG SL FILM PACKET SL SCH (10:24)
[2019-12-21] MEDS: MAGNESIUM HYDROX 2400MG/30ML ORAL SUSPENSION 30 ML CUP PO PRN (13:21)
--- NOTE | 2019-12-21 14:44 | PN ---
[facility] Progress Note Note: NOTIFIED BY RN THAT PATIENT REPORTED THAT HE HAD SEIZURE AT 6AM THIS MORNING BUT DID NOT REPORT IT TO STAFF. PATIENT HAS HX OF SEIZURE DISORDER AND IS TREATED WITH DEPAKOTE, KEPPRA AND PHENOBARBITAL. PATIENT STATES " IT WAS A SMALL SEIZURE AND DENIES LOOSING CONSCIOUSNESS, FALLING AND HITTING HEAD ON FLOOR/WALL/OBJECT. PATIENT CURRENTLY DENIES ANY MEDICAL COMPLAINTS AT THIS TIME. Vital Signs Temperature 97.7 F 12/21/19 07:09 Pulse Rate 65 12/21/19 09:06 Respiratory Rate 17 12/21/19 09:06 Blood Pressure 118/74 12/21/19 09:06 O2 Sat by Pulse Oximetry (%) Laboratory Tests 12/19/19 12/20/19 06:00 08:00 Valproic Acid 42.5 L HIV 1&2 Antibody Screen Negative HIV P24 Antigen Negative PE ALERT AND ORIENTED X 3 SKIN WARM AND DRY +PERRLA, EOMS INTACT BL CAR S1S2 RESP CTA BL EXT AMB WITH CANE, NO TREMORS CN 1-X11 GROSSLY INTACT A/P HX OF SEIZURE DISORDER UNWITNESSED SEIZURE PATIENT IS MEDICALLY STABLE NOW KEPPRA LEVEL PENDING PHENOBARBITAL LEVEL ORDERED VPA LEVEL 42. 5 (MILDLY SUBTHERAPEUTIC) WILL CONTINUE CURRENT DOSE OF VPA AND REPEAT LEVEL ON 12/24/2019
[2019-12-21] MEDS: MELATONIN 5 MG TABLETS PO PRN (21:29)
[2019-12-21] MEDS: THIAMINE HCL 100 MG TABLET (FP) PO SCH (21:29)
[2019-12-22] MEDS: PHENobarbital 30 MG TABLET PO SCH ×2 (05:57→18:28)
[2019-12-22] MEDS: busPIRone HCL 10 MG TABLET (FP) PO SCH ×3 (05:57→21:40)
[2019-12-22] MEDS: levETIRAcetam 500 MG TABLET (FP) PO SCH ×2 (05:58→18:28)
[2019-12-22] MEDS: DIVALPROEX SODIUM 500 MG TABLET E.C. PO SCH ×2 (05:58→18:28)
[2019-12-22] MEDS: BUPRENORPHINE/NALOXONE 8 MG/2 MG FILM PACKET SL SCH (09:58)
[2019-12-22] MEDS: BUPRENORPHINE HCL/NALOXONE 12 MG-3 MG SL FILM PACKET SL SCH (09:58)
[2019-12-22] MEDS: NICOTINE 21 MG/24 HOURS TOPICAL PATCH TD SCH (09:58)
[2019-12-22] MEDS: LISINOPRIL 10 MG TABLET (FP) PO SCH (09:58)
[2019-12-22] MEDS: SERTRALINE HCL 50 MG TABLET (FP) PO SCH (09:59)
[2019-12-22] MEDS: PRENATAL VITAMINS W/ FOLIC ACID TABLET (FP) PO SCH (09:59)
[2019-12-22] MEDS: NICOTINE POLACRILEX 2 MG GUM BUC PRN (10:01)
[2019-12-22] MEDS: MELATONIN 5 MG TABLETS PO PRN (21:40)
[2019-12-22] MEDS: THIAMINE HCL 100 MG TABLET (FP) PO SCH (21:40)
[2019-12-23] MEDS: busPIRone HCL 10 MG TABLET (FP) PO SCH ×3 (06:17→21:25)
[2019-12-23] MEDS: levETIRAcetam 500 MG TABLET (FP) PO SCH ×2 (06:18→18:31)
[2019-12-23] MEDS: DIVALPROEX SODIUM 500 MG TABLET E.C. PO SCH ×2 (06:18→18:31)
[2019-12-23] MEDS: PHENobarbital 30 MG TABLET PO SCH ×2 (06:18→18:30)
[2019-12-23] MEDS: LISINOPRIL 10 MG TABLET (FP) PO SCH (09:25)
[2019-12-23] MEDS: SERTRALINE HCL 50 MG TABLET (FP) PO SCH (09:25)
[2019-12-23] MEDS: PRENATAL VITAMINS W/ FOLIC ACID TABLET (FP) PO SCH (09:25)
[2019-12-23] MEDS: BUPRENORPHINE/NALOXONE 8 MG/2 MG FILM PACKET SL SCH (09:26)
[2019-12-23] MEDS: BUPRENORPHINE HCL/NALOXONE 12 MG-3 MG SL FILM PACKET SL SCH (09:26)
[2019-12-23] MEDS: NICOTINE 21 MG/24 HOURS TOPICAL PATCH TD SCH (09:26)
[2019-12-23] MEDS: NICOTINE POLACRILEX 2 MG GUM BUC PRN (09:28)
[2019-12-23] MEDS: THIAMINE HCL 100 MG TABLET (FP) PO SCH (21:25)
[2019-12-23] MEDS: MELATONIN 5 MG TABLETS PO PRN (21:25)
[2019-12-24] MEDS: PHENobarbital 30 MG TABLET PO SCH ×2 (06:30→18:14)
[2019-12-24] MEDS: DIVALPROEX SODIUM 500 MG TABLET E.C. PO SCH ×2 (06:30→18:14)
[2019-12-24] MEDS: levETIRAcetam 500 MG TABLET (FP) PO SCH ×2 (06:31→18:14)
[2019-12-24] MEDS: busPIRone HCL 10 MG TABLET (FP) PO SCH ×3 (06:31→21:19)
[2019-12-24] MEDS: BUPRENORPHINE/NALOXONE 8 MG/2 MG FILM PACKET SL SCH (10:17)
[2019-12-24] MEDS: BUPRENORPHINE HCL/NALOXONE 12 MG-3 MG SL FILM PACKET SL SCH (10:17)
[2019-12-24] MEDS: SERTRALINE HCL 50 MG TABLET (FP) PO SCH (10:17)
[2019-12-24] MEDS: LISINOPRIL 10 MG TABLET (FP) PO SCH (10:17)
[2019-12-24] MEDS: PRENATAL VITAMINS W/ FOLIC ACID TABLET (FP) PO SCH (10:17)
[2019-12-24] MEDS: NICOTINE 21 MG/24 HOURS TOPICAL PATCH TD SCH (10:17)
[2019-12-24] MEDS: THIAMINE HCL 100 MG TABLET (FP) PO SCH (21:19)
[2019-12-24] MEDS: NAPROXEN 500 MG TABLET PO SCH (21:19)
[2019-12-24] MEDS: MELATONIN 5 MG TABLETS PO PRN (21:19)
[2019-12-25] MEDS: levETIRAcetam 500 MG TABLET (FP) PO SCH ×2 (05:50→17:33)
[2019-12-25] MEDS: DIVALPROEX SODIUM 500 MG TABLET E.C. PO SCH ×2 (05:50→17:33)
[2019-12-25] MEDS: PHENobarbital 30 MG TABLET PO SCH ×2 (05:50→17:33)
[2019-12-25] MEDS: busPIRone HCL 10 MG TABLET (FP) PO SCH ×3 (05:50→21:21)
[2019-12-25] MEDS: SERTRALINE HCL 50 MG TABLET (FP) PO SCH (10:02)
[2019-12-25] MEDS: NICOTINE 21 MG/24 HOURS TOPICAL PATCH TD SCH (10:02)
[2019-12-25] MEDS: PRENATAL VITAMINS W/ FOLIC ACID TABLET (FP) PO SCH (10:02)
[2019-12-25] MEDS: LISINOPRIL 10 MG TABLET (FP) PO SCH (10:02)
[2019-12-25] MEDS: NAPROXEN 500 MG TABLET PO SCH ×2 (10:02→21:21)
[2019-12-25] MEDS: BUPRENORPHINE/NALOXONE 8 MG/2 MG FILM PACKET SL SCH (10:03)
[2019-12-25] MEDS: BUPRENORPHINE HCL/NALOXONE 12 MG-3 MG SL FILM PACKET SL SCH (10:03)
[2019-12-25] MEDS: ALBUTEROL SO4 HFA INHALER IH PRN (10:03)
--- NOTE | 2019-12-25 13:20 | PN ---
S Progress Note Note: Reviewed labs. Both keppra and valproic acid subtherapuetic. Patient presently on both. Will continue to monitor. Laboratory Last Values Valproic Acid 94.8 ug/mL (50-100) 12/24/19 08:10 Levetiracetam 34.8 MCG/ML (10.0-40.0) 12/19/19 08:30 Phenobarbital 21 ug/mL (15-40) 12/22/19 07:30 HIV 1&2 Antibody Screen Negative 12/19/19 06:00 HIV P24 Antigen Negative 12/19/19 06:00
[2019-12-25] MEDS: MENTHOL/PHENOL 1 EACH UD MM PRN (13:39)
[2019-12-25] MEDS: THIAMINE HCL 100 MG TABLET (FP) PO SCH (21:21)
[2019-12-25] MEDS: MELATONIN 5 MG TABLETS PO PRN (21:21)
[2019-12-26] MEDS: DIVALPROEX SODIUM 500 MG TABLET E.C. PO SCH ×2 (06:06→17:17)
[2019-12-26] MEDS: busPIRone HCL 10 MG TABLET (FP) PO SCH ×3 (06:06→21:13)
[2019-12-26] MEDS: PHENobarbital 30 MG TABLET PO SCH ×2 (06:06→17:17)
[2019-12-26] MEDS: levETIRAcetam 500 MG TABLET (FP) PO SCH ×2 (06:06→17:17)
[2019-12-26] MEDS: SERTRALINE HCL 50 MG TABLET (FP) PO SCH (09:51)
[2019-12-26] MEDS: NAPROXEN 500 MG TABLET PO SCH ×2 (09:51→21:13)
[2019-12-26] MEDS: NICOTINE 21 MG/24 HOURS TOPICAL PATCH TD SCH (09:51)
[2019-12-26] MEDS: PRENATAL VITAMINS W/ FOLIC ACID TABLET (FP) PO SCH (09:51)
[2019-12-26] MEDS: BUPRENORPHINE/NALOXONE 8 MG/2 MG FILM PACKET SL SCH (09:52)
[2019-12-26] MEDS: BUPRENORPHINE HCL/NALOXONE 12 MG-3 MG SL FILM PACKET SL SCH (09:52)
[2019-12-26] MEDS: LISINOPRIL 10 MG TABLET (FP) PO SCH (09:52)
[2019-12-26] MEDS: MAGNESIUM HYDROX 2400MG/30ML ORAL SUSPENSION 30 ML CUP PO PRN (12:04)
[2019-12-26] MEDS: MELATONIN 5 MG TABLETS PO PRN (21:13)
[2019-12-26] MEDS: THIAMINE HCL 100 MG TABLET (FP) PO SCH (21:13)
[2019-12-27] MEDS ORDERED: PHENobarbital 30 MG TABLET PO SCH (06:00)
[2019-12-27] MEDS: DIVALPROEX SODIUM 500 MG TABLET E.C. PO SCH ×2 (06:02→17:09)
[2019-12-27] MEDS: levETIRAcetam 500 MG TABLET (FP) PO SCH ×2 (06:02→17:09)
[2019-12-27] MEDS: busPIRone HCL 10 MG TABLET (FP) PO SCH ×3 (06:02→21:26)
[2019-12-27] MEDS: PHENobarbital 30 MG TABLET PO SCH ×2 (06:02→17:09)
[2019-12-27] MEDS: NAPROXEN 500 MG TABLET PO SCH ×2 (09:54→21:26)
[2019-12-27] MEDS: BUPRENORPHINE HCL/NALOXONE 12 MG-3 MG SL FILM PACKET SL SCH (09:54)
[2019-12-27] MEDS: LISINOPRIL 10 MG TABLET (FP) PO SCH (09:54)
[2019-12-27] MEDS: SERTRALINE HCL 50 MG TABLET (FP) PO SCH (09:54)
[2019-12-27] MEDS: BUPRENORPHINE/NALOXONE 8 MG/2 MG FILM PACKET SL SCH (09:54)
[2019-12-27] MEDS: PRENATAL VITAMINS W/ FOLIC ACID TABLET (FP) PO SCH (09:54)
[2019-12-27] MEDS: NICOTINE 21 MG/24 HOURS TOPICAL PATCH TD SCH (09:55)
[2019-12-27] MEDS: THIAMINE HCL 100 MG TABLET (FP) PO SCH (21:26)
[2019-12-27] MEDS: MELATONIN 5 MG TABLETS PO PRN (21:26)
[2019-12-28] MEDS: DIVALPROEX SODIUM 500 MG TABLET E.C. PO SCH ×2 (06:08→17:02)
[2019-12-28] MEDS: busPIRone HCL 10 MG TABLET (FP) PO SCH ×3 (06:08→21:18)
[2019-12-28] MEDS: PHENobarbital 30 MG TABLET PO SCH ×2 (06:08→17:02)
[2019-12-28] MEDS: levETIRAcetam 500 MG TABLET (FP) PO SCH ×2 (06:08→17:02)
[2019-12-28] MEDS: NICOTINE 21 MG/24 HOURS TOPICAL PATCH TD SCH (09:58)
[2019-12-28] MEDS: NAPROXEN 500 MG TABLET PO SCH ×2 (09:58→21:18)
[2019-12-28] MEDS: SERTRALINE HCL 50 MG TABLET (FP) PO SCH (09:58)
[2019-12-28] MEDS: LISINOPRIL 10 MG TABLET (FP) PO SCH (09:58)
[2019-12-28] MEDS: PRENATAL VITAMINS W/ FOLIC ACID TABLET (FP) PO SCH (09:58)
[2019-12-28] MEDS: BUPRENORPHINE HCL/NALOXONE 12 MG-3 MG SL FILM PACKET SL SCH (09:59)
[2019-12-28] MEDS: BUPRENORPHINE/NALOXONE 8 MG/2 MG FILM PACKET SL SCH (09:59)
[2019-12-28] MEDS: MELATONIN 5 MG TABLETS PO PRN (21:18)
[2019-12-28] MEDS: THIAMINE HCL 100 MG TABLET (FP) PO SCH (21:18)
[2019-12-29] MEDS: busPIRone HCL 10 MG TABLET (FP) PO SCH ×3 (06:28→21:00)
[2019-12-29] MEDS: levETIRAcetam 500 MG TABLET (FP) PO SCH ×2 (06:28→17:54)
[2019-12-29] MEDS: PHENobarbital 30 MG TABLET PO SCH ×2 (06:28→17:53)
[2019-12-29] MEDS: DIVALPROEX SODIUM 500 MG TABLET E.C. PO SCH ×2 (06:28→17:54)
[2019-12-29] MEDS ORDERED: PT OWN MED DRAWER 7, Y5N ONE (08:51)
[2019-12-29] MEDS: LISINOPRIL 10 MG TABLET (FP) PO SCH (10:05)
[2019-12-29] MEDS: PRENATAL VITAMINS W/ FOLIC ACID TABLET (FP) PO SCH (10:05)
[2019-12-29] MEDS: SERTRALINE HCL 50 MG TABLET (FP) PO SCH (10:05)
[2019-12-29] MEDS: NAPROXEN 500 MG TABLET PO SCH ×2 (10:06→21:00)
[2019-12-29] MEDS: NICOTINE 21 MG/24 HOURS TOPICAL PATCH TD SCH (10:06)
[2019-12-29] MEDS: ALBUTEROL SO4 HFA INHALER IH PRN (10:10)
[2019-12-29] MEDS: BUPRENORPHINE/NALOXONE 8 MG/2 MG FILM PACKET SL SCH (10:11)
[2019-12-29] MEDS: BUPRENORPHINE HCL/NALOXONE 12 MG-3 MG SL FILM PACKET SL SCH (10:12)
[2019-12-29] MEDS: THIAMINE HCL 100 MG TABLET (FP) PO SCH (21:00)
[2019-12-29] MEDS: MELATONIN 5 MG TABLETS PO PRN (21:01)
[2019-12-30] MEDS: levETIRAcetam 500 MG TABLET (FP) PO SCH ×2 (05:57→17:21)
[2019-12-30] MEDS: DIVALPROEX SODIUM 500 MG TABLET E.C. PO SCH ×2 (05:57→17:21)
[2019-12-30] MEDS: PHENobarbital 30 MG TABLET PO SCH ×2 (05:57→17:21)
[2019-12-30] MEDS: busPIRone HCL 10 MG TABLET (FP) PO SCH ×3 (05:57→21:28)
[2019-12-30] MEDS: BUPRENORPHINE/NALOXONE 8 MG/2 MG FILM PACKET SL SCH (10:27)
[2019-12-30] MEDS: SERTRALINE HCL 50 MG TABLET (FP) PO SCH (10:27)
[2019-12-30] MEDS: LISINOPRIL 10 MG TABLET (FP) PO SCH (10:27)
[2019-12-30] MEDS: NICOTINE 21 MG/24 HOURS TOPICAL PATCH TD SCH (10:28)
[2019-12-30] MEDS: BUPRENORPHINE HCL/NALOXONE 12 MG-3 MG SL FILM PACKET SL SCH (10:28)
[2019-12-30] MEDS: NAPROXEN 500 MG TABLET PO SCH ×2 (10:28→21:28)
[2019-12-30] MEDS: PRENATAL VITAMINS W/ FOLIC ACID TABLET (FP) PO SCH (10:28)
[2019-12-30] MEDS: ALBUTEROL SO4 HFA INHALER IH PRN (10:29)
[2019-12-30] MEDS: MAGNESIUM HYDROX 2400MG/30ML ORAL SUSPENSION 30 ML CUP PO PRN (10:29)
[2019-12-30] MEDS: THIAMINE HCL 100 MG TABLET (FP) PO SCH (21:28)
[2019-12-30] MEDS: MELATONIN 5 MG TABLETS PO PRN (21:29)
[2019-12-31] MEDS: PHENobarbital 30 MG TABLET PO SCH ×2 (06:26→17:53)
[2019-12-31] MEDS: levETIRAcetam 500 MG TABLET (FP) PO SCH ×2 (06:26→17:52)
[2019-12-31] MEDS: DIVALPROEX SODIUM 500 MG TABLET E.C. PO SCH ×2 (06:26→17:52)
[2019-12-31] MEDS: busPIRone HCL 10 MG TABLET (FP) PO SCH ×3 (06:26→21:16)
--- NOTE | 2019-12-31 09:14 | PN ---
[facility] Progress Note Note: Pt requested drop in dose of Nicotine patch from 21 to 14mg- done. Pt c/o loose tooth- has appointment with dentist for evaluation after discharge. No evidence of infection of tooth/gums
[2019-12-31] MEDS: BUPRENORPHINE/NALOXONE 8 MG/2 MG FILM PACKET SL SCH (09:39)
[2019-12-31] MEDS: NICOTINE 21 MG/24 HOURS TOPICAL PATCH TD SCH (09:40)
[2019-12-31] MEDS: NAPROXEN 500 MG TABLET PO SCH ×2 (09:40→21:16)
[2019-12-31] MEDS: LISINOPRIL 10 MG TABLET (FP) PO SCH (09:40)
[2019-12-31] MEDS: SERTRALINE HCL 50 MG TABLET (FP) PO SCH (09:40)
[2019-12-31] MEDS: PRENATAL VITAMINS W/ FOLIC ACID TABLET (FP) PO SCH (09:40)
[2019-12-31] MEDS: NICOTINE POLACRILEX 2 MG GUM BUC PRN ×2 (09:41→14:08)
[2019-12-31] MEDS: BUPRENORPHINE HCL/NALOXONE 12 MG-3 MG SL FILM PACKET SL SCH (09:42)
[2019-12-31] MEDS: THIAMINE HCL 100 MG TABLET (FP) PO SCH (21:16)
[2019-12-31] MEDS: MELATONIN 5 MG TABLETS PO PRN (21:16)
[2020-01-01] MEDS: DIVALPROEX SODIUM 500 MG TABLET E.C. PO SCH ×2 (06:14→17:32)
[2020-01-01] MEDS: busPIRone HCL 10 MG TABLET (FP) PO SCH ×3 (06:14→21:14)
[2020-01-01] MEDS: levETIRAcetam 500 MG TABLET (FP) PO SCH ×2 (06:14→17:32)
[2020-01-01] MEDS: PHENobarbital 30 MG TABLET PO SCH ×2 (06:14→17:32)
--- NOTE | 2020-01-01 09:26 | PN ---
[facility] COWS - Scale Resting Pulse: 0= [place] 80 or Below Sweatin=Flushed/Facial Moisture Restless Observation: 0= Sits Still Pupil Size: 0= Normal to Room Light Bone or Joint Aches: 4=Acute Joint/Muscle Pain Runny Nose/ Eye Tearin= None GI Upset > 30mins: 1= Stomach Cramp Tremor Observation of Outstretched Hands: 1= Tremor [place], Not Seen Yawning Observation: 0= None Anxiety or Irritability: 0= None Goose Flesh Skin: 0=Smooth Skin COWS Score: 8 [facility] Progress Note (SOAP) Subjective: Patient states he is still feeling cravings and having dreams. He wrote this provider a letter describing his feelings. In the letter he states he has shaking, dreams of "picking up." He is worried about relapse. His COWS score is 8. Objective: Physical: General: slightly anxious HEENTM: normocephalic, missing teeth Lungs: respirations unlabored ABD; soft, +BS MSK: steady gait w/o cane or wheelchair at the present time (uses as needed). 01/01/20 09:28 Assessment: Continues to experience withdrawal from heroin 01/01/20 09:31 Plan: I will increase his suboxone to 12mg BID Patient understands that we cannot increase his suboxone does any higher.
[2020-01-01] MEDS: BUPRENORPHINE HCL/NALOXONE 12 MG-3 MG SL FILM PACKET SL SCH ×2 (09:49→21:15)
[2020-01-01] MEDS: LISINOPRIL 10 MG TABLET (FP) PO SCH (09:49)
[2020-01-01] MEDS: PRENATAL VITAMINS W/ FOLIC ACID TABLET (FP) PO SCH (09:49)
[2020-01-01] MEDS: SERTRALINE HCL 50 MG TABLET (FP) PO SCH (09:49)
[2020-01-01] MEDS: NAPROXEN 500 MG TABLET PO SCH ×2 (09:49→21:14)
[2020-01-01] MEDS: NICOTINE POLACRILEX 2 MG GUM BUC PRN ×2 (09:50→15:04)
[2020-01-01] MEDS: NICOTINE 21 MG/24 HOURS TOPICAL PATCH TD SCH (09:50)
--- NOTE | 2020-01-01 12:42 | PN ---
S Progress Note (SOAP) Subjective: Called to unit to evaluate patient status post fall in front of the shower. Patient has a history of seizure disorder. When admitted, he used a wheelchair; after a few days he felt he could walk with a cane. Today he was walking without the cane when he fell. He reports that this happens to him all the time when he is walking in the street because of his seizure disorder. Admits that he hit his head, but denies a headache, denies pain, dizziness, syncope, pain in his trunk or limps. PMHx of scars on chin and right brow from previous falls prior to admission. Objective: 01/01/20 12:39 Vital Signs (72 hours) 12/30/19 12/30/19 12/30/19 00:25 06:58 09:16 Temperature 97.5 F L Pulse Rate 53 L 55 L Respiratory 20 18 Rate Blood Pressure 101/61 115/70 12/31/19 12/31/19 12/31/19 00:23 03:23 07:05 Temperature 97.7 F Pulse Rate 61 Respiratory 18 18 18 Rate Blood Pressure 118/71 12/31/19 01/01/20 01/01/20 08:40 03:33 06:57 Temperature 97.9 F Pulse Rate 57 L 78 Respiratory 18 18 Rate Blood Pressure 132/77 112/64 01/01/20 08:29 Temperature Pulse Rate 65 Respiratory 18 Rate Blood Pressure 110/71 Laboratory Last Values Valproic Acid 94.8 ug/mL (50-100) 12/24/19 08:10 Levetiracetam 34.8 MCG/ML (10.0-40.0) 12/19/19 08:30 Phenobarbital 21 ug/mL (15-40) 12/22/19 07:30 HIV 1&2 Antibody Screen Negative 12/19/19 06:00 HIV P24 Antigen Negative 12/19/19 06:00 P/E: General: no apparent distress HEENTM: PERRLA, normocephalic, no lacerations, bumps, lumps, bruises noted on head Neck: supple MSK: gait steady with cane, partial weight bearing, requiring use of cane, full ROM, Extremities: Full ROM, +pulses, Neuro:CN 2-12 intact, no cognitive deficits noted, fully oriented. SKIN: no bruises noted on body 01/01/20 12:42 01/01/20 12:47 Assessment: 01/01/20 12:44 s/p Fall Plan: Patient refuses transport to [facility] for further evaluation, but does agree to an x-ray tomorrow. Agrees to report any headaches, changes in vision, dizziness, nausea, syncope, body or limb pain. Patient agrees to use cane for ambulation, but is refusing to use the wheelchair. X-ray ordered Valproic acid, Keppra, and Phenobarbital levels will be re-drawn.
[2020-01-01] MEDS: THIAMINE HCL 100 MG TABLET (FP) PO SCH (21:14)
[2020-01-01] MEDS: MELATONIN 5 MG TABLETS PO PRN (21:14)
[2020-01-02] MEDS: DIVALPROEX SODIUM 500 MG TABLET E.C. PO SCH ×2 (06:06→17:50)
[2020-01-02] MEDS: busPIRone HCL 10 MG TABLET (FP) PO SCH ×3 (06:06→21:22)
[2020-01-02] MEDS: PHENobarbital 30 MG TABLET PO SCH ×2 (06:06→17:50)
[2020-01-02] MEDS: levETIRAcetam 500 MG TABLET (FP) PO SCH ×2 (06:06→17:50)
[2020-01-02] MEDS: BUPRENORPHINE HCL/NALOXONE 12 MG-3 MG SL FILM PACKET SL SCH ×2 (09:55→21:23)
[2020-01-02] MEDS: NAPROXEN 500 MG TABLET PO SCH ×2 (09:56→21:22)
[2020-01-02] MEDS: LISINOPRIL 10 MG TABLET (FP) PO SCH (09:56)
[2020-01-02] MEDS: PRENATAL VITAMINS W/ FOLIC ACID TABLET (FP) PO SCH (09:56)
[2020-01-02] MEDS: SERTRALINE HCL 50 MG TABLET (FP) PO SCH (09:56)
[2020-01-02] MEDS: NICOTINE 21 MG/24 HOURS TOPICAL PATCH TD SCH (09:57)
[2020-01-02] MEDS: THIAMINE HCL 100 MG TABLET (FP) PO SCH (21:22)
[2020-01-02] MEDS: MELATONIN 5 MG TABLETS PO PRN (21:22)
[2020-01-03] MEDS: levETIRAcetam 500 MG TABLET (FP) PO SCH ×2 (06:07→17:54)
[2020-01-03] MEDS: busPIRone HCL 10 MG TABLET (FP) PO SCH ×3 (06:07→21:34)
[2020-01-03] MEDS: PHENobarbital 30 MG TABLET PO SCH ×2 (06:07→17:57)
[2020-01-03] MEDS: DIVALPROEX SODIUM 500 MG TABLET E.C. PO SCH ×2 (06:07→17:54)
[2020-01-03] MEDS ORDERED: PT OWN MED DRAWER 7, Y5N ONE (08:03)
[2020-01-03] MEDS: ALBUTEROL SO4 HFA INHALER IH PRN (09:45)
[2020-01-03] MEDS: LISINOPRIL 10 MG TABLET (FP) PO SCH (09:45)
[2020-01-03] MEDS: PRENATAL VITAMINS W/ FOLIC ACID TABLET (FP) PO SCH (09:45)
[2020-01-03] MEDS: SERTRALINE HCL 50 MG TABLET (FP) PO SCH (09:45)
[2020-01-03] MEDS: NAPROXEN 500 MG TABLET PO SCH ×2 (09:45→21:34)
[2020-01-03] MEDS: NICOTINE 21 MG/24 HOURS TOPICAL PATCH TD SCH (09:46)
[2020-01-03] MEDS: BUPRENORPHINE HCL/NALOXONE 12 MG-3 MG SL FILM PACKET SL SCH ×2 (09:47→21:36)
[2020-01-03] MEDS: MELATONIN 5 MG TABLETS PO PRN (21:34)
[2020-01-03] MEDS: THIAMINE HCL 100 MG TABLET (FP) PO SCH (21:34)
[2020-01-04] MEDS: busPIRone HCL 10 MG TABLET (FP) PO SCH ×3 (06:02→21:17)
[2020-01-04] MEDS: levETIRAcetam 500 MG TABLET (FP) PO SCH ×2 (06:02→17:35)
[2020-01-04] MEDS: PHENobarbital 30 MG TABLET PO SCH ×2 (06:02→17:35)
[2020-01-04] MEDS: DIVALPROEX SODIUM 500 MG TABLET E.C. PO SCH ×2 (06:02→17:35)
[2020-01-04] MEDS: PRENATAL VITAMINS W/ FOLIC ACID TABLET (FP) PO SCH (10:26)
[2020-01-04] MEDS: LISINOPRIL 10 MG TABLET (FP) PO SCH (10:26)
[2020-01-04] MEDS: NAPROXEN 500 MG TABLET PO SCH ×2 (10:26→21:17)
[2020-01-04] MEDS: SERTRALINE HCL 50 MG TABLET (FP) PO SCH (10:26)
[2020-01-04] MEDS: NICOTINE 21 MG/24 HOURS TOPICAL PATCH TD SCH (10:27)
[2020-01-04] MEDS: ALBUTEROL SO4 HFA INHALER IH PRN (10:30)
[2020-01-04] MEDS: BUPRENORPHINE HCL/NALOXONE 12 MG-3 MG SL FILM PACKET SL SCH ×2 (10:31→21:17)
[2020-01-04] MEDS: THIAMINE HCL 100 MG TABLET (FP) PO SCH (21:17)
[2020-01-04] MEDS: MELATONIN 5 MG TABLETS PO PRN (21:17)
[2020-01-05] MEDS: PHENobarbital 30 MG TABLET PO SCH ×2 (06:03→17:29)
[2020-01-05] MEDS: DIVALPROEX SODIUM 500 MG TABLET E.C. PO SCH ×2 (06:03→17:29)
[2020-01-05] MEDS: levETIRAcetam 500 MG TABLET (FP) PO SCH ×2 (06:03→17:29)
[2020-01-05] MEDS: busPIRone HCL 10 MG TABLET (FP) PO SCH ×3 (06:03→21:20)
[2020-01-05] MEDS: NAPROXEN 500 MG TABLET PO SCH ×2 (10:00→21:20)
[2020-01-05] MEDS: PRENATAL VITAMINS W/ FOLIC ACID TABLET (FP) PO SCH (10:00)
[2020-01-05] MEDS: LISINOPRIL 10 MG TABLET (FP) PO SCH (10:00)
[2020-01-05] MEDS: SERTRALINE HCL 50 MG TABLET (FP) PO SCH (10:00)
[2020-01-05] MEDS: BUPRENORPHINE HCL/NALOXONE 12 MG-3 MG SL FILM PACKET SL SCH ×2 (10:01→21:21)
[2020-01-05] MEDS: NICOTINE 21 MG/24 HOURS TOPICAL PATCH TD SCH (10:01)
[2020-01-05] MEDS: MELATONIN 5 MG TABLETS PO PRN (21:20)
[2020-01-05] MEDS: THIAMINE HCL 100 MG TABLET (FP) PO SCH (21:21)
[2020-01-06] MEDS: DIVALPROEX SODIUM 500 MG TABLET E.C. PO SCH ×2 (05:58→17:47)
[2020-01-06] MEDS: PHENobarbital 30 MG TABLET PO SCH ×2 (05:58→17:46)
[2020-01-06] MEDS: levETIRAcetam 500 MG TABLET (FP) PO SCH ×2 (05:58→17:46)
[2020-01-06] MEDS: busPIRone HCL 10 MG TABLET (FP) PO SCH ×3 (05:58→21:15)
[2020-01-06] MEDS: LISINOPRIL 10 MG TABLET (FP) PO SCH (09:30)
[2020-01-06] MEDS: PRENATAL VITAMINS W/ FOLIC ACID TABLET (FP) PO SCH (09:30)
[2020-01-06] MEDS: NAPROXEN 500 MG TABLET PO SCH ×2 (09:30→21:15)
[2020-01-06] MEDS: SERTRALINE HCL 50 MG TABLET (FP) PO SCH (09:30)
[2020-01-06] MEDS: NICOTINE 21 MG/24 HOURS TOPICAL PATCH TD SCH (09:30)
[2020-01-06] MEDS: BUPRENORPHINE HCL/NALOXONE 12 MG-3 MG SL FILM PACKET SL SCH ×2 (09:30→21:15)
[2020-01-06] MEDS: MELATONIN 5 MG TABLETS PO PRN (21:15)
[2020-01-06] MEDS: THIAMINE HCL 100 MG TABLET (FP) PO SCH (21:15)
[2020-01-07] MEDS: levETIRAcetam 500 MG TABLET (FP) PO SCH ×2 (06:07→18:50)
[2020-01-07] MEDS: DIVALPROEX SODIUM 500 MG TABLET E.C. PO SCH ×2 (06:07→18:49)
[2020-01-07] MEDS: PHENobarbital 30 MG TABLET PO SCH ×2 (06:07→18:50)
[2020-01-07] MEDS: busPIRone HCL 10 MG TABLET (FP) PO SCH ×3 (06:07→21:41)
[2020-01-07] MEDS ORDERED: COLLOIDAL OATMEAL 1 BAR EACH TP PRN (09:19)
[2020-01-07] MEDS: BUPRENORPHINE HCL/NALOXONE 12 MG-3 MG SL FILM PACKET SL SCH ×2 (10:30→18:50)
[2020-01-07] MEDS: PRENATAL VITAMINS W/ FOLIC ACID TABLET (FP) PO SCH (10:30)
[2020-01-07] MEDS: LISINOPRIL 10 MG TABLET (FP) PO SCH ×2 (10:31→10:40)
[2020-01-07] MEDS: SERTRALINE HCL 50 MG TABLET (FP) PO SCH (10:31)
[2020-01-07] MEDS: NAPROXEN 500 MG TABLET PO SCH ×2 (10:31→21:41)
[2020-01-07] MEDS: NICOTINE 21 MG/24 HOURS TOPICAL PATCH TD SCH (10:32)
[2020-01-07] MEDS: MELATONIN 5 MG TABLETS PO PRN (21:41)
[2020-01-07] MEDS: THIAMINE HCL 100 MG TABLET (FP) PO SCH (21:51)
[2020-01-08] MEDS: DIVALPROEX SODIUM 500 MG TABLET E.C. PO SCH ×2 (06:11→17:38)
[2020-01-08] MEDS: busPIRone HCL 10 MG TABLET (FP) PO SCH ×3 (06:11→21:18)
[2020-01-08] MEDS: levETIRAcetam 500 MG TABLET (FP) PO SCH ×2 (06:11→17:38)
[2020-01-08] MEDS: PHENobarbital 30 MG TABLET PO SCH ×2 (06:11→17:38)
[2020-01-08] MEDS: LISINOPRIL 10 MG TABLET (FP) PO SCH (10:00)
[2020-01-08] MEDS: NAPROXEN 500 MG TABLET PO SCH ×2 (10:00→21:18)
[2020-01-08] MEDS: PRENATAL VITAMINS W/ FOLIC ACID TABLET (FP) PO SCH (10:00)
[2020-01-08] MEDS: NICOTINE 21 MG/24 HOURS TOPICAL PATCH TD SCH (10:00)
[2020-01-08] MEDS: SERTRALINE HCL 50 MG TABLET (FP) PO SCH (10:01)
[2020-01-08] MEDS ORDERED: BUPRENORPHINE HCL/NALOXONE 12 MG-3 MG SL FILM PACKET SL ONE (10:56)
[2020-01-08] MEDS: BACITRACIN 15 GM TUBE TOPICAL OINTMENT TP SCH ×2 (11:58→21:18)
[2020-01-08] MEDS: BUPRENORPHINE HCL/NALOXONE 12 MG-3 MG SL FILM PACKET SL SCH (17:39)
[2020-01-08] MEDS: NICOTINE POLACRILEX 2 MG GUM BUC PRN (18:34)
[2020-01-08] MEDS: MELATONIN 5 MG TABLETS PO PRN (21:18)
[2020-01-08] MEDS: THIAMINE HCL 100 MG TABLET (FP) PO SCH (21:18)
[2020-01-08] MEDS ORDERED: BUPRENORPHINE HCL/NALOXONE 12 MG-3 MG SL FILM PACKET SL SCH (22:00)
[2020-01-09] MEDS: levETIRAcetam 500 MG TABLET (FP) PO SCH ×2 (06:06→18:16)
[2020-01-09] MEDS: BUPRENORPHINE HCL/NALOXONE 12 MG-3 MG SL FILM PACKET SL SCH ×2 (06:06→18:17)
[2020-01-09] MEDS: PHENobarbital 30 MG TABLET PO SCH ×2 (06:07→18:16)
[2020-01-09] MEDS: DIVALPROEX SODIUM 500 MG TABLET E.C. PO SCH ×2 (06:07→18:16)
[2020-01-09] MEDS: busPIRone HCL 10 MG TABLET (FP) PO SCH ×3 (06:07→21:22)
[2020-01-09] MEDS ORDERED: PT OWN MED DRAWER 7, Y5N ONE ×2 (09:13→21:24)
[2020-01-09] MEDS: NAPROXEN 500 MG TABLET PO SCH ×2 (10:33→21:22)
[2020-01-09] MEDS: BACITRACIN 15 GM TUBE TOPICAL OINTMENT TP SCH ×2 (10:33→21:24)
[2020-01-09] MEDS: PRENATAL VITAMINS W/ FOLIC ACID TABLET (FP) PO SCH (10:33)
[2020-01-09] MEDS: SERTRALINE HCL 50 MG TABLET (FP) PO SCH (10:34)
[2020-01-09] MEDS: NICOTINE 21 MG/24 HOURS TOPICAL PATCH TD SCH (10:34)
[2020-01-09] MEDS: LISINOPRIL 10 MG TABLET (FP) PO SCH (10:34)
[2020-01-09] MEDS: NICOTINE 7 MG/24 HOURS TOPICAL PATCH TD SCH (13:49)
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
[2020-01-09] MEDS: NICOTINE POLACRILEX 2 MG GUM BUC PRN ×2 (18:17→21:23)
[2020-01-09] MEDS: THIAMINE HCL 100 MG TABLET (FP) PO SCH (21:22)
[2020-01-09] MEDS: MELATONIN 5 MG TABLETS PO PRN (21:22)
[2020-01-10] MEDS: PHENobarbital 30 MG TABLET PO SCH ×2 (06:02→17:58)
[2020-01-10] MEDS: busPIRone HCL 10 MG TABLET (FP) PO SCH ×3 (06:02→21:15)
[2020-01-10] MEDS: levETIRAcetam 500 MG TABLET (FP) PO SCH ×2 (06:02→17:58)
[2020-01-10] MEDS: DIVALPROEX SODIUM 500 MG TABLET E.C. PO SCH ×2 (06:02→17:58)
[2020-01-10] MEDS: BUPRENORPHINE HCL/NALOXONE 12 MG-3 MG SL FILM PACKET SL SCH ×2 (06:04→17:58)
[2020-01-10] MEDS: BACITRACIN 15 GM TUBE TOPICAL OINTMENT TP SCH ×2 (10:07→21:15)
[2020-01-10] MEDS: PRENATAL VITAMINS W/ FOLIC ACID TABLET (FP) PO SCH (10:07)
[2020-01-10] MEDS: SERTRALINE HCL 50 MG TABLET (FP) PO SCH (10:07)
[2020-01-10] MEDS: NICOTINE POLACRILEX 2 MG GUM BUC PRN ×4 (10:08→21:16)
[2020-01-10] MEDS: LISINOPRIL 10 MG TABLET (FP) PO SCH (10:08)
[2020-01-10] MEDS: NAPROXEN 500 MG TABLET PO SCH ×2 (10:08→21:15)
[2020-01-10] MEDS: NICOTINE 7 MG/24 HOURS TOPICAL PATCH TD SCH (10:08)
[2020-01-10] MEDS: ALBUTEROL SO4 HFA INHALER IH PRN (10:10)
[2020-01-10] MEDS: MELATONIN 5 MG TABLETS PO PRN (21:15)
[2020-01-10] MEDS: THIAMINE HCL 100 MG TABLET (FP) PO SCH (21:16)
[2020-01-11] MEDS: DIVALPROEX SODIUM 500 MG TABLET E.C. PO SCH ×2 (06:07→17:36)
[2020-01-11] MEDS: levETIRAcetam 500 MG TABLET (FP) PO SCH ×2 (06:07→17:35)
[2020-01-11] MEDS: BUPRENORPHINE HCL/NALOXONE 12 MG-3 MG SL FILM PACKET SL SCH ×2 (06:07→17:36)
[2020-01-11] MEDS: PHENobarbital 30 MG TABLET PO SCH ×2 (06:07→17:35)
[2020-01-11] MEDS: busPIRone HCL 10 MG TABLET (FP) PO SCH ×3 (06:07→21:19)
[2020-01-11] MEDS: NICOTINE POLACRILEX 2 MG GUM BUC PRN ×2 (06:09→10:10)
[2020-01-11] MEDS: PRENATAL VITAMINS W/ FOLIC ACID TABLET (FP) PO SCH (10:07)
[2020-01-11] MEDS: NICOTINE 7 MG/24 HOURS TOPICAL PATCH TD SCH (10:07)
[2020-01-11] MEDS: SERTRALINE HCL 50 MG TABLET (FP) PO SCH (10:07)
[2020-01-11] MEDS: LISINOPRIL 10 MG TABLET (FP) PO SCH (10:08)
[2020-01-11] MEDS: NAPROXEN 500 MG TABLET PO SCH ×2 (10:10→21:19)
[2020-01-11] MEDS: BACITRACIN 15 GM TUBE TOPICAL OINTMENT TP SCH ×2 (10:11→21:19)
[2020-01-11] MEDS: MELATONIN 5 MG TABLETS PO PRN (21:19)
[2020-01-11] MEDS: THIAMINE HCL 100 MG TABLET (FP) PO SCH (21:19)
[2020-01-12] MEDS: BUPRENORPHINE HCL/NALOXONE 12 MG-3 MG SL FILM PACKET SL SCH ×2 (05:51→19:17)
[2020-01-12] MEDS: busPIRone HCL 10 MG TABLET (FP) PO SCH ×3 (05:51→23:52)
[2020-01-12] MEDS: DIVALPROEX SODIUM 500 MG TABLET E.C. PO SCH ×2 (05:51→19:15)
[2020-01-12] MEDS: PHENobarbital 30 MG TABLET PO SCH ×2 (05:51→19:15)
[2020-01-12] MEDS: levETIRAcetam 500 MG TABLET (FP) PO SCH ×2 (05:51→19:16)
[2020-01-12] MEDS: NICOTINE POLACRILEX 2 MG GUM BUC PRN ×4 (05:58→15:07)
[2020-01-12] MEDS: PRENATAL VITAMINS W/ FOLIC ACID TABLET (FP) PO SCH (09:46)
[2020-01-12] MEDS: NAPROXEN 500 MG TABLET PO SCH ×2 (09:47→23:53)
[2020-01-12] MEDS: LISINOPRIL 10 MG TABLET (FP) PO SCH (09:47)
[2020-01-12] MEDS: SERTRALINE HCL 50 MG TABLET (FP) PO SCH (09:47)
[2020-01-12] MEDS: NICOTINE 7 MG/24 HOURS TOPICAL PATCH TD SCH (09:47)
[2020-01-12] MEDS: BACITRACIN 15 GM TUBE TOPICAL OINTMENT TP SCH ×2 (09:48→23:52)
[2020-01-12] MEDS: ALBUTEROL SO4 HFA INHALER IH PRN ×2 (09:48→21:00)
[2020-01-12] MEDS ORDERED: ALBUTEROL SO4 2.5/IPRATROPIUM 0.5 INH SOL 3 ML VIAL.NEB. NEB ONE (21:16)
[2020-01-12 21:30] VITALS: BP 137/82; PULSE 67; TEMP 97.7
[2020-01-12] MEDS ORDERED: PT OWN MED DRAWER 7, Y5N ONE (21:30)
--- NOTE | 2020-01-12 22:04 | PN ---
S Progress Note Note: Patient w/ alcohol use disorder, in early remission. Opioid use disorder, on Suboxone. Patient rx'd w/ Keppra @ 1915; Phenobarb @ 1914, and Suboxone @ 1916 (See MAR) Laboratory Last Values Valproic Acid 60.1 ug/mL (50-100) 01/02/20 07:35 Levetiracetam 32.5 MCG/ML (10.0-40.0) 01/02/20 07:35 Phenobarbital 19 ug/mL (15-40) 01/02/20 07:35 HIV 1&2 Antibody Screen Negative 12/19/19 06:00 HIV P24 Antigen Negative 12/19/19 06:00 Vital Signs 01/12/20 20:55 Temperature 97.7 F Pulse Rate 67 Respiratory 16 Rate Blood Pressure 137/82 Albuterol MDI given @ 2104. Rapid response called, at 2109, to see patient who was experience severe SOB w/ reported seizure witnessed by RN. Patient states having "trouble breathing". Patient albino, respirations: 16 at 2054 to 18/ min at 2114, shallow and raspy. Pulse Ox = Initial 90% and increased to 95% and stabilized.. No diaphoresis. Lungs CTA. Patient started on 6 L O2 via re-breathing mask Narcan, 4 mg, intranasal w/o acute reaction given at 2113 Albuterol neb started at 2115. Patient responding to questions and states "I need more phenobarb. I'm having a petit-mal seizure". At no time did patient experience a LOC. EMS responded, assessed patient and transported to [facility] ED. Patient transported alert and responsive 2137.
[2020-01-12] MEDS: THIAMINE HCL 100 MG TABLET (FP) PO SCH (23:53)
== END 2020-01-12 21:43 | disposition short-term general hospital (02) | DRG 772 ==
LOC: YASAS 13:10 → Y3W 13:11
PROVIDERS: ADMIT Allergy & Immunology; ATTEND Allergy & Immunology
PROC: HZ42ZZZ Group Counseling for Substance Abuse Treatment, Cognitive-Behavioral (ICD-10-PCS; principal; 2019-12-18)
DX: F10.20 Alcohol dependence, uncomplicated (principal); F11.20 Opioid dependence, uncomplicated; F14.20 Cocaine dependence, uncomplicated; F17.210 Nicotine dependence, cigarettes, uncomplicated; F33.1 Major depressive disorder, recurrent, moderate; F41.9 Anxiety disorder, unspecified; E70.331 Hermansky-Pudlak syndrome; E70.30 Albinism, unspecified; I10 Essential (primary) hypertension; G47.00 Insomnia, unspecified; G40.909 Epilepsy, unspecified, not intractable, without status epilepticus; J45.909 Unspecified asthma, uncomplicated; M17.0 Bilateral primary osteoarthritis of knee; H54.61 Unqualified visual loss, right eye, normal vision left eye; M54.5 Low back pain; G89.29 Other chronic pain; Z86.73 Personal history of transient ischemic attack (TIA), and cerebral infarction without residual deficits; Z91.81 History of falling; Z99.89 Dependence on other enabling machines and devices; Z91.5 Personal history of self-harm; Z59.0 Homelessness; Z56.0 Unemployment, unspecified
CPT/HCPCS: 36415; 70260-TC-FY; 80164; 80177; 80184; 87389

== ENCOUNTER 2020-01-12 21:50 | Inpatient (IN) | payer OTHER ==
--- NOTE | 2020-01-12 22:09 | PDOC ---
History of Present Illness - General Stated Complaint: DIFF BREATHING Time Seen by Provider: 01/12/20 22:00 - History of Present Illness Initial Comments: 01/12/20 22:07 49 yo M PMH HTN, HLD, seizure disorder, albinism, asthma, chronic LLE pain, congenital legal blindness, BIBEMS from [facility] (undergoing rehab for alcohol and sniffing heroin, patient reports 34 days clean) for possible seizure and SOB. Initially, patient stated he had full memory of the shaking episode, and only complained of mild SOB and continued involuntary jerking. Before ROS could be determined, patient had full tonic clonic seizure. Past History - Past Medical History Allergies/Adverse Reactions: Allergies Allergy/AdvReac Type Severity Reaction Status Date / Time No Known Allergies Allergy Verified 12/14/19 20:36 Home Medications: Ambulatory Orders Buspirone HCl [Buspar -] 15 mg PO BID #60 tablet 03/09/18 Divalproex [Depakote -] 1,000 mg PO BID #60 tablet.ec 10/27/18 Multivitamin [Multiple Vitamins] 1 each PO DAILY #30 tablet 11/13/18 Buprenorphine/Naloxone [Suboxone 8Mg/2Mg Sl Film -] 2.5 film SL DAILY 10/24/19 Albuterol Sulfate Inhaler - [Ventolin HFA Inhaler -] 2 inh PO PRN PRN #1 inhaler 10/27/19 Lactulose 10 gm PO DAILY #1 bottle 10/27/19 Lisinopril [Zestril] 10 mg PO DAILY 12/14/19 Phenobarbital 64.8 mg PO BID MDD 2 12/14/19 levETIRAcetam [Keppra -] 1,000 mg PO BID 12/14/19 Anemia: No Asthma: No Cancer: No Cardiac Disorders: No CVA: Yes (february 2018) COPD: No CHF: No Dementia: No Diabetes: No GI Disorders: No Disorders: No HTN: No Hypercholesterolemia: No Kidney Stones: Yes Liver Disease: No Seizures: Yes Thyroid Disease: No - Surgical History Abdominal Surgery: No Appendectomy: No Cardiac Surgery: No Cholecystectomy: No Lung Surgery: No Neurologic Surgery: No Orthopedic Surgery: No - Reproductive History Testicular Surgery: No - Immunization History Immunization Up to Date: No (Unknown) - Psycho Social/Smoking Cessation Hx Smoking Status: Yes Smoking History: Current every day smoker Have you smoked in the past 12 months: Yes Number of Cigarettes Smoked Daily: 15 If you are a former smoker, when did you quit?: 1 year Cigars Per Day: 0 'Breaking Loose' booklet given: 12/14/19 Hx Alcohol Use: Yes Drug/Substance Use Hx: Yes Substance Use Type: Alcohol, Heroin Hx Substance Use Treatment: Yes Review of Systems - Review of Systems Comments:: 01/12/20 23:19 Unable to assess 2/2 tonic clonic seizure. *Physical Exam - Physical Exam 01/13/20 00:20 Physical exam prior to seizure Gen: well-developed, well-nourished, NAD Neuro: AAOX4, CN II-XII intact, FTN intact, EOMI, PERRLA, 5/5 strength, SILT. Scar above R eyebrow. HEENT: atraumatic, normocephalic, dry mucous membranes Neck: trachea midline, supple CV: regular rate, regular rhythm, no murmurs, rubs, or gallops Pulm: CTA b/l, no wheezing Abd: soft, non-distended, non-tender MSK: full ROM, intact pulses Extr: no edema, bandages around both knees Skin: warm, dry Procedures - Intubation Intubation Method: orotracheal Blade used: Mac Tube Size (Fr): 7.5 Medications: Etomidate, Rocuronium Tube position @ lip (cm): 23 Tube position confirmed by: Direct visualization, CO2 detector, Chest x-ray, Breath sounds Breath Sounds after Intubation: equal Intubation Complications: no complications Post Intubation Xray: Yes ED Treatment Course - LABORATORY CBC & Chemistry Diagram: 01/12/20 23:20 01/12/20 23:20 Medical Decision Making - Medical Decision Making 01/12/20 23:01 Patient intubated for airway protection. Concern for infectious etiology vs PE vs underlying seizure disorder. - CBC, CMP - EKG, trop - CXR - levetiracetam, valproic acid, phenobarb levels - Versed push - profofol drip - CTpe - CT head - CT abd/pelvis - admit 01/13/20 00:03 CXR reviewed, tube in place above the ana. EKG sinus tachycardia at 127 bpm. Patient admitted to ICU. 01/13/20 01:55 CT scanner crashed while scanning. CT head sent, CT abd/pelvis lost. CTpe is stuck in scanner, images cannot be sent until running again. Requires close follow up. Discharge - Discharge Information Problems reviewed: Yes Clinical Impression/Diagnosis: Seizure - Follow up/Referral - Patient Discharge Instructions - Post Discharge Activity
[2020-01-12] MEDS ORDERED: LORazepam 2 MG/ML SDV VIAL ONE (22:27)
[2020-01-12] MEDS ORDERED: ETOMIDATE 20 MG/10 ML AMPUL IVPUSH ONE ×2 (22:36→22:55)
[2020-01-12] MEDS ORDERED: MIDAZOLAM HCL 2 MG/2 ML SINGLE DOSE VIAL ONE (22:48)
[2020-01-12] MEDS ORDERED: PROPOFOL 1,000,000 MCG/100 ML VIAL ONE (22:49)
[2020-01-12] MEDS ORDERED: ROCURONIUM BROMIDE 50 MG/5 ML VIAL IV ONE (22:55)
[2020-01-12] MEDS ORDERED: PROPOFOL 1,000,000 MCG/100 ML VIAL IVPB SCH (23:00)
[2020-01-12] MEDS ORDERED: MIDAZOLAM HCL 10 MG/10 ML VIAL IVPUSH ONE (23:00)
[2020-01-12] MEDS ORDERED: MIDAZOLAM IN 0.9 % SOD.CHLORID 1 MG/1 ML PLAST..BAG ONE (23:14)
[2020-01-12] MEDS ORDERED: PROPOFOL 200 MG/20 ML VIAL IVPUSH ONE (23:15)
[2020-01-12] MEDS: MIDAZOLAM IN 0.9 % SOD.CHLORID 100 MG/100 ML PLAST..BAG IVPB SCH (23:20)
[2020-01-12 23:36] LABS: BASO % 2.2 % (0-2.0); EOS % 3.6 % (0-4.5); HEMATOCRIT 42.1 % (35.4-49); HEMOGLOBIN 14.3 GM/dL (11.7-16.9); MCH 33.4 pg (25.7-33.7); MCHC 33.9 g/dl (32.0-35.9); MEAN CELL VOLUME 98.4 fl (80-96); MEAN PLT VOLUME 10.1 fl (7.5-11.1); MONO % 11.9 % (3.8-10.2); NEUT % 60.3 % (42.8-82.8); PLATELET COUNT 196 K/MM3 (134-434); RBC 4.27 M/mm3 (4.00-5.60); RDW 13.5 % (11.9-15.9); WHITE BLOOD COUNT 11.5 K/mm3 (4.0-10.0)
--- NOTE | 2020-01-12 23:43 | PDOC ---
Documentation entered by [employer] SCRIBE, acting as scribe for Aidee Hamilton DO. Aidee Hamilton DO: This documentation has been prepared by the hardeep, [employer] SCRIBE, under my direction and personally reviewed by me in its entirety. I confirm that the documentation accurately reflects all work, treatment, procedures, and medical decision making performed by me. Attending Attestation - Resident Resident Name: Jose Mcgarry - ED Attending Attestation I have performed the following: I have examined & evaluated the patient, The case was reviewed & discussed with the resident, I agree w/resident's findings & plan - HPI HPI: 01/12/20 22:52 Patient is a 49 year old male with a significant past medical history of HTN, Bronchial asthma, seizure disorder, chronic low back pain, renal insufficiency stage 2, right eye blindness, hermansky-pudlak syndrome, arthritis, polysubstance and alcohol abuse, who presents to the ED [facility] for difficulty breathing and shaking. Pt is a poor historian. Patient actively began seizing with blood from the airway while in the ER. Allergies: NKDA - Physicial Exam PE: 01/12/20 22:52 Agree with resident exam. - Critical Care Time Total Critical Care Time: 90 Critical Care Statement: The care of this patient involved high complexity decision making to prevent further life threatening deterioration of the patient 's condition and/or to evaluate & treat vital organ system(s) failure or risk of failure. - Medical Decision Making 01/12/20 23:42 49-year-old male sent from rehab with shaking and complaints of shortness of breath While in the emergency department patient had a witnessed seizure with immediate bright red blood in the airway likely due to trauma Patient intubated secondary to airway compromise, combative behavior and need for imaging Patient intubated by the emergency department resident without incident, tube placement confirmed with end-tidal CO2 as well as imaging Plan for CT head, CTA chest and CT abdomen and pelvis with contrast We will admit to ICU for further management Versed as well as propofol given for sedation
[2020-01-12 23:47] LABS: INR 1.02 (0.83-1.09)
[2020-01-13] LABS: ALBUMIN 3.7 g/dl (3.4-5.0); ALK PHOS 113 U/L (45-117); ANION GAP 12 MMOL/L (8-16); BILIRUBIN,TOTAL 0.2 mg/dL (0.2-1); CALCIUM 8.1 mg/dL (8.5-10.1); CHLORIDE 109 mmol/L (98-107); CO2 21 mmol/L (21-32); GLUCOSE,RANDOM 92 mg/dL (74-106); POTASSIUM 3.8 mmol/L (3.5-5.1); SGOT/AST 21 U/L (15-37); SGPT/ALT 28 U/L (13-61); SODIUM 141 mmol/L (136-145); TOT PROT 6.8 g/dl (6.4-8.2)
--- NOTE | 2020-01-13 00:51 | PN ---
Teaching Attending Note Name of Resident: Marley Sage ATTENDING PHYSICIAN STATEMENT I saw and evaluated the patient. I reviewed the resident's note and discussed the case with the resident. I agree with the resident's findings and plan as documented. SUBJECTIVE: Patient is a 49 year old man with a PMH of HTN, HLD, Seizure disorder, Albinism , Asthma, Chronic LLE pain, Congenital legal blindness, Hermansky-Pudlak syndrome, Arthritis and Polysubstance abuse (alcohol, heroin) BIBEMS from [facility] for possible seizure and SOB. Initially, patient stated he had full memory of the shaking episode, and only complained of mild SOB and continued involuntary jerking. Before more information could be obtained in the ER patient had full tonic clonic seizure with blood from the airway. He was intubated for airway protection and started on Versed and Propofol drips. OBJECTIVE: Intubated and sedated Vital Signs Period Temp Pulse Resp BP Sys/Buitrago Pulse Ox Last 24 Hr 97.0 F 62-130 16-18 132/84 94-100 HEENT: No Jaundice, eye redness or discharge, PERRLA, Deformity above right eye due to trauma; Normocephalic, atraumatic. External ears are normal. No nasal discharge. Neck: Supple, nontender. No palpable adenopathy or thyromegaly. No JVD Chest: Good effort. Clear to auscultation and percussion. Heart: Regular. No S3, rub or murmur Abdomen: Not distended, soft, nontender and no HSM. No rebound or guarding. Normal bowel sounds. Ext: Peripheral pulses intact. Leg edema. Skin: Warm and dry. No petechiae, rash or ecchymosis. Neuro: Intubated and sedated. Psych: Unable to assess. Current Medications Generic Name Dose Route Start Last Admin Trade Name Freq PRN Reason Stop Dose Admin Propofol 1,000,000 mcg in 100 mls @ 2.626 mls/hr 01/12/20 23:00 Diprivan - IVPB TITR LISBETH Protocol 5 MCG/KG/MIN Midazolam HCl 100 mg in 100 mls @ 2 mls/hr 01/12/20 23:30 Midazolam 100mg/100ml-0.9%Nacl IVPB 01/13/20 23:29 TITR LISBETH Protocol 2 MG/HR Home Medications Medication Instructions Recorded Buspirone HCl [Buspar -] 15 mg PO BID #60 tablet 03/09/18 Divalproex [Depakote -] 1,000 mg PO BID #60 tablet.ec 10/27/18 Multivitamin [Multiple Vitamins] 1 each PO DAILY #30 tablet 11/13/18 Buprenorphine/Naloxone [Suboxone 2.5 film SL DAILY 10/24/19 8Mg/2Mg Sl Film -] Albuterol Sulfate Inhaler - 2 inh PO PRN PRN #1 inhaler 10/27/19 [Ventolin HFA Inhaler -] Lactulose 10 gm PO DAILY #1 bottle 10/27/19 Lisinopril [Zestril] 10 mg PO DAILY 12/14/19 Phenobarbital 64.8 mg PO BID MDD 2 12/14/19 levETIRAcetam [Keppra -] 1,000 mg PO BID 12/14/19 Abnormal Lab Results 01/12/20 01/12/20 23:20 23:20 WBC 11.5 H MCV 98.4 H Monocytes % 11.9 H Basophils % 2.2 H D Chloride 109 H BUN 26.0 H Calcium 8.1 L ASSESSMENT AND PLAN: 1. Seizure - No obvious precipitating factor. Unclear whether this is drug withdrawal or breakthrough seizure. Drug levels of anticonvulsant drugs pending. Continue Versed and Propofol. Reportedly got IV Keppra 1 gm at [facility]. Will continue Keppra, Depakote and Phenobarb. CXR shows cardiomegaly, poor inspiratory effort, unfolded aorta and hilar prominence. Leukocytosis likely due to stress - no other evidence of infection. No acute abnormality on head CT and official report of chest CTA is pending. Will continue comprehensive care for all of patients comorbid conditions. 2. Obesity Once he is stable, will corrections counselor him on the risks associated with obesity. Will provide patient all the necessary assistance, counseling and positive reinforcement to facilitate weight loss. Consult loom doffer. 3. Alcohol/Heroin abuse - Will monitor for signs of heroin withdrawal. Implement [facility] alcohol withdrawal protocol and do neurochecks. Implement seizure, fall and aspiration precautions. Treat with IV Banana bag, thiamine and folic acid. Monitor and replete electrolytes (Ca,Mg,K,P). Will corrections counselor patient about abstaining from alcohol and heroin. Will consult clinical rehabilitation specialist and refer to drug/alcohol detox upon discharge. 4. Hypertension - Restart suitable outpatient antihypertensive drugs when clinically appropriate. Revise regimen to ensure [id number] excellent BP control and corrections counselor patient on the injurious effects of uncontrolled hypertension. Nonpharmacologic measures to control hypertension like weight loss , salt restriction and exercise will be discussed when he is stable. Importance of adherence to treatment regimen and attainment of normotension will be emphasized. 5. DVT prophylaxis - Lovenox 40 mg SQ q 24 hours. 6. Advance directives - Full code
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
[2020-01-13 01:27] LABS: PH,URINE 6.5 (5.0-8.0); URINE APPEARANCE CLEAR; URINE BILIRUBIN NEGATIVE (NEGATIVE); URINE COLOR YELLOW; URINE GLUCOSE (UA) NEGATIVE (NEGATIVE); URINE KETONE NEGATIVE (NEGATIVE); URINE LEUK ESTERASE NEGATIVE (NEGATIVE); URINE NITRITE NEGATIVE (NEGATIVE); URINE PROTEIN NEGATIVE (NEGATIVE); URINE UROBILINOGEN 0.2 mg/dL (0.2-1.0)
[2020-01-13] MEDS: SODIUM CHLORIDE 1,000 ML IV SCH (02:00)
[2020-01-13] MEDS ORDERED: LORazepam 2 MG/ML SDV VIAL IVPUSH PRN (02:36)
[2020-01-13 03:07] LABS: ARTERIAL BLD GAS O2 SATURATION 98.4 % (95-98); ARTERIAL BLOOD GAS BASE EXCESS 0.6 meq/l (-2-2); ARTERIAL BLOOD GAS PCO2 45.6 mmHg (35-45); ARTERIAL BLOOD GAS PO2 145 mmHg (80-100); ARTERIAL BLOOD GAS pH 7.37 (7.35-7.45)
[2020-01-13 03:09] LABS: ALLENS TEST POSITIVE
--- NOTE | 2020-01-13 03:11 | HP ---
CHIEF COMPLAINT: acute seizure s/p intubation PCP: Unknown HISTORY OF PRESENT ILLNESS: 49M w/ pmhx of HTN, asthma, Hermansky-Pudlak Syndrome, Right eye blindness, CKD , seizure disorder(last sz was Nov 2019) polysubstance use disorder(EtOH, heorin , nicotine) presented to the ED from [facility] drug rehab. Pt had rapid response called in the facility for shortness of breath and witnessed seizure and was then sent to [facility] ED for further evaluation. Upon arrival to the ED, pt stated he remember the entire event, but unexpectedly then went into a generalized tonic-clonic seizure. Decision was made to protect the airway. Pt was intubated and sedated under Propofol and Versed. ER course was notable for: (1) WBC 11.5 --> 12.9, UA neg, Utox pending (2) CTA neg for PE, CTH showed nasal fractures (3) Recent Travel: Unable to obtain PAST MEDICAL HISTORY: As per HPI PAST SURGICAL HISTORY: Unable to obtain Social History: Unable to obtain Allergies No Known Allergies Allergy (Verified 12/14/19 20:36) HOME MEDICATIONS: Home Medications Medication Instructions Recorded Buspirone HCl [Buspar -] 15 mg PO BID #60 tablet 03/09/18 Divalproex [Depakote -] 1,000 mg PO BID #60 tablet.ec 10/27/18 Multivitamin [Multiple Vitamins] 1 each PO DAILY #30 tablet 11/13/18 Buprenorphine/Naloxone [Suboxone 2.5 film SL DAILY 10/24/19 8Mg/2Mg Sl Film -] Albuterol Sulfate Inhaler - 2 inh PO PRN PRN #1 inhaler 10/27/19 [Ventolin HFA Inhaler -] Lactulose 10 gm PO DAILY #1 bottle 10/27/19 Lisinopril [Zestril] 10 mg PO DAILY 12/14/19 Phenobarbital 64.8 mg PO BID MDD 2 12/14/19 levETIRAcetam [Keppra -] 1,000 mg PO BID 12/14/19 REVIEW OF SYSTEMS Unable to obtain as pt is intubated and sedated. PHYSICAL EXAMINATION Vital Signs - 24 hr 01/12/20 01/12/20 01/12/20 22:15 23:00 23:30 Temperature 97.0 F L Pulse Rate 62 130 H Pulse Rate [ 70 Right] Respiratory 18 16 17 Rate Blood Pressure 132/84 Blood Pressure 156/95 [Left Arm] O2 Sat by Pulse 94 L 100 100 Oximetry (%) 01/12/20 01/13/20 01/13/20 23:34 00:48 00:54 Temperature Pulse Rate Pulse Rate [ 70 72 Right] Respiratory 17 17 17 Rate Blood Pressure Blood Pressure 156/95 157/106 H [Left Arm] O2 Sat by Pulse 100 100 Oximetry (%) GENERAL: Intubated and sedated. Laying comfortably in bed. NAD. HEENT: AT/NC. EOMI. MMM. Scar seen on R eyebrow. NECK: Normal range of motion, supple without lymphadenopathy, JVD, or masses. LUNGS: CTA B/L. No wheezes, rales noted. Symmetric chest rise. Currently on A/C. HEART: RRR. Normal S1, S2. No murmurs noted. ABDOMEN: Soft, NT/ND. No rebound tenderness or guarding. MUSCULOSKELETAL: Normal range of motion at all joints. No bony deformities or tenderness. No CVA tenderness. EXTREMITIES: 2+ pitting edema noted. NEUROLOGICAL: Cranial nerves II-XII intact. Normal speech. Normal gait. Laboratory Results - last 24 hr 01/12/20 01/12/20 01/12/20 23:20 23:20 23:20 WBC 11.5 H RBC 4.27 Hgb 14.3 Hct 42.1 MCV 98.4 H MCH 33.4 MCHC 33.9 RDW 13.5 Plt Count 196 MPV 10.1 Absolute Neuts (auto) 6.9 Neutrophils % 60.3 Lymphocytes % 22.0 Monocytes % 11.9 H Eosinophils % 3.6 D Basophils % 2.2 H D Nucleated RBC % 0 PT with INR 12.00 INR 1.02 PTT (Actin FS) 32.0 Anticoagulation Therapy O2 Delivery Device Oxygen Flow Rate Vent Mode Vent Rate Mechanical Rate Pressure Support Vent Sodium 141 Potassium 3.8 Chloride 109 H Carbon Dioxide 21 Anion Gap 12 BUN 26.0 H Creatinine 1.0 Est GFR (CKD-EPI)AfAm 101.26 Est GFR (CKD-EPI)NonAf 87.37 Random Glucose 92 Calcium 8.1 L Total Bilirubin 0.2 AST 21 ALT 28 Alkaline Phosphatase 113 Creatine Kinase 62 Troponin I < 0.02 Total Protein 6.8 Albumin 3.7 Urine Color Urine Appearance Urine pH Ur Specific [place] Urine Protein Urine Glucose (UA) Urine Ketones Urine Blood Urine Nitrite Urine Bilirubin Urine Urobilinogen Ur Leukocyte Esterase Valproic Acid 01/12/20 01/13/20 01/13/20 23:20 01:16 03:00 WBC RBC Hgb Hct MCV MCH MCHC RDW Plt Count MPV Absolute Neuts (auto) Neutrophils % Lymphocytes % Monocytes % Eosinophils % Basophils % Nucleated RBC % PT with INR INR PTT (Actin FS) Anticoagulation Therapy No Result Required. O2 Delivery Device No Result Required. Oxygen Flow Rate No Result Required. Vent Mode No Result Required. Vent Rate No Result Required. Mechanical Rate No Result Required. Pressure Support Vent No Result Required. Sodium Potassium Chloride Carbon Dioxide Anion Gap BUN Creatinine Est GFR (CKD-EPI)AfAm Est GFR (CKD-EPI)NonAf Random Glucose Calcium Total Bilirubin AST ALT Alkaline Phosphatase Creatine Kinase Troponin I Total Protein Albumin Urine Color Yellow Urine Appearance Clear Urine pH 6.5 Ur Specific [place] 1.021 Urine Protein Negative Urine Glucose (UA) Negative Urine Ketones Negative Urine Blood Negative Urine Nitrite Negative Urine Bilirubin Negative Urine Urobilinogen 0.2 Ur Leukocyte Esterase Negative Valproic Acid 54.4 ASSESSMENT/PLAN: 49M w/ pmhx of HTN, asthma, Hermansky-Pudlak Syndrome, Right eye blindness, CKD , seizure disorder(last sz was Nov 2019) polysubstance use disorder(EtOH, heorin , nicotine) presented to the ED admitted for acute seizure with subsequent intubation due to acute respiratory distress. #Seizure Disorder; Witnessed generalized tonic-clonic seizure, requiring intubation for airway protection -At [facility], pt was given IV Keppra 1000 BID, Depakote 1000 BID, Phenobarbital 60 -At [facility], pt had witnessed generalized tonic-clonic seizure given IV Ativan x2 -CTA (prelim read) showed neg PE, b/l lower lobe consolidations (atelectasis vs. PNA) -Neuro consulted (Dr. Cervantes) -Folic acid 1 mg, Thiamine 200, Ativan 2 Q4H IVP PRN, Cont home meds: Depakote 1000 BID, Phenobarbital 64.8 mcg BID #Acute Respiratory Distress; 2/2 acute seizure. Stable on vent. -Intubated and sedated on Versed and Propofol gtt -Daily weaning trials #Polysubstance Abuse; Ethanol/Cocaine/Heroine. Stable, no current withdrawal symptoms. -Multivitamin, thiamine, folic acid Cont home meds: Suboxone 2.5 SL #HTN; Stable. Cont home meds: Lisinopril 10 #Depression; Cont home med: Buspar 10 #Prophylaxis DVT: Lovenox GI: Protonix 40 #FEN -NS @ 100 -recheck lytes in AM -NPO Dispo -admit to ICU Visit type - Emergency Visit Emergency Visit: Yes ED Registration Date: 01/12/20 Care time: The patient presented to the Emergency Department on the above date and was hospitalized for further evaluation of their emergent condition. - New Patient This patient is new to me today: Yes Date on this admission: 01/13/20 - Critical Care Critical Care patient: Yes Total Critical Care Time (in minutes): 45 Critical Care Statement: The care of this patient involved high complexity decision making to prevent further life threatening deterioration of the patient 's condition and/or to evaluate & treat vital organ system(s) failure or risk of failure. ATTENDING PHYSICIAN STATEMENT I saw and evaluated the patient. I reviewed the resident's note and discussed the case with the resident. I agree with the resident's findings and plan as documented. SUBJECTIVE: OBJECTIVE: ASSESSMENT AND PLAN:
[2020-01-13 03:58] LABS: BASO % 0.3 % (0-2.0); EOS % 2.2 % (0-4.5); HEMATOCRIT 35.1 % (35.4-49); HEMOGLOBIN 12.6 GM/dL (11.7-16.9); LYMPH % 7.5 % (8-40); MCHC 35.8 g/dl (32.0-35.9); MEAN CELL VOLUME 97.7 fl (80-96); MONO % 5.7 % (3.8-10.2); NEUT % 84.3 % (42.8-82.8); PLATELET COUNT 165 K/MM3 (134-434); RBC 3.59 M/mm3 (4.00-5.60); RDW 13.5 % (11.9-15.9); WHITE BLOOD COUNT 12.9 K/mm3 (4.0-10.0)
[2020-01-13 04:13] LABS: COCAINE, UR NEGATIVE ng/ml (CUTOFF=300); METHADONE, UR NEGATIVE ng/ml (CUTOFF=300); OPIATES, URI NEGATIVE ng/ml (CUTOFF=300); PHENCYCLIDINE,URINE NEGATIVE ng/ml (CUTOFF=25); URINE AMPHETAMINES NEGATIVE ng/ml (CUTOFF=500)
[2020-01-13 04:25] LABS: URINE BARBITURATES POSITIVE ng/ml (CUTOFF=200); URINE BENZODIAZEPINES POSITIVE ng/ml (CUTOFF=200)
[2020-01-13 04:37] VITALS: BMI 30.4
[2020-01-13] MEDS: MIDAZOLAM IN 0.9 % SOD.CHLORID 100 MG/100 ML PLAST..BAG IVPB SCH (07:39)
[2020-01-13] MEDS ORDERED: PT OWN MED DRAWER 7, Y5N ONE ×3 (08:50→21:54)
[2020-01-13 08:51] LABS: ANION GAP 5 MMOL/L (8-16); CHLORIDE 106 mmol/L (98-107); CO2 23 mmol/L (21-32); CREATININE 0.7 mg/dL (0.55-1.3); GLUCOSE,RANDOM 96 mg/dL (74-106); MAGNESIUM 1.8 mg/dL (1.8-2.4); PHOSPHOROUS 2.8 mg/dL (2.5-4.9); POTASSIUM 4.3 mmol/L (3.5-5.1); SODIUM 134 mmol/L (136-145)
[2020-01-13] MEDS: ENOXAPARIN NA (PORCINE) 40 MG/0.4 ML DISP.SYRIN SQ SCH (09:34)
[2020-01-13] MEDS: levETIRAcetam 500 MG TABLET (FP) PO SCH ×2 (09:36→21:51)
[2020-01-13] MEDS: busPIRone HCL 5 MG TABLET PO SCH ×2 (09:36→21:49)
[2020-01-13] MEDS: PHENobarbital 30 MG TABLET PO SCH ×2 (09:37→21:51)
[2020-01-13] MEDS: PANTOPRAZOLE 40 MG TABLET NR SCH (09:38)
[2020-01-13] MEDS: FOLIC ACID 1 MG TABLET (FP) NGT SCH (09:38)
[2020-01-13] MEDS: LISINOPRIL 10 MG TABLET (FP) PO SCH (09:38)
[2020-01-13] MEDS: MULTIVITAMINS (DAILY MVI) TABLET (FP) PO SCH (09:38)
[2020-01-13] MEDS: THIAMINE HCL 200 MG/2 ML VIAL IVPB SCH (09:39)
[2020-01-13] MEDS: DIVALPROEX SODIUM 500 MG TABLET E.C. PO SCH ×2 (09:42→22:03)
[2020-01-13] MEDS ORDERED: BUPRENORPHINE/NALOXONE 8 MG/2 MG FILM PACKET SL SCH ×2 (10:00→18:34)
[2020-01-13] MEDS ORDERED: PANTOPRAZOLE 40 MG TABLET PO SCH (10:00)
[2020-01-13] MEDS ORDERED: PATIENT'S OWN MEDICATION (NON-FORMULARY) (Phenobarbital [Phenobarbital] 64.8 MG) PO SCH (10:00)
--- NOTE | 2020-01-13 10:02 | CON.NEURO ---
Consult - Alcohol/Substance Use Hx Alcohol Use: Yes - Smoking History Smoking history: Current every day smoker Have you smoked in the past 12 months: Yes Aproximately how many cigarettes per day: 15 If you are a former smoker, when did you quit?: 1 year Home Medications - Allergies Allergies/Adverse Reactions: Allergies Allergy/AdvReac Type Severity Reaction Status Date / Time No Known Allergies Allergy Verified 01/13/20 03:53 - Home Medications Home Medications: Ambulatory Orders Buspirone HCl [Buspar -] 15 mg PO BID #60 tablet 03/09/18 Divalproex [Depakote -] 1,000 mg PO BID #60 tablet.ec 10/27/18 Multivitamin [Multiple Vitamins] 1 each PO DAILY #30 tablet 11/13/18 Buprenorphine/Naloxone [Suboxone 8Mg/2Mg Sl Film -] 2.5 film SL DAILY 10/24/19 Albuterol Sulfate Inhaler - [Ventolin HFA Inhaler -] 2 inh PO PRN PRN #1 inhaler 10/27/19 Lactulose 10 gm PO DAILY #1 bottle 10/27/19 Lisinopril [Zestril] 10 mg PO DAILY 12/14/19 Phenobarbital 64.8 mg PO BID MDD 2 12/14/19 levETIRAcetam [Keppra -] 1,000 mg PO BID 12/14/19 Physical Exam-Neuro Vital Signs: Vital Signs Temperature 98.5 F 01/13/20 06:00 Pulse Rate 74 01/13/20 06:00 Respiratory Rate 16 01/13/20 06:00 Blood Pressure 134/86 01/13/20 06:00 O2 Sat by Pulse Oximetry (%) 100 01/13/20 02:00 Labs: CBC, BMP 01/13/20 03:20 01/13/20 06:01 INR, PTT INR 1.02 (0.83-1.09) 01/12/20 23:20 Assessment/Plan cc Breakthrough seizure HPI 49 year old male history of HTN,Asthma, Right eye blindness, ckd, epilepsy ( last one nov 2019) and Polysubstance abuse ( etoh,heroin,nicotine). Patient has generlized tonic clonic seizure activity at [facility] and brought to hospital at [facility].A Patient was intubated for airway protection and now being considered for extubation and he is on three antiepileptic medication. No seizure since intubation. Teresa is waking up and still drowsy as sedation is being tapered off. I spent 35 minute doing critical care. PAST MEDICAL HISTORY: As per HPI PAST SURGICAL HISTORY: Unable to obtain Social History: Unable to obtain Allergies No Known Allergies Allergy (Verified 12/14/19 20:36) HOME MEDICATIONS: Home Medications Medication Instructions Recorded Buspirone HCl [Buspar -] 15 mg PO BID #60 tablet 03/09/18 Divalproex [Depakote -] 1,000 mg PO BID #60 tablet.ec 10/27/18 Multivitamin [Multiple Vitamins] 1 each PO DAILY #30 tablet 11/13/18 Buprenorphine/Naloxone [Suboxone 2.5 film SL DAILY 10/24/19 8Mg/2Mg Sl Film -] Albuterol Sulfate Inhaler - 2 inh PO PRN PRN #1 inhaler 10/27/19 [Ventolin HFA Inhaler -] Lactulose 10 gm PO DAILY #1 bottle 10/27/19 Lisinopril [Zestril] 10 mg PO DAILY 12/14/19 Phenobarbital 64.8 mg PO BID MDD 2 12/14/19 levETIRAcetam [Keppra -] 1,000 mg PO BID 12/14/19 ROS,FH,SH reviewed in chart NEUROLOGICAL EXAMINATION Alert oriented x 0 neck is supple pupils reactive , no face asymmetry moving all ext ct head is normal Assessment/Plan 49 year old male history of HTN,Asthma, Right eye blindness, ckd , epilepsy ( last one nov 2019) and Polysubstance abuse ( etoh,heroin,nicotine) came with breakthrough seizure, patient gypsy three aed Plan: advice to resume home medication adn he is on iv medication no seizure for now eeg will cotinue to follow Thanking you so much Jack Cervantes MD
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
--- NOTE | 2020-01-13 12:06 | EKG ---
Test Reason : Blood Pressure : / mmHG Vent. Rate : 127 BPM Atrial Rate : 127 BPM P-R Int : 132 ms QRS Dur : 104 ms QT Int : 314 ms P-R-T Axes : 052 068 -34 degrees QTc Int : 456 ms SINUS TACHYCARDIA CANNOT RULE OUT INFERIOR INFARCT , AGE UNDETERMINED ABNORMAL ECG WHEN COMPARED WITH ECG OF 24-OCT-2019 23:41, VENT. RATE HAS INCREASED BY [address] NOW DEPRESSED IN INFERIOR LEADS ST NOW DEPRESSED IN ANTEROLATERAL LEADS INVERTED T WAVES HAVE REPLACED NONSPECIFIC T WAVE ABNORMALITY IN INFERIOR LEADS Confirmed by ADIA OZUNA MD ([id number]) on 01/13/2020 12:05:55 PM Referred By: Confirmed By:ADIA OZUNA MD
--- NOTE | 2020-01-13 18:11 | PN ---
Progress Note (short form) - Note Progress Note: SUBJECTIVE: Extubated to O2 via Mask this AM. Doing well. OBJECTIVE: Afebrile, hemodynamically Stable. Last Vital Signs Temp Pulse Resp BP Pulse Ox 98.5 F 74 18 124/79 100 01/13/20 06:00 01/13/20 08:00 01/13/20 09:00 01/13/20 08:00 01/13/20 16:00 HEENT - Atraumatic, Normocephalic. Heart - S1, S2, RRR Lungs - good air entry bilaterally Abdomen - soft non-tender. Bowel Sounds normal. Extremities - no edema, no calf tenderness. Neuro - Drowsy but rousable. Tone/Power normal. Laboratory Results - last 24 hr 01/12/20 01/12/20 01/12/20 23:20 23:20 23:20 WBC 11.5 H RBC 4.27 Hgb 14.3 Hct 42.1 MCV 98.4 H MCH 33.4 MCHC 33.9 RDW 13.5 Plt Count 196 MPV 10.1 Absolute Neuts (auto) 6.9 Neutrophils % 60.3 Lymphocytes % 22.0 Monocytes % 11.9 H Eosinophils % 3.6 D Basophils % 2.2 H D Nucleated RBC % 0 PT with INR 12.00 INR 1.02 PTT (Actin FS) 32.0 Anticoagulation Therapy Puncture Site ABG pH ABG pCO2 at Pt Temp ABG pO2 at Pt Temp ABG HCO3 ABG O2 Sat (Measured) ABG O2 Content ABG Base Excess Berny Test O2 Delivery Device Oxygen Flow Rate Vent Mode Vent Rate Mechanical Rate PEEP Pressure Support Vent Sodium 141 Potassium 3.8 Chloride 109 H Carbon Dioxide 21 Anion Gap 12 BUN 26.0 H Creatinine 1.0 Est GFR (CKD-EPI)AfAm 101.26 Est GFR (CKD-EPI)NonAf 87.37 Random Glucose 92 Hemoglobin A1c % Calcium 8.1 L Phosphorus Magnesium Total Bilirubin 0.2 AST 21 ALT 28 Alkaline Phosphatase 113 Creatine Kinase 62 Troponin I < 0.02 Total Protein 6.8 Albumin 3.7 TSH Free T4 Urine Color Urine Appearance Urine pH Ur Specific Effort Urine Protein Urine Glucose (UA) Urine Ketones Urine Blood Urine Nitrite Urine Bilirubin Urine Urobilinogen Ur Leukocyte Esterase Opiates Screen Methadone Screen Barbiturate Screen Valproic Acid Phencyclidine Screen Ur Amphetamines Screen MDMA (Ecstasy) Screen Benzodiazepines Screen Cocaine Screen U Marijuana (THC) Screen 01/12/20 01/13/20 01/13/20 23:20 01:16 03:00 WBC RBC Hgb Hct MCV MCH MCHC RDW Plt Count MPV Absolute Neuts (auto) Neutrophils % Lymphocytes % Monocytes % Eosinophils % Basophils % Nucleated RBC % PT with INR INR PTT (Actin FS) Anticoagulation Therapy No Result Required. Puncture Site Right brachial ABG pH 7.37 ABG pCO2 at Pt Temp 45.6 H ABG pO2 at Pt Temp 145 H ABG HCO3 25.7 ABG O2 Sat (Measured) 98.4 H ABG O2 Content 17.5 ABG Base Excess 0.6 Berny Test Positive O2 Delivery Device Vent Oxygen Flow Rate Yes Vent Mode No Result Required. Vent Rate 14 Mechanical Rate No Result Required. PEEP 5.0 Pressure Support Vent No Result Required. Sodium Potassium Chloride Carbon Dioxide Anion Gap BUN Creatinine Est GFR (CKD-EPI)AfAm Est GFR (CKD-EPI)NonAf Random Glucose Hemoglobin A1c % Calcium Phosphorus Magnesium Total Bilirubin AST ALT Alkaline Phosphatase Creatine Kinase Troponin I Total Protein Albumin TSH Free T4 Urine Color Yellow Urine Appearance Clear Urine pH 6.5 Ur Specific Effort 1.021 Urine Protein Negative Urine Glucose (UA) Negative Urine Ketones Negative Urine Blood Negative Urine Nitrite Negative Urine Bilirubin Negative Urine Urobilinogen 0.2 Ur Leukocyte Esterase Negative Opiates Screen Methadone Screen Barbiturate Screen Valproic Acid 54.4 Phencyclidine Screen Ur Amphetamines Screen MDMA (Ecstasy) Screen Benzodiazepines Screen Cocaine Screen U Marijuana (THC) Screen 01/13/20 01/13/20 01/13/20 03:20 03:20 03:20 WBC 12.9 H RBC 3.59 L Hgb 12.6 Hct 35.1 L D MCV 97.7 H MCH 35.0 H MCHC 35.8 RDW 13.5 Plt Count 165 MPV 10.0 Absolute Neuts (auto) 10.9 H Neutrophils % 84.3 H D Lymphocytes % 7.5 L D Monocytes % 5.7 Eosinophils % 2.2 Basophils % 0.3 Nucleated RBC % 0 PT with INR INR PTT (Actin FS) Anticoagulation Therapy Puncture Site ABG pH ABG pCO2 at Pt Temp ABG pO2 at Pt Temp ABG HCO3 ABG O2 Sat (Measured) ABG O2 Content ABG Base Excess Berny Test O2 Delivery Device Oxygen Flow Rate Vent Mode Vent Rate Mechanical Rate PEEP Pressure Support Vent Sodium Potassium Chloride Carbon Dioxide Anion Gap BUN Creatinine Est GFR (CKD-EPI)AfAm Est GFR (CKD-EPI)NonAf Random Glucose Hemoglobin A1c % 4.6 Calcium Phosphorus Magnesium Total Bilirubin AST ALT Alkaline Phosphatase Creatine Kinase Troponin I Total Protein Albumin TSH Free T4 Urine Color Urine Appearance Urine pH Ur Specific Effort Urine Protein Urine Glucose (UA) Urine Ketones Urine Blood Urine Nitrite Urine Bilirubin Urine Urobilinogen Ur Leukocyte Esterase Opiates Screen Negative Methadone Screen Negative Barbiturate Screen Positive A* Valproic Acid Phencyclidine Screen Negative Ur Amphetamines Screen Negative MDMA (Ecstasy) Screen Negative Benzodiazepines Screen Positive A* Cocaine Screen Negative U Marijuana (THC) Screen Negative 01/13/20 01/13/20 05:45 06:01 WBC RBC Hgb Hct MCV MCH MCHC RDW Plt Count MPV Absolute Neuts (auto) Neutrophils % Lymphocytes % Monocytes % Eosinophils % Basophils % Nucleated RBC % PT with INR INR PTT (Actin FS) Anticoagulation Therapy Puncture Site ABG pH ABG pCO2 at Pt Temp ABG pO2 at Pt Temp ABG HCO3 ABG O2 Sat (Measured) ABG O2 Content ABG Base Excess Berny Test O2 Delivery Device Oxygen Flow Rate Vent Mode Vent Rate Mechanical Rate PEEP Pressure Support Vent Sodium Cancelled 134 L Potassium Cancelled 4.3 Chloride Cancelled 106 Carbon Dioxide Cancelled 23 Anion Gap Cancelled 5 L BUN Cancelled 20.0 H Creatinine Cancelled 0.7 Est GFR (CKD-EPI)AfAm Cancelled 127.53 Est GFR (CKD-EPI)NonAf Cancelled 110.04 Random Glucose Cancelled 96 Hemoglobin A1c % Calcium Cancelled TNP Phosphorus Cancelled 2.8 Magnesium Cancelled 1.8 Total Bilirubin AST ALT Alkaline Phosphatase Creatine Kinase Troponin I Total Protein Albumin TSH Cancelled 8.01 H D Free T4 1.20 H Urine Color Urine Appearance Urine pH Ur Specific Effort Urine Protein Urine Glucose (UA) Urine Ketones Urine Blood Urine Nitrite Urine Bilirubin Urine Urobilinogen Ur Leukocyte Esterase Opiates Screen Methadone Screen Barbiturate Screen Valproic Acid Phencyclidine Screen Ur Amphetamines Screen MDMA (Ecstasy) Screen Benzodiazepines Screen Cocaine Screen U Marijuana (THC) Screen Current Medications Generic Name Dose Route Start Last Admin Trade Name Freq PRN Reason Stop Dose Admin Buprenorphine/Naloxone 1 each 01/13/20 10:00 01/13/20 09:35 Suboxone 8 Mg/2 Mg Film Packet SL 1 each BID LISBETH Administration Buspirone HCl 15 mg 01/13/20 10:00 01/13/20 09:36 Buspar - PO 15 mg BID LISBETH Administration Chlorhexidine Gluconate 1 applic 01/13/20 22:00 Hibiclens For Decolonization - TP HS LISBETH Divalproex Sodium 1,000 mg 01/13/20 10:00 01/13/20 09:42 Depakote - PO Not Given BID LISBETH Enoxaparin Sodium 40 mg 01/13/20 10:00 01/13/20 09:34 Lovenox - SQ 40 mg DAILY LISBETH Administration Folic Acid 1 mg 01/13/20 10:00 01/13/20 09:38 Folic Acid - NGT 1 mg DAILY [facility] Administration Propofol 1,000,000 mcg in 100 mls @ 2.626 mls/hr 01/12/20 23:00 01/13/20 02: 45 Diprivan - IVPB 40 mcg/kg/min TITR LISBETH 21.01 mls/hr Titration Protocol 5 MCG/KG/MIN Midazolam HCl 100 mg in 100 mls @ 2 mls/hr 01/12/20 23:30 01/13/20 07:39 Midazolam 100mg/100ml-0.9%Nacl IVPB 01/13/20 23:29 8 mg/hr TITR LISBETH 8 mls/hr Administration Protocol 2 MG/HR Sodium Chloride 1,000 mls @ 100 mls/hr 01/13/20 02:30 01/13/20 02:00 Normal Saline - IV 100 mls/hr ASDIR LISBETH Administration Influenza Virus Vaccine Quadrival 60 mcg 01/13/20 22:00 Flulaval Quad [id number] IM 01/13/20 22:01 .ONCE ONE Levetiracetam 1,000 mg 01/13/20 10:00 01/13/20 09:36 Keppra - PO 1,000 mg BID LISBETH Administration Lisinopril 10 mg 01/13/20 10:00 01/13/20 09:38 Prinivil PO 10 mg DAILY LISBETH Administration Lorazepam 2 mg 01/13/20 02:36 Ativan Injection - IVPUSH Q4H PRN WITHDRAWAL(CONT SUBST) Multivitamins/Minerals/Vitamin C 1 tab 01/13/20 10:00 01/13/20 09:38 Tab-A-Vit - PO 1 tab DAILY LISBETH Administration Mupirocin 1 applic 01/13/20 10:00 Bactroban Ointment (For Decolonization) - NS 01/18/20 09:59 BID LISBETH Pantoprazole Sodium 40 mg 01/13/20 10:00 01/13/20 09:38 Protonix - NR 40 mg DAILY LISBETH Administration Phenobarbital 60 mg 01/13/20 10:00 01/13/20 09:37 Phenobarbital - PO 60 mg BID LISBETH Administration Thiamine HCl 200 mg 01/13/20 10:00 01/13/20 09:39 Vitamin B1 Injection - IVPB 200 mg DAILY LISBETH Administration Home Medications Medication Instructions Recorded Buspirone HCl [Buspar -] 15 mg PO BID #60 tablet 03/09/18 Divalproex [Depakote -] 1,000 mg PO BID #60 tablet.ec 10/27/18 Multivitamin [Multiple Vitamins] 1 each PO DAILY #30 tablet 11/13/18 Buprenorphine/Naloxone [Suboxone 2.5 film SL DAILY 10/24/19 8Mg/2Mg Sl Film -] Albuterol Sulfate Inhaler - 2 inh PO PRN PRN #1 inhaler 10/27/19 [Ventolin HFA Inhaler -] Lactulose 10 gm PO DAILY #1 bottle 10/27/19 Lisinopril [Zestril] 10 mg PO DAILY 12/14/19 Phenobarbital 64.8 mg PO BID MDD 2 12/14/19 levETIRAcetam [Keppra -] 1,000 mg PO BID 12/14/19 ASSESSMENT/PLAN: 49 year old male with history of HTN, Asthma, Hermansky-Pudlak Syndrome, Right eye blindness, CKD 3, Seizure Disorder, Polysubstance Use (Alcohol, Heroin, Nicotine), Depression (Hx suicide attempt), presented [facility] ED from [facility] due to seizure episode, with another tonic-clonic seizure witnessed in ED requiring Ativan x 2 and intubation for airway protection. 1. Acute Respiratory Failure secondary to Status Epilepticus s/p Extubation this AM - breathing spontaneously Continue Depakote, Phenobarbital, Keppra. Neurology following Ativan PRN EEG 2. Polysubstance Abuse (Alcohol, Heroin, Nicotine) No evidence of withdrawal currently. Will monitor for alcohol withdrawal Continue Suboxone. MVI, thiamine, Flic Acid. Addiction Medicine consult. 3. HTN - resume Lisinopril. 4. Hx of Depression - Continue Buspar 5. Elevated TSH/free T4 - TSH 8.01/fT4 1.2 - For out-patient repeat of Thyroid function once acute episode resolves and Endocrinology follow up. DVT Px - Lovenox SQ. Visit type - Emergency Visit Emergency Visit: Yes ED Registration Date: 01/12/20 Care time: The patient presented to the Emergency Department on the above date and was hospitalized for further evaluation of their emergent condition. - New Patient This patient is new to me today: Yes Date on this admission: 01/14/20 - Critical Care Critical Care patient: Yes Total Critical Care Time (in minutes): 40 Critical Care Statement: The care of this patient involved high complexity decision making to prevent further life threatening deterioration of the patient 's condition and/or to evaluate & treat vital organ system(s) failure or risk of failure.
[2020-01-13] MEDS ORDERED: BUPRENORPHINE/NALOXONE 2 MG/0.5 MG FILM PACKET SL ONE (19:00)
[2020-01-13] MEDS: MUPIROCIN 2% TOPICAL OINTMENT FOR DECOLONIZATION NS SCH ×2 (21:33→22:03)
[2020-01-13] MEDS ORDERED: FLU VACCINE QUAD 60 MCG/0.5 ML (MDV 19-20) IM ONE (22:00)
[2020-01-13] MEDS ORDERED: CHLORHEXIDINE GLUCONATE 4% CLEANSER FOR DECOLONIZATION TP SCH (22:00)
[2020-01-14] MEDS: SODIUM CHLORIDE 1,000 ML IV SCH (05:37)
[2020-01-14] MEDS: BUPRENORPHINE/NALOXONE 8 MG/2 MG FILM PACKET SL SCH ×3 (05:37→17:56)
[2020-01-14 05:56] LABS: HEMATOCRIT 31.8 % (35.4-49); HEMOGLOBIN 11.1 GM/dL (11.7-16.9); MCH 33.9 pg (25.7-33.7); MCHC 35.1 g/dl (32.0-35.9); MEAN CELL VOLUME 96.7 fl (80-96); MEAN PLT VOLUME 9.5 fl (7.5-11.1); PLATELET COUNT 151 K/MM3 (134-434); RBC 3.29 M/mm3 (4.00-5.60); RDW 13.1 % (11.9-15.9); WHITE BLOOD COUNT 10.1 K/mm3 (4.0-10.0)
[2020-01-14 06:39] LABS: ALBUMIN 2.5 g/dl (3.4-5.0); BILIRUBIN,TOTAL 0.4 mg/dL (0.2-1); CALCIUM 7.5 mg/dL (8.5-10.1); CREATININE 0.6 mg/dL (0.55-1.3); MAGNESIUM 1.9 mg/dL (1.8-2.4); PHOSPHOROUS 3.5 mg/dL (2.5-4.9); POTASSIUM 3.7 mmol/L (3.5-5.1); TOT PROT 5.2 g/dl (6.4-8.2)
[2020-01-14 07:41] VITALS: TEMP 98.5
[2020-01-14] MEDS ORDERED: PT OWN MED DRAWER 7, Y5N ONE ×2 (08:29→09:21)
[2020-01-14] MEDS: levETIRAcetam 500 MG TABLET (FP) PO SCH ×2 (09:54→10:56)
[2020-01-14] MEDS: busPIRone HCL 5 MG TABLET PO SCH (09:54)
[2020-01-14] MEDS: PHENobarbital 30 MG TABLET PO SCH ×2 (09:54→10:56)
--- NOTE | 2020-01-14 09:59 | PN ---
Progress Note (short form) - Note Progress Note: 49 year old male history of HTN,Asthma, Right eye blindness, ckd, epilepsy ( last one nov 2019) and Polysubstance abuse ( etoh,heroin,nicotine). Patient has generlized tonic clonic seizure activity at [facility] and [facility] Patient was intubated for airway protection and now being considered for extubation and he is on three antiepileptic medication. No seizure since intubation. Patinet is waking up and still drowsy as sedation is being tapered off. I spent 35 minute doing critical care. Patient is doing better, and eating breakfast and talking over the phone, no new seizure since january 12 NEUROLOGICAL EXAMINATION Alert oriented x 3 neck is supple pupils reactive , no face asymmetry moving all ext ct head is normal Assessment/Plan 49 year old male history of HTN,Asthma, Right eye blindness, ckd , epilepsy ( last one nov 2019) and Polysubstance abuse ( etoh,heroin,nicotine) came with breakthrough seizure,Patient is on Three AED. Plan: Continue keppra , phenobarb and depakote at current dose eeg will cotinue to follow Thanking you so much Jack Cervantes MD
[2020-01-14] MEDS: DIVALPROEX SODIUM 500 MG TABLET E.C. PO SCH ×2 (10:06→11:07)
[2020-01-14] MEDS: THIAMINE HCL 200 MG/2 ML VIAL IVPB SCH (10:52)
[2020-01-14] MEDS: ENOXAPARIN NA (PORCINE) 40 MG/0.4 ML DISP.SYRIN SQ SCH (10:52)
[2020-01-14] MEDS: PANTOPRAZOLE 40 MG TABLET NR SCH (10:53)
[2020-01-14] MEDS: FOLIC ACID 1 MG TABLET (FP) NGT SCH (10:55)
[2020-01-14] MEDS: MULTIVITAMINS (DAILY MVI) TABLET (FP) PO SCH (10:55)
[2020-01-14] MEDS: MUPIROCIN 2% TOPICAL OINTMENT FOR DECOLONIZATION NS SCH (10:56)
[2020-01-14] MEDS: LISINOPRIL 10 MG TABLET (FP) PO SCH (10:57)
--- NOTE | 2020-01-14 13:09 | PN ---
Teaching Attending Note Name of Resident: Anupam Somers ATTENDING PHYSICIAN STATEMENT I saw and evaluated the patient. I reviewed the resident's note and discussed the case with the resident. I agree with the resident's findings and plan as documented. SUBJECTIVE: Pt seen and examined in the ICU. Extubated yesterday without incident. No further seizures. OBJECTIVE: Vital Signs Period Temp Pulse Resp BP Sys/Buitrago Pulse Ox Last 24 Hr 98 F-98.7 F 61-82 13-24 109-126/61-103 100-100 Intake & Output 01/11/20 01/12/20 01/13/20 01/14/20 23:59 23:59 23:59 23:59 Intake Total 2046 2000 Output Total 3100 1500 Balance -1054 500 Weight 87.543 kg 87.997 kg 87.997 kg Gen: NAD at rest Heart: RRR Lung: decreased breath sounds at the bases Abd: soft, nontender Ext: no edema CBC, BMP 01/14/20 05:10 01/14/20 05:10 Active Medications Buprenorphine/Naloxone (Suboxone 8 Mg/2 Mg Film Packet) 1 each SL TID@0600,1200 ,1800 [facility] Last Admin: 01/14/20 12:02 Dose: 1 each Buspirone HCl (Buspar -) 15 mg PO BID [facility] Last Admin: 01/14/20 09:54 Dose: 15 mg Chlorhexidine Gluconate (Hibiclens For Decolonization -) 1 applic TP HS [facility] Last Admin: 01/13/20 22:03 Dose: 1 applic Divalproex Sodium (Depakote -) 1,000 mg PO BID [facility] Last Admin: 01/14/20 11:07 Dose: Not Given Enoxaparin Sodium (Lovenox -) 40 mg SQ DAILY [facility] Last Admin: 01/14/20 10:52 Dose: 40 mg Folic Acid (Folic Acid -) 1 mg NGT DAILY [facility] Last Admin: 01/14/20 10:55 Dose: 1 mg Propofol (Diprivan -) 1,000,000 mcg in 100 mls @ 2.626 mls/hr IVPB TITR [facility]; Protocol Last Titration: 01/13/20 02:45 Dose: 40 mcg/kg/min, 21.01 mls/hr Sodium Chloride (Normal Saline -) 1,000 mls @ 100 mls/hr IV ASDIR [facility] Last Admin: 01/14/20 05:37 Dose: Not Given Levetiracetam (Keppra -) 1,000 mg PO BID [facility] Last Admin: 01/14/20 10:56 Dose: Not Given Lisinopril (Prinivil) 10 mg PO DAILY [facility] Last Admin: 01/14/20 10:57 Dose: 10 mg Lorazepam (Ativan Injection -) 2 mg IVPUSH Q4H PRN PRN Reason: WITHDRAWAL(CONT SUBST) Multivitamins/Minerals/Vitamin C (Tab-A-Vit -) 1 tab PO DAILY [facility] Last Admin: 01/14/20 10:55 Dose: 1 tab Mupirocin (Bactroban Ointment (For Decolonization) -) 1 applic NS BID [facility] Stop: 01/18/20 09:59 Last Admin: 01/14/20 10:56 Dose: 1 applic Pantoprazole Sodium (Protonix -) 40 mg NR DAILY [facility] Last Admin: 01/14/20 10:53 Dose: 40 mg Phenobarbital (Phenobarbital -) 60 mg PO BID [facility] Last Admin: 01/14/20 10:56 Dose: Not Given Thiamine HCl (Vitamin B1 Injection -) 200 mg IVPB DAILY [facility] Last Admin: 01/14/20 10:52 Dose: 200 mg ASSESSMENT AND PLAN: s/p Acute Respiratory Failure Seizure Polysubstance Abuse HTN Asthma Hermansky-Pudlak Syndrome Right eye blindness CKD - continue antiepileptics - monitor levels - seizure precautions - PO as tolerated - inhaled bronchodilators - O2 to keep Spo2 >90% - DVT prophylaxis - can monitor on floor
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
--- NOTE | 2020-01-14 15:51 | PN ---
Teaching Attending Note Name of Resident: Jhonny Hairston ATTENDING PHYSICIAN STATEMENT I saw and evaluated the patient. I reviewed the resident's note and discussed the case with the resident. I agree with the resident's findings and plan as documented. SUBJECTIVE: Extubated 01/13/20. Doing well. No complaints. OBJECTIVE: Afebrile, hemodynamically Stable. AAO x 3. Albino. Last Vital Signs Temp Pulse Resp BP Pulse Ox 98.5 F 66 20 127/74 100 01/14/20 10:00 01/14/20 12:00 01/14/20 12:00 01/14/20 12:01/14/20 09:00 HEENT - Atraumatic, Normocephalic. Strabismus. Heart - S1, S2, RRR Lungs - good air entry bilaterally Abdomen - soft non-tender. Bowel Sounds normal. Extremities - no edema, no calf tenderness. Neuro - AAO x 3. Mild decrease in power L extremities. Laboratory Results - last 24 hr 01/13/20 01/14/20 01/14/20 20:30 00:38 05:10 WBC 10.1 H RBC 3.29 L Hgb 11.1 L Hct 31.8 L MCV 96.7 H MCH 33.9 H MCHC 35.1 RDW 13.1 Plt Count 151 MPV 9.5 Sodium Potassium Chloride Carbon Dioxide Anion Gap BUN Creatinine Est GFR (CKD-EPI)AfAm Est GFR (CKD-EPI)NonAf POC Glucometer 103 112 Random Glucose Calcium Phosphorus Magnesium Total Bilirubin AST ALT Alkaline Phosphatase Total Protein Albumin 01/14/20 01/14/20 05:10 11:21 WBC RBC Hgb Hct MCV MCH MCHC RDW Plt Count MPV Sodium 143 Potassium 3.7 Chloride 112 H Carbon Dioxide 27 Anion Gap 4 L BUN 15.0 Creatinine 0.6 Est GFR (CKD-EPI)AfAm 135.87 Est GFR (CKD-EPI)NonAf 117.23 POC Glucometer 110 Random Glucose 106 Calcium 7.5 L Phosphorus 3.5 Magnesium 1.9 Total Bilirubin 0.4 AST 9 L ALT 19 Alkaline Phosphatase 76 Total Protein 5.2 L Albumin 2.5 L Current Medications Generic Name Dose Route Start Last Admin Trade Name Freq PRN Reason Stop Dose Admin Buprenorphine/Naloxone 1 each 01/14/20 06:00 01/14/20 12:02 Suboxone 8 Mg/2 Mg Film Packet SL 1 each TID@0600,1200,1800 LISBETH Administration Buspirone HCl 15 mg 01/13/20 10:00 01/14/20 09:54 Buspar - PO 15 mg BID LISBETH Administration Chlorhexidine Gluconate 1 applic 01/13/20 22:00 01/13/20 22:03 Hibiclens For Decolonization - TP 1 applic HS LISBETH Administration Divalproex Sodium 1,000 mg 01/14/20 09:00 01/14/20 11:07 Depakote - PO Not Given BID LISBTEH Enoxaparin Sodium 40 mg 01/13/20 10:00 01/14/20 10:52 Lovenox - SQ 40 mg DAILY LISBETH Administration Folic Acid 1 mg 01/13/20 10:00 01/14/20 10:55 Folic Acid - NGT 1 mg DAILY LISBETH Administration Sodium Chloride 1,000 mls @ 100 mls/hr 01/13/20 02:30 01/14/20 05:37 Normal Saline - IV Not Given ASDIR LISBETH Levetiracetam 1,000 mg 01/14/20 09:00 01/14/20 10:56 Keppra - PO Not Given BID LISBETH Lisinopril 10 mg 01/13/20 10:00 01/14/20 10:57 Prinivil PO 10 mg DAILY LISBETH Administration Lorazepam 2 mg 01/13/20 02:36 Ativan Injection - IVPUSH Q4H PRN WITHDRAWAL(CONT SUBST) Multivitamins/Minerals/Vitamin C 1 tab 01/13/20 10:00 01/14/20 10:55 Tab-A-Vit - PO 1 tab DAILY LISBETH Administration Mupirocin 1 applic 01/13/20 10:00 01/14/20 10:56 Bactroban Ointment (For Decolonization) - NS 01/18/20 09:59 1 applic BID LISBETH Administration Pantoprazole Sodium 40 mg 01/13/20 10:00 01/14/20 10:53 Protonix - NR 40 mg DAILY LISBETH Administration Phenobarbital 60 mg 01/14/20 09:00 01/14/20 10:56 Phenobarbital - PO Not Given BID LISBETH Thiamine HCl 200 mg 01/13/20 10:00 01/14/20 10:52 Vitamin B1 Injection - IVPB 200 mg DAILY LISBETH Administration Home Medications Medication Instructions Recorded Buspirone HCl [Buspar -] 15 mg PO BID #60 tablet 03/09/18 Divalproex [Depakote -] 1,000 mg PO BID #60 tablet.ec 10/27/18 Multivitamin [Multiple Vitamins] 1 each PO DAILY #30 tablet 11/13/18 Buprenorphine/Naloxone [Suboxone 2.5 film SL DAILY 10/24/19 8Mg/2Mg Sl Film -] Albuterol Sulfate Inhaler - 2 inh PO PRN PRN #1 inhaler 10/27/19 [Ventolin HFA Inhaler -] Lactulose 10 gm PO DAILY #1 bottle 10/27/19 Lisinopril [Zestril] 10 mg PO DAILY 12/14/19 Phenobarbital 64.8 mg PO BID MDD 2 12/14/19 levETIRAcetam [Keppra -] 1,000 mg PO BID 12/14/19 Folic Acid - 1 mg NGT DAILY #30 tablet 01/14/20 Pantoprazole Sodium [Protonix -] 40 mg PO DAILY #30 tablet.ec 01/14/20 ASSESSMENT/PLAN: 49 year old male with history of HTN, Asthma, Hermansky-Pudlak Syndrome, Right eye blindness, CKD 3, Seizure Disorder, Polysubstance Use (Alcohol, Heroin, Nicotine), Depression (Hx suicide attempt), presented to ED from [facility] due to seizure episode, with another tonic-clonic seizure witnessed in ED requiring Ativan x 2 and intubation for airway protection. 1. Acute Respiratory Failure secondary to ?Status Epilepticus s/p Extubation 01/13/20 - breathing spontaneously and comfortably Continue Depakote, Phenobarbital, Keppra as per Neuro. Neurology recommends continuing above meds, EEG and out-patient follow up. 2. Polysubstance Abuse (Alcohol, Heroin, Nicotine) No evidence of withdrawal currently. He was resident at [facility] rehab and completed 28 days prior to current episode. No evidence of withdrawals. Continue Suboxone. MVI, thiamine, Flic Acid. For out-patient Addiction support services PT and discharge once cleared. 3. HTN - resume Lisinopril. 4. Hx of Depression - Continue Buspar 5. Elevated TSH/free T4 - TSH 8.01/fT4 1.2 - For out-patient repeat of Thyroid function once acute episode resolves and Endocrinology follow up. Medically/Neurologically stable for discharge.
--- NOTE | 2020-01-14 17:05 | DS ---
Physical Exam: SUBJECTIVE: Patient seen and examined. No fevers or overnight events reported. No c/o or issues. Denies f/c/n/v/d/sob OBJECTIVE: Vital Signs Period Temp Pulse Resp BP Sys/Buitrago Pulse Ox Last 24 Hr 98 F-98.7 F 61-82 13-24 109-127/61-103 100-100 PHYSICAL EXAM GENERAL: The patient is awake, alert, and fully oriented, in no acute distress. White hair, pale white skin, hx of albinism EYES: PERRL, extraocular movements intact, sclera anicteric, severe Amblyopia ENT: moist mucous membranes. NECK: Trachea midline, full range of motion, supple. LUNGS: Breath sounds equal, clear to auscultation bilaterally, no wheezes, no crackles, HEART: Regular rate and rhythm, S1, S2 without murmur, rub or gallop. ABDOMEN: Soft, nontender, nondistended, normoactive bowel sounds, no guarding, no rebound EXTREMITIES: 2+ pulses, warm, well-perfused, no edema. NEUROLOGICAL: Normal speech, gait not observed. SKIN: Warm, dry, normal turgor, LABS Laboratory Results - last 24 hr 01/13/20 01/14/20 01/14/20 20:30 00:38 05:10 WBC 10.1 H RBC 3.29 L Hgb 11.1 L Hct 31.8 L MCV 96.7 H MCH 33.9 H MCHC 35.1 RDW 13.1 Plt Count 151 MPV 9.5 Sodium Potassium Chloride Carbon Dioxide Anion Gap BUN Creatinine Est GFR (CKD-EPI)AfAm Est GFR (CKD-EPI)NonAf POC Glucometer 103 112 Random Glucose Calcium Phosphorus Magnesium Total Bilirubin AST ALT Alkaline Phosphatase Total Protein Albumin 01/14/20 01/14/20 05:10 11:21 WBC RBC Hgb Hct MCV MCH MCHC RDW Plt Count MPV Sodium 143 Potassium 3.7 Chloride 112 H Carbon Dioxide 27 Anion Gap 4 L BUN 15.0 Creatinine 0.6 Est GFR (CKD-EPI)AfAm 135.87 Est GFR (CKD-EPI)NonAf 117.23 POC Glucometer 110 Random Glucose 106 Calcium 7.5 L Phosphorus 3.5 Magnesium 1.9 Total Bilirubin 0.4 AST 9 L ALT 19 Alkaline Phosphatase 76 Total Protein 5.2 L Albumin 2.5 L Home Medications Medication Instructions Recorded Buspirone HCl [Buspar -] 15 mg PO BID #60 tablet 03/09/18 Multivitamin [Multiple Vitamins] 1 each PO DAILY #30 tablet 11/13/18 Buprenorphine/Naloxone [Suboxone 2.5 film SL DAILY 10/24/19 8Mg/2Mg Sl Film -] Albuterol Sulfate Inhaler - 2 inh PO PRN PRN #1 inhaler 10/27/19 [Ventolin HFA Inhaler -] Lactulose 10 gm PO DAILY #1 bottle 10/27/19 Lisinopril [Zestril] 10 mg PO DAILY 12/14/19 Buspirone HCl [Buspar -] 15 mg PO BID tablet 01/14/20 Divalproex [Depakote -] 1,000 mg PO BID #60 tablet.ec 01/14/20 Folic Acid - 1 mg NGT DAILY #30 tablet 01/14/20 Pantoprazole Sodium [Protonix -] 40 mg PO DAILY #30 tablet.ec 01/14/20 Phenobarbital 64.8 mg PO BID #60 tablet MDD 129.6 01/14/20 levETIRAcetam [Keppra -] 1,000 mg PO BID #60 tablet 01/14/20 Home Medications Medication Instructions Recorded Buspirone HCl [Buspar -] 15 mg PO BID #60 tablet 03/09/18 Multivitamin [Multiple Vitamins] 1 each PO DAILY #30 tablet 11/13/18 Buprenorphine/Naloxone [Suboxone 2.5 film SL DAILY 10/24/19 8Mg/2Mg Sl Film -] Albuterol Sulfate Inhaler - 2 inh PO PRN PRN #1 inhaler 10/27/19 [Ventolin HFA Inhaler -] Lactulose 10 gm PO DAILY #1 bottle 10/27/19 Lisinopril [Zestril] 10 mg PO DAILY 12/14/19 Buspirone HCl [Buspar -] 15 mg PO BID tablet 01/14/20 Divalproex [Depakote -] 1,000 mg PO BID #60 tablet.ec 01/14/20 Folic Acid - 1 mg NGT DAILY #30 tablet 01/14/20 Pantoprazole Sodium [Protonix -] 40 mg PO DAILY #30 tablet.ec 01/14/20 Phenobarbital 64.8 mg PO BID #60 tablet MDD 129.6 01/14/20 levETIRAcetam [Keppra -] 1,000 mg PO BID #60 tablet 01/14/20 HOSPITAL COURSE: Date of Admission:01/12/20 49 y/o PMH HTN, Asthma, Hermansky-Pudlak Syndrome, Right eye blindness, CKD 3, Seizure Disorder, Polysubstance Use (Alcohol, Heroin, Nicotine), Depression (Hx suicide attempt), brought to the ED from for a seizure episode, w/ a tonic- clonic seizure witnessed in ED requiring intubation for airway protection is admitted for Acute Respiratory Failure secondary to Status Epilepticus. Pt was transfered to the ICU and monitored overnight. Pt was extubated the next day with no further seizures. Neurology was consulted and recommended to continue his current home regimen of Depakote, Phenobarbital, Keppra, as he was already on multi-drug therapy. Due to pt's hx of polysubstance abuse he was given suboxone in the hospital once verified at [facility], along with MVI, thiamine, Folic Acid and Addiction Medicine consulted. Pt was found to have Elevated TSH/free T4 - TSH 8.01/fT4 1.2 and was recom out-patient repeat of Thyroid function once acute episode resolves and Endocrinology follow up. Pt was discharged home, as he completed his detox- his last drink 1 month ago, w/ MVI, folic acid and thiamine, along with referral to Dr. Cervantes/neuro. EKG(01/12/20): sinus tachy, QTc 456 CXR(01/12/20): neg CTA: no pericardial effusion, no AA, no infiltrates, no acute PE, small b/l pleural effusions head CT: no acute bleed or fracture, indeterminate age of nasal bone fracture Date of Discharge: 01/14/20 Minutes to complete discharge: 40 Discharge Summary Problems reviewed: Yes Reason For Visit: SEIZURE Current Active Problems Seizure (Acute) Condition: Improved - Instructions Diet, Activity, Other Instructions: You were seen in the hospital after having a seizure. In the hospital, you had a generalized seizure requiring intubation in order to protect your airway. You were managed in the ICU overnight and found to remain stable. After close monitoring, you were successfully extubated and your breathing remained stable. Throughout your hospital stay, your symptoms improved. You were seen by a neurologist who recommended continuing your current anti-seizure medications. You are now stable for discharge home. Medications We have made the following changes to your medication regimen: Please START taking Folic acid 1 mg once a day by mouth Please START taking Protonix 40 mg once a day by mouth. Please continue taking all of your home medications, including your anti-seizure medications as directed. Follow Up Please follow up with your primary care physician within 1 week. If you do not have one, you may make an appointment at [facility]. Please follow up with your neurologist, Dr. Cervantes, within 1 week. Additionally, your lab work showed abnormal thyroid function levels. You will need repeat blood work to assess your thyroid. Please follow up with an hospital ward clerk for outpatient evaluation. If you do not have one, you may make an appointment to see Dr. Naveen Meraz. If you experience persistent seizures, worsening shortness of breath, chest pain, difficulty breathing or other associated symptoms, please proceed to your nearest emergency room immediately. Referrals: [facility] [place] [facility] [place] [Provider Group] - 1 Week Jack Cervantes MD [Staff Physician] - 1 Week Naveen Meraz MD [Staff Physician] - 1 Week Claudio Zelaya DO [Staff Physician] - 1 Week Disposition: HOME - Home Medications Comprehensive Discharge Medication List: Ambulatory Orders Buspirone HCl [Buspar -] 15 mg PO BID #60 tablet 03/09/18 Divalproex [Depakote -] 1,000 mg PO BID #60 tablet.ec 10/27/18 Multivitamin [Multiple Vitamins] 1 each PO DAILY #30 tablet 11/13/18 Buprenorphine/Naloxone [Suboxone 8Mg/2Mg Sl Film -] 2.5 film SL DAILY 10/24/19 Albuterol Sulfate Inhaler - [Ventolin HFA Inhaler -] 2 inh PO PRN PRN #1 inhaler 10/27/19 Lactulose 10 gm PO DAILY #1 bottle 10/27/19 Lisinopril [Zestril] 10 mg PO DAILY 12/14/19 Phenobarbital 64.8 mg PO BID MDD 2 12/14/19 levETIRAcetam [Keppra -] 1,000 mg PO BID 12/14/19 Folic Acid - 1 mg NGT DAILY #30 tablet 01/14/20 Pantoprazole Sodium [Protonix -] 40 mg PO DAILY #30 tablet.ec 01/14/20 This patient is new to me today: Yes Date on this admission: 01/15/20 Emergency Visit: Yes ED Registration Date: 01/12/20 Care time: The patient presented to the Emergency Department on the above date and was hospitalized for further evaluation of their emergent condition. Critical Care patient: No - Discharge Referral Referred to [facility] No ATTENDING PHYSICIAN STATEMENT I saw and evaluated the patient. I reviewed the resident's note and discussed the case with the resident. I agree with the resident's findings and plan as documented. SUBJECTIVE: OBJECTIVE: ASSESSMENT AND PLAN:
[2020-01-14 18:24] VITALS: BP 122/85; PULSE 63
== END 2020-01-14 18:01 | disposition home or self-care (01) | DRG 53 ==
LOC: JER 21:50 → JERBED 23:22 → JICU 01-13 02:01
PROVIDERS: ADMIT Internal Medicine
PROC: 0CHY7BZ Insertion of Airway into Mouth and Throat, Via Natural or Artificial Opening (ICD-10-PCS; principal; 2020-01-12)
PROC: 5A1935Z Respiratory Ventilation, Less than 24 Consecutive Hours (ICD-10-PCS; 2020-01-12)
DX: G40.909 Epilepsy, unspecified, not intractable, without status epilepticus (principal); J96.00 Acute respiratory failure, unspecified whether with hypoxia or hypercapnia; I10 Essential (primary) hypertension; E78.5 Hyperlipidemia, unspecified; J45.909 Unspecified asthma, uncomplicated; H54.8 Legal blindness, as defined in USA; F17.210 Nicotine dependence, cigarettes, uncomplicated; F32.9 Major depressive disorder, single episode, unspecified; J98.11 Atelectasis; E70.30 Albinism, unspecified; E70.331 Hermansky-Pudlak syndrome; M54.5 Low back pain; M79.662 Pain in left lower leg; R00.0 Tachycardia, unspecified; I13.10 Hypertensive heart and chronic kidney disease without heart failure, with stage 1 through stage 4 chronic kidney disease, or unspecified chronic kidney disease; N18.3 Chronic kidney disease, stage 3 (moderate); F19.10 Other psychoactive substance abuse, uncomplicated; F10.10 Alcohol abuse, uncomplicated; E66.9 Obesity, unspecified; Z68.30 Body mass index [BMI] 30.0-30.9, adult; Z86.73 Personal history of transient ischemic attack (TIA), and cerebral infarction without residual deficits
CPT/HCPCS: 36415; 36600; 70450-TC; 71045-TC-FY; 71275-TC; 74177-TC; 80048; 80053; 80164; 80177; 80184; 80307; 81003; 82550; 82803; 82962; 83036; 83735; 84100; 84439; 84443; 84484; 85025; 85027; 85610; 85730; 87086; 93005; 93010; 95816; 97116-GP; 97161-GP; 99285-25; G0008; J7030; Q2036; Q9967

== ENCOUNTER 2023-05-27 18:10 | Emergency (ER) | payer OTHER ==
[2023-05-27 18:33] VITALS: PULSE 60; RESP 18; TEMP 97.5; BMI 49.0
[2023-05-27] MEDS ORDERED: SODIUM CHLORIDE 500 ML IV STA (19:26)
[2023-05-27 21:18] LABS: CHLORIDE 106 mmol/L (98-107); POTASSIUM 3.8 mmol/L (3.5-5.1); SODIUM 144 mmol/L (136-145)
[2023-05-27 21:20] LABS: ANION GAP 5 MMOL/L (8-16); BLOOD UREA NITROGEN 20.6 mg/dL (7-18); CALCIUM 8.8 mg/dL (8.5-10.1); CO2 33 mmol/L (21-32)
[2023-05-27 21:21] LABS: ALBUMIN 2.8 g/dl (3.4-5.0); GLUCOSE,RANDOM 98 mg/dL (74-106); LIPASE 119 U/L (73-393)
[2023-05-27 21:23] LABS: CREATININE 0.9 mg/dL (0.55-1.3); SGOT/AST 15 U/L (15-37); SGPT/ALT 17 U/L (13-61)
[2023-05-27 21:24] LABS: BASO % 0.4 % (0-2.0); EOS % 3.1 % (0-4.5); HEMATOCRIT 37.4 % (35.4-49); HEMOGLOBIN 12.3 GM/dL (11.7-16.9); MCH 32.8 pg (25.7-33.7); MEAN CELL VOLUME 99.4 fl (80-96); MEAN PLT VOLUME 10.6 fl (7.5-11.1); MONO % 13.3 % (3.8-10.2); NEUT % 51.2 % (42.8-82.8); PLATELET COUNT 190 10^3/uL (134-434); RBC 3.76 M/mm3 (4.00-5.60); WHITE BLOOD COUNT 5.4 K/mm3 (4.0-10.0)
[2023-05-27 21:25] LABS: BILIRUBIN,TOTAL 0.2 mg/dL (0.2-1); TOT PROT 5.9 g/dl (6.4-8.2)
[2023-05-27 21:26] LABS: ALK PHOS 153 U/L (45-117)
[2023-05-27] MEDS ORDERED: SODIUM CHLORIDE 1,000 ML IV STA (21:31)
[2023-05-28] MEDS ORDERED: levETIRAcetam 500 MG TABLET (FP) PO ONE ×2 (01:25→01:28)
[2023-05-28] MEDS ORDERED: DIVALPROEX SODIUM 500 MG TABLET E.C. PO ONE (01:25)
[2023-05-28] MEDS ORDERED: DIVALPROEX SODIUM 250 MG TABLET E.C. ONE (01:28)
[2023-05-28] MEDS ORDERED: METHYLNALTREXONE BROMIDE 8 MG/0.4 ML SYRINGE SQ ONE (01:53)
[2023-05-28] MEDS ORDERED: ACETAMINOPHEN 1000 MG/100 ML BAG IVPB ONE (02:21)
[2023-05-28 03:24] LABS: PH,URINE 7.5 (5.0-8.0); URINE APPEARANCE CLEAR; URINE BILIRUBIN NEGATIVE (NEGATIVE); URINE COLOR YELLOW; URINE GLUCOSE (UA) NEGATIVE (NEGATIVE); URINE KETONE NEGATIVE (NEGATIVE); URINE LEUK ESTERASE NEGATIVE (NEGATIVE); URINE NITRITE NEGATIVE (NEGATIVE); URINE PROTEIN NEGATIVE (NEGATIVE)
[2023-05-28 03:49] VITALS: BP 129/88
== END 2023-05-28 04:09 | disposition home or self-care (01) ==
LOC: JER 18:10
PROC: 3E0337Z Introduction of Electrolytic and Water Balance Substance into Peripheral Vein, Percutaneous Approach (ICD-10-PCS; principal; 2023-05-27)
PROC: 3E0337Z Introduction of Electrolytic and Water Balance Substance into Peripheral Vein, Percutaneous Approach (ICD-10-PCS; 2023-05-27)
PROC: 3E0337Z Introduction of Electrolytic and Water Balance Substance into Peripheral Vein, Percutaneous Approach (ICD-10-PCS; 2023-05-27)
DX: R10.31 Right lower quadrant pain (principal); F11.10 Opioid abuse, uncomplicated; R11.0 Nausea
CPT/HCPCS: 36415; 71046-TC-FY; 74177-TC; 80053; 80307; 81003; 82272; 82550; 82962; 83690; 84484; 85025; 85730; 86850; 86900; 86901; 87086; 93005; 93010; 99285-25; Q9967

== ENCOUNTER 2024-08-27 22:14 | Inpatient (IN) | payer OTHER ==
[2024-08-27] MEDS ORDERED: MIDAZOLAM HCL 5 MG/1 ML Single Dose Vial ONE (23:40)
[2024-08-27] MEDS: MIDAZOLAM HCL 5 MG/1 ML Single Dose Vial IVPUSH ONE (23:44)
[2024-08-27 23:46] LABS: BASO % 0.3 % (0-2.0); HEMATOCRIT 45.3 % (35.4-49); HEMOGLOBIN 15.1 GM/dL (11.7-16.9); LYMPH % 3.8 % (8-40); MCH 30.9 pg (25.7-33.7); MCHC 33.4 g/dl (32.0-35.9); MEAN CELL VOLUME 92.4 fl (80-96); MEAN PLT VOLUME 9.6 fl (7.5-11.1); MONO % 5.9 % (3.8-10.2); PLATELET COUNT 230 10^3/uL (134-434); RDW 14.5 % (11.9-15.9); WHITE BLOOD COUNT 15.1 K/mm3 (4.0-10.0)
[2024-08-28 00:08] LABS: CHLORIDE 114 mmol/L (98-107); POTASSIUM 3.7 mmol/L (3.5-5.1); SODIUM 143 mmol/L (136-145)
[2024-08-28 00:10] LABS: ALBUMIN 3.6 g/dl (3.4-5.0); ANION GAP 7 mmol/L (4-13); BLOOD UREA NITROGEN 15.9 mg/dL (7-18); CALCIUM 9.2 mg/dL (8.5-10.1); CO2 22 mmol/L (21-32); GLUCOSE,RANDOM 101 mg/dL (74-106)
[2024-08-28 00:13] LABS: CREATININE 0.9 mg/dL (0.55-1.3); SGOT/AST 22 U/L (15-37); SGPT/ALT 23 U/L (13-61)
[2024-08-28 00:15] LABS: BILIRUBIN,TOTAL 0.4 mg/dL (0.2-1); TOT PROT 7.1 g/dl (6.4-8.2)
[2024-08-28 00:16] LABS: ALK PHOS 153 U/L (45-117)
[2024-08-28] MEDS ORDERED: levETIRAcetam 500 MG/5 ML INJECTION VIAL IVPB ONE (00:42)
[2024-08-28] MEDS: levETIRAcetam 500 MG/5 ML INJECTION VIAL IVPB ONE (00:53)
[2024-08-28] MEDS ORDERED: MIDAZOLAM HCL 5 MG/1 ML Single Dose Vial ONE (00:54)
[2024-08-28] MEDS: MIDAZOLAM HCL 5 MG/1 ML Single Dose Vial IVPUSH ONE (00:58)
[2024-08-28] MEDS ORDERED: diazePAM CARPU-JECT 10 MG/2 ML DISP.SYRIN ONE (01:38)
[2024-08-28] MEDS: diazePAM CARPU-JECT 10 MG/2 ML DISP.SYRIN IVPUSH ONE (01:43)
[2024-08-28 01:47] LABS: EPI CELLS >36 /uL (0-25.1); HYALINE CASTS 3 /uL (0-3.1); URINE APPEARANCE CLEAR; URINE BACTERIA 25 /uL (0-1359); URINE BILIRUBIN NEGATIVE (NEGATIVE); URINE COLOR YELLOW; URINE GLUCOSE (UA) NEGATIVE (NEGATIVE); URINE KETONE 1+ (NEGATIVE); URINE LEUK ESTERASE NEGATIVE (NEGATIVE); URINE NITRITE NEGATIVE (NEGATIVE); URINE PROTEIN 1+ (NEGATIVE); URINE UROBILINOGEN 0.2 mg/dL (0.2-1.0); URINE WBC 46 /uL (0-25.8)
[2024-08-28 01:53] LABS: METHADONE, UR NEGATIVE (NEGATIVE); OPIATES, URI NEGATIVE (NEGATIVE); PHENCYCLIDINE,URINE NEGATIVE (NEGATIVE)
[2024-08-28 01:55] LABS: COCAINE, UR POSITIVE (NEGATIVE); URINE AMPHETAMINES NEGATIVE (NEGATIVE); URINE BARBITURATES POSITIVE (NEGATIVE); URINE BENZODIAZEPINES POSITIVE (NEGATIVE)
[2024-08-28] MEDS ORDERED: ONDANSETRON 4 MG/2 ML VIAL IVPUSH PRN (02:07)
[2024-08-28] MEDS ORDERED: ALBUTEROL SO4 2.5/IPRATROPIUM 0.5 INH SOL 3 ML VIAL.NEB. NEB PRN (02:38)
[2024-08-28] MEDS ORDERED: PHENobarbital SODIUM 65 MG/1 ML VIAL IVPUSH PRN ×2 (02:46→15:24)
[2024-08-28] MEDS ORDERED: PHENobarbital SODIUM 130 MG/1 ML VIAL IVPUSH PRN (02:46)
[2024-08-28] MEDS: DEXMEDETOMIDINE PREMIX 400 MCG/100 ML BAG IVPB SCH (02:47)
[2024-08-28] MEDS: PHENobarbital SODIUM 65 MG/1 ML VIAL IVPUSH ONE (02:48)
[2024-08-28] MEDS: THIAMINE HCL 200 MG/2 ML VIAL IVPB SCH (03:08)
[2024-08-28] MEDS: PHENobarbital SODIUM 65 MG/1 ML VIAL IVPUSH PRN ×2 (03:49→05:22)
[2024-08-28 07:52] LABS: URINE RBC 64.1 /uL (0-23.9)
[2024-08-28 08:48] VITALS: BMI 24.1
[2024-08-28] MEDS: PANTOPRAZOLE SODIUM 40 MG VIAL IVPUSH SCH (09:00)
[2024-08-28] MEDS: levETIRAcetam 500 MG/5 ML INJECTION VIAL IVPB SCH (09:00)
[2024-08-28] MEDS: FOLIC ACID 1 MG TABLET (FP) PO SCH (09:01)
[2024-08-28] MEDS: MUPIROCIN 2% TOPICAL OINTMENT FOR DECOLONIZATION NS SCH (09:01)
[2024-08-28] MEDS: HEPARIN NA (PORCINE) 5,000 UNITS/ML 1ML VIAL SQ SCH (09:01)
[2024-08-28] MEDS ORDERED: VALPROATE SODIUM 500 MG/5 ML VIAL IVPB SCH (10:00)
[2024-08-28] MEDS: VALPROATE SODIUM INJECTION 500 MG in SODIUM CHLORIDE 100 ML IVPB SCH (11:41)
[2024-08-28] MEDS: AMPICILLIN NA/SULBACTAM NA 1.5 GM in SODIUM CHLORIDE 100 ML IVPB SCH ×2 (14:33→15:58)
[2024-08-28] MEDS: CHLORHEXIDINE GLUCONATE 4% CLEANSER FOR DECOLONIZATION TP SCH (21:25)
[2024-08-29 06:09] LABS: HEMATOCRIT 47.3 % (35.4-49); HEMOGLOBIN 15.9 GM/dL (11.7-16.9); MCH 31.5 pg (25.7-33.7); MCHC 33.7 g/dl (32.0-35.9); MEAN CELL VOLUME 93.6 fl (80-96); MEAN PLT VOLUME 10.4 fl (7.5-11.1); PLATELET COUNT 221 10^3/uL (134-434); RBC 5.05 M/mm3 (4.00-5.60); RDW 14.5 % (11.9-15.9)
[2024-08-29 06:12] LABS: INR 1.13 (0.83-1.09); PROTHROMBIN TIME (PATIENT) 12.9 SEC (9.7-13.0)
[2024-08-29 06:26] LABS: POTASSIUM 3.5 mmol/L (3.5-5.1)
[2024-08-29 06:27] LABS: WHITE BLOOD COUNT 12.8 K/mm3 (4.0-10.0)
[2024-08-29 06:32] LABS: CALCIUM 8.6 mg/dL (8.5-10.1)
[2024-08-29 06:33] LABS: BLOOD UREA NITROGEN 12.4 mg/dL (7-18); MAGNESIUM 1.8 mg/dL (1.8-2.4)
[2024-08-29 06:36] LABS: CREATININE 0.9 mg/dL (0.55-1.3); PHOSPHOROUS 2.6 mg/dL (2.5-4.9)
[2024-08-29] MEDS: PHENobarbital 30 MG TABLET PO SCH (09:08)
[2024-08-29] MEDS: LISINOPRIL 10 MG TABLET PO SCH (09:08)
[2024-08-29 09:49] LABS: ANISOCYTOSIS 2+; MACROCYTOSIS 2+; TARGET CELLS 0; TEAR DROP CELLS 1+
[2024-08-29] MEDS ORDERED: INSULIN ASPART SLIDING SCALE (NOVOLOG) 1 VIAL SQ ONE (11:30)
[2024-08-29] MEDS: ACETAMINOPHEN 325 MG TABLET (FP) PO PRN (11:32)
[2024-08-29] MEDS: CEFTRIAXONE 1 GM in DEXTROSE 5%-WATER - 50 ML IVPB SCH (15:31)
[2024-08-29] MEDS: MONTELUKAST NA 10 MG TABLET PO SCH (21:37)
[2024-08-29] MEDS: levETIRAcetam 500 MG TABLET (FP) PO SCH (21:38)
[2024-08-29] MEDS: DIVALPROEX NA *ER* EXTEND REL 500 MG TABLET.SA (FP) PO SCH (21:39)
[2024-08-30 07:33] LABS: HEMATOCRIT 42.8 % (35.4-49); HEMOGLOBIN 14.5 GM/dL (11.7-16.9); MCH 31.7 pg (25.7-33.7); MCHC 33.9 g/dl (32.0-35.9); MEAN CELL VOLUME 93.7 fl (80-96); MEAN PLT VOLUME 10.1 fl (7.5-11.1); PLATELET COUNT 209 10^3/uL (134-434); RBC 4.57 M/mm3 (4.00-5.60); RDW 14.3 % (11.9-15.9); WHITE BLOOD COUNT 9.9 K/mm3 (4.0-10.0)
[2024-08-30 07:45] LABS: POTASSIUM 3.3 mmol/L (3.5-5.1)
[2024-08-30 07:54] LABS: CALCIUM 8.4 mg/dL (8.5-10.1)
[2024-08-30 07:55] LABS: ALBUMIN 3.2 g/dl (3.4-5.0); BLOOD UREA NITROGEN 10.4 mg/dL (7-18); MAGNESIUM 1.8 mg/dL (1.8-2.4)
[2024-08-30 07:58] LABS: CREATININE 0.8 mg/dL (0.55-1.3); PHOSPHOROUS 2.3 mg/dL (2.5-4.9)
[2024-08-30 07:59] LABS: BILIRUBIN,TOTAL 0.6 mg/dL (0.2-1); TOT PROT 6.5 g/dl (6.4-8.2)
[2024-08-30] MEDS ORDERED: FLU VACCINE (FLULAVAL) PF 45 MCG/0.5 ML SYRINGE 2024-2025 IM ONE (08:58)
[2024-08-30] MEDS: LISINOPRIL 20 MG TABLET PO SCH (10:34)
[2024-08-30] MEDS: POTASSIUM CHLORIDE TABS 20 MEQ TABLET.ER (FP) PO SCH (10:34)
[2024-08-30] MEDS ORDERED: ALBUTEROL SO4 2.5/IPRATROPIUM 0.5 INH SOL 3 ML VIAL.NEB. NEB PRN (16:02)
[2024-08-30] MEDS ORDERED: ONDANSETRON 4 MG/2 ML VIAL IVPUSH PRN (16:02)
[2024-08-30] MEDS: BUPRENORPHINE/NALOXONE 8 MG/2 MG FILM PACKET SL SCH (18:08)
[2024-08-30] MEDS: NAPH,MB-DB/K PH,MBDB POWDER PACKET PO ONE (18:08)
[2024-08-30] MEDS: PHENobarbital 30 MG TABLET PO SCH (21:32)
[2024-08-30] MEDS: levETIRAcetam 500 MG TABLET (FP) PO SCH (21:32)
[2024-08-30] MEDS: HEPARIN NA (PORCINE) 5,000 UNITS/ML 1ML VIAL SQ SCH (21:32)
[2024-08-30] MEDS: DIVALPROEX NA *ER* EXTEND REL 500 MG TABLET.SA (FP) PO SCH (21:32)
[2024-08-30] MEDS ORDERED: MUPIROCIN 2% TOPICAL OINTMENT FOR DECOLONIZATION NS SCH (22:00)
[2024-08-30] MEDS ORDERED: CHLORHEXIDINE GLUCONATE 4% CLEANSER FOR DECOLONIZATION TP SCH (22:00)
[2024-08-31] MEDS: FOLIC ACID 1 MG TABLET (FP) PO SCH (09:28)
[2024-08-31] MEDS: PANTOPRAZOLE SODIUM 40 MG VIAL IVPUSH SCH (09:29)
[2024-08-31 09:45] VITALS: RESP 18
[2024-08-31 09:57] LABS: POTASSIUM 3.8 mmol/L (3.5-5.1)
[2024-08-31 10:34] LABS: ALBUMIN 3.1 g/dl (3.4-5.0); BLOOD UREA NITROGEN 12.9 mg/dL (7-18); CALCIUM 8.9 mg/dL (8.5-10.1); MAGNESIUM 2.1 mg/dL (1.8-2.4)
[2024-08-31 10:36] LABS: BILIRUBIN,TOTAL 0.3 mg/dL (0.2-1); TOT PROT 6.2 g/dl (6.4-8.2)
[2024-08-31 10:38] LABS: PHOSPHOROUS 3.2 mg/dL (2.5-4.9)
[2024-08-31] MEDS: VANCOMYCIN/WATER FOR INJ (PEG) 1,000 MG/200 ML BAG IVPB ONE (12:40)
[2024-08-31] MEDS: POTASSIUM PHOSPHATE 30 MM in SODIUM CHLORIDE 500 ML IVPB ONE (14:19)
[2024-09-01 07:35] LABS: HEMOGLOBIN 13.3 GM/dL (11.7-16.9); MCH 31.4 pg (25.7-33.7); MCHC 33.3 g/dl (32.0-35.9); MEAN CELL VOLUME 94.5 fl (80-96); MEAN PLT VOLUME 10.6 fl (7.5-11.1); PLATELET COUNT 198 10^3/uL (134-434); RBC 4.23 M/mm3 (4.00-5.60); RDW 14.4 % (11.9-15.9)
[2024-09-01 08:20] LABS: POTASSIUM 4.4 mmol/L (3.5-5.1)
[2024-09-01 08:36] LABS: BLOOD UREA NITROGEN 16.1 mg/dL (7-18)
[2024-09-01 08:37] LABS: ALBUMIN 2.7 g/dl (3.4-5.0)
[2024-09-01 08:38] LABS: BILIRUBIN,TOTAL 0.2 mg/dL (0.2-1); TOT PROT 5.6 g/dl (6.4-8.2)
[2024-09-01 08:39] LABS: CALCIUM 8.4 mg/dL (8.5-10.1)
[2024-09-01] MEDS: LISINOPRIL 10 MG TABLET PO SCH (11:48)
[2024-09-01 14:49] VITALS: BP 92/69; PULSE 70; TEMP 97.5
== END 2024-09-01 13:39 | disposition home or self-care (01) | DRG 53 ==
LOC: JER 22:14 → JERBED 08-28 02:04 → JICU 08-28 02:30 → J4W 08-30 10:10
PROVIDERS: ADMIT Internal Medicine Pulmonary Disease; ATTEND Internal Medicine
PROC: 4A10X4Z Monitoring of Central Nervous Electrical Activity, External Approach (ICD-10-PCS; principal; 2024-08-30)
DX: G40.909 Epilepsy, unspecified, not intractable, without status epilepticus (principal); J69.0 Pneumonitis due to inhalation of food and vomit; E70.30 Albinism, unspecified; E70.331 Hermansky-Pudlak syndrome; I12.9 Hypertensive chronic kidney disease with stage 1 through stage 4 chronic kidney disease, or unspecified chronic kidney disease; N18.30 Chronic kidney disease, stage 3 unspecified; E11.22 Type 2 diabetes mellitus with diabetic chronic kidney disease; E83.39 Other disorders of phosphorus metabolism; E87.6 Hypokalemia; F10.239 Alcohol dependence with withdrawal, unspecified; F11.23 Opioid dependence with withdrawal; F13.239 Sedative, hypnotic or anxiolytic dependence with withdrawal, unspecified; J45.909 Unspecified asthma, uncomplicated; K40.90 Unilateral inguinal hernia, without obstruction or gangrene, not specified as recurrent; R41.82 Altered mental status, unspecified; R00.1 Bradycardia, unspecified; H54.40 Blindness, one eye, unspecified eye
CPT/HCPCS: 36415; 70450-TC; 71045-TC-FY; 72125-TC; 80048; 80053; 80164; 80177; 80184; 80307; 81003; 82962; 83036; 83735; 84100; 84443; 84484; 85025; 85027; 85610; 87040; 87899; 93005; 93010; 95816; 97116-GP; 97162-GP; 99291; J1644